=== PATIENT | female | born 1960 | race Caucasian/White ===

== ENCOUNTER → 2017-10-15 17:12 | Outpatient (CLI) | payer OTHER, SELFPAY ==
--- NOTE | 2017-10-15 17:12 | RAD_ITS ---
STUDY: X-RAY CHEST REASON FOR EXAM: Female, 57 years old. Chest pain and cough, fever TECHNIQUE: PA and lateral views of the chest. COMPARISON: 2011 FINDINGS: The lungs are clear and expanded. There is no demonstrated pleural abnormality. Normal size heart. Normal mediastinum and cecily. Normal visualized pulmonary arteries. Normal visualized aortic arch and descending thoracic aorta. Normal visualized thoracic spine. Normal visualized ribs, clavicles, and shoulders. There is no demonstrated abnormality of the visualized soft tissue structures of the upper abdomen. RAD/Chest PA and Lateral IMPRESSION: Normal x-ray examination of the chest. Electronically Signed: Jose Maria MD at 14:14 EDT , Service support ,
--- NOTE | 2017-10-15 17:12 | DT_ITS ---
This patient was seen during an EMR downtime October 14, 2017 - October 21, 2017. This patient may have a combination of paper and electronic documentation or all paper documentation. All documentation is viewable within the e-chart portion of [facility] for each patient visit.
== END ==
PROVIDERS: Family Provider Family Medicine; PCP Family Medicine; Visit Provider Family Medicine
DX: J40 Bronchitis, not specified as acute or chronic (principal)
CPT/HCPCS: 71046

== ENCOUNTER → 2018-04-14 14:42 | Outpatient (CLI) | payer OTHER, SELFPAY ==
[2018-04-14 16:04] LABS: Absolute Lymphocyte Count 1.43 X10^3/ul (0.83-4.51); Absolute Neutrophil Count 3.3 X10^3/uL (2.0-7.7); Basophil# 0.03 X10^3/uL; Basophil% 0.6 % (0-1); Eosinophil# 0.19 X10^3/uL; Eosinophils% 3.5 % (0-5); Hematocrit 38.4 % (37-47); Hemoglobin 12.9 g/dl (12.0-15.0); Lymphocyte # 1.43 X10^3/ul (4.0); Lymphocyte % 26.5 % (19-41); Mean Corp Hgb Conc 33.6 g/gl (32-36); Mean Corpuscular Volume 86.3 fL (81-99); Mean Platelet Vol. 9.9 fl (6.2-12.0); Monocyte# 0.42 X10^3/uL; Monocyte% 7.8 % (0-10); Neutrophil # 3.31 X10^3/uL (2.7-7.7); Neutrophil % 61.2 % (47-70); Platelet Count 274 K/mm3 (150-450); RBC Distribution Width CV 13.9 % (11.6-14.6); RBC Distribution Width SD 42.8 fl (35.1-43.9); Red Blood Count 4.45 M/mm3 (4.2-5.4); White Blood Count 5.4 K/mm3 (4.4-11.0)
[2018-04-14 16:08] LABS: POSITIVE COUNT NO; POSITIVE DIFFERENTIAL NO; POSITIVE MORPHOLOGY NO
[2018-04-14 16:33] LABS: Vitamin D,25 Hydroxy 24.7 ng/mL (29.95-100.01)
[2018-04-14 16:34] LABS: Anion Gap 9 (5-15); BUN 15 mg/dL (7-18); BUN/Creat Ratio 20.4 RATIO (10-20); Calcium,Total 8.8 mg/dL (8.5-10.1); Chloride 105 mmol/L (98-107); Cholesterol 203 mg/dL (200); Creatinine, Serum 0.73 mg/dL (0.55-1.02); EST Glomerular Filtration Rate 86 mL/min (>60); Est Glom Filt Rate - Afr Amer 104 mL/min (>60); Glucose 92 mg/dL (74-106); High Density Lipoprotein 54 mg/dL; Sodium Level 143 mmol/L (136-145); Thyroid Stim Hormone (TSH) 2.62 uIU/mL (0.358-3.74); Triglycerides 92 mg/dL; Very Low Density Lipoprotein 18 mg/dL (5-40)
== END ==
PROVIDERS: Family Provider Family Medicine; PCP Family Medicine; Visit Provider Family Medicine
DX: E55.9 Vitamin D deficiency, unspecified (principal); N64.4 Mastodynia; Z13.29 Encounter for screening for other suspected endocrine disorder; Z13.220 Encounter for screening for lipoid disorders
CPT/HCPCS: 36415; 80048; 80061; 82306; 84443; 85025

== ENCOUNTER → 2018-04-17 13:54 | Outpatient (CLI) | payer OTHER, SELFPAY ==
--- NOTE | 2018-04-17 14:06 | BI_ITS ---
MAMMOGRAPHY - BILATERAL DIAGNOSTIC REASON FOR EXAM: Female, 58 years old. Bilateral breast pain. PERTINENT HISTORY: Grandmother with breast cancer. On with breast cancer. TECHNIQUE: Digital bilateral breast jadyn (3D mammographic acquisition) in the CC and MLO projections. 2-D mediolateral oblique (MLO) and craniocaudad (CC) views of both breasts were obtained. CAD: Full Field Digital Mammography with Computer Added Detection was performed. COMPARISON: Comparison is made with prior examination dated April 12, 2017. FINDINGS: Breast Composition: There are scattered areas of fibroglandular density. There are no dominant masses or suspicious calcifications. No other significant abnormalities are identified. There has been no significant change since the prior study. BI/DIAG MAMM W/CAD, BILAT IMPRESSION: Stable bilateral diagnostic mammogram. One year follow-up recommended. (A) ASSESSMENT CATEGORY: BIRADS Category 1: Negative. A letter regarding these results will be sent to the patient by the facility within 30 days. Approximately 10% of breast cancers are not detected by mammography. A normal mammogram should not delay biopsy of a clinically suspicious abnormality. Electronically Signed: Bello Villegas MD at 15:39 EST Tel [phone], Service support ,
--- NOTE | 2018-04-17 15:01 | US_ITS ---
STUDY: ULTRASOUND BREAST - RIGHT REASON FOR EXAM: Female, 58 years old. Palpable lump in the right breast. TECHNIQUE: Axial and longitudinal images of the RIGHT breast were performed with a high resolution ultrasound transducer. COMPARISON: Comparison is made with prior mammogram dated April 17, 2018. FINDINGS: RIGHT Breast: The inferior half of the right breast was examined by ultrasound. There is a homogeneous fibroglandular tissue. No solid or cystic mass lesion is seen. IMPRESSION: Unremarkable sonographic examination. ASSESSMENT CATEGORY: BIRADS Category 1: Negative. A letter regarding these results will be sent to the patient by the facility within 30 days. Electronically Signed: Bello Villegas MD at 9:10 EST Tel [phone], Service support , STUDY: ULTRASOUND BREAST - LEFT REASON FOR EXAM: Female, 58 years old. Pain in the left breast. TECHNIQUE: Axial and longitudinal images of the LEFT breast were performed with a high resolution ultrasound transducer. COMPARISON: Comparison is made with prior mammogram dated April 17, 2018. FINDINGS: LEFT Breast: The inferior half of the left breast was examined by ultrasound. There is homogeneous fibroglandular tissue. No solid or cystic mass lesion is seen. US/Breast Limited Unilateral IMPRESSION: Unremarkable sonographic examination. ASSESSMENT CATEGORY: BIRADS Category 1: Negative. A letter regarding these results will be sent to the patient by the facility within 30 days. Electronically Signed: Bello Villegas MD at 9:11 EST Tel [phone], Service support ,
== END ==
PROVIDERS: Family Provider Family Medicine; PCP Family Medicine; Referring Provider Family Medicine; Visit Provider Family Medicine
DX: N64.4 Mastodynia (principal)
CPT/HCPCS: 76642; 77062; 77066; G0279

== ENCOUNTER → 2019-01-19 | Outpatient (CLI) | payer OTHER, SELFPAY ==
[2019-01-19 15:30] LABS: ALB/GLOB Ratio 0.9 RATIO (0.9-2.4); AST(SGOT) 22 U/L (15-37); Alanine Aminotransfer ALT/SGPT 24 U/L (13-56); Albumin, Serum 3.5 g/dL (3.2-5.0); Alkaline Phosphatase 87 U/L (45-117); Anion Gap 7 (5-15); BUN 14 mg/dL (7-18); Calcium,Total 9.1 mg/dL (8.5-10.1); Chloride 107 mmol/L (98-107); Cholesterol 191 mg/dL (200); EST Glomerular Filtration Rate 91 mL/min (>60); Est Glom Filt Rate - Afr Amer 110 mL/min (>60); Globulin 3.8 g/dL (2.2-4.2); Glucose 93 mg/dL (74-106); High Density Lipoprotein 53 mg/dL; Potassium 4.1 mmol/L (3.5-5.1); Protein, Total 7.3 g/dL (6.4-8.2); Sodium Level 143 mmol/L (136-145); Triglycerides 97 mg/dL; Very Low Density Lipoprotein 19 mg/dL (5-40)
== END | disposition home or self-care (01) ==
LOC: MFPLAB 12:13
PROVIDERS: Family Provider Family Medicine; PCP Family Medicine; Referring Provider Family Medicine; Visit Provider Family Medicine
DX: K59.00 Constipation, unspecified (principal); E55.9 Vitamin D deficiency, unspecified; Z13.220 Encounter for screening for lipoid disorders
CPT/HCPCS: 36415; 80053; 80061; 82306

== ENCOUNTER → 2019-12-15 | Outpatient (CLI) | payer OTHER, SELFPAY ==
[2019-12-19 17:32] LABS: HPV APTIMA, High Risk Negative (Negative); HPV Reflexed? YES, CHARGE PATIENT
== END | disposition home or self-care (01) ==
LOC: LABSPEC 11:37
PROVIDERS: PCP Family Medicine; Visit Provider Student in an Organized Health Care Education/Training Program
DX: Z12.4 Encounter for screening for malignant neoplasm of cervix (principal)
CPT/HCPCS: 87624; 88175; G0145

== ENCOUNTER → 2019-12-24 | Outpatient (CLI) | payer OTHER, SELFPAY ==
--- NOTE | 2019-12-24 14:22 | BI_ITS ---
MAMMOGRAPHY - BILATERAL SCREENING REASON FOR EXAM: Female, 59 years old. Routine annual screening examination. PERTINENT HISTORY: Grandmother with breast cancer. Aunt with breast cancer. Remote right excisional breast biopsy. TECHNIQUE: Digital bilateral breast balbina (3D mammographic acquisition) in the CC and MLO projections. 2-D mediolateral oblique (MLO) and craniocaudad (CC) views of both breasts were obtained. CAD: Full Field Digital Mammography with Computer Added Detection was performed. COMPARISON: Comparison is made with prior study dated 04/17/2018. FINDINGS: Breast Composition: There are scattered areas of fibroglandular density. There are no dominant masses or suspicious calcifications. Stable benign-appearing bilateral axillary lymph nodes. No other significant abnormalities are identified. There has been no significant change since the prior study. BI/SCREEN MAMM (CAD) W/BALBINA BILAT IMPRESSION: Stable bilateral screening mammogram. Yearly follow-up mammogram recommended. (A) ASSESSMENT CATEGORY: BIRADS Category 2: Benign. A letter regarding these results will be sent to the patient by the facility within 30 days. Approximately 10% of breast cancers are not detected by mammography. A normal mammogram should not delay biopsy of a clinically suspicious abnormality. [id number] Electronically Signed: Bello Villegas, at 15:27 EDT , Service support ,
== END | disposition home or self-care (01) ==
LOC: OPBI 14:20
PROVIDERS: PCP Family Medicine; Referring Provider Student in an Organized Health Care Education/Training Program; Visit Provider Student in an Organized Health Care Education/Training Program
DX: Z12.31 Encounter for screening mammogram for malignant neoplasm of breast (principal)
CPT/HCPCS: 77063; 77067

== ENCOUNTER → 2020-03-22 | Outpatient (CLI) | payer OTHER, SELFPAY | END | disposition home or self-care (01) | LOC: LABSPEC 17:02 | PROVIDERS: PCP Family Medicine; Referring Provider Family Medicine; Visit Provider Family Medicine | DX: R68.89 Other general symptoms and signs (principal) | CPT/HCPCS: 87635; U0003 ==

== ENCOUNTER → 2020-03-28 13:39 | Outpatient (CLI) | payer OTHER, SELFPAY ==
[2020-03-28 16:06] LABS: Vitamin D,25 Hydroxy 45.9 ng/mL
[2020-03-28 16:13] LABS: Anion Gap 6 (5-15); BUN 31 mg/dL (7-18); BUN/Creat Ratio 43.7 RATIO (10-20); Calcium,Total 8.9 mg/dL (8.5-10.1); Chloride 106 mmol/L (98-107); Cholesterol 222 mg/dL (200); Creatinine, Serum 0.71 mg/dL (0.55-1.02); EST Glomerular Filtration Rate 89 mL/min (>60); Est Glom Filt Rate - Afr Amer 107 mL/min (>60); Glucose 90 mg/dL (74-106); High Density Lipoprotein 66 mg/dL; Potassium 4.4 mmol/L (3.5-5.1); Sodium Level 140 mmol/L (136-145); Triglycerides 67 mg/dL; Very Low Density Lipoprotein 13 mg/dL (5-40)
== END ==
PROVIDERS: PCP Family Medicine; Visit Provider Family Medicine
DX: Z00.00 Encounter for general adult medical examination without abnormal findings (principal); E55.9 Vitamin D deficiency, unspecified; Z13.220 Encounter for screening for lipoid disorders
CPT/HCPCS: 36415; 80048; 80061; 82306

== ENCOUNTER → 2021-04-17 15:13 | Outpatient (CLI) | payer OTHER, SELFPAY ==
[2021-04-17 18:22] LABS: Anion Gap 7 (5-15); BUN 16 mg/dL (7-18); BUN/Creat Ratio 23.7 RATIO (10-20); Calcium,Total 9.5 mg/dL (8.5-10.1); Chloride 104 mmol/L (98-107); Cholesterol 233 mg/dL (200); Creatinine, Serum 0.68 mg/dL (0.55-1.02); EST Glomerular Filtration Rate 94 mL/min (>60); Est Glom Filt Rate - Afr Amer 113 mL/min (>60); Glucose 95 mg/dL (74-106); High Density Lipoprotein 62 mg/dL; Potassium 4.3 mmol/L (3.5-5.1); Sodium Level 141 mmol/L (136-145); Triglycerides 131 mg/dL; Very Low Density Lipoprotein 26 mg/dL (5-40)
== END ==
PROVIDERS: PCP Family Medicine; Referring Provider Family Medicine; Visit Provider Family Medicine
DX: E55.9 Vitamin D deficiency, unspecified (principal); Z13.1 Encounter for screening for diabetes mellitus; Z13.220 Encounter for screening for lipoid disorders
CPT/HCPCS: 36415; 80048; 80061; 82306

== ENCOUNTER 2021-06-22 12:10 | Outpatient (CLI) | payer OTHER, SELFPAY ==
--- NOTE | 2021-06-22 12:14 | BI_ITS ---
MAMMOGRAPHY - BILATERAL SCREENING REASON FOR EXAM: Female, 61 years old. Routine annual screening examination. PERTINENT HISTORY: Grandmother with breast cancer. Aunt with breast cancer. Remote right excisional breast biopsy. TECHNIQUE: Digital bilateral breast balbina (3D mammographic acquisition) in the CC and MLO projections. 2-D mediolateral oblique (MLO) and craniocaudad (CC) views of both breasts were obtained. CAD: Full Field Digital Mammography with Computer Added Detection was performed. COMPARISON: Comparison is made with prior study dated 12/24/2019 and 04/17/2018. FINDINGS: Breast Composition: There are scattered areas of fibroglandular density. There are no dominant masses or suspicious calcifications. No other significant abnormalities are identified. There has been no significant change since the prior study. BI/SCRN MAMM (CAD)W/BALBINA BILAT IMPRESSION: Stable bilateral screening mammogram. Yearly follow-up mammogram recommended. (A) ASSESSMENT CATEGORY: BIRADS Category 1: Negative. A letter regarding these results will be sent to the patient by the facility within 30 days. Approximately 10% of breast cancers are not detected by mammography. A normal mammogram should not delay biopsy of a clinically suspicious abnormality. [id number] Electronically Signed: Bello Villegas MD at 8:08 EST ,
== END 2021-06-22 23:59 | disposition home or self-care (01) ==
LOC: OPBI 12:12
PROVIDERS: PCP Family Medicine; Referring Provider Student in an Organized Health Care Education/Training Program; Visit Provider Student in an Organized Health Care Education/Training Program
DX: Z12.31 Encounter for screening mammogram for malignant neoplasm of breast (principal)
CPT/HCPCS: 77063; 77067

== ENCOUNTER → 2022-06-04 | Outpatient (CLI) | payer OTHER, SELFPAY ==
[2022-06-04 18:05] LABS: Anion Gap 10 (5-15); BUN 22 mg/dL (7-18); BUN/Creat Ratio 28.8 RATIO (10-20); Calcium,Total 9.8 mg/dL (8.5-10.1); Chloride 103 mmol/L (98-107); Cholesterol 243 mg/dL (200); Creatinine, Serum 0.76 mg/dL (0.55-1.02); EST Glomerular Filtration Rate 81 mL/min (>60); Est Glom Filt Rate - Afr Amer 98 mL/min (>60); Glucose 95 mg/dL (74-106); High Density Lipoprotein 70 mg/dL; Potassium 4.4 mmol/L (3.5-5.1); Sodium Level 139 mmol/L (136-145); Triglycerides 76 mg/dL; Very Low Density Lipoprotein 15 mg/dL (5-40)
[2022-06-04 18:18] LABS: Vitamin D,25 Hydroxy 67.6 ng/mL
== END | disposition home or self-care (01) ==
LOC: MFPLAB 15:17
PROVIDERS: PCP Family Medicine; Visit Provider Family Medicine
DX: Z13.1 Encounter for screening for diabetes mellitus (principal); Z13.220 Encounter for screening for lipoid disorders; E55.9 Vitamin D deficiency, unspecified
CPT/HCPCS: 36415; 80048; 80061; 82306

== ENCOUNTER → 2022-06-27 | Outpatient (CLI) | payer OTHER, SELFPAY ==
[2022-07-04 20:29] LABS: HPV APTIMA, High Risk Negative (Negative)
== END | disposition home or self-care (01) ==
PROVIDERS: PCP Family Medicine; Visit Provider Student in an Organized Health Care Education/Training Program
DX: Z12.4 Encounter for screening for malignant neoplasm of cervix (principal)
CPT/HCPCS: 87624; 88175; G0145

== ENCOUNTER → 2022-07-02 | Outpatient (CLI) | payer OTHER, SELFPAY ==
--- NOTE | 2022-07-02 15:08 | BI_ITS ---
MAMMOGRAPHY - BILATERAL SCREENING REASON FOR EXAM: Female, 62 years old. Routine annual screening examination. PERTINENT HISTORY: Grandmother with breast cancer. Aunt with breast cancer. Remote right excisional breast biopsy. TECHNIQUE: Digital bilateral breast balbina (3D mammographic acquisition) in the CC and MLO projections. 2-D mediolateral oblique (MLO) and craniocaudad (CC) views of both breasts were obtained. CAD: Full Field Digital Mammography with Computer Added Detection was performed. COMPARISON: Comparison is made with prior study of 06/22/2021 and 12/24/2019. FINDINGS: Breast Composition: There are scattered areas of fibroglandular density. There are no dominant masses or suspicious calcifications. No other significant abnormalities are identified. There has been no significant change since the prior study. BI/SCRN MAMM (CAD)W/BALBINA BILAT IMPRESSION: Stable bilateral screening mammogram. Yearly follow-up mammogram recommended. (A) ASSESSMENT CATEGORY: BIRADS Category 1: Negative. A letter regarding these results will be sent to the patient by the facility within 30 days. Approximately 10% of breast cancers are not detected by mammography. A normal mammogram should not delay biopsy of a clinically suspicious abnormality. [id number] Electronically Signed: Bello Villegas MD at 15:48 EST ,
== END | disposition home or self-care (01) ==
LOC: OPBI 15:07
PROVIDERS: PCP Family Medicine; Visit Provider Student in an Organized Health Care Education/Training Program
DX: Z12.31 Encounter for screening mammogram for malignant neoplasm of breast (principal)
CPT/HCPCS: 77063; 77067

== ENCOUNTER → 2023-05-24 | Outpatient (CLI) | payer MEDICARE, OTHER, SELFPAY ==
--- OUTSIDE RECORDS SUMMARY | 2023-05-24 12:39 | XMS RPT_ITS | CCD ---
Author Name Unknown Address [address] [place] [address] Organization [facility] Care Team Providers Care [employer] Name Role Phone Tahmina Sargent MD Primary Care Provider TAHMINA SARGENT Primary Care Unavailable MURALI MENG Attending Unavailable TAHMINA SARGENT Primary Care Unavailable Medications Current Medications Medication Drug Class(es) Dates Sig (Normalized) Sig (Original) benoxinate hydrochloride 4 mg/ml / fluorescein sodium 2.5 mg/ml ophthalmic solution (1 source) Diagnostic Dye Start: 09-05-2021 End: 09-06-2021 fluorescein-benox inate 0.25-0.4 % 1 Drop (FLURESS) nystatin [id number] unt/ml topical cream (2 sources) Polyene Antifungal Start: 04-17-2023 End: 04-24-2023 nystatin (MYCOSTATIN) cream Apply to affected area two times a day for 7 days. 15 g 0 04/17/2023 04/24/2023 Active Completed/Discontinued Medications Medication Drug Class(es) Dates Sig (Normalized) Sig (Original) amitriptyline hydrochloride 150 mg oral tablet (3 sources) Tricyclic Antidepressant Start: 03-22-2009 AMITRIPTYLINE 150 MG TAB Take two 75mg tablets at bedtime. 0 03/22/2009 Active Problems Active Problems Problem Classification Problem Date Documented Da te Episodic/Chronic Abdominal pain (3 sources) Abdominal pain; Translations: [Unspecified abdominal pain] 03-19-2008 Episodic Bacterial infection; unspecified site (3 sources) Bacteremia; Translations: [Bacteremia] 03-19-2008 Episodic Disorders of lipid metabolism (3 sources) Pure hypercholesterolemia; Translations: [Pure hypercholesterolemia, unspecified] 03-19-2008 Chronic Headache; including migraine (3 sources) Migraine; Translations: [Other migraine, not intractable, without status migrainosus] 03-19-2008 Chronic Miscellaneous mental health disorders (3 sources) Non-organic sleep disorder; Translations: [Sleep disorder not due to a substance or known physiological condition, unspecified] 03-19-2008 Chronic Mood disorders (3 sources) Depressive disorder; Translations: [Other specified depressive episodes] 03-19-2008 Chronic Other circulatory disease (1 source) Elevated blood-pressure reading without diagnosis of hypertension; Translations: [Elevated blood-pressure reading, without diagnosis of hypertension] 04-17-2023 Episodic Other connective tissue disease (3 sources) Muscle pain; Translations: [Myalgia and myositis, unspecified] 03-19-2008 Episodic Other eye disorders (1 source) Vitreomacular adhesion of bilateral eyes; 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, bilateral] Chronic Other female genital disorders (1 source) Pruritus of vagina; Translations: [Other specified noninflammatory disorders of vagina] 04-17-2023 Episodic Other gastrointestinal disorders (3 sources) Irritable bowel syndrome; Translations: [Irritable bowel syndrome without diarrhea] 03-19-2008 Chronic Other inflammatory condition of skin (3 sources) Rosacea; Translations: [Rosacea, unspecified] Onset: 01-23-2005 01-23-2005 Chronic Other inflammatory condition of skin (3 sources) Pruritus of genital organs; Translations: [Anogenital pruritus, unspecified] 03-19-2008 Episodic Systemic lupus erythematosus and connective tissue disorders (3 sources) Disorder of connective tissue; Translations: [Systemic involvement of connective tissue, unspecified] Onset: 01-23-2005 01-23-2005 Chronic Past or Other Problems Problem Classification Problem Date Documented Da te Episodic/Chronic Benign neoplasm of uterus (3 sources) Submucous leiomyoma of uterus; Translations: [Submucous leiomyoma of uterus] Onset: 11-23-2014 11-23-2014 Episodic Nonmalignant breast conditions (3 sources) Breast lump; Translations: [Unspecified lump in unspecified breast] Onset: 04-25-2010 04-25-2010 Episodic Other and unspecified benign neoplasm (3 sources) Benign neoplasm of skin; Translations: [Other benign neoplasm of skin, unspecified] Onset: 01-23-2005 01-23-2005 Episodic Other female genital disorders (1 source) Polyp of corpus uteri; Translations: [Polyp of corpus uteri] Onset: 11-23-2014 11-23-2014 Episodic Other female genital disorders (2 sources) Polyp of corpus uteri; Translations: [Polyp of corpus uteri] Onset: 11-23-2014 11-23-2014 Episodic Other inflammatory condition of skin (3 sources) Seborrheic dermatitis; Translations: [Other seborrheic dermatitis] Onset: 01-23-2005 01-23-2005 Episodic Residual codes; unclassified (3 sources) Family history of cancer; Translations: [Family history of malignant neoplasm of other organs or systems] Onset: 01-23-2005 01-23-2005 Episodic Results Test Name Value Interpretation Reference Range Facil ity Vital Signs Date Time Vital Sign Value Performing Clinician Jeremy lity 04-17-2023 16:35-0500 Body temperature 98.01 [degF] Krislyreggie Aberegg PA Work Phone: [facility] 04-17-2023 16:35-0500 Body weight 83.28 kg Krislyn Aberegg PA Work Phone: [facility] 04-17-2023 16:35-0500 Diastolic blood pressure 104 mm[Hg] Krislyn Aberegg PA Work Phone: [facility] 04-17-2023 16:35-0500 Heart rate 82 /min Krislyn Aberegg PA Work Phone: [facility] 04-17-2023 16:35-0500 Respiratory rate 18 /min Krislyn Aberegg PA Work Phone: [facility] 04-17-2023 16:35-0500 SaO2% (BldA) [Mass fraction] 98 % Krislyn Aberegg PA Work Phone: [facility] 04-17-2023 16:35-0500 Systolic blood pressure 166 mm[Hg] Krislyn Aberegg PA Work Phone: [facility] Encounters Encounter Date Encounter Type Care Provider Facility Start: 04-18-2023 Telephone encounter Bruno Zacarias PA Work Phone: [facility] Procedures Date Procedure Procedure Detail Performing Clinician Start: 09-05-2021 Computerized ophthal tabitha imaging retina Murali Meng MD Work Phone: Start: 04-12-2017 Mammography Murali perkins MD Work Phone: Start: 08-02-2014 Colonoscopy Murali perkins MD Work Phone: Start: 12-31-2012 Lipid 1996 panel - S shiv or Plasma Bruno ROCHE Work Phone: Plan of Treatment Date Care Activity Detail Author Start: 04-17-2031 Urine microalbumin profile DTaP,Tdap,Td Vaccine (2 - Td or Tdap) [facility] Start: 08-02-2024 Colonoscopy COLONOSCOPY [facility] Start: 08-02-2024 COLORECTAL CANCER SCREENING COLORECTAL CANCER SCREENING [facility] Start: 05-22-2023 Shingrix Vaccine (2 of 2) Shingrix Vaccine (2 of 2) [facility] Start: 01-11-2023 Covid-19 Vaccine ( season) Covid-19 Vaccine ( season) [facility] Start: 01-11-2023 Influenza vaccination Influenza Vaccine (#1) [facility] Start: 2023 Advance Directive Discussion Advance Directive Discussion [facility] Start: 2023 Bone Density Screening Bone Density Screening [facility] Start: 2023 Pneumococcal Vaccine: 65+ (2 - PCV) Pneumococcal Vaccine: 65+ (2 - PCV) [facility] Start: 04-12-2022 HPV TESTING HPV TESTING [facility] Start: 04-12-2022 PAP TESTING PAP TESTING [facility] Start: 04-12-2018 Mammography [facility] Start: 2018 RSV Vaccine (1 - 1-dose 60+ series) RSV Vaccine (1 - 1-dose 60+ series) [facility] Start: 12-31-2017 Lipid 1996 panel - Serum or Plasma Lipid Screening [facility] Start: 12-31-2017 LIPID SCREEN LIPID SCREEN [facility] Start: 01-01-2016 DIABETES SCREEN DIABETES SCREEN [facility] Start: 01-01-2016 Diabetes Screening Diabetes Screening [facility] Start: 07-21-2015 FECAL OCCULT BLOOD FECAL OCCULT BLOOD [facility] Start: 01-04-2008 SHINGRIX VACCINE (1 of 2) SHINGRIX VACCINE (1 of 2) [facility] Start: 2003 COLOGUARD (FIT-DNA) COLOGUARD (FIT-DNA) [facility] Start: [address] COLONOGRAPHY [facility] Start: 2003 SIGMOIDOSCOPY SIGMOIDOSCOPY [facility] Start: 1977 Urine microalbumin profile DTAP,TDAP,TD (1 - Tdap) [facility] Start: 01-04-1976 HEPATITIS C SCREENING HEPATITIS C SCREENING [facility] Start: 01-04-1976 HIV SCREENING HIV SCREENING [facility] BACTERIAL VAGINOSIS NAAT BACTERI AL VAGINOSIS NAAT Lab Routine Vaginal itching 04/17/2023 7:24 PM EST [facility] Work Phone: WICHO/TRICHOMONAS NAAT WICHO /TRICHOMONAS NAAT Lab Routine Vaginal itching 04/17/2023 7:24 PM EST [facility] Work Phone: [facility] Immunizations Immunization Date Immunization Notes Care Provider Fa cili 01-28-2022 influenza virus vacc ine, unspecified formulation Bruno ROCHE Work Phone: [facility] Payers Date Payer Category Payer Medicare MEDICARE MEDICAR E A AND B [id number] 2022-Present [phone] [address] [address] [place] [address] Medicare [id number] 2022 Medicare [id number] 2018 Unknown MMO MMO [employer] [id number] 2018-Present [phone] [address] [place] [address] PPO [id number] 2018 Unknown [id number] Social History Date Type Detail Facility Start: 04-17-2023 Tobacco smoking stat us NHIS Never smoked tobacco [facility] Start: 09-05-2021 End: 04-17-2023 Alcohol intake Current non-drinker of alcohol (finding) [facility] Start: 1960 Sex Assigned At Female C [facility] Start: 04-17-2023 Tobacco use and exposure Smokeless t obacco non-user [facility] Start: 04-16-2020 End: 04-17-2023 History of Social function [facility] Start: 04-16-2020 End: 04-17-2023 Tobacco use panel [facility] National Score (1-10 0), lower number is lower risk Not on file [facility] Start: 11-15-2020 Gender identity Identifies as female gender (finding) [facility] Medical Equipment Procedure Code Equipment Code Equipment Origin al Text Equipment Identifier Dates Gas [employer] [id number] - [id number] Start: 04-13-2020 Note 04-18-2023 Telephone Encounter - Iris Roland MA - 04/18/2023 1:15 PM ESTTelephone Encounter - Bruno Zacarias PA - 04/18/2023 11:35 AM EST Note Date & Type Note Facility 04-18-2023 Miscellaneous Notes Formattin g of this note might be different from the original. Patient notified of results, verbalized understanding of instructions given. Iris Roland MA Please call patient let her know she was negative for yeast and bacterial vaginosis. Follow-up with women's health as discussed at visit. documented in this encounter [facility] Progress note 04-17-2023 Note Date & Type Note Facility 04-17-2023 Note HNO ID: [id number] Author: Bruno Zacarias PA Service: ? Author Type: Physician Welder Setter Resistance Machine Type: Progress Notes Filed: 04/17/2023 5:00 PM Note Text: This note was created using NoteWriter. Subjective Shena Quiñones is a 63 year old female. HPI 83-year-old female presents for vaginal itching. Patient states she has had vaginal itching for the past few months. She states she thinks she scratched her today and she had some bleeding. She has not had vaginal bleeding before. She states that she thinks the bleeding was from the external vulva. She states that she has not had any abnormal discharge. No rash. States she was seen by dermatology a few months ago and given miconazole cream. She states she thought it got a little bit better, but then the itching returned. She has tried fnzy-zgf-upgyvct medications. She has changed soaps and nothing seems to be helping. No concern for STD. No abdominal pain, pelvic pain. No abnormal vaginal bleeding. No urinary symptoms. History of hysterectomy. PAST MEDICAL HISTORY Diagnosis Date Abdominal pain, other specified site Bacteremia Depressive disorder, not elsewhere classified Irritable bowel syndrome Myalgia and myositis, unspecified Nonorganic sleep disorder, unspecified Other forms of migraine, without mention of intractable migraine without mention of status migrainosus Pruritus of genital organs Pure hypercholesterolemia Snoring Unspecified constipation Vitreomacular adhesion of both eyes PAST SURGICAL HISTORY Procedure Laterality Date BREAST BIOPSY 1983 right breast- benign COLONOSCOPY FLX DX W/COLLJ SPEC WHEN PFRMD 06/15/2008 Colonoscopy COLONOSCOPY FLX DX W/COLLJ SPEC WHEN PFRMD 08/02/14 Colonoscopy HYSTEROSCOPY DX 10/28/2014 with removal of leiomyomata PAST SURGICAL HISTORY OF Left 04/13/2020 PPV TONSILLECTOMY PRIMARY/SECONDARY Tonsillectomy and adnoids VITRECTOMY FOR MACULAR HOLE Right 05/2018 VITRECTOMY FOR MACULAR HOLE Left 04/13/2020 s/p PPV/MS/22% SF6 gas OS 04/13/20 XCAPSL CTRC RMVL INSJ IO LENS PROSTH W/O ECP Right 11/05/2019 Cataract Extraction with PC IOL XCAPSL CTRC RMVL INSJ IO LENS PROSTH W/O ECP Left 11/17/2019 Cataract Extraction with PC IOL YAG CAPSULOTOMY OD (RIGHT EYE) Right 07/2020 YAG CAPSULOTOMY OS (LEFT EYE) Left 07/2020 ALLERGIES Patient has no known allergies. MEDICATIONS diclofenac sodium (VOLTAREN) 1 % topical gel glucosam/linda-msm1/C/shorty/bosw (OSTEO BI-FLEX TRIPLE STRENGTH ORAL) AMITRIPTYLINE 150 MG TAB Take two 75mg tablets at bedtime. MULTIVITAMIN TAB Take one(1) tablet daily. MIRALAX 17 G (100 %) ORAL PACK prn nystatin (MYCOSTATIN) cream Apply to affected area two times a day for 7 days. metroNIDAZOLE (METROGEL) 0.75 % Topical Gel (Patient not taking: Reported on 10/02/2022) FAMILY HISTORY Problem Relation Age of Onset None Mother None Father None Maternal Grandmother None Maternal Grandfather Breast Cancer Paternal Grandmother None Paternal Grandfather None Brother None Brother None Brother None Sister Breast Cancer Paternal Aunt Social History Tobacco Use Smoking status: Never Smokeless tobacco: Never Vaping Use Vaping Use: Never used Substance Use Topics Alcohol use: No Drug use: No Review of Systems Constitutional: Negative for chills and fever. HENT: Negative for congestion, ear pain and sore throat. Respiratory: Negative for cough and shortness of breath. Cardiovascular: Negative for chest pain. Gastrointestinal: Negative for diarrhea and vomiting. Genitourinary: Negative for pelvic pain, vaginal bleeding, vaginal discharge and vaginal pain. + Vaginal itching/irritation Objective BP 166/104 Pulse 82 Temp 36.7 ?C (98 ?F) Resp 18 Wt 83.3 kg (183 lb 9.6 oz) LMP 12/25/2008 SpO2 98% BMI 29.63 kg/m? Physical Exam Vitals and nursing note reviewed. Exam conducted with a food counselor present. Constitutional: General: She is not in acute distress. Appearance: Normal appearance. She is not toxic-appearing. Cardiovascular: Rate and Rhythm: Normal rate and regular rhythm. Pulmonary: Effort: Pulmonary effort is normal. Breath sounds: Normal breath sounds. Abdominal: General: Abdomen is flat. Palpations: Abdomen is soft. Tenderness: There is no abdominal tenderness. Genitourinary: Vagina: Erythema present. No vaginal discharge, bleeding or lesions. Uterus: Absent. Adnexa: Right adnexa normal and left adnexa normal. Comments: External vulva appears reddened, irritated. No rash. No lesions present. No vaginal bleeding. No abnormal discharge. Skin: General: Skin is warm and dry. Neurological: Mental Status: She is alert. Assessment and Plan ASSESSMENT/PLAN: 1. Vaginal itching - ICD9: 698.1, ICD10: N89.8 (primary diagnosis) -Discussed with patient that the itching could be from possible atrophic vaginitis? She does have redness, irritation and is postmenopausal. Discussed she ne (more content not included)... [facility] History of Present illness Narrative 04-17-2023 Bruno Zacarias PA - 04/17/2023 4:54 PM EST Note Date & Type Note Facility 04-17-2023 History of Presen t illness Narrative This note was created using [employer]. Subjective Shnea Quiñones is a 63 year old female. HPI 83-year-old female presents for vaginal itching. Patient states she has had vaginal itching for the past few months. She states she thinks she scratched her today and she had some bleeding. She has not had vaginal bleeding before. She states that she thinks the bleeding was from the external vulva. She states that she has not had any abnormal discharge. No rash. States she was seen by dermatology a few months ago and given miconazole cream. She states she thought it got a little bit better, but then the itching returned. She has tried bscc-opo-jhmclzk medications. She has changed soaps and nothing seems to be helping. No concern for STD. No abdominal pain, pelvic pain. No abnormal vaginal bleeding. No urinary symptoms. History of hysterectomy. PAST MEDICAL HISTORY Diagnosis Date Abdominal pain, other specified site Bacteremia Depressive disorder, not elsewhere classified Irritable bowel syndrome Myalgia and myositis, unspecified Nonorganic sleep disorder, unspecified Other forms of migraine, without mention of intractable migraine without mention of status migrainosus Pruritus of genital organs Pure hypercholesterolemia Snoring Unspecified constipation Vitreomacular adhesion of both eyes PAST SURGICAL HISTORY Procedure Laterality Date BREAST BIOPSY 1983 right breast- benign COLONOSCOPY FLX DX W/COLLJ SPEC WHEN PFRMD 06/15/2008 Colonoscopy COLONOSCOPY FLX DX W/COLLJ SPEC WHEN PFRMD 08/02/14 Colonoscopy HYSTEROSCOPY DX 10/28/2014 with removal of leiomyomata PAST SURGICAL HISTORY OF Left 04/13/2020 PPV TONSILLECTOMY PRIMARY/SECONDARY <AGE 10 Tonsillectomy and adnoids VITRECTOMY FOR MACULAR HOLE Right 05/2018 VITRECTOMY FOR MACULAR HOLE Left 04/13/2020 s/p PPV/MS/22% SF6 gas OS 04/13/20 XCAPSL CTRC RMVL INSJ IO LENS PROSTH W/O ECP Right 11/05/2019 Cataract Extraction with PC IOL XCAPSL CTRC RMVL INSJ IO LENS PROSTH W/O ECP Left 11/17/2019 Cataract Extraction with PC IOL YAG CAPSULOTOMY OD (RIGHT EYE) Right 07/2020 YAG CAPSULOTOMY OS (LEFT EYE) Left 07/2020 ALLERGIES Patient has no known allergies. MEDICATIONS diclofenac sodium (VOLTAREN) 1 % topical gel glucosam/linda-msm1/C/shorty/bosw (OSTEO BI-FLEX TRIPLE STRENGTH ORAL) AMITRIPTYLINE 150 MG TAB Take two 75mg tablets at bedtime. MULTIVITAMIN TAB Take one(1) tablet daily. MIRALAX 17 G (100 %) ORAL PACK prn nystatin (MYCOSTATIN) cream Apply to affected area two times a day for 7 days. metroNIDAZOLE (METROGEL) 0.75 % Topical Gel (Patient not taking: Reported on 10/02/2022) FAMILY HISTORY Problem Relation Age of Onset None Mother None Father None Maternal Grandmother None Maternal Grandfather Breast Cancer Paternal Grandmother None Paternal Grandfather None Brother None Brother None Brother None Sister Breast Cancer Paternal Aunt Social History Tobacco Use Smoking status: Never Smokeless tobacco: Never Vaping Use Vaping Use: Never used Substance Use Topics Alcohol use: No Drug use: No Review of Systems Constitutional: Negative for chills and fever. HENT: Negative for congestion, ear pain and sore throat. Respiratory: Negative for cough and shortness of breath. Cardiovascular: Negative for chest pain. Gastrointestinal: Negative for diarrhea and vomiting. Genitourinary: Negative for pelvic pain, vaginal bleeding, vaginal discharge and vaginal pain. + Vaginal itching/irritation Objective BP 166/104 Pulse 82 Temp 36.7 C (98 F) Resp 18 Wt 83.3 kg (183 lb 9.6 oz) LMP 12/25/2008 SpO2 98% BMI 29.63 kg/m Physical Exam Vitals and nursing note reviewed. Exam conducted with a food counselor present. Constitutional: General: She is not in acute distress. Appearance: Normal appearance. She is not toxic-appearing. Cardiovascular: Rate and Rhythm: Normal rate and regular rhythm. Pulmonary: Effort: Pulmonary effort is normal. Breath sounds: Normal breath sounds. Abdominal: General: Abdomen is flat. Palpations: Abdomen is soft. Tenderness: There is no abdominal tenderness. Genitourinary: Vagina: Erythema present. No vaginal discharge, bleeding or lesions. Uterus: Absent. Adnexa: Right adnexa normal and left adnexa normal. Comments: External vulva appears reddened, irritated. No rash. No lesions present. No vaginal bleeding. No abnormal discharge. Skin: General: Skin is warm and dry. Neurological: Mental Status: She is alert. Assessment and Plan ASSESSMENT/PLAN: 1. Vaginal itching - ICD9: 698.1, ICD10: N89.8 (primary diagnosis) -Discussed with patient that the itching could be from possible atrophic vaginitis? She does have redness, irritation and is postmenopausal. Discussed she needs to follow-up with gynecology for treatment for this. -IAlso could possibly be yeast? Will treat with nystatin cream externally since this is where her irritation and itching is present. Will await swab results. If yeast +, will treat with diflucan. - WICHO/TRICHOMONAS NAAT - BACTERIAL VAGINOSIS NAAT - CONSULT TO GYNECOLOGY 2. Elevated blood pressure reading without diagnosis of hypertension - ICD9: 796.2, ICD10: R03.0 -Advised patient to continue monitoring at home. States she is nervous today. Usually does not have high blood pressure. No symptoms at this time. - Encouraged dietary sodium restriction/DASH diet - Recommended regular aerobic exercise. - Recommend home blood pressure monitoring, to bring results in on next visit - Goal of BP <130/80 Diagnosis and treatment plan were discussed and questions were answered to the patient's satisfaction. Pt acknowledged understanding of concepts and follow up plan. Specific signs and symptoms that would indicate the need for higher level of care were discussed in detail warranting prompt ER evaluation. KALEY Chambers documented in this encounter [facility] Instructions 04-17-2023 Patient Instructions Note Date & Type Note Facility 04-17-2023 Instructions Bruno Zacarias PA - 04/17/2023 4:52 PM EST Follow up with Gynecology/womens health for nexta vailable appointment. documented in this encounter [facility] Progress note 10-02-2022 Note Date & Type Note Facility 10-02-2022 Note HNO ID: [id number] Author: Murali Meng MD Service: ? Author Type: Physician Type: Progress Notes Filed: 10/02/2022 11:53 AM Note Text: This is a 60 year old woman with history of macular hole right eye s/p Pars plana vitrectomy/gas 05/[address] Samuels at [facility] ([place], [place]) s/p Pars plana vitrectomy/MS/22% SF6 gas left eye (04/13/2020) for Stage 2 macular hole. Visual acuity is 20/30 RE 20/25 LE and IOP is 18/18. Anterior chamber demonstrates Posterior chamber intraocular lens, DFE shows flat retina with closed hole. OCT shows closed hole with resolution of Subretinal fluid and central EZ/IZ subfoveolar disruption. Would recommend observation at this point. I have confirmed and edited as necessary the relevant ophthalmic history, ROS, and the neuro exam findings as obtained by others. I have seen and examined this patient. I have discussed the case and the management of this patient's care with the Resident/Fellow, if applicable. I also have reviewed and agree with the assessment and plan as stated above and agree with all of its relevant components. [facility] History of Present illness Narrative 09-05-2021 Murali Meng MD - 09/05/2021 3:53 PM EDT Note Date & Type Note Facility 09-05-2021 History of Presen t illness Narrative This is a 60 year old woman with history of macular hole right eye s/p Pars plana vitrectomy/gas 05/[address] Samuels at [facility] ([place], [place]) s/p Pars plana vitrectomy/MS/22% SF6 gas left eye (04/13/2020) for Stage 2 macular hole. Visual acuity is 20/40+2 RE 20/30 LE and IOP is 14 / 123 Anterior chamber demonstrates Posterior chamber intraocular lens, DFE shows flat retina with closed hole. OCT shows closed hole with resolution of Subretinal fluid and central EZ/IZ subfoveolar disruption. Would recommend observation at this point. I have confirmed and edited as necessary the relevant ophthalmic history, ROS, and the neuro exam findings as obtained by others. I have seen and examined this patient. I have discussed the case and the management of this patient's care with the Resident/Fellow, if applicable. I also have reviewed and agree with the assessment and plan as stated above and agree with all of its relevant components. documented in this encounter [facility] Evaluation note Note Date & Type Note Facility documented in this encounter [facility] Evaluation note Note Date & Type Note Facility documented in this encounter [facility] Medications Administered Section Active Administered Medications - up to 3 most recent administrations Medication Order MAR Action Action Date Dose Rate Site fluorescein-benoxinate 0.25-0.4 % 1 Drop (FLURESS) 1 Drop, BOTH EYES, DIRECTED, Starting on Sat09/05/21 at 1400, Until Sat09/06/21 at 0159, Administer for applanation tonometry. In the event of a Fluress shortage, administer 1 drop of Payton-Fluor into both eyes as directed for applanation tonometry., [facility] MED ORD[facility] Given 09/05/2021 2:00 PM EDT 1 Drop PHENYLephrine 2.5 % 1 Drop (AK-DILATE, ELAIS-SYNEPHRINE) 1 Drop, BOTH EYES, DIRECTED, Starting on Sat09/05/21 at 1400, Until Sat09/06/21 at 0159, Administer for dilation PROTECT FROM LIGHT, [facility] MED ORDERS Given 09/05/2021 2:00 PM EDT 1 Drop tropicamide 1 % 1 Drop (MYDRIACYL) 1 Drop, BOTH EYES, DIRECTED, Starting on Sat09/05/21 at 1400, Until Sat09/06/21 at 0159, Administer for dilation, [facility] MED ORDERS Given 09/05/2021 2:00 PM EDT 1 Drop Advance Directives No Advanced Directives Records FoundDocuments on File Type Date Recorded Patient Post Splitter Expl anation Advance Directive(s) 04/11/2020 2:35 PM Reason for Referral Specialty Diagnoses / Procedures Referred By Contac t Referred To Contact Gynecology Diagnoses Vaginal itching Procedures CONSULT TO GYNECOLOGY OFFICE/OUTPATIENT NEW HIGH MDM 60-74 MINUTES [facility] [address] [place] [address] Referral ID Status Reason Start Date Expiration Date Visits Requested Visits Authorized [id number] Authorized PCP Requested Referral Auto-Generate d Referral 04/17/2023 04/16/2024 1 1 Summary Purpose Family History No Family History Records Found Additional Source Comments Source Comments (unrecognize d section and content) In the event this informatio n is protected by the Federal Confidentiality of Alcohol and Drug Abuse Patient Records regulations: The Federal rules restrict any use of the information to criminally investigate or prosecute any alcohol or drug abuse patient.[facility] the event this information is protected by the Federal Confidentiality of Alcohol and Drug Abuse Patient Records regulations: The Federal rules restrict any use of the information to criminally investigate or prosecute any alcohol or drug abuse patient.[facility] the event this information is protected by the Federal Confidentiality of Alcohol and Drug Abuse Patient Records regulations: The Federal rules restrict any use of the information to criminally investigate or prosecute any alcohol or drug abuse patient.[facility] Reason for Visit (unrecogniz ed section and content) Reason Comments Vaginal Problem Itching and bloody x 3 months intermittent Reason Comments Results Care Teams (unrecognized sec tion and content) [employer] Relationship Specialty Start Date End Date Tahmina Sargent MD [id number] [id number] PCP - General 07/01/03 [employer] Relationship Specialty Start Date End Date Tahmina Sargent MD [address] [phone] PCP - General 07/01/03 INFORMATION SOURCE (unrecogn ized section and content) FOR RECORDS PERTAINING TO PATIENTS WHO ARE OR HAVE BEEN ENROLLED IN A CHEMICAL DEPENDENCY/SUBSTANCEABUSE PROGRAM, SOME INFORMATION MAY BE OMITTED. This clinical summary was aggregated from multiple sources. Caution should be exercised in using it in the provision of clinical care. This summary normalizes information from multiple sources, and as a consequence, information in this document may materially change the coding, format and clinical context of patient data. In addition, data may be omitted in some cases. CLINICAL DECISIONS SHOULD BE BASED ON THE PRIMARY CLINICAL RECORDS. [facility] [employer], [facility]. provides no warranty or guarantee of the accuracy or completeness of information in this document.
[2023-05-24 15:35] LABS: Absolute Lymphocyte Count 1.13 X10^3/uL (0.83-4.51); Absolute Neutrophil Count 2.7 X10^3/uL (2.0-7.7); Basophil# 0.03 X10^3/uL; Basophil% 0.7 % (0-1); Eosinophil# 0.26 X10^3/uL; Eosinophils% 5.8 % (0-5); Hemoglobin 13.1 g/dL (12.0-15.0); Lymphocyte # 1.13 X10^3/ul (0.83-4.51); Lymphocyte % 25.1 % (19-41); Mean Corp Hgb Conc 32.8 g/dL (32-36); Mean Corpuscular Hgb 29.6 pg (27.0-32.0); Mean Corpuscular Volume 90.3 fL (81-99); Mean Platelet Vol. 9.7 fl (6.2-12.0); Monocyte# 0.41 X10^3/uL; Monocyte% 9.1 % (0-10); NRBC Flagged by Analyzer 0 % (0-5); Neutrophil # 2.67 X10^3/uL (2.7-7.7); Neutrophil % 59.1 % (47-70); Platelet Count 264 K/mm3 (150-450); RBC Distribution Width CV 13.7 % (11.6-14.6); RBC Distribution Width SD 45.3 fl (35.1-43.9); Red Blood Count 4.43 M/mm3 (4.2-5.4); White Blood Count 4.5 K/mm3 (4.4-11.0)
[2023-05-24 16:18] LABS: ALB/GLOB Ratio 0.9 RATIO (0.9-2.4); AST(SGOT) 28 U/L (15-37); Alanine Aminotransfer ALT/SGPT 31 U/L (13-56); Albumin, Serum 3.7 g/dL (3.2-5.0); Alkaline Phosphatase 78 U/L (45-117); Anion Gap 6 (5-15); BUN 16 mg/dL (7-18); BUN/Creat Ratio 22.3 RATIO (10-20); Calcium,Total 9.1 mg/dL (8.5-10.1); Chloride 105 mmol/L (98-107); Cholesterol 227 mg/dL (200); Creatinine, Serum 0.72 mg/dL (0.55-1.02); EST Glomerular Filtration Rate 87 mL/min (>60); Est Glom Filt Rate - Afr Amer 105 mL/min (>60); Globulin 3.9 g/dL (2.2-4.2); Glucose 91 mg/dL (74-106); High Density Lipoprotein 69 mg/dL; Protein, Total 7.6 g/dL (6.4-8.2); Sodium Level 139 mmol/L (136-145); Triglycerides 74 mg/dL; Very Low Density Lipoprotein 15 mg/dL (5-40)
== END | disposition home or self-care (01) ==
LOC: BIMLAB 12:10
PROVIDERS: PCP Internal Medicine; Referring Provider Internal Medicine; Visit Provider Internal Medicine
DX: F51.04 Psychophysiologic insomnia (principal); Z13.6 Encounter for screening for cardiovascular disorders
CPT/HCPCS: 36415; 80053; 80061; 85025

== ENCOUNTER → 2023-06-19 | Outpatient (CLI) | payer MEDICARE, OTHER, SELFPAY ==
--- NOTE | 2023-06-19 13:30 | BD_ITS ---
STUDY: DUAL ENERGY X-RAY ABSORPTIOMETRY / DXA REASON FOR EXAM: Female, 63 years old. Screening TECHNIQUE: Bone Mineral Density (BMD) measurements of lumbar spine and bilateral hips were obtained. COMPARISON: None. FINDINGS: Lumbar Spine (L1-L4): g/cm2 (0.872) / T-score (-1.0) / Z-score (0.7) Findings are suggestive of osteopenia with a low fracture risk. Left Femur Total: g/cm2 (0.881) / T-score (-0.5) / Z-score (0.8) Left Femoral Neck: g/cm2 (0.696) / T-score (-1.4) / Z-score (0.2) Right Femur Total: g/cm2 (0.861) / T-score (-0.7) / Z-score (0.6) Right Femoral Neck: g/cm2 (0.684) / T-score (-1.5) / Z-score (0.0) BD/Dexa Bone Density Study IMPRESSION: The patient is considered osteopenic as outlined below according to World [employer] Organization (WHO) criteria with a low fracture risk. Reference Information: The T-score is the number of standard deviations above or below the standard which is normal for young adults at their peak bone mineral density. The World Health Organization (WHO) interprets the T-scores as follows: Above -1 Normal bone density Between -1 and -2.5 Osteopenia Equal to / or below -2.5 Osteoporosis As a practical clinical guideline, osteopenia may be graded as follows: Mild -1 through -1.5 Moderate -1.6 through -2.0 Severe -2.1 through -2.4 The Z-score is the number of standard deviations above or below age-matched controls. A Z-score of less than -1.5 would be considered abnormal. References: 1. NIH Osteoporosis and Related Bone Diseases www osteo.org 2. International Society for Clinical Densitometry www iscd.org 3. National Osteoporosis Foundation www nof.org Electronically Signed: Bello Villegas MD at 15:34 EST ,
== END | disposition home or self-care (01) ==
LOC: OPBD 13:27
PROVIDERS: PCP Internal Medicine; Referring Provider Internal Medicine; Visit Provider Internal Medicine
DX: Z78.0 Asymptomatic menopausal state (principal)
CPT/HCPCS: 77080

== ENCOUNTER 2023-07-02 08:26 | Day surgery (SDC) | payer MEDICARE, OTHER, SELFPAY ==
--- OUTSIDE RECORDS SUMMARY | 2023-07-02 08:49 | XMS RPT_ITS | CCD ---
Author Name Unknown Address [address] [facility] [place] [address] [place] [address] Organization [facility] Care Team Providers Care Kitchen Lead Name Role Phone Marin MCKENNA, Tahmina Rice Primary Care Provider TAHMINA SARGENT Primary Care Unavailable FRANCES HERNANDEZ Attending Unavailable FRANCISCO HEREDIA Attending Unavailable TAHMINA SARGENT Primary Care Unavailable TAHMINA SARGENT Primary Care Unavailable MURALI MENG Attending Unavailable TAHMINA SARGENT Primary Care Unavailable Medications Current Medications Medication Drug Class(es) Dates Sig (Normalized) Sig (Original) benoxinate hydrochloride 4 mg/ml / fluorescein sodium 2.5 mg/ml ophthalmic solution (1 source) Diagnostic Dye Start: 09-05-2021 End: 09-06-2021 fluorescein-benoxin ate 0.25-0.4 % 1 Drop (FLURESS) clobetasol propionate 0.0005 mg/mg topical ointment (1 source) Corticosteroid Start: 05-27-2023 End: 05-26-2024 clobetasol (TEMOVATE) 0.05 % ointment Apply 1 application to affected area once daily. 45 g 3 05/27/2023 05/26/2024 Active Completed/Discontinued Medications Medication Drug Class(es) Dates Sig (Normalized) Sig (Original) amitriptyline hydrochloride 150 mg oral tablet (4 sources) Tricyclic Antidepressant Start: 03-22-2009 AMITRIPTYLINE 150 MG TAB Take two 75mg tablets at bedtime. 0 03/22/2009 Active Problems Active Problems Problem Classification Problem Date Documented Da te Episodic/Chronic Abdominal pain (4 sources) Abdominal pain; Translations: [Unspecified abdominal pain] 03-19-2008 Episodic Bacterial infection; unspecified site (4 sources) Bacteremia; Translations: [Bacteremia] 03-19-2008 Episodic Disorders of lipid metabolism (4 sources) Pure hypercholesterolemia; Translations: [Pure hypercholesterolemia, unspecified] 03-19-2008 Chronic Headache; including migraine (4 sources) Migraine; Translations: [Other migraine, not intractable, without status migrainosus] 03-19-2008 Chronic Menopausal disorders (2 sources) Genitourinary syndrome of menopause; Translations: [Other specified menopausal and perimenopausal disorders] Onset: 06-26-2023 06-26-2023 Chronic Miscellaneous mental health disorders (4 sources) Non-organic sleep disorder; Translations: [Sleep disorder not due to a substance or known physiological condition, unspecified] 03-19-2008 Chronic Mood disorders (4 sources) Depressive disorder; Translations: [Other specified depressive episodes] 03-19-2008 Chronic Other circulatory disease (1 source) Elevated blood-pressure reading without diagnosis of hypertension; Translations: [Elevated blood-pressure reading, without diagnosis of hypertension] 04-17-2023 Episodic Other connective tissue disease (4 sources) Muscle pain; Translations: [Myalgia and myositis, unspecified] 03-19-2008 Episodic Other eye disorders (1 source) Vitreomacular adhesion of bilateral eyes; 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, bilateral] Chronic Other female genital disorders (1 source) Pruritus of vagina; Translations: [Other specified noninflammatory disorders of vagina] 04-17-2023 Episodic Other female genital disorders (1 source) Other specified noninflammatory disorders of vagina; Translations: [Vaginal itching] Onset: 05-27-2023 Episodic Other gastrointestinal disorders (4 sources) Irritable bowel syndrome; Translations: [Irritable bowel syndrome without diarrhea] 03-19-2008 Chronic Other inflammatory condition of skin (4 sources) Rosacea; Translations: [Rosacea, unspecified] Onset: 01-23-2005 01-23-2005 Chronic Other inflammatory condition of skin (4 sources) Pruritus of genital organs; Translations: [Anogenital pruritus, unspecified] 03-19-2008 Episodic Other skin disorders (2 sources) Lichen sclerosus et atrophicus; Translations: [Circumscribed scleroderma] Onset: 06-26-2023 06-26-2023 Chronic Systemic lupus erythematosus and connective tissue disorders (4 sources) Disorder of connective tissue; Translations: [Systemic involvement of connective tissue, unspecified] Onset: 01-23-2005 01-23-2005 Chronic Past or Other Problems Problem Classification Problem Date Documented Da te Episodic/Chronic Benign neoplasm of uterus (4 sources) Submucous leiomyoma of uterus; Translations: [Submucous leiomyoma of uterus] Onset: 11-23-2014 11-23-2014 Episodic Nonmalignant breast conditions (4 sources) Breast lump; Translations: [Unspecified lump in unspecified breast] Onset: 04-25-2010 04-25-2010 Episodic Other and unspecified benign neoplasm (4 sources) Benign neoplasm of skin; Translations: [Other benign neoplasm of skin, unspecified] Onset: 01-23-2005 01-23-2005 Episodic Other female genital disorders (1 source) Polyp of corpus uteri; Translations: [Polyp of corpus uteri] Onset: 11-23-2014 11-23-2014 Episodic Other female genital disorders (3 sources) Polyp of corpus uteri; Translations: [Polyp of corpus uteri] Onset: 11-23-2014 11-23-2014 Episodic Other inflammatory condition of skin (4 sources) Seborrheic dermatitis; Translations: [Other seborrheic dermatitis] Onset: 01-23-2005 01-23-2005 Episodic Residual codes; unclassified (4 sources) Family history of cancer; Translations: [Family history of malignant neoplasm of other organs or systems] Onset: 01-23-2005 01-23-2005 Episodic Results Test Name Value Interpretation Reference Range Facil ity Vital Signs Date Time Vital Sign Value Performing Clinician Jeremy lux 06-26-2023 12:41-0500 Body height 163.8 cm Frances Hernandez APRN.CNP Work Phone: [facility] 06-26-2023 12:41-0500 Body weight 83.92 kg Frances Hernandez APRN.CNP Work Phone: [facility] 06-26-2023 12:41-0500 Diastolic blood pressure 82 mm[Hg] Frances Hernandez APRN.DUMPCART DRIVER Work Phone: [facility] 06-26-2023 12:41-0500 Systolic blood pressure 134 mm[Hg] Frances Hernandez APRN.DUMPCART DRIVER Work Phone: [facility] 04-17-2023 16:35-0500 Body temperature 98.01 [degF] Krislyn Aberegg PA Work Phone: [facility] 04-17-2023 16:35-0500 Body weight 83.28 kg Krislyn Aberegg PA Work Phone: [facility] 04-17-2023 16:35-0500 Diastolic blood pressure 104 mm[Hg] Krislyn Aberegg PA Work Phone: [facility] 04-17-2023 16:35-0500 Heart rate 82 /min Krislyn Aberegg PA Work Phone: [facility] 04-17-2023 16:35-0500 Respiratory rate 18 /min Krislyn Aberegg PA Work Phone: [facility] 04-17-2023 16:35-0500 SaO2% (BldA) [Mass fraction] 98 % Krislyn Aberegg PA Work Phone: [facility] 04-17-2023 16:35-0500 Systolic blood pressure 166 mm[Hg] Krislyn Aberegg PA Work Phone: [facility] Encounters Encounter Date Encounter Type Care Provider Facility Start: 06-26-2023 End: 06-27-2023 ambulatory TAHMINA SARGENT Facility:[facility] Start: 06-26-2023 End: 06-26-2023 Patient encounter procedure Frances Hernandez APRN.CNP Work Phone: OB/Gynecology Procedures Date Procedure Procedure Detail Performing Clinician Start: 09-05-2021 Computerized ophthal tabitha imaging retina Murali Meng MD Work Phone: Start: 04-12-2017 Mammography Murali perkins MD Work Phone: Start: 08-02-2014 Colonoscopy Murali perkins MD Work Phone: Start: 12-31-2012 Lipid 1996 panel - S shiv or Plasma Krislyn Aberegg PA Work Phone: Plan of Treatment Date Care Activity Detail Author Start: 04-17-2031 Urine microalbumin profile DTaP,Tdap,Td Vaccine (2 - Td or Tdap) [facility] Start: 05-20-2028 Pneumococcal Vaccine: 65+ (3 of 3 - PPSV23 or PCV20) Pneumococcal Vaccine: 65+ (3 of 3 - PPSV23 or PCV20) [facility] Start: 08-02-2024 Colonoscopy COLONOSCOPY [facility] Start: 08-02-2024 COLORECTAL CANCER SCREENING COLORECTAL CANCER SCREENING [facility] Start: 08-02-2024 Screening for malignant neoplasm of colon [facility] Start: 07-02-2023 Screening for malignant neoplasm of breast Mammogram Screening [facility] Start: 05-22-2023 Shingrix Vaccine (2 of 2) Shingrix Vaccine (2 of 2) [facility] Start: 05-13-2023 Advance Directive Discussion Advance Directive Discussion [facility] Start: 01-11-2023 Covid-19 Vaccine () Covid-19 Vaccine () [facility] Start: 01-11-2023 Influenza vaccination Influenza Vaccine (#1) [facility] Start: 2023 Advance Directive Discussion Advance Directive Discussion [facility] Start: 2023 Bone Density Screening Bone Density Screening [facility] Start: 2023 Pneumococcal Vaccine: 65+ (2 - PCV) Pneumococcal Vaccine: 65+ (2 - PCV) [facility] Start: 2023 Screening for osteoporosis Bone Density Screening [facility] Start: 04-12-2022 HPV TESTING HPV TESTING [facility] Start: 04-12-2022 PAP TESTING PAP TESTING [facility] Start: 04-12-2018 Mammography [facility] Start: 2018 RSV Vaccine (1 - 1-dose 60+ series) RSV Vaccine (1 - 1-dose 60+ series) [facility] Start: 12-31-2017 Lipid 1996 panel - Serum or Plasma Lipid Screening [facility] Start: 12-31-2017 Lipid panel Lipid Screening [facility] Start: 12-31-2017 LIPID SCREEN LIPID SCREEN [facility] Start: 01-01-2016 DIABETES SCREEN DIABETES SCREEN [facility] Start: 01-01-2016 Diabetes Screening Diabetes Screening [facility] Start: 07-21-2015 FECAL OCCULT BLOOD FECAL OCCULT BLOOD [facility] Start: 07-21-2015 Screening for malignant neoplasm of colon Fecal Occult Blood [facility] Start: 01-04-2008 SHINGRIX VACCINE (1 of 2) SHINGRIX VACCINE (1 of 2) [facility] Start: 2003 COLOGUARD (FIT-DNA) COLOGUARD (FIT-DNA) [facility] Start: [address] COLONOGRAPHY [facility] Start: 2003 Screening for malignant neoplasm of colon [facility] Start: 2003 SIGMOIDOSCOPY SIGMOIDOSCOPY [facility] Start: 1977 Urine microalbumin profile DTAP,TDAP,TD (1 - Tdap) [facility] Start: 01-04-1976 HEPATITIS C SCREENING HEPATITIS C SCREENING [facility] Start: 01-04-1976 Hepatitis C screening Hepatitis C Screening [facility] Start: 01-04-1976 HIV SCREENING HIV SCREENING [facility] Start: 01-04-1976 HIV screening HIV Screening [facility] BACTERIAL VAGINOSIS NAAT BACTERI AL VAGINOSIS NAAT Lab Routine Vaginal itching 04/17/2023 7:24 PM EST [facility] Work Phone: WICHO/TRICHOMONAS NAAT WICHO /TRICHOMONAS NAAT Lab Routine Vaginal itching 04/17/2023 7:24 PM EST [facility] Work Phone: [facility] c Immunizations Immunization Date Immunization Notes Care Provider Elena gant 01-28-2022 influenza virus vacc ine, unspecified formulation Bruno ROCHE Work Phone: [facility] Payers Date Payer Category Payer Medicare MEDICARE MEDICAR E A AND B [id number] 2022-Present [phone] [address] [address] [place] [address] Medicare [id number] 2022 Medicare [id number] 2018 Unknown MMO MMO [employer] [id number] 2018-Present [phone] [address] [place] [address] PPO [id number] 2018 Unknown [id number] Social History Date Type Detail Facility Start: 04-17-2023 Tobacco smoking stat us [facility]VIS Never smoked tobacco [facility] Start: 09-05-2021 End: 04-17-2023 Alcohol intake Current non-drinker of alcohol (finding) [facility] Start: 1960 Sex Assigned At Female [facility] Start: 04-17-2023 Tobacco use and exposure Smokeless t obacco non-user [facility] Start: 04-16-2020 End: 04-17-2023 History of Social function [facility] Start: 04-16-2020 End: 04-17-2023 Tobacco use panel [facility] National Score (1-10 0), lower number is lower risk Not on file [facility] Start: 11-15-2020 Gender identity Identifies as female gender (finding) [facility] Start: 06-26-2023 Alcohol intake Ex-drinker (finding) [facility] Medical Equipment Procedure Code Equipment Code Equipment Origin al Text Equipment Identifier Dates Gas [employer] Intraocular Vision System [id number] - [id number] Start: 04-13-2020 Clinical Notes 09-05-2021 to 06-26-2023 Patient InstructionsFrances Hernandez APRN.SKYLAR - 06/26/2023 12:38 PM ESTTelephone Encounter - Iris Roland MA - 04/18/2023 1:15 PM Bruno Angel PA - 04/17/2023 4:54 PM EST Note Date & Type Note Facility 06-26-2023 Note HNO ID: [id number] Author: FRANCES HERNANDEZ APRN.SKYLAR Service: ? Author Type: Nurse Practitioner Type: Progress Notes Filed: 06/26/2023 13:44 Note Text: Core Stacker offered: Patient declines. Chapo is a 63 year old who presents for a follow up of vaginal itching, likely caused by lichen and atrophy. She has been using clobetasol cream nightly and reports that symptoms have significantly improved. She is postmenopausal. Has not used HRT in the past. Her last ap smear was NILM and HPV negative in 2022. She is sexually active, but does report dryness and irritation, resulting in painful intercourse. She also has occasional post coital bleeding. She is experiencing a major hot flash every night before bed. She walks 3 times per week. 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 History Comments: Sexual Activity: Yes; Male Contraception: Vasectomy PAST MEDICAL HISTORY Diagnosis Date Abdominal pain, other specified site Bacteremia Depressive disorder, not elsewhere classified Irritable bowel syndrome Myalgia and myositis, unspecified Nonorganic sleep disorder, unspecified Other forms of migraine, without mention of intractable migraine without mention of status migrainosus Pruritus of genital organs Pure hypercholesterolemia Snoring Unspecified constipation Vitreomacular adhesion of both eyes PAST SURGICAL HISTORY Procedure Laterality Date BREAST BIOPSY 1984 right breast- benign COLONOSCOPY FLX DX W/COLLJ [...] YAG CAPSULOTOMY OS (LEFT EYE) Left 07/2020 FAMILY HISTORY Problem Relation Age of Onset None Mother None Father None Maternal Grandmother None Maternal Grandfather Breast Cancer Paternal Grandmother None Paternal Grandfather None Brother None Brother None Brother None Sister Breast Cancer Paternal Aunt SOCIAL HISTORY Social History Tobacco Use Smoking status: Never Smokeless tobacco: Never Vaping Use Vaping Use: Never used Substance Use Topics Alcohol use: Not Currently Drug use: Never REVIEW OF SYSTEMS Abdomen: No abdominal pain, nausea, vomiting, diarrhea, or constipation. No bloating, early satiety, indigestion, or increased flatulence. + hemorrhoid/fissure - followed by GI Bladder: No dysuria, gross hematuria, urinary frequency, urinary urgency, or incontinence Breast: No breast lumps, nipple d/c, overlying skin changes, redness or skin retraction Allergies and current medication updated:Yes EXAM: BP 134/82 Ht 5' 4.5 (1.64m) Wt 185 lb (83.9kg) LMP 12/25/2008 BMI 31.28 kg/(m2). GENERAL: pleasant, female in no apparent distress HEENT: Normocephalic, atraumatic, mucus membranes moist, and no lesions NECK: Supple, full range of motion, no adenopathy, and thyroid normal DERMATOLOGY: Normal, without lesions, non-icteric, and non-hirsute BREAST: soft, non-tender, symmetric, no dominant mass, normal nipple-areolar complex, no lymphadenopathy, and no nipple discharge CHEST: Normal inspiratory effort ABDOMEN: soft, non-tender, and no masses PELVIC: external genitalia normal, normal Bartholin's glands, urethra, [place]'s glands, no vulvar lesions, no cervical lesions, good vaginal support, physiologic discharge present, normal appearing perineal body and perianal region + mild erythema to bilateral labia majora (improvement since last visit), atrophic changes to labia majora/minora bilaterally, vaginal dunaway, and cervix BIMANUAL: uterus normal size, shape and consistency, no adnexal masses, and non-tender RECTOVAGINAL: deferred. NEURO: alert and oriented x3,exam grossly non-focal EXTREMITIES: normal ASSESSMENT/PLAN: 1. 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 Genitourinary syndrome of menopause - ICD9: 627.8, ICD10: N95.8 - To trial estrogen cream - Reviewed r/b/a, reviewed minimal systemic absorption, and directions - To follow up if symptoms ar (more content not included)... [facility] 06-26-2023 Instructions Frances Hernandez, SENIOR LOAN OFFICER.DUMPCART DRIVER - 06/26/2023 1:00 PM EST Vaginal atrophy is caused by a decreased amount of estrogen, which can occur after menopause. Decreased estrogen results in the following: reduced blood flow to the vaginal tissues, thin/dry vaginal lining, decreased vaginal wall elasticity, and vaginal narrowing. Vaginal dunaway are flexible with a thick lining and have a healthy blood flow to the vaginal tissue in premenopausal patients. This can cause pain with intercourse, dryness, irritation, itching, and even recurrent UTIs in some patients. Not all WOMEN experience menopause in the same way. For some, menopause can bring on an array of uncomfortable symptoms. Others may experience few if any discomforts. This information has been prepared to help you manage the most common changes associated with the midlife transition. RELIEVING HOT FLASHES * Identify and avoid your hot flash triggers. Common triggers may include stress, caffeine, alcohol, spicy foods, tight clothing, heat and cigarette smoke. * Keep the bedroom cool. Use fans during the day. Wear light layers of clothes with natural fibers. * Try deep, slow abdominal paced breathing (6 to 8 breaths per minute). Practice deep breathing for 15 minutes in the morning, 15 minutes in the evening and at the onset of hot flashes. * Exercise daily. Walking, swimming, dancing and bicycling with helmet are good choices along with yoga. * Add soy protein in the form of foodstuffs NOT supplements(40-60 mg) to your diet daily in place of animal protein. Promensil and isoflavone tablets have NOT been shown to significantly help menopausal symptoms * Black cohosh (in the form of Remifemin) can be used for hot flashes and has been approved by [place] [employer] [place] for only 6 months of use, however has NOT been well studied in the [place] for intermediate manager effects AND THERE HAVE BEEN REPORTS OF LIVER TOXICITY WITH BLACK COHOSH USE. (Avoid kava kava, valerian root and beware that most herbal products are NOT regulated in the [place] and some have been associated with liver toxicity) NOTE: HORMONE THERAPY (HT) is the MOST EFFECTIVE treatment and the only FDA approved treatment for menopausal symptoms. Any form of hormones, including 'bioidentical' hormones have risks as well as benefits. * Antidepressants like effexor (venlaflaxine) a NSRI or Pristiq (desvenlafaxine) another agent, neurontin (gabapentin) may help block hot flashes and all have risks and benefits like any prescription or off the shelf medicine. * Use of bellergal is discouraged as it contains an addictive barbiturate. RELIEVING INSOMNIA * Keep the bedroom cool to prevent night sweats. Special chill pillows that are cool are available. * Avoid using sleeping pills. * Exercise daily but not right before bedtime. * Avoid caffeine and alcohol at night. * Take a warm shower at bedtime. * Wear socks to bed (lowers central body temperature) COPING :WITH MOOD SWINGS, FEARS AND DEPRESSION * Find a self-calming skill to practice, such as yoga, meditation or slow deep breathing. * Avoid tranquilizers, if possible, however prescription anti-depressants can be very effective. * Engage in a creative outlet that fosters a sense of achievement. * Stay connected with your family and community; nurture your friendships. RELIEVING PAINFUL INTERCOURSE * Try using a vaginal water-based moisturizing lotion 3 times a week (like replens or SILK-E) or lubricant during intercourse like KY jelly or lubrin or astroglide. *Local estrogen treatments for the vagina/bladder like estring vaginal ring can be used and estring can be used in breast cancer survivors as only a local therapy PREVENTING OSTEOPOROSIS * Calcium and vitamin D can slow bone loss and may decrease fractures. Consume1,500 milligrams of calcium a day in divided doses. Calcium is necessary but not always sufficient. Good sources of calcium are calcium supplements, like Tums, fruit juices and breads; lowfat dairy products; green leafy vegetables such as broccoli, kale and spinach greens, almonds; and soy milk. Calcium CITRATE like Citracal D is well absorbed with or without food/stomach acid and is the preferred calcium supplement in women on stomach acid blockers and women with a history of kidney stones. * Vitamin D aids in the absorption of calcium and stimulates bone formation. Consume at least OF SEPARATE 1,000 iu international units of vitamin D a day and 2,000 iu daily if you have been found to be low * Eat foods low in sodium, low in animal protein and low in caffeine. * Bone mass is built before menopause as a result of exercising, diet, and genetics. Exercises that increase bone mass are the ones that make the muscles work against gravity. Walking and muscle-building exercise may reduce bone loss and fractures and improve balance. Visit www.nof.org, the National Osteoporosis Foundation web site for more bone tips. PREVENTING HEART DISEASE * Eat a variety of vegetables, fruits and whole grains, including soy foods (NOT supplements). Limit salt, cholesterol and fat, especially animal fat. Consider ingesting 25 grams of soy a day. Avoid Transfats the 'partially hydrogenated oils.' Consume the omega 3 fats in flaxseed, fish, tuna, salmon, and walnuts and almonds at least twice a week. * Get a least 30-60 minutes of moderate exercise over the course of each day. Many activities increase the heart rate, including gardening, walking, dancing and aerobic exercises. The activity period does not need to be continuous. Consider getting a pedometer to monitor your activity and strive to walk at least 10,000 steps a day. * Do NOT smoke.Even 1-2 cigarrettes a day increases risk. * Maintain a healthy weight. Know your BMI (body mass index) * Follow your physician's instructions for controlling high blood pressure-note new guidelines indicate that BP of over 115/75 are associated with potential organ damage. Diabetes prevention and control is very important as diabetes is a 'heart diease equivalent'. Cholesterol lowering with diet and statin agents have been shown to reduce the risk of heart disease. Consider having an [facility] blood test for further cardiac risk assessment if you have borderline elevations in the blood lipids/fats. * Take a vitamin supplement under physician guidance. Choose one that contains the antioxidants including vitamins E and C and B complex like centrum silver. Avoid taking B-carotene supplements. * Take one aspirin daily, ONLY if approved by your physician based on your risk for heart disease. (Women at LOW risk for heart disease should NOT take daily aspirin-however women by age 65 should consider a baby aspirin daily as it has been associated with a 30% stroke risk reduction). web info: www.menopause.org www.[facility].org/womensheal th Calcium and Vitamin D Supplementation (from the National Institutes of Health Office of Dietary Supplements 2011) Calcium is required by the body for blood vessel, muscle, hormone and nerve functioning. Most of the body's calcium is stored in the bones and teeth where it supports structure and function. Bone is continuously broken down and reformed. When bone breakdown exceeds formation, especially in postmenopausal women, bone loss can increase the risk of osteoporosis and fractures. In addition to low calcium intake, women who smoke, have a family history of osteoporosis, are thin, or , or who take certain medications such as cancer chemotherapy, seizure mediations and steroids are at increased risk of osteoporosis. The calcium requirements in women change with age. The National Institutes of Health (NIH) recommends: 1000mg elemental calcium for premenopausal women age 19-50 1200mg elemental calcium for postmenopausal women and all women over 50 Milk, yogurt, and cheese are rich natural sources of calcium and are the major food contributors in the [place]. For example, 8oz of milk (whole, lowfat or skim) contains about 300mg calcium, 8oz of yogurt contains 415mg. Nondairy sources include salmon and sardines and vegetables, such as Frisian cabbage, kale, and broccoli. Foods fortified with calcium include many fruit juices, tofu and cereals. For more food calcium content information, visit http://ods.od.nih.gov/factsheets/c alcium. Calcium supplements come in several different forms. Remember that the recommendations are for millgrams (mg) of elemental calcium which may be less than the total weight of the supplement. The amount of elemental calcium is required to be printed on the label. Calcium carbonate is the least expensive form. It must be taken on a full stomach to be properly absorbed. Some patients may experience gas or constipation. Calcium phosphate and calcium citrate may be taken either with or without food and tend to have less side effects but are generally more expensive. Because of its ability to neutralize stomach acid, calcium carbonate is found in some zuzh-bju-skxliiu antacid products, such as Tums and Rolaids . Depending on its strength, each chewable pill or softchew provides 200 to 400 mg of elemental calcium. The percentage of calcium absorbed depends on the total amount of elemental calcium consumed at one time. Absorption is highest in doses <500mg. So a woman who takes 1,000mg/day of calcium from supplements should split the dose and take 500mg at two separate times during the day. Too much calcium can cause kidney stones, constipation, difficulty absorbing other nutrients and calcium buildup in blood vessels. Women under 50 should not exceed 2500mg/day (2000mg/day for women over 50) of calcium from food and supplements. Excessive alcohol and caffeine intake can inhibit absorption of calcium. Calcium can reduce the absorption of some medications if taken at the same time of day (bisphosphonates, thyroid medication, Phenytoin and other seizure medications, some antibiotics and iron supplements). Vitamin D promotes calcium absorption in the gut and maintains adequate blood levels of calcium and phosphate for normal bone growth and bone remodeling. Vitamin D also helps regulate cell growth as well as nerve, muscle and immune system function. Vitamin D is produced in the skin as a result of ultraviolet sunlight rays and must be altered in the liver and kidney to become its active form. Recommended intake according to the National Institutes of Health is 600 International Units (IU) for girls and women ages 1-70 and 800 IU for women over 70. Very few foods in nature contain vitamin D. The flesh of fatty fish (such as salmon, tuna, and mackerel) and fish liver oils are among the best sources. Small amounts of vitamin D are found in beef liver, cheese, mushrooms and egg yolks. Most people meet at least some of their vitamin D needs through exposure to sunlight. Season, time of day, length of day, cloud cover, smog, skin melanin content, and sunscreen are among the factors that affect UV radiation exposure and vitamin D synthesis. Despite the importance of the sun for vitamin D synthesis, it is prudent to limit exposure of skin to sunlight and avoid tanning beds. UV radiation is a carcinogen responsible for most of the estimated 1.5 million skin cancers that occur annually in the [place]. Lifetime cumulative UV damage to skin is also responsible for some age-associated dryness and other cosmetic changes. In supplements and fortified foods, vitamin D is available in two forms, D2 (ergocalciferol) and D3 (cholecalciferol). The two are equivalent at normal supplement doses. For women who require high supplement doses because of vitamin D deficiency, D3 may work better to raise blood levels. Some medications can prevent proper absorption of Vitamin D. These include laxatives, corticosteroids like prednisone, the seizure drugs phenobarbital and phenytoin, the weight-loss drug orlistat ( Xenical and AlliTM) and the cholesterol-lowering drug cholestyramine (Questran , LoCholest , and Prevalite ). Talk to your doctor about adjusting your recommended daily vitamin D dosage if you take these medications. You should not exceed 4000 mg of vitamin D supplementation daily unless specifically prescribed by your doctor. documented in this encounter [facility] 06-26-2023 History of Present illness Narrative Core Stacker offered: Patient declines. Chapo is a 63 year old who presents for a follow up of vaginal itching, likely caused by lichen and atrophy. She has been using clobetasol cream nightly and reports that symptoms have significantly improved. She is postmenopausal. Has not used HRT in the past. Her last ap smear was NILM and HPV negative in 2022. She is sexually active, but does report dryness and irritation, resulting in painful intercourse. She also has occasional post coital bleeding. She is experiencing a major hot flash every night before bed. She walks 3 times per week. 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 History Comments: Sexual Activity: Yes; Male Contraception: Vasectomy PAST MEDICAL HISTORY Diagnosis Date Abdominal pain, [...] YAG CAPSULOTOMY OS (LEFT EYE) Left 07/2020 FAMILY HISTORY Problem Relation Age of Onset None Mother None Father None Maternal Grandmother None Maternal Grandfather Breast Cancer Paternal Grandmother None Paternal Grandfather None Brother None Brother None Brother None Sister Breast Cancer Paternal Aunt SOCIAL HISTORY Social History Tobacco Use Smoking status: Never Smokeless tobacco: Never Vaping Use Vaping Use: Never used Substance Use Topics Alcohol use: Not Currently Drug use: Never REVIEW OF SYSTEMS Abdomen: No abdominal pain, nausea, vomiting, diarrhea, or constipation. No bloating, early satiety, indigestion, or increased flatulence. + hemorrhoid/fissure - followed by GI Bladder: No dysuria, gross hematuria, urinary frequency, urinary urgency, or incontinence Breast: No breast lumps, nipple d/c, overlying skin changes, redness or skin retraction Allergies and current medication updated:Yes EXAM: BP 134/82 Ht 5' 4.5 (1.64m) Wt 185 lb (83.9kg) LMP 12/25/2008 BMI 31.28 kg/(m^2). GENERAL: pleasant, female in no apparent distress HEENT: Normocephalic, atraumatic, mucus membranes moist, and no lesions NECK: Supple, full range of motion, no adenopathy, and thyroid normal DERMATOLOGY: Normal, without lesions, non-icteric, and non-hirsute BREAST: soft, non-tender, symmetric, no dominant mass, normal nipple-areolar complex, no lymphadenopathy, and no nipple discharge CHEST: Normal inspiratory effort ABDOMEN: soft, non-tender, and no masses PELVIC: external genitalia normal, normal Bartholin's glands, urethra, [place]'s glands, no vulvar lesions, no cervical lesions, good vaginal support, physiologic discharge present, normal appearing perineal body and perianal region + mild erythema to bilateral labia majora (improvement since last visit), atrophic changes to labia majora/minora bilaterally, vaginal dunaway, and cervix BIMANUAL: uterus normal size, shape and consistency, no adnexal masses, and non-tender RECTOVAGINAL: deferred. NEURO: alert and oriented x3,exam grossly non-focal EXTREMITIES: normal ASSESSMENT/PLAN: 1. Lichen sclerosus et atrophicus - ICD9: 701.0, ICD10: L90.0 (primary diagnosis) - Symptoms have significantly improved - Recommend weaning clobetasol, reviewed weaning regimen, not intended for fdc use - Discussed autoimmune in nature, may have flares - Increased risk of SCC by about 5%, recommend yearly visits 2. Genitourinary syndrome of menopause - ICD9: 627.8, ICD10: N95.8 - To trial estrogen cream - Reviewed r/b/a, reviewed minimal systemic absorption, and directions - To follow up if symptoms are unresolved Has upcoming colonoscopy and mammogram. Frances Hernandez APRN.CNP Medical Decision Making: Problems: Moderate: 2+ stable chronic illnesses Risk: Low: Low risk from testing/treatment Moderate: Drug management Medical Decision Making Level: 4 - Moderate documented in this encounter [facility] 05-27-2023 Note HNO ID: [id number] Author: FRANCES HERNANDEZ APRN.DUMPCART DRIVER Service: ? Author Type: Nurse Practitioner Type: Progress Notes Filed: 05/27/2023 12:05 Note Text: Core Stacker offered: Patient declines. Chapo Quiñones is a 63 year old female who presents for problem visit of vaginal itching. HPI: Reports that she has had vaginal itching for about 5 months. Saw urgent care on 04/18/2023. They prescribed Nystatin. Experienced some relief, but still doesn't feel completely normal. No discharge. Also experiences some itching down to anus. Experiences dryness with intercourse and day to day. 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 History Comments: Sexual Activity: Not Asked; Male; Not asked Contraception: Vasectomy PAST MEDICAL HISTORY Diagnosis Date Abdominal pain, [...] YAG CAPSULOTOMY OS (LEFT EYE) Left 07/2020 FAMILY HISTORY Problem Relation Age of Onset None Mother None Father None Maternal Grandmother None Maternal Grandfather Breast Cancer Paternal Grandmother None Paternal Grandfather None Brother None Brother None Brother None Sister Breast Cancer Paternal Aunt Social History Tobacco Use Smoking status: Never Smokeless tobacco: Never Vaping Use Vaping Use: Never used Substance Use Topics Alcohol use: No Drug use: No Current Outpatient Medications Medication Sig metroNIDAZOLE (METROGEL) 0.75 % Topical Gel (Patient not taking: Reported on 10/02/2022) diclofenac sodium (VOLTAREN) 1 % topical gel glucosam/linda-msm1/C/shorty/bosw (OSTEO BI-FLEX TRIPLE STRENGTH ORAL) AMITRIPTYLINE 150 MG TAB Take two 75mg tablets at bedtime. MULTIVITAMIN TAB Take one(1) tablet daily. MIRALAX 17 G (100 %) ORAL PACK prn No current facility-administered medications for this visit. Allergies As of Date: 05/27/2023 (No Known Allergies) Fully Assessed 04/17/2023 REVIEW OF SYSTEMS Abdomen: No bloating, early satiety, indigestion, or increased flatulence. No abdominal pain, nausea, vomiting, diarrhea, or constipation. Bladder: No dysuria, gross hematuria, urinary frequency, urinary urgency, or incontinence. Breast: No breast lumps, nipple d/c, overlying skin changes, redness or skin retraction. Expanded ROS: N/A Allergies and current medication updated:Yes EXAM: BP 122/88 Pulse 82 Resp 12 Ht 5' 6 (1.68m) Wt 187 lb 12.8 oz (85.2kg) SpO2 95% LMP 12/25/2008 BMI 30.33 kg/(m2). GENERAL: pleasant, female in no apparent distress HEENT: Normocephalic, atraumatic, mucus membranes moist, and no lesions NECK: Supple, full range of motion, no adenopathy, and thyroid normal DERMATOLOGY: Normal, without lesions, non-icteric, and non-hirsute BREAST: deferred CHEST: Normal inspiratory effort ABDOMEN: Deferred PELVIC: normal Bartholin's glands, urethra, [place]'s glands, no vulvar lesions, no cervical lesions, good vaginal support, physiologic discharge present, normal appearing perineal body and perianal region + erythema noted to bilateral labia majora. Pale skin noted to perineum and anal region BIMANUAL: uterus normal size, shape and consistency, no adnexal masses, and non-tender NEURO: alert and oriented x3,exam grossly non-focal EXTREMITIES: normal ASSESSMENT AND PLAN: Lichen sclerosus et atrophicus - ICD9: 701.0, ICD10: L90.0 (primary diagnosis) - Based on clinical presentation and patient symptoms, likely a lichen diagnosis - Reviewed lichen as an autoimmune condition - Slight increased risk for SCC reviewed - Biopsy would provide definitive diagnosis - To trial clobetasol cream - To notify with worsening symptoms or lack of improvement after 2 wee (more content not included)... [facility] 04-18-2023 Miscellaneous Notes Patient notified of results, verbalized understanding of instructions given. Iris Roland MA Please call patient let her know she was negative for yeast and bacterial vaginosis. Follow-up with women's health as discussed at visit. documented in this encounter [facility] 04-17-2023 Note HNO ID: [id number] Author: Bruno Zacarias PA Service: ? Author Type: Physician Edger Liner Type: Progress Notes Filed: 04/17/2023 5:00 PM Note Text: This note was created using Evinceriter. Subjective Chapo Quiñones is a 63 year old female. [...] then the itching returned. She has tried uqms-ktb-fctlgyc medications. She has changed soaps and nothing [...] nursing note reviewed. Exam conducted with a production boring machine operator present. Constitutional: General: She is not in [...] Discussed she ne (more content not included)... [facility] 04-17-2023 History of Present illness Narrative This note was created using TagMii. Subjective Chapo Quiñones is a 63 year old female. [...] then the itching returned. She has tried oprn-tqr-sgaeath medications. She has changed soaps and nothing [...] nursing note reviewed. Exam conducted with a production boring machine operator present. Constitutional: General: She is not in [...] evaluation. KALEY Chambers documented in this encounter [facility] 04-17-2023 Instructions Bruno Zacarias PA - 04/17/2023 4:52 PM EST Follow up with Gynecology/womens health for nexta vailable appointment. documented in this encounter [facility] 10-02-2022 Note HNO ID: [id number] Author: Murali Meng MD Service: ? Author Type: Physician Type: Progress Notes Filed: 10/02/2022 11:53 AM Note Text: This is a 60 year old woman with history of macular hole right eye s/p Pars plana vitrectomy/gas 05/[address] Samuels at [facility] ([place], [place]) s/p Pars plana vitrectomy/MS/22% SF6 gas [...] agree with all of its relevant components. [facility] 09-05-2021 History of Present illness Narrative This is a 60 year old woman with history of macular hole right eye s/p Pars plana vitrectomy/gas 05/[address] Samuels at [facility] ([place], [place]) s/p Pars plana vitrectomy/MS/22% SF6 gas [...] its relevant components. documented in this encounter [facility] Diagnosis Vaginal itching- Primary Pruritus of genital organs Elevated blood pressure reading without diagnosis of hypertension [facility] Diagnosis 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 documented in this encounter [facility] Medications Administered Section Active Administered Medications - up to 3 most recent administrations Medication Order MAR Action Action Date Dose Rate Site fluorescein-benoxinate 0.25-0.4 % 1 Drop (FLURESS) 1 Drop, BOTH EYES, DIRECTED, Starting on Sat09/05/21 at 1400, Until Sat09/06/21 at 015, Administer for applanation tonometry. In the event of a Fluress shortage, administer 1 drop of Payton-Fluor into both eyes as directed for applanation tonometry., [facility] MED ORDERS Given 09/05/2021 2:00 PM EDT 1 Drop PHENYLephrine 2.5 % 1 Drop (AK-DILATE, ELIAS-SYNEPHRINE) 1 Drop, BOTH EYES, DIRECTED, Starting on [...] FoundDocuments on File Type Date Recorded Patient Emergency Man Expl anation Advance Directive(s) 04/11/2020 2:35 PM Reason for Referral Specialty Diagnoses / Procedures Referred By Contac t Referred To Contact Gynecology Diagnoses Vaginal itching Procedures CONSULT TO GYNECOLOGY OFFICE/OUTPATIENT [facility] MDM 60-74 MINUTES Express [facility] [address] [place] [address] Referral ID Status Reason Start Date Expiration Date Visits Requested Visits Authorized [id number] Authorized PCP Requested Referral Auto-Generate d Referral [...] or prosecute any alcohol or drug abuse patient.[facility] the event this information is protected by the Federal Confidentiality of Alcohol and Drug Abuse Patient Records regulations: The Federal rules restrict any use of the information to criminally investigate or prosecute any alcohol or drug abuse patient.[facility] the event this information is protected by the Federal Confidentiality of Alcohol and Drug Abuse Patient Records regulations: The Federal rules restrict any use of the information to criminally investigate or prosecute any alcohol or drug abuse patient.[facility] Center[facility] the event this information is protected by the Federal Confidentiality of Alcohol and Drug Abuse Patient Records regulations: The Federal rules restrict any use of the information to criminally investigate or prosecute any alcohol or drug abuse patient.[facility] Reason for Visit (unrecogniz ed section and content) Reason Comments Vaginal Problem Itching and bloody x 3 months intermittent Reason Comments Results Reason Comments Yearly Exam Care Teams (unrecognized sec tion and content) Kitchen Lead Relationship Specialty Start Date End Date Tahmina Sargent MD [address] [id number] PCP [facility] 07/01/03 Kitchen Lead Relationship Specialty Start [place] [address] [place] [address] [id number] PCP [facility] 07/01/03 Kitchen Lead Relationship Specialty Start Date End Date Tahmina Sargetn MD [address] [phone] PCP [facility] 07/01/03 INFORMATION SOURCE (unrecogn ized section and [...] BE BASED ON THE PRIMARY CLINICAL RECORDS. [facility] [employer] [facility]. provides no warranty or guarantee of the accuracy or completeness of information in this document.
[2023-07-02] MEDS: Lactated Ringers 1,000 ML 15 ML IV (08:53)
[2023-07-02 08:55] VITALS: BP 130/85; PULSE 86; RESP 18; TEMP 36.7; O2SAT 98; BMI 28.8
--- NOTE | 2023-07-02 10:03 | PCM.HP.BLA ---
History and Physical Date of Admission: 07/02/23 Intake Vital Signs 05/20/2410:10 05/31/2413:18 Height 5 ft 6 in 5 ft 6 in Weight: 190 lb 188 lb 8 oz BMI 30.7 30.4 BP 126/74 H 136/79 H Blood Pressure Location Lt brachial Rt brachial Position Sitting Sitting Respiration 16 18 Pulse 92 89 Pulse Source Monitor Monitor Temp 97 F L 97.2 F L Temp Source Temporal Temporal Pulse Oximetry (%) 96 93 Oxygen Delivery Method room air room air Intake Visit Reasons: HEMORRHOID AND COLONOSCOPY SCREENING Chief Complaint: Hemorrhoidconsult and c-scope consult Coin Purse Assembler Required: No Is patient in pain?: No Allergies No Known Allergies Allergy (Unverified 05/31/23 14:19) Medications amitriptyline 75 mg tablet mg PO 04/18/23 [History Confirmed 05/31/23] antiarthritic combination no.2 900 mg tablet (glucosamine-chondroitin) mg PO 04/18/23 [History Confirmed 05/31/23] ergocalciferol (vitamin D2) 1,250 mcg (50,000 unit) capsule PO 04/18/23 [History Confirmed 05/31/23] multivitamin 1 tab PO DAILY 04/18/23 [History Confirmed 05/31/23] polyethylene glycol 3350 17 gram/dose oral powder (Miralax) 4 g PO DAILY 04/18/23 [History Confirmed 05/31/23] turmeric 100 mg-debbie 150 mg-olive 50 mg-oreg 150 mg-capryl capsule cap PO 04/18/23 [History Confirmed 05/31/23] Diltiazem 2% / Lidocaine 5% ointment (compound) #1 ea 05/31/23 [Rx Confirmed 05/31/23] COUNT INCLUDES THE [facility] Medical History (Updated 05/31/23 @ 15:[address] 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 She says that it is uncomfortable she has to clean around them. She also says she is occasionally seeing blood and having pain with bowel movements but she has very hard bowel movements and has chronic constipation. Her last screening colonoscopy was over 10 years ago. ROS General General: No weight change, appetite, fatigue, colon cancer, breast cancer or weakness HEENT HEENT: Yes eye surgery; No difficulty swallowing, eye injury, swollen glands or hoarseness Endo Endocrine: No thyroid disease, diabetes mellitus, thyroid cancer, Hair loss, heat intolerance or cold intolerance Skin Skin: No rash or changing moles Breast Breast: No left breast lump, right breast lump, nipple discharge, breast pain, abnormal mammogram, abnormal US or breast enlargement Musc Musculoskeletal: Yes back problems and arthritis; No rheumatoid arthritis, gout or joint pain Cardio Cardiovascular: No murmur, pacemaker, heart disease, atrial fibrillation, high blood pressure, heart attack, heart stent, palpitations, shortness of breat with exertion or chest pain Psych Psychiatric: No depression, anxiety or hearing voices Resp Respiratory: No shortness of breath, No sleep apnea, No cough, No COPD, No asthma, No emphysema and No wheezing Gastro Gastrointestinal: No abdominal pain, No nausea or vomiting, No diarrhea, Yes constipation, Yes blood in stool, No acid reflux, Yes hemorrhoids, No ulcers, No gallbladder problem and No black,tarry stools Pete Hematologic: No blood thinners, No blood disorders, No bleeding, No anemia and No blood clots Neuro Neurologic: No system reviewed and no additional complaints, except as documented, No as per HPI, No abnormal gait, No abnormal hearing, No abnormal movements, No abnormal speech, No behavioral changes, No burning sensations, No confusion, No convulsions, No disequilibrium, No dizziness, No localized weakness, No frequent falls, No headache(s), No lack of coordination, No loss of vision, No memory loss, No numbness, No other visual disturbances, No radicular pain, No restless legs, No sensory deficit, No syncope, No tingling, No tremor(s), No weakness and No other Exam Const General: cooperative Orientation: alert and oriented x3 HENMT Head: normal to inspection Neck Neck: normal visual inspection and full ROM Chest Chest palpation & inspection: normal inspection of the chest Resp Effort & Inspection: normal respiratory effort Auscultation: clear to auscultation bilaterally Cardio Rate: regular rate Rhythm: regular rhythm GI Inspection: non-distended Palpation: soft and nontender Skin General: no rashes or lesions noted Neuro General: patient alert and patient oriented x3 Extrem General: full ROM Psych Appearance: grossly normal Mental Status: mental status grossly normal Assessment and Plan Assessment and Plan (1) Anal fissure: Status: Acute Plan: On rectal exam the patient had a small skin tag on the outside but she had a prominent fissure posteriorly. She may also have internal hemorrhoids but the fissure is likely what is causing the pain. I will order her some diltiazem cream. I also encouraged Colace and more regular MiraLAX. (2) Encounter for screening for malignant neoplasm of colon: Status: Acute Plan: Patient is due for screening colonoscopy. While performing screening I will perform retroflexion to check for more hemorrhoids and evaluate the extent of the fissure. I explained endoscopy in detail to the patient. I explained the risks including but not limited to stroke or heart attack with anesthesia, perforation of the GI tract, bleeding, infection. I explained that any of these could necessitate further emergency surgery. The patient understands and all questions were answered sufficiently. The patient wishes to proceed with procedure. Patient will hold her turmeric for a week. Dale Edwards MD Pager: [facility] [address] [place] [address], [address] [place] [address] Office: I have examined the patient and the H&P has been reviewed. There are no clinical changes since date of exam.
[2023-07-02 10:44] VITALS: BP 114/73; BP 130/85; PULSE 79; RESP 12; TEMP 36.2; O2SAT 95
--- NOTE | 2023-07-02 10:44 | OP.COLON_ITS ---
Patient Name: Shena Quiñones Procedure Date: 07/02/2023 10:07 AM Date of : 1960 Age: 63 Procedure: Colonoscopy Indications: Screening for colorectal malignant neoplasm Providers: Dale Edwards MD Medicines: Monitored Anesthesia Care Patient Profile: This is a 63 year old female. Refer to note in patient chart for documentation of history and physical. Last Colonoscopy: 10 years ago. Complications: No immediate complications. Estimated blood loss: Minimal. Procedure: Pre-Anesthesia Assessment: - Prior to the procedure, a History and Physical was performed, and patient medications and allergies were reviewed. The patient's tolerance of previous anesthesia was also reviewed. The risks and benefits of the procedure and the sedation options and risks were discussed with the patient. All questions were answered, and informed consent was obtained. Prior Anticoagulants: The patient has taken no anticoagulant or antiplatelet agents. After reviewing the risks and benefits, the patient was deemed in satisfactory condition to undergo the procedure. After I obtained informed consent, the scope was passed under direct vision. Throughout the procedure, the patient's blood pressure, pulse, and oxygen saturations were monitored continuously. The pediatric colonoscope was introduced through the anus and advanced to the cecum, identified by appendiceal orifice and ileocecal valve. The colonoscopy was performed without difficulty. The patient tolerated the procedure well. The quality of the bowel preparation was good. The ileocecal valve, appendiceal orifice, and rectum were photographed. Scope In: 10:18:04 AM Scope Withdrawal Time 0 hours 4 minutes 12 seconds Scope Out: 10:40:35 AM Total Procedure Duration Time 0 hours 22 minutes 31 seconds Findings: An anal fissure was found on perianal exam. The entire examined colon appeared normal on direct and retroflexion views. Bleeding hemorrhoids were found during retroflexion. Impression: - Anal fissure found on perianal exam. - The entire examined colon is normal on direct and retroflexion views. - No specimens collected. Recommendation: - Discharge patient to home. - Resume previous diet. - Continue present medications. - Repeat colonoscopy in 10 years for screening purposes. - Return to my office at the next available appointment. Procedure Code(s): --- Professional --- 23213, Colonoscopy, flexible; diagnostic, including collection of specimen(s) by brushing or washing, when performed (separate procedure) Diagnosis Code(s): --- Professional --- Z12.11, Encounter for screening for malignant neoplasm of colon K60.2, Anal fissure, unspecified CPT copyright 2021 [employer]. All rights reserved. The codes documented in this report are preliminary and upon ammunition storage superintendent review may be revised to meet current compliance requirements. Dale Edwards MD 07/02/2023 10:43:46 AM This report has been signed electronically. Number of Addenda: 0 Note Initiated On: 07/02/2023 10:07 AM
--- NOTE | 2023-07-02 10:44 | OP.CCLET_ITS ---
07/02/2023 Sulma Teague Md Re : Colonoscopy procedure for Shena Quiñones Dear Ho This procedure was performed on Sunday, July 02, 2023. My impressions and recommendations are as follows: Impressions : - Anal fissure found on perianal exam. - The entire examined colon is normal on direct and retroflexion views. - No specimens collected. Recommendations : - Discharge patient to home. - Resume previous diet. - Continue present medications. - Repeat colonoscopy in 10 years for screening purposes. - Return to my office at the next available appointment. My findings are described in the full procedure note, which is enclosed. If I can be of further assistance, please feel free to contact me at Doctor phone number(s): , Work: . Sincerely, Dale Edwards MD 07/02/2023 10:43:46 AM This report has been signed electronically.
[2023-07-02 10:50] VITALS: BP 124/74; BP 130/85; PULSE 70; RESP 18; O2SAT 98
[2023-07-02 10:55] VITALS: BP 121/77; BP 130/85; PULSE 72; RESP 14; O2SAT 99
[2023-07-02 11:00] VITALS: BP 126/85; BP 130/85; PULSE 65; RESP 18; TEMP 36.2; O2SAT 100
[2023-07-02 11:25] VITALS: BP 130/85
== END 2023-07-02 11:33 | disposition home or self-care (01) ==
LOC: EN 08:27 → AC 08:29
PROVIDERS: PCP Internal Medicine; Referring Provider Internal Medicine; Visit Provider Surgery
PROC: 0DJD8ZZ Inspection of Lower Intestinal Tract, Via Natural or Artificial Opening Endoscopic (ICD-10-PCS; CPT 45378; principal; 2023-07-02 09:25)
DX: Z12.11 Encounter for screening for malignant neoplasm of colon (principal); K60.2 Anal fissure, unspecified; K64.9 Unspecified hemorrhoids; K21.9 Gastro-esophageal reflux disease without esophagitis
CPT/HCPCS: G0121; J2405

== ENCOUNTER → 2023-07-04 | Outpatient (CLI) | payer MEDICARE, OTHER, SELFPAY ==
--- NOTE | 2023-07-04 10:45 | BI_ITS ---
MAMMOGRAPHY - BILATERAL SCREENING REASON FOR EXAM: Female, 63 years old. Routine annual screening examination. PERTINENT HISTORY: Grandmother with breast cancer. Aunt with breast cancer. Remote right excisional breast biopsy. TECHNIQUE: Digital bilateral breast balbina (3D mammographic acquisition) in the CC and MLO projections. 2-D mediolateral oblique (MLO) and craniocaudad (CC) views of both breasts were obtained. CAD: Full Field Digital Mammography with Computer Added Detection was performed. COMPARISON: Comparison is made with prior study of July 02, 2022 and June 22, 2021. FINDINGS: Breast Composition: There are scattered areas of fibroglandular density. There are no dominant masses or suspicious calcifications. No other significant abnormalities are identified. There has been no significant change since the prior study. BI/SCRN MAMM (CAD)W/BALBINA BILAT IMPRESSION: Stable bilateral screening mammogram. Yearly follow-up mammogram recommended. (A) ASSESSMENT CATEGORY: BIRADS Category 1: Negative. A letter regarding these results will be sent to the patient by the facility within 30 days. Approximately 10% of breast cancers are not detected by mammography. A normal mammogram should not delay biopsy of a clinically suspicious abnormality. [id number] Electronically Signed: Bello Villegas MD at 13:20 EST ,
== END | disposition home or self-care (01) ==
LOC: OPBI 10:45
PROVIDERS: PCP Internal Medicine; Referring Provider Internal Medicine; Visit Provider Internal Medicine
DX: Z12.31 Encounter for screening mammogram for malignant neoplasm of breast (principal)
CPT/HCPCS: 77063; 77067

== ENCOUNTER 2023-09-11 10:30 | Outpatient (RCR) | payer MEDICARE, OTHER, SELFPAY ==
--- NOTE | 2023-07-17 11:55 | HP.PTREVAL ---
Re-Evaluation Intro: Dr. Sulma Teague MD, It has been my pleasure to treat CHAPO Boo GEMARIYA over the last visits for . Please see the progress note below for an update on the physical therapy plan of care! Anticipated Interventions Re-Evaluation Ending Re-evaluation ending: Please do not hesitate to contact me at [phone] by phone or if you have questions or concerns regarding this new plan of care! Sincerely, Torres Bonilla PT, Cert MDT, OCS
--- NOTE | 2023-07-17 12:45 | HP.PTEVAL ---
Patient's Visit Information Visit Information Visit Information: CHAPO MARQUEZ is a 63 year old F referred to Physical Therapy by Dr. Sulma Teague MD with a diagnosis of PAIN IN RIGHT KNEE ,PAIN IN LEFT KNEE. Date of Evaluation: 07/17/23 Physical Therapist: Torres Bonilla, PT, Cert MDT, OCS Visit Plan Frequency: 2x /Week Duration: 4 Weeks Plan: PT INTERVENTIONS ROM,FLEXIBILITY ,STICK ROLL QUADS/I T BAND ,GRADED STRENGTHENING EX'S QUADS/HAMS/HIP AND ENDURANCE PROGRAM Subjective Subjective: This 63 y/o female presents to physical therapy bilateral knee pain . Patient has had [address] Conner ~ 5 years ago could be candidate TKA . Seen family recommended PT no recent x-rays. Patient located anterior knee global region. Described as sharp stabbing pain. Aggravating factors walking/extended ,stairs very painful and unable to squat or kneel. Alleviating home remedies. Denies paresthesia/tingling.Patient pain causes deficits with ADL and housework tasks. Patient has had PT in past. Patient try to avoid TKA as long as possible and decrease pain. SOCAIL: VOCATION: RETIRED Pain Left Knee: Pain Intensity (Out of 10): 5 Pain Intensity Range: 10 Right Knee: Pain Intensity (Out of 10): 8 Pain Intensity Range: 10 Objective Objective: POSTURE: mild forward posture knee right slightly flexed PALAPTION: tender right I T band ,medial and lateral joint line EDEMA: absent GAIT: reciprocal pattern slight decrease stance time RLE knee flexed on right AROM: 5-128 degrees right supine flexion and left 0-130 degrees MMT:( peak force) right quads 22.1, left 19.3 ,hamstrings right 13.8 ,21.8 ,,hip flexion 26.1 right ,27.5 ,hip abduction 13.8 right ,left 19.8 FLEXABILITY: hamstrings min tight Balance/Special Test Scores Lower Extremity Functional Score: 30 Goals Goal 1:: Patient to be I with HEP for knee Goal Time Frame: 4-6 Weeks Goal 2:: Patient to improve strength peak force of quads/hams hip by 5-10# to improve gait and function Goal Time Frame: 4-6 Weeks Goal 3:: Patient to demonstrate 50% improvement with increase function with housework with less pain Goal Time Frame: 4-6 Weeks Goal 4:: Patient improve LFES score by 5 points to improve function and QOL Goal Time Frame: 4-6 Weeks Goal 5:: Patient to improve ROM to ascend/descend steps one steps with less pain Goal Time Frame: 4-6 Weeks Rehabilitation Potential Physical Therapy Diagnosis: This patient has bilateral knee pain due to DJD with decrease pain ,weakness impairs walking , stairs and unable to squat and kneel thus benefit from skilled PT Rehabilitation Potential: Good Anticipated Interventions Patient/Client Instruction: Educate patient on: Condition and Plan of Care For the Purpose of:: To decrease pain, To increase ROM, To improve muscle performance and motor function, To increase tolerance to activity/condition/position, To improve ability of physical actions for home/community/work/leisure, To improve health of tissue, To decrease soft tissue restriction, To increase flexibility/ROM, To improve balance, To prevent re-injury and To improve tolerance to ADL's Therapeutic Exercise to Include: Strength training, Endurance training, Balance training, Flexibilty training and Active ROM Comment: QUADS/HAMS/HIP For the Purpose of:: To decrease pain, To increase ROM, To improve muscle performance and motor function, To improve ability to perform ADL's, To increase tolerance to activity/condition/position, To improve ability of physical actions for home/community/work/leisure, To improve health of tissue, To decrease soft tissue restriction, To increase flexibility/ROM, To improve endurance, To reduce risk of recurrence and To improve tolerance to ADL's Manual Therapy Techniques to Include: Soft tissue mobilization Comment: STICK I TBAND For the Purpose of:: To decrease pain, To improve nutrient delivery to tissue, To increase oxygenation perfusion, To improve health of tissue and To decrease soft tissue restriction TENS: Yes IF ES: Yes Cryotherapy (ice pack, ice massage): Yes Thermo therapy (hot pack): Yes Ultrasound (thermal/non thermal): Yes For the Purpose of:: To decrease pain, To increase ROM, To improve health of tissue and To decrease soft tissue restriction Text: Thank you for the opportunity to evaluate your patient. For Medicare and Medicare HMO plans, please review the plan of care and approve it. It will need to be FAXED BACK to us at [phone] for Medicare purposes. For Medicare only, by signing this I certify the plan of care. Please let me know if there are questions or concerns regarding this plan of care. Physician Signature: Date:
--- NOTE | 2023-08-16 09:29 | HP.PTREVAL ---
Re-Evaluation Intro: Dr. Sulma Teague MD, It has been my pleasure to treat CHAPO MARQUEZ over the last 8 visits for PAIN IN RIGHT KNEE ,PAIN IN LEFT KNEE. Please see the progress note below for an update on the physical therapy plan of care! Subjective Subjective: Doing well overall stronger pain is not much better with activity Objective Objective/Function: *PATIENT PROGRESSING TOWARDS GOAL NEW GOALS ARE ESTABLISHED AND ARE APPROPRIATE WITH CURRENTB INTERVENTIONS* POSTURE: mild forward posture knee right slightly flexed PALAPTION: tender right I T band ,medial and lateral joint line EDEMA: absent GAIT: reciprocal pattern AROM: 5-135 degrees right supine flexion and left 0-135 degrees MMT:( peak force) right quads 37.2, left 32.7 ,hamstrings right 32.9,39.8 ,,hip flexion 39.1 right ,36. ,hip abduction 23.8 right ,left 29.8 FLEXABILITY: hamstrings min tight Plan Plan Plan: PROGRESS TO GYM PROGRAM TO BE I PT INTERVENTIONS ROM,FLEXIBILITY, STICK ROLL QUADS/ITB, GRADED STRENGTHENING EX'S QUADS/HAMS/HIP AND ENDURANCE PROGRAM Balance/Gait/Functional tests Balance/Special Test Scores Lower Extremity Functional Score: 32 Goals Goals Goal 1:: Patient to be I with HEP for knee Goal Time Frame: 4-6 Weeks Goal Progress: Progressing Goal 2:: Patient to improve strength peak force of quads/hams hip by 5-10# to improve gait and function( new goal) Goal Time Frame: 4-6 Weeks Goal 3:: Patient to demonstrate 50% improvement with increase function with housework with less pain( new goal) Goal Time Frame: 4-6 Weeks Goal 4:: Patient improve LFES score by 5 points to improve function and QOL Goal Time Frame: 4-6 Weeks Goal 5:: Patient to improve ROM to ascend/descend steps one steps with less pain Goal Time Frame: 4-6 Weeks Goal Progress: Progressing Anticipated Interventions Anticipated Interventions Patient/Client Instruction: Educate patient on: Condition and Plan of Care For the Purpose of:: To decrease pain, To increase ROM, To improve muscle performance and motor function, To increase tolerance to activity/condition/position, To improve ability of physical actions for home/community/work/leisure, To improve health of tissue, To decrease soft tissue restriction, To increase flexibility/ROM, To improve balance, To prevent re-injury and To improve tolerance to ADL's Therapeutic Exercise to Include: Strength training, Endurance training, Balance training, Flexibilty training and Active ROM Comment: QUADS/HAMS/HIP For the Purpose of:: To decrease pain, To increase ROM, To improve muscle performance and motor function, To improve ability to perform ADL's, To increase tolerance to activity/condition/position, To improve ability of physical actions for home/community/work/leisure, To improve health of tissue, To decrease soft tissue restriction, To increase flexibility/ROM, To improve endurance, To reduce risk of recurrence and To improve tolerance to ADL's Manual Therapy Techniques to Include: Soft tissue mobilization Comment: STICK I TBAND For the Purpose of:: To decrease pain, To improve nutrient delivery to tissue, To increase oxygenation perfusion, To improve health of tissue and To decrease soft tissue restriction TENS: Yes IF ES: Yes Cryotherapy (ice pack, ice massage): Yes Thermo therapy (hot pack): Yes Ultrasound (thermal/non thermal): Yes For the Purpose of:: To decrease pain, To increase ROM, To improve health of tissue and To decrease soft tissue restriction Re-Evaluation Ending Re-evaluation ending: Please do not hesitate to contact me at [phone] by phone or if you have questions or concerns regarding this new plan of care! Sincerely, Torres Bonilla PT, Cert MDT, OCS
--- NOTE | 2023-09-11 11:07 | HP.PTDCSUM ---
Discharge Summary D/C summary: It has been my pleasure to treat CHAPO MARQUEZ referred by Dr. Sulma Teague MD, with the diagnosis of PAIN IN RIGHT KNEE ,PAIN IN LEFT KNEE for a total of 16 visit(s). Discharge Date: 09/11/23 Please see the following information for a summary of their discharge status. Subjective Subjective: Doing better overall .. Difficulty with steps Pain Left Knee: Pain Intensity (Out of 10): 0 Right Knee: Pain Intensity (Out of 10): 2 Low back: Pain Intensity (Out of 10): 0 Overall Improvement % Improvement: 70 Objective Objective/Function: PROGRESSED WELL TOWARDS GOALS TO MANAGE KNEE PAIN POSTURE: mild forward posture knee right slightly flexed PALAPTION: tender right I T band ,medial and lateral joint line EDEMA: absent GAIT: reciprocal pattern AROM: 5-135 degrees right supine flexion and left 0-135 degrees MMT:( peak force) right quads 51.5, left 44.7 ,hamstrings right 42.9,42.8 ,,hip flexion 39.1 right ,36. ,hip abduction 23.8 right ,left 29.8 FLEXABILITY: hamstrings min tight Goals Goal 1:: Patient to be I with HEP for knee Goal Progress: Goal Met Goal 2:: Patient to improve strength peak force of quads/hams hip by 5-10# to improve gait and function( new goal) Goal Progress: Goal Met Goal 3:: Patient to demonstrate 50% improvement with increase function with housework with less pain( new goal) Goal Progress: Goal Met Goal 4:: Patient improve LFES score by 5 points to improve function and QOL Goal Progress: Goal Met Goal 5:: Patient to improve ROM to ascend/descend steps one steps with less pain Goal Progress: Goal Met Plan Plan: D.C D/C Information Discharge Comments: HEP AND GYM PROGRAM d/c sentence: If there are questions or concerns regarding this patient's physical therapy, please feel free to call me at [phone]. Thank you for the referral of this patient. Sincerely, Torres Bonilla, PT, Cert MDT, OCS Balance/Gait/Functional tests Balance/Special Test Scores Lower Extremity Functional Score: 54 Improvement % Improvement: 70
== END 2023-09-11 12:31 | disposition home or self-care (01) ==
LOC: PT 10:30
PROVIDERS: PCP Internal Medicine; Referring Provider Internal Medicine; Visit Provider Internal Medicine
DX: M25.561 Pain in right knee (principal); M25.562 Pain in left knee; G89.29 Other chronic pain
CPT/HCPCS: 97110; 97140; 97162; 97530

== ENCOUNTER → 2024-01-06 | Outpatient (CLI) | payer MEDICARE, OTHER, SELFPAY ==
--- NOTE | 2024-01-06 12:58 | MRI_ITS ---
EXAMINATION: MRI NECK WITH CONTRAST- MR Face Neck Orbit WO/W Contrast TECHNIQUE: Multiplanar multisequence magnetic resonance imaging of the neck was performed before and after the administration of IV gadolinium-based contrast material. INDICATION: 64 years old Female SOFT TISSUE MASS BACK OF NECK-4 1/2 -- 4 1/2 GERARD SOFT TISSUE MASS BACK OF NECK. COMPARISON: None. FINDINGS: NASOPHARYNX: The posterior nasal fossa and nasopharynx are within normal limits. SUPRAHYOID NECK: The oropharynx, oral cavity, base of the tongue, and the structures of the central floor of the mouth are without focal abnormality. INFRAHYOID NECK: No intrinsic abnormality is seen within the larynx, hypopharynx, supraglottis, or trachea. THYROID: The thyroid gland is unremarkable. SALIVARY GLANDS: The parotid glands and submandibular glands show no focal abnormalities. LYMPH NODES: No pathologically enlarged lymph nodes are seen in the neck. VASCULAR STRUCTURES: The flow voids for the carotid and vertebral arteries are present. There is normal enhancement of the internal jugular veins without intraluminal filling defects. VISUALIZED PORTIONS OF THE ORBITS, PARANASAL SINUSES, MASTOID AIR CELLS AND SKULL BASE: The paranasal sinuses and mastoids are well aerated bilaterally. The globes and retrobulbar soft tissues are unremarkable. BONES: The cervical alignment is anatomic. No evidence for acute fracture or subluxation. There are no suspicious osseous lesions within the cervical spine or at the skull base. There is multilevel spondylosis and spinal stenosis secondary to disc disease and bony hypertrophy THORACIC INLET: The lung apices are unremarkable. The palpable density demarcated by vitamin E capsules demonstrates signal characteristics of fat on all pulse weighted imaging sequences and does not enhance consistent with benign lipoma measuring approximately 2.48 x 3.84 x 2.01 cm MRI/Orbit Face Neck W/WO Contrast IMPRESSION: Findings consistent with benign lipoma in the subcutaneous fat of the posterior neck. Incidental finding of spondylosis and mild multilevel spinal stenosis secondary to disc disease and bony hypertrophy . Electronically Signed: Edil Hoover MD at 17:01 EDT ,
[2024-01-06 13:29] LABS: CREATININE FINGERSTICK < 1.0 mg/dL (0.55-1.02); EGFR FINGERSTICK > 60.0000 mL/min (>60)
== END | disposition home or self-care (01) ==
PROVIDERS: PCP Internal Medicine; Referring Provider Plastic Surgery; Visit Provider Plastic Surgery
DX: Z01.812 Encounter for preprocedural laboratory examination (principal); D48.19 Other specified neoplasm of uncertain behavior of connective and other soft tissue
CPT/HCPCS: 70543; A9575

== ENCOUNTER → 2024-01-17 | Outpatient (CLI) | payer MEDICARE, OTHER, SELFPAY ==
[2024-01-17 10:25] LABS: Bacteria 0 SEEN /hpf (None Seen); Mucous, Urine 0 SEEN /hpf (<or=2+); Red Blood Cells-Urine 0 SEEN /hpf (0-5); Squamous Epithelial Cells - UA 0 SEEN /hpf (5-10); White Blood Cells 0 SEEN /hpf (0-5)
[2024-01-17 11:52] LABS: Absolute Lymphocyte Count 1.58 X10^3/uL (0.83-4.51); Absolute Neutrophil Count 3.8 X10^3/uL (2.0-7.7); Basophil# 0.03 X10^3/uL; Basophil% 0.5 % (0-1); Eosinophil# 0.25 X10^3/uL; Eosinophils% 3.9 % (0-5); Hemoglobin 12.6 g/dL (12.0-15.0); Lymphocyte # 1.58 X10^3/ul (0.83-4.51); Lymphocyte % 24.9 % (19-41); Mean Corp Hgb Conc 33.2 g/dL (32-36); Mean Corpuscular Hgb 29.3 pg (27.0-32.0); Mean Corpuscular Volume 88.4 fL (81-99); Mean Platelet Vol. 9.8 fl (6.2-12.0); Monocyte# 0.63 X10^3/uL; Monocyte% 9.9 % (0-10); NRBC Flagged by Analyzer 0 % (0-5); Neutrophil # 3.84 X10^3/uL (2.7-7.7); Neutrophil % 60.6 % (47-70); Platelet Count 258 K/mm3 (150-450); RBC Distribution Width CV 14.1 % (11.6-14.6); RBC Distribution Width SD 45.7 fl (35.1-43.9); White Blood Count 6.3 K/mm3 (4.4-11.0)
[2024-01-17 11:56] LABS: Color, Urine Yellow (Yellow); Glucose, Dipstick Normal (Normal); Ketone-Dipstick Negative (Negative); Leukocyte Esterase-Dipstick Negative /ul (Negative); Nitrite-Dipstick Negative (Negative); Occult Blood-Urine Negative /ul (Negative); Protein-Dipstick Negative (Negative); Urine Bilirubin Dipstick Negative (Negative); Urine Clarity Clear (Clear); Urine Urobilinogen Normal (Normal)
[2024-01-17 12:36] LABS: ALB/GLOB Ratio 0.9 RATIO (0.9-2.4); AST(SGOT) 31 U/L (15-37); Alanine Aminotransfer ALT/SGPT 29 U/L (13-56); Albumin, Serum 3.7 g/dL (3.2-5.0); Alkaline Phosphatase 79 U/L (45-117); Anion Gap 4 (5-15); BUN 20 mg/dL (7-18); BUN/Creat Ratio 23.5 RATIO (10-20); Calcium,Total 9.7 mg/dL (8.5-10.1); Chloride 104 mmol/L (98-107); Cholesterol 222 mg/dL (200); Creatinine, Serum 0.85 mg/dL (0.55-1.02); EST Glomerular Filtration Rate 71 mL/min (>60); Est Glom Filt Rate - Afr Amer 86 mL/min (>60); Globulin 3.9 g/dL (2.2-4.2); Glucose 103 mg/dL (74-106); High Density Lipoprotein 69 mg/dL; Potassium 4.4 mmol/L (3.5-5.1); Protein, Total 7.6 g/dL (6.4-8.2); Sodium Level 137 mmol/L (136-145); Triglycerides 67 mg/dL; Very Low Density Lipoprotein 13 mg/dL (5-40)
== END | disposition home or self-care (01) ==
LOC: BIMLAB 09:39
PROVIDERS: PCP Internal Medicine; Referring Provider Physician Assistant; Visit Provider Physician Assistant
DX: Z01.818 Encounter for other preprocedural examination (principal); E78.5 Hyperlipidemia, unspecified
CPT/HCPCS: 36415; 80053; 80061; 81001; 85025

== ENCOUNTER 2024-01-24 08:02 | Day surgery (SDC) | payer MEDICARE, OTHER, SELFPAY ==
[2024-01-24] VITALS (11 sets, daily range): BP systolic 107–142; BP diastolic 68–89; PULSE 70–93; RESP 16–20; TEMP 36.1–37; O2SAT 92–100; BMI 29.9
[2024-01-24] MEDS: Lactated Ringers 1,000 ML 15 ML IV (08:48)
--- NOTE | 2024-01-24 09:17 | PCM.PRE.AN2 ---
ASA Classification* ASA Classification ASA Classification: 2 Assessment & Plan Anesthesia* Anesthesia Assessment Anesthesia Assessment: Discussed sedation and/or anesthesia options, risks, benefits, and alternatives with patient/parents/legal guardian/POA. Questions invited. The patient/parents/legal guardian/POA seems to understand and agrees to proceed with anesthesia plan. Reviewed the physical assessment, medical history, allergy history and patient home medications list prior to surgery/procedure/anesthetic and documented any changes. Performed airway and anesthesia risk assessments. Anesthesia Type Anesthesia Type: General Anesthesia Focused Assessment* Temperature: 98.6 F Pulse Rate: 78 Blood Pressure: 142/83 Respiratory Rate: 16 Pulse Ox: 99 Airway Assessment Mouth opens: >3 cm Mallampati Score: II Focused Labs Anesthesia Preop lab: CBC WBC 6.3 K/mm3 (4.4-11.0) 01/17/24 09:39 RBC 4.30 M/mm3 (4.2-5.4) 01/17/24 09:39 Hgb 12.6 g/dL (12.0-15.0) 01/17/24 09:39 Hct 38.0 % (37-47) 01/17/24 09:39 Plt Count 258 K/mm3 (150-450) 01/17/24 09:39 CHEMISTRY Potassium 4.4 mmol/L (3.5-5.1) 01/17/24 09:39 Sodium 137 mmol/L (136-145) 01/17/24 09:39 BUN 20 mg/dL (7-18) H 01/17/24 09:39 Creatinine 0.85 mg/dL (0.55-1.02) 01/17/24 09:39 Glucose 103 mg/dL (74-106) 01/17/24 09:39 TSH 2.62 uIU/mL (0.358-3.74) 04/14/18 14:43 COAG Pre-Assessment Diagnosis/Proposed Procedure Planned Operative Procedure(s): (N/A) Excision subcutaneous mass posterior neck (6cm) Anesthesia History 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 When Was Last Pacemaker Check QUESTION #4 FULL TEXT: You/Your Family Experience fever (hyperthermia) with Anesthesia Last Oral Intake Last Oral intake: Last Oral Intake NPO since 20:30 01/24/24 08:43 Meds taken in AM with sips of No 01/24/24 08:43 water? Meds patient instructed to take am of surgery PONV PONV - electron microprobe operator: PONV - electron microprobe operator Female Yes 01/16/24 13:21 HX of Motion Sickness No 01/16/24 13:21 HX of N/V After Surgery No 01/16/24 13:21 Non-Smoker Yes 01/16/24 13:21 Duration of Surgery greater No 01/16/24 13:21 than 60 minutes Number of Risk Factors 2 01/16/24 13:21 PONV Score Moderate Risk 01/16/24 13:21 Height & Weight Height & Weight: Anesthesia: Height & Weight Height 5 ft 6 in 01/24/24 08:43 Weight: 84.1 kg 01/24/24 08:43 Body Mass Index (BMI) 29.9 01/24/24 08:43 Respiratory Assessment Respiratory Assessment - electron microprobe operator: Respiratory Tract Infection Hx - electron microprobe operator Hx Respiratory Tract Infection No 01/16/24 13:21 STOP Sleep Apnea STOP Sleep Apnea - electron microprobe operator: STOP Sleep Apnea - electron microprobe operator Hx Hypertension No 01/16/24 13:21 Hx Sleep Apnea No 01/16/24 13:21 CPAP BIPAP Do you snore loudly (louder No 01/16/24 13:21 than talking or can be heard Do you often feel tired/ No 01/16/24 13:21 fatigued/ sleepy during daytime? Has anyone observed you stop No 01/16/24 13:21 breathing during sleep? STOP Results Negative 01/16/24 13:21 QUESTION #5 FULL TEXT : Do you snore loudly (louder than talking or can be heard through closed doors)? 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 Specify any problems Hx of Preganancy in last 3 N/A 01/16/24 13:21 Months Nurse Filling Out Transfusion NBUCHER 01/16/24 13:21 & Questions: Date: 01/16/24 01/16/24 13:21 Time: 13:22 01/16/24 13:21 Patient unable to answer at this time (ie. confused, unrespo /Reproduction History /Reproductive History - electron microprobe operator: /Reproductive Hx- electron microprobe operator Hx Now No 01/16/24 13:21 Gestational Age (in weeks): EDC: Hx Hx Para Hx Section SAB No 01/16/24 13:21 Active Medications Active Medications: Current Medications Generic Name Dose Route Start Last Admin Trade Name Freq PRN Reason Stop Dose Admin Cefazolin Sodium 2 gm/ Sodium 110 mls @ 150 mls/hr 01/24/24 09:25 Chloride IV 01/24/24 10:08 PREOP ONE Lactated Ringer's 1,000 mls @ 15 mls/hr 01/24/24 08:45 01/24/24 08:48 IV 15 mls/hr .Q48H CONNIE Administration PFSH Medical History Back pain History of eye problem History of osteoarthritis History of cardiac murmur History of cataract History of back problems History of arthritis Chronic constipation Wears glasses Arthritis Non-smoker History of stress test Hemorrhoids Vision problem Osteoarthritis Home Medications ?Medication ?Instructions ?Recorded ?Last Taken ?Type antiarthritic combination no.2 900 900 mg PO DAILY 04/18/23 06/12/23 History mg tablet (glucosamine-chondroitin) multivitamin 1 tab PO DAILY 04/18/23 06/12/23 History polyethylene glycol 3350 17 4 g PO DAILY 04/18/23 Unknown History gram/dose oral powder (Miralax) cholecalciferol (vitamin D3) 125 125 mcg PO QDAY #90 caps 01/17/24 Unknown Rx mcg (5,000 unit) capsule amitriptyline 75 mg tablet 150 mg (2 x 75 mg) PO QHS 90 days 01/21/24 01/23/24 Rx #180 tabs Allergy/AdvReac Type Severity Reaction Status Date / Time No Known Allergies Allergy Verified 01/24/24 08:37 Family History Mother Diabetes Arthritis Hyperlipidemia CVA (cerebral vascular accident) Father Arthritis Heart disease Hypertension Hyperlipidemia Cancer skin Grandmother Cancer breast Aunt Cancer breast Surgical History H/O eye surgery Social History adopted: No household members: spouse current occupational status: retired 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 uses ibuprofen as needed Review of Systems (Anesthesia) ROS Narrative System reviewed and no additional complaints, except as documented.
--- NOTE | 2024-01-24 09:21 | PCM.HP.BLA ---
History and Physical Date of Admission: 01/24/24 The patient is examined and there are no changes to the H&P dated 01/17/2024. The patient presents for excision of a posterior neck mass. Informed consent is obtained. 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
--- NOTE | 2024-01-24 09:25 | TISS_PTH ---
PATIENT: CHAPO MARQUEZ LOC: [facility] [place] U#:[id number] AGE/SX: 64/F ROOM: RE01/24/[address]: Dr. Michelle Mcarthur MD : 1960 BED: DIS: 01/24/2024 SPEC #: [id number] RECD: 01/24/24 11:52 STATUS: KELL DAHL #: [id number] NINA: 01/24/24 09:[address]: Michelle Mcarthur DEPT: SURGICAL PATHOLOGY RECD BY: Seema Leija ENTERED: 01/24/24 13:08 SP TYPE: Tissue Bx GUILLERMO DR: Dr. Sulma Teague MD Tissues: TISSUE SURGICALLY REMOVED Procedures: Surgery Specimen Level IV HEADER OPERATION: Excision subcutaneous mass posterior neck (6cm) PRE-OP DIAGNOSIS: Neoplasm of uncertain behavior of connective tissue and soft tissue of neck TISSUE SUBMITTED: Mass posterior neck and tissue MICROSCOPIC DIAGNOSIS Mass of posterior neck, excision: Mature adipose tissue consistent with lipoma. AM/mr 01/27/2024 MICROSCOPIC DESCRIPTION Slides are reviewed. GROSS DESCRIPTION Received in fixative is one container labeled with the patient's name and designated Mass posterior side neck and tissue. The specimen consists of a piece of parra-yellow adipose tissue measuring 4.5 x 3.5 x 2.0cm. The specimen is partly disrupted. Also present in the container are multiple pieces of parra-yellow fibroadipose tissue measuring in aggregate 2.5 x 1.0 x 1.0cm. Sections reveal yellow adipose cut surfaces without area of hemorrhage, necrosis or cystic degeneration. Gaming Pit Boss sections are submitted in three cassettes. DORA/ 01/24/2024 TC:1 CPT:33702
[2024-01-24] MEDS: Cefazolin 2 GM in 0.9% Normal Saline (100mL Bag) 100 ML IV (10:05)
[2024-01-24] MEDS: Lidocaine 1% /Epi 1:100 (20ml) 20 ML Vial (10:37)
--- NOTE | 2024-01-24 11:04 | DCINST_ITS ---
Discharge Instructions Dressing / Incision Additional Dressing/Incision Instructions:: May shower over the area but do not scrub. Keep your back elevated at night (recliner position) for the next 7 to 10 days. Take the oral antibiotic (Keflex) 2 times a day until finished. May take Tylenol or ibuprofen as needed for pain. Follow Up Care Please Follow Up With: Michelle Mcarthur MD When: 1 to 2 weeks Test Results: Test results from this visit will be discussed in further detail at your follow- up appointment, if applicable. Discharge Plan Admission Attending Provider: Michelle Mcarthur Primary Care Provider: Sulma Teague Instructions Print Language: Latvian Discharge Orders/Prescriptions Prescriptions: New cephalexin 500 mg capsule 500 mg PO BID 7 Days Qty: 14 0RF No Action multivitamin Tablet 1 tab PO DAILY glucosamine-chondroitin 900 mg tablet 900 mg PO DAILY polyethylene glycol 3350 [Miralax] 17 gram/dose powder 4 g PO DAILY cholecalciferol (vitamin D3) 125 mcg (5,000 unit) capsule 125 mcg PO QDAY Qty: 90 0RF amitriptyline 75 mg tablet 150 mg PO QHS 90 Days Qty: 180 1RF Referrals / Follow Up: Sulma Teague MD [Primary Care Provider] - Disposition Disposition (needs filled in before D/C Order can be placed): Home, Self Care
--- NOTE | 2024-01-24 11:08 | PCM.OPRPT ---
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 She presents for excision of the mass with submission for pathologic evaluation. Informed consent had been obtained prior to the surgery. She is marked in the preop holding area prior to surgery. The patient is brought to the operating room and placed under general anesthesia in the supine position. Care is then taken to position the patient in a prone position with care to support her shoulders and chest with rolls as well as her hip. Adequate padding of pressure points is also performed. Posterior neck is prepped and draped in usual sterile fashion. We initially began with making an incision over top of the mass. This is carried down through the dermis and subcutaneous tissue until the mass is encountered. The mass is then enucleated from its bed. Hemostasis is controlled with cautery. The wound is then closed in layers using a strata fix suture to approximate deep subcutaneous tissue and dermis. Skin edges are approximated with a running subcuticular strata fix suture. Dermabond Steri-Strips and a Tegaderm are placed on the site. She tolerated the procedure well was taken to the recovery area in an awake and stable condition. Needle and sponge counts are correct. Complications None Admit VTE Documentation VTE Mechan Device Prophylaxis: SCD's
--- NOTE | 2024-01-24 11:27 | PCM.POST.ANE ---
Anesthesia: Postop Eval I Current Vital Signs Temperature: 96.9 F Pulse Rate: 93 Blood Pressure: 116/68 Respiratory Rate: 20 Pulse Ox: 100 Oxygen Delivery Method: Nasal Cannula Oxygen Flow Rate (L/min): 4 Assessment Airway patent: Yes Spontaneous unlabored respirations: Yes Mental status: Asleep nausea: No Vomiting: No Anesthesia Complication: No Fluid Hydration Crystalloid volume administer (ml): 800 Total IV fluid infused: 800 Progress Note Anesthesia document: Postop Eval 1 completed: Yes
--- NOTE | 2024-01-24 15:40 | POSTOPAN2_ITS ---
Anesthesia Postop Eval I Sum Postop Eval Completion status Anesthesia document: Postop Eval 1 completed: Yes Anesthesia Postop Eval I Summary Anesthesia Postop Eval I Summary: Anesthesia Postop Eval I: Assessment Summary Airway patent Yes 01/24/24 11:29 FENCE [email or web address] Spontaneous unlabored Yes 01/24/24 11:29 FENCE [email or web address] respirations Mental status Asleep 01/24/24 11:29 FENCE [email or web address] nausea No 01/24/24 11:29 FENCE [email or web address] Vomiting No 01/24/24 11:29 FENCE [email or web address] Anesthesia Postop Eval I: Fluid Summary Crystalloid volume administer 800 01/24/24 11:29 FENCE [email or web address] (ml) Colloids volume administered ( ml) Blood Product volume administered (ml) Total IV fluid infused 800 01/24/24 11:29 FENCE [email or web address] Anesthesia Postop Eval I: Summary Notes Anesthesia Complication No 01/24/24 11:29 FENCE [email or web address] Anesthesia Complication Comment: Post-operative progress note Anesthesia: Postop Eval II Evaluation Mental status: Awake Pain Level: 0 nausea: No Vomiting: No
--- NOTE | 2024-01-24 15:40 | PCM.POSTANE2 ---
Anesthesia Postop Eval I Sum Postop Eval Completion status Anesthesia document: Postop Eval 1 completed: Yes Anesthesia Postop Eval I Summary Anesthesia Postop Eval I Summary: Anesthesia Postop Eval I: Assessment Summary Airway patent Yes 01/24/24 11:29 [email or web address] [email or web address] Spontaneous unlabored Yes 01/24/24 11:29 KILN [email or web address] respirations Mental status Asleep 01/24/24 11:29 KILN [email or web address] nausea No 01/24/24 11:29 KILN [email or web address] Vomiting No 01/24/24 11:29 KILN [email or web address] Anesthesia Postop Eval I: Fluid Summary Crystalloid volume administer 800 01/24/24 11:29 KILN [email or web address] (ml) Colloids volume administered ( ml) Blood Product volume administered (ml) Total IV fluid infused 800 01/24/24 11:29 KILN [email or web address] Anesthesia Postop Eval I: Summary Notes Anesthesia Complication No 01/24/24 11:29 KILN [email or web address] Anesthesia Complication Comment: Post-operative progress note Anesthesia: Postop Eval II Evaluation Mental status: Awake Pain Level: 0 nausea: No Vomiting: No
== END 2024-01-24 14:22 | disposition home or self-care (01) ==
LOC: SDC 08:03 → AC 08:04
PROVIDERS: PCP Internal Medicine; Referring Provider Plastic Surgery; Visit Provider Plastic Surgery
PROC: (CPT 21552; principal; 2024-01-24 09:10)
DX: D21.0 Benign neoplasm of connective and other soft tissue of head, face and neck (principal); K59.09 Other constipation; M19.90 Unspecified osteoarthritis, unspecified site; Z84.0 Family history of diseases of the skin and subcutaneous tissue
CPT/HCPCS: 21552; 00300; 88305; J7120; J2405

== ENCOUNTER → 2024-06-17 | Outpatient (CLI) | payer MEDICARE, OTHER, SELFPAY | END | disposition home or self-care (01) | LOC: LABSPEC 10:04 → LAB 10:05 | PROVIDERS: PCP Internal Medicine; Referring Provider Nurse Practitioner Women's Health; Visit Provider Nurse Practitioner Women's Health | DX: Z15.01 Genetic susceptibility to malignant neoplasm of breast (principal); Z80.3 Family history of malignant neoplasm of breast | CPT/HCPCS: 36415 ==

== ENCOUNTER → 2024-07-08 | Outpatient (CLI) | payer MEDICARE, OTHER, SELFPAY ==
--- NOTE | 2024-07-08 10:37 | BI_ITS ---
PROCEDURE: SCRN MAMM (CAD)W/BALBINA BILAT REASON FOR EXAM: F, Age 64 y/o, grandmother with breast cancer. Aunt with breast cancer. Annual follow-up. TECHNIQUE: Bilateral screening digital breast tomosynthesis with 2D and 3D images. Computer aided detection. COMPARISON: Prior exam(s) dating back to July 04, 2023.. FINDINGS: There are scattered areas of fibroglandular density. Stable examination. No suspicious masses, areas of developing architectural distortion, or suspicious calcifications. BI/SCRN MAMM (CAD)W/BALBINA BILAT IMPRESSION: BI-RADS 1: NEGATIVE. RECOMMEND ANNUAL MAMMOGRAPHIC SCREENING. Follow-up code: Routine Follow-up The patient will be notified of the results by letter. Reading Location: [id number]
== END | disposition home or self-care (01) ==
LOC: OPBI 10:37
PROVIDERS: PCP Internal Medicine; Referring Provider Nurse Practitioner Women's Health; Visit Provider Nurse Practitioner Women's Health
DX: Z12.31 Encounter for screening mammogram for malignant neoplasm of breast (principal)
CPT/HCPCS: 77063; 77067

== ENCOUNTER → 2024-08-07 | Outpatient (CLI) | payer MEDICARE, OTHER, SELFPAY ==
[2024-08-07 15:26] LABS: Absolute Neutrophil Count 2.6 X10^3/uL (2.0-7.7); Basophil# 0.03 X10^3/uL; Basophil% 0.7 % (0-1); Eosinophil# 0.13 X10^3/uL; Hematocrit 37.1 % (37-47); Hemoglobin 12.8 g/dL (12.0-15.0); Lymphocyte % 29.7 % (19-41); Mean Corp Hgb Conc 34.5 g/dL (32-36); Mean Corpuscular Hgb 29.4 pg (27.0-32.0); Mean Corpuscular Volume 85.1 fL (81-99); Mean Platelet Vol. 9.8 fl (6.2-12.0); Monocyte# 0.35 X10^3/uL; NRBC Flagged by Analyzer 0 % (0-5); Neutrophil # 2.55 X10^3/uL (2.7-7.7); Neutrophil % 58.4 % (47-70); Platelet Count 269 K/mm3 (150-450); RBC Distribution Width SD 43.4 fl (35.1-43.9); Red Blood Count 4.36 M/mm3 (4.2-5.4); White Blood Count 4.4 K/mm3 (4.4-11.0)
[2024-08-07 19:36] LABS: ALB/GLOB Ratio 1.5 RATIO (0.9-2.4); AST(SGOT) 23 U/L (<=31); Alanine Aminotransfer ALT/SGPT 16 U/L (<=34); Albumin, Serum 4.3 g/dL (3.4-4.8); Alkaline Phosphatase 80 U/L (35-104); Anion Gap 12 (5-15); BUN 17 mg/dL (4-19); BUN/Creat Ratio 21.5 RATIO (10-20); Calcium,Total 9.6 mg/dL (7.6-11.0); Carbon Dioxide 24.8 mmol/L (21.0-32.0); Chloride 104 mmol/L (98-108); Cholesterol 246 mg/dL (<=200); Creatinine, Serum 0.79 mg/dL (0.70-1.20); EST Glomerular Filtration Rate 83 (>60); Globulin 2.9 g/dL (2.2-4.2); Glucose 90 mg/dL (70-99); High Density Lipoprotein 69 mg/dL; Low Density Lipoprotein Calc. 164 mg/dL; Potassium 4.3 mmol/L (3.3-5.1); Protein, Total 7.2 g/dL (5.9-8.4); Sodium Level 140 mmol/L (133-145); Total Bilirubin 0.34 mg/dL (0.00-1.30); Triglycerides 67 mg/dL; Very Low Density Lipoprotein 13 mg/dL (5-40); cholesterol:hdl ratio screen 3.57
[2024-08-07 20:19] LABS: Vitamin D,25 Hydroxy 51.7 ng/mL (30-100)
== END | disposition home or self-care (01) ==
LOC: BIMLAB 13:25
PROVIDERS: PCP Internal Medicine; Referring Provider Internal Medicine; Visit Provider Internal Medicine
DX: E78.5 Hyperlipidemia, unspecified (principal); M85.80 Other specified disorders of bone density and structure, unspecified site
CPT/HCPCS: 36415; 80053; 80061; 82306; 85025

== ENCOUNTER → 2024-08-17 | Outpatient (CLI) | payer MEDICARE, OTHER, SELFPAY ==
--- NOTE | 2024-08-17 13:35 | RAD_ITS ---
EXAM: XR Bone Length CLINICAL INDICATION: UNEQUAL LIMB LENGTH TECHNIQUE: X-ray bone length. COMPARISON: No relevant prior studies available. FINDINGS: Right femur measures 45.5 cm in length. Right tibia measures 33.5 cm in length. Left femur measures 44.0 cm in length. Left tibia measures 34.0 cm in length. RAD/Bone Length IMPRESSION: Right femur and tibia length is 79 cm. Left femur and tibia atelectasis 78 cm. Reading Location: [id number]
== END | disposition home or self-care (01) ==
LOC: RAD 12:56
PROVIDERS: PCP Internal Medicine; Referring Provider Specialist; Visit Provider Specialist
DX: M21.752 Unequal limb length (acquired), left femur (principal); M21.751 Unequal limb length (acquired), right femur
CPT/HCPCS: 77073

== ENCOUNTER → 2024-10-21 | Outpatient (CLI) | payer MEDICARE, OTHER, SELFPAY ==
--- NOTE | 2024-10-21 08:17 | CT_ITS ---
PROCEDURE: EXTREMITY LOWER WITHOUT CONTRA 10/21/2024 REASON FOR EXAM: PRE OP WASC TECHNIQUE: Axial CT images of the right knee obtained without intravenous contrast. Coronal and Sagittal reconstruction series were provided. CONTRAST: None One or more dose reduction techniques were used (e.g., Automated exposure control, adjustment of the mA and/or kV according to patient size, use of iterative reconstruction technique). RADIATION DOSE SUMMARY: DLP: 1191.61 mGycm COMPARISON: None FINDINGS: There is a moderate tricompartment osteoarthritis, most severe at the patellofemoral articulation, with joint space narrowing, subcortical cyst formation, and marginal osteophytes. There is no acute fracture or dislocation. There is no significant joint effusion. There is no soft tissue mass or cyst. There is no visible adenopathy. There is a 2.0 x 2.6 cm uncomplicated fat containing right inguinal hernia. Mineralization is normal. There is no visible atherosclerosis. CT/Extremity Lower without Contra IMPRESSION: There is a moderate tricompartment osteoarthritis, most severe at the patellofe moral articulation, with joint space narrowing, subcortical cyst formation, and marginal osteophytes. Reading Location: [facility]
--- NOTE | 2024-10-21 08:19 | EKG12_ITS ---
Test Reason : PREOP Blood Pressure : */* mmHG Vent. Rate : 74 BPM Atrial Rate : 74 BPM P-R Int : 168 ms QRS Dur : 82 ms QT Int : 378 ms P-R-T Axes : 53 50 61 degrees QTcB Int : 419 ms Normal sinus rhythm Normal ECG Confirmed by Rigo Arriola ([id number]), editor house organ XIOMARA ALCANTARA ([id number]) on 10/22/2024 6:14:21 AM Referred By: Anirudh Conner Confirmed By: Rigo Arriola
--- OUTSIDE RECORDS SUMMARY | 2024-10-21 08:55 | XMS RPT_ITS | CCD ---
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 Surinder Yeung Primary Care Provider [phone] RIOS Quintana Attending Provider Unavailable Dr. Surinder Yeung Referring Provider Dr. Sulma Teague Attending Provider [phone] Dr. Dale Edwards Attending Provider [phone] Dr. Sulma Teague Primary Care Provider Salud Sargent MD Primary Care Provider [phone] Dr. Sulma Teague Referring Provider [phone] Dr. Dale Edwards Other Provider [phone] Dr. Satnam Yeung Primary Care Provider [phone] Dr. Satnam Yueng Referring Provider Dr. Sulma Teague Attending Provider [phone]) Dr. Dale Edwards Attending Provider [phone] Dr. Sulma Teague Primary Care Provider Dr. Sulma Teague Referring Provider [phone] Dr. Dale Edwards Other Provider [phone]) KALEY Rea Attending Provider [phone]) Salud Sargent MD Primary Care Provider [phone] SALUD SARGENT Primary Care Unavailable MURALI MENG Attending Unavailable SALUD SARGENT Primary Care Unavailable FRANCISCO HEREDIA Attending Unavailable SALUD SARGENT Primary Care Unavailable JARED HERNANDEZ Attending Unavailable SALUD SARGENT Primary Care Unavailable Ho MCKENNA, Dr. Ozuna Primary Care Provider [phone] Ho MCKENNA, Dr. Ozuna Referring Provider Francine CLINICAL REHAB LIAISON-C, Milena Attending Provider [phone] [place] [facility] REH[facility] LIAISON-C, Milena Referring Provider [phone] Ho MCKENNA, Dr. Ozuna Attending Provider Dalila MCKENNA, Dr. Oleary Attending Provider [phone] Dalila MCKENNA, Dr. Oleary Referring Provider [phone] Ho, Sulma Primary Care Unavailable Jorge Rea Referring Unavailable Jorge Rea Attending Unavailable Francine CLINICAL REHAB LIAISON, Milena Attending Unavailable [place], Sulma Primary Care Unavailable Ho, Sulma Referring Unavailable Ho, Sulma Primary Care Unavailable Ghaz[place], Michelle Attending Unavailable [place], Michelle Consulting Unavailable [place]az[place], Michelle Referring Unavailable Ho, Sulma Primary Care Unavailable [place], Sulma Referring Unavailable [place], Sulma Attending Unavailable Tommy Pepper Attending Unavailable Ho, Sulma Primary Care Unavailable Ho, Sulma Referring Unavailable Ho, Sulma Primary Care Unavailable [place], Sulma Referring Unavailable [place], Michelle Attending Unavailable [place], Sulma Primary Care Unavailable [place], Michelle Attending Unavailable [place], Sulma Referring Unavailable [place], Sulma Primary Care Unavailable Jorge Rea Attending Unavailable [place], Sulma Referring Unavailable [place], Sulma Primary Care Unavailable Ho, Sulma Referring Unavailable [place], Michelle Attending Unavailable [place], Sulma Primary Care Unavailable [place], Michelle Attending Unavailable Ho, Sulma Referring Unavailable Francine CLINICAL REHAB LIAISON, Milena Attending Unavailable [place], Sulma Primary Care Unavailable [place] CLINICAL REHAB LIAISON, Milena Referring Unavailable Francine CLINICAL REHAB LIAISON, Milena Attending Unavailable Ho, Sulma Primary Care Unavailable [place] CLINICAL REHAB LIAISON, Milena Referring Unavailable [place], Sulma Primary Care Unavailable [place], Sulma Referring Unavailable Ho, Sulma Attending Unavailable Ho, Sulma Attending Unavailable [place], Sulma Primary Care Unavailable Ho, Sulma Referring Unavailable Ho, Sulma Primary Care Unavailable Anirudh Conner Referring Unavailable DalilaAnirudh flores Attending Unavailable Ho, Sulma Primary Care Unavailable [place]az[place], Michelle Referring Unavailable [place], Michelle Attending Unavailable [place], Sulma Primary Care Unavailable [place]az[place], Michelle Referring Unavailable [place]az[place], Michelle Attending Unavailable Allergies Allergy Classification Reported Allergen(s) Allergy Type Date of Onset Reaction(s) Facility (3 sources) Chlorhexidine Drug Allergy 06-17-2024 Itching [facility] Comment on above: Itching and redness (3 sources) Isopropyl Alcohol Drug Allergy 06-17-2024 Itching [facility] Comment on above: Itching and redness (1 source) Chlorhexidine Drug Allergy 08-05-2024 [facility] Repository (1 source) Isopropyl Alcohol Drug Allergy 08-05-2024 [facility] Repository Medications Current Medications Medication Drug Class(es) Dates Sig (Normalized) Sig (Original) Antiarthritic Combination No.2 (Glucosamine-Chondro itin) 900 mg tablet (7 sources) Start: 04-18-2023 take 1 tablet by mouth once daily Antiarthritic Combination No.2 (Glucosamine-Chondr oitin) 900 mg tablet Active 900 mg PO DAILY April 18, 2023 1:00am Start: 04-18-2023 take 1 tablet by oliver th once daily Antiarthritic Combination No.2 (Glucosamine-Chondroitin) 900 mg tablet Active 900 MG PO DAILY April 18, 2023 1:00am Start: 04-18-2023 take 1 tablet by oliver th once daily Antiarthritic Combination No.2 (Glucosamine-Chondroitin) 900 mg tablet Active 900 MG PO DAILY April 18, 2023 12:00am Start: 04-18-2023 Antiarthritic Combination No.2 (Glucosamine-Chondroitin) 900 mg tablet Active MG PO April 18, 2023 12:00am atorvastatin 10 mg oral tablet (2 sources) HMG-CoA Reductase Inhibitor Start: 08-10-2024 take 1 tablet by mouth at bedtime Atorvastatin (Lipitor) 10 mg tablet Active 10 mg PO AT BEDTIME August 10, 2024 12:00am benoxinate hydrochloride 4 mg/ml / fluorescein sodium 2.5 mg/ml ophthalmic solution (1 source) Diagnostic Dye Start: 09-05-2021 End: 09-06-2021 fluorescein-benoxin ate 0.25-0.4 % 1 Drop (FLURESS) cholecalciferol 0.125 mg oral capsule (3 sources) Vitamin D Start: 01-17-2024 take 1 capsule by mouth once daily Cholecalciferol (Vitamin D3) 125 mcg (5,000 unit) capsule Active 125 ug PO daily January 17, 2024 12:00am clobetasol propionate 0.0005 mg/mg topical ointment (2 sources) Corticosteroid Start: 05-27-2023 End: 05-26-2024 clobetasol (TEMOVATE) 0.05 % ointment Apply 1 application to affected area once daily. 45 g 3 05/27/2023 05/26/2024 Active Comment on above: Apply 1 application to affected area once daily. diclofenac sodium 0.01 mg/mg topical gel (5 sources) Nonsteroidal Anti-inflammatory Drug diclofenac sodium (VOLTAREN) 1 % topical gel Apply to affected area once daily. Bilateral knees 0 Active Comment on above: Apply to affected ar ea once daily. Bilateral knees Diltiazem 2% / Lidocaine 5% Ointment (Compound) (3 sources) Start: 05-31-2023 Diltiazem 2% / Lidocaine 5% Ointment (Compound) Active 0 .Route May 31, 2023 1:00am TID rectally Start: 05-31-2023 Diltiazem 2% / Lidocaine 5% Ointment (Compound) Active 0 .Route May 31, 2023 12:00am TID rectally estradiol 0.1 mg/ml vaginal cream (5 sources) Estrogen Start: 06-17-2024 Estradiol 0.01 % (0.1 mg/gram) cream Active 0 VAGINAL .COMPLEX 42.5 June 17, 2024 1:00am small amount as directed vaginal every other day X 4 weeks then twice a week; Start: 06-26-2023 estradiol (EST RACE) 0.01 % (0.1 mg/gram) vaginal cream Use 1 g vaginally daily for 2 weeks. Then use 1 g vaginally twice per week. 42.5 g 3 06/26/2023 Active Comment on above: Use 1 g vaginally da lucina for 2 weeks. Then use 1 g vaginally twice per week. glucosam/linda-msm1/C/shorty/b osw (OSTEO BI-FLEX TRIPLE STRENGTH ORAL) (5 sources) glucosam/linda-ms m1/C/shorty/ bosw (OSTEO BI-FLEX TRIPLE STRENGTH ORAL) Take by mouth once daily. 0 Active glucosam/linda-ms m1/C/shorty/bosw (OSTEO BI-FLEX TRIPLE STRENGTH ORAL) Comment on above: Take by mouth once d aily. Multivitamin preparation (4 sources) Start: 04-18-2023 take 1 tablet by mouth once daily Multivitamin Active 1 TABLET PO DAILY April 18, 2023 1:00am Start: 04-18-2023 take 1 tablet by oliver th once daily Multivitamin Active 1 TABLET PO DAILY April 18, 2023 12:00am MULTIVITAMIN TAB (5 sources) Start: 03-23-2008 take 1 tablet by mouth once daily MULTIVITAMIN TAB Take 1 tablet by mouth once daily. 0 03/23/2008 Active Start: 03-23-2008 MULTIVITAMIN T AB Take one(1) tablet daily. 0 03/23/2008 Active Comment on above: Take one(1) tablet d aily. Take 1 tablet by oliver th once daily. Multivitamin tablet (3 sources) Start: 04-18-2023 Multivitamin tablet Active 1 {tbl} PO DAILY April 18, 2023 1:00am nystatin [id number] unt/ml topical cream (2 sources) Polyene Antifungal Start: 04-17-2023 End: 04-24-2023 nystatin (MYCOSTATIN) cream Apply to affected area two times a day for 7 days. 15 g 0 04/17/2023 04/24/2023 Active Comment on above: Apply to affected ar ea two times a day for 7 days. phenylephrine hydrochloride 25 mg/ml ophthalmic solution (1 source) alpha-1 Adrenergic Agonist Start: 09-05-2021 End: 09-06-2021 PHENYLephrine 2.5 % 1 Drop (AK-DILATE, ELIAS-SYNEPHRINE) polyethylene glycol 3350 09586 mg powder for oral solution (12 sources) Osmotic Laxative Start: 01-23-2005 Polyethylene Glycol 3350 (Miralax) 17 gram/dose powder Active 4 g PO DAILY April 18, 2023 1:00am Start: 01-23-2005 take 17 g by mouth o nce daily as needed MIRALAX 17 G (100 %) ORAL PACK Take 17 g by mouth once daily as needed. 0 01/23/2005 Active Comment on above: prn Take 17 g by mouth o nce daily as needed. proparacaine hydrochloride 5 mg/ml ophthalmic solution (1 source) Local Anesthetic Start: 09-06-19 End: 09-07-19 proparacaine 0.5 % 1 Drop (ALCAINE) tropicamide 10 mg/ml ophthalmic solution (1 source) Anticholinergic Start: 09-06-19 End: 09-07-19 tropicamide 1 % 1 Drop (MYDRIACYL) Ifzoxieg-Rrrg-Hqzgj-O reg-Capry (4 sources) Start: 04-18-20 take 1 capsule by mouth once daily Juhiqnae-Mxvr-Pkide -Oreg-Capry Active 1 CAP PO DAILY April 18, 2023 1:00am Start: 04-18-2023 take 1 capsule by mouth once daily Fzxqpljg-Cuoh-Izdid-Oreg-Capry Active 1 CAP PO DAILY April 18, 2023 12:00am Start: 04-18-2023 Turmeric-Ging- Xbihh-Sznd-Adcmf Active CAP PO April 18, 2023 12:00am Completed/Discontinued Medications Medication Drug Class(es) Dates Sig (Normalized) Sig (Original) amitriptyline hydrochloride 75 mg oral tablet (20 sources) Tricyclic Antidepressant Start: 04-18-2023 End: 07-23-2024 take 2 tablets by mouth at bedtime Amitriptyline 75 mg tablet Discontinued 150 mg PO AT BEDTIME 180 90 January 21, 2024 6:58pm July 23, 2024 4:14pm Start: 04-18-2023 End: 07-19-2023 take 150 mg by mouth at bedtime Amitriptyline Disconti nued 150 MG PO AT BEDTIME 90 July 19, 2023 1:36pm July 19, 2023 3:17pm Start: 04-18-2023 Amitriptyline Active MG PO April 18, 2023 12:00am Start: 03-22-2009 AMITRIPTYLINE 150 MG TAB Take two 75mg tablets at bedtime. 0 03/22/2009 Active Comment on above: Take two 75mg tablet s at bedtime. amoxicillin 875 mg / clavulanate 125 mg oral tablet (3 sources) Penicillin-class Antibacterial Start: End: Amoxicillin-Pot Clavulanate 875-125 mg tablet Discontinued 1 {tbl} PO Q12H November 01, 2023 12:00am January 16, 2024 1:19pm cephalexin 500 mg oral capsule (3 sources) Cephalosporin Antibacterial Start: End: take 1 capsule by mouth twice daily Cephalexin 500 mg capsule Discontinued 500 mg PO TWICE A DAY 23 11January 24, 2024 12:00am June 17, 2024 10:14am Diltiazem 2% / Lidocaine 5% Ointment (Compound) ointment (3 sources) Start: End: Diltiazem 2% / Lidocaine 5% Ointment (Compound) ointment Discontinued 0 .Route May 31, 2023 1:00am January 16, 2024 1:20pm TID rectally ergocalciferol 1.25 mg oral capsule (7 sources) Provitamin D2 Compound Start: End: Ergocalciferol (Vitamin D2) 1,250 mcg (50,000 unit) capsule Discontinued 1250 ug PO DAILY April 18, 2023 1:00am January 17, 2024 8:55am metroNIDAZOLE 0.0075 mg/mg topical gel (3 sources) Nitroimidazole Antimicrobial Start: metroNIDAZOLE (METROGEL) 0.75 % Topical Gel polyethylene glycol 3350 593135 mg / potassium chloride 2970 mg / sodium bicarbonate 6740 mg / sodium chloride 5860 mg / sodium sulfate 04431 mg powder for oral solution (6 sources) Osmotic Laxative Start: End: take 4000 mL by mouth once Peg 3350-Electrolytes 236-22.74-6.74 -5.86 gram recon soln Discontinued 4000 mL PO ONCE 4000 June 19, 2023 1:00am July 10, 2023 10:20am until fecal effluent is clear; do not exceed a total volume of 4000 mL Start: 06-19-2023 End: 07-10-2023 take 4000 mL by mouth once Peg 3350-Electrolytes Disco ntinued 4000 ML PO ONCE 4000 June 19, 2023 1:00am July 10, 2023 10:20am until fecal effluent is clear; do not exceed a total volume of 4000 mL predniSONE 20 mg oral tablet (4 sources) Start: 07-17-2023 End: 01-16-2024 take 1 tablet by mouth twice daily Prednisone 20 mg tablet Discontinued 20 mg PO TWICE A DAY July 17, 2023 1:00am January 16, 2024 1:20pm Iohvqyrg-Elot-Epbwn-Or eg-Capry 100 mg-150 mg- 50 mg-150 mg capsule (3 sources) Start: 04-18-2023 End: 01-16-2024 take 1 capsule by mouth once daily Dluajbwk-Nonb-Hwxgu-Oreg -Capry 100 mg-150 mg- 50 mg-150 mg capsule Discontinued 1 NMA PO DAILY April 18, 2023 1:00am January 16, 2024 1:20pm Problems Active Problems Problem Classification Problem Date Documented Da te Episodic/Chronic Abdominal pain (5 sources) Abdominal pain; Translations: [Unspecified abdominal pain] 03-19-2008 Episodic Administrative/social admission (3 sources) Persons encountering health services in other specified circumstances; Translations: [Other reasons for seeking consultation] 05-20-2023 Episodic Allergic reactions (5 sources) Allergic disorder of skin; Translations: [Allergic contact dermatitis, unspecified cause] 07-17-2023 Episodic Anal and rectal conditions (10 sources) Anal fissure; Translations: [Anal fissure, unspecified] 05-31-2023 Episodic Bacterial infection; unspecified site (5 sources) Bacteremia; Translations: [Bacteremia] 03-19-2008 Episodic Disorders of lipid metabolism (11 sources) Pure hypercholesterolemia; Translations: [Pure hypercholesterolemia, unspecified] Onset: 08-11-2024 03-19-2008 Chronic Headache; including migraine (5 sources) Migraine; Translations: [Other migraine, not intractable, without status migrainosus] 03-19-2008 Chronic Hemorrhoids (3 sources) Unspecified hemorrhoids; Translations: [Unspecified hemorrhoids without mention of complication] 05-20-2023 Episodic Immunizations and screening for infectious disease (3 sources) Encounter for immunization; Translations: [Need for prophylactic vaccination and inoculation against unspecified single disease] 05-20-2023 Episodic Menopausal disorders (2 sources) Genitourinary syndrome of menopause; Translations: [Other specified menopausal and perimenopausal disorders] Onset: 06-26-2023 06-26-2023 Chronic Miscellaneous mental health disorders (10 sources) Non-organic sleep disorder; Translations: [Sleep disorder not due to a substance or known physiological condition, unspecified] 03-19-2008 Chronic Mood disorders (5 sources) Depressive disorder; Translations: [Other specified depressive episodes] 03-19-2008 Chronic Neoplasms of unspecified nature or uncertain behavior (3 sources) Neoplasm of uncertain behavior of soft tissues of neck; Translations: [Neoplasm of uncertain behavior of connective and soft tissue of neck] 06-17-2024 Episodic Nonmalignant breast conditions (8 sources) Breast lump; Translations: [Unspecified lump in unspecified breast] Onset: 04-25-2010 04-25-2010 Episodic Other acquired deformities (1 source) Unequal limb length (acquired), left femur; Translations: [Unequal limb length (acquired), left femur] Onset: 08-20-2024 Episodic Other and unspecified benign neoplasm (3 sources) Benign lipomatous neoplasm, unspecified; Translations: [Lipoma, unspecified site] 05-20-2023 Episodic Other circulatory disease (1 source) Elevated blood-pressure reading without diagnosis of hypertension; Translations: [Elevated blood-pressure reading, without diagnosis of hypertension] 04-17-2023 Episodic Other connective tissue disease (5 sources) Muscle pain; Translations: [Myalgia and myositis, unspecified] 03-19-2008 Episodic Other connective tissue disease (3 sources) Fibromyalgia; Translations: [Myalgia and myositis, unspecified] 05-20-2023 Episodic Other connective tissue disease (2 sources) Fibromyalgia; Translations: [Fibromyalgia] 08-05-2024 Episodic Other eye disorders (1 source) Vitreomacular adhesion of bilateral eyes; 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, bilateral] Chronic Other female genital disorders (1 source) Pruritus of vagina; Translations: [Other specified noninflammatory disorders of vagina] 04-17-2023 Episodic Other gastrointestinal disorders (5 sources) Irritable bowel syndrome; Translations: [Irritable bowel syndrome without diarrhea] 03-19-2008 Chronic Other gastrointestinal disorders (4 sources) Chronic constipation; Translations: [Other constipation] 07-10-2023 Episodic Other gastrointestinal disorders (1 source) Other constipation; Translations: [Constipation, unspecified] 07-10-2023 Episodic Other inflammatory condition of skin (5 sources) Rosacea; Translations: [Rosacea, unspecified] Onset: 01-23-2005 01-23-2005 Chronic Other inflammatory condition of skin (5 sources) Pruritus of genital organs; Translations: [Anogenital pruritus, unspecified] 03-19-2008 Episodic Other non-traumatic joint disorders (5 sources) Pain in right knee; Translations: [Pain in joint, lower leg] 05-20-2023 Episodic Other screening for suspected conditions (not mental disorders or infectious disease) (11 sources) Patient encounter status; Translations: [Encounter for screening for malignant neoplasm of colon] Onset: 06-17-2024 05-31-2023 Episodic Other skin disorders (2 sources) Lichen sclerosus et atrophicus; Translations: [Circumscribed scleroderma] Onset: 06-26-2023 06-26-2023 Chronic Residual codes; unclassified (11 sources) Family history of cancer; Translations: [Family history of malignant neoplasm of other organs or systems] Onset: 01-23-2005 01-23-2005 Episodic Comment on above: father prostate canc erMat and Pat aunts colon cancer Residual codes; unclassified (3 sources) Asymptomatic menopausal state; Translations: [Asymptomatic postmenopausal status (age-related) (natural)] 05-20-2023 Episodic Residual codes; unclassified (6 sources) Family history of breast cancer; Translations: [Family history of malignant neoplasm of breast] 07-01-2024 Episodic Comment on above: paternal grandmother , aunt, cousin; [employer] genetic test:negative. Lifetime risk 21.5%: yrly mammogram and MRI alternating. Residual codes; unclassified (3 sources) H/O: neoplasm; Translations: [Other specified postprocedural states] 06-17-2024 Episodic Residual codes; unclassified (1 source) Genetic susceptibility to malignant neoplasm of breast; Translations: [Genetic susceptibility to malignant neoplasm of breast] Onset: 07-03-2024 Episodic Residual codes; unclassified (1 source) Family history of malignant neoplasm of breast; Translations: [Family history of malignant neoplasm of breast] Onset: 06-17-2024 Episodic Systemic lupus erythematosus and connective tissue disorders (5 sources) Disorder of connective tissue; Translations: [Systemic involvement of connective tissue, unspecified] Onset: 01-23-2005 01-23-2005 Chronic Unclassified (1 source) Other specified neoplasm of uncertain behavior of connective and other soft tissue; Translations: [Other specified neoplasm of uncertain behavior of connective and other soft tissue] Onset: 02-19-2024 Past or Other Problems Problem Classification Problem Date Documented Date Episodic/Chronic Benign neoplasm of uterus (5 sources) Submucous leiomyoma of uterus; Translations: [Submucous leiomyoma of uterus] Onset: 11-23-2014 11-23-2014 Episodic Other and unspecified benign neoplasm (5 sources) Benign neoplasm of skin; Translations: [Other benign neoplasm of skin, unspecified] Onset: 01-23-2005 01-23-2005 Episodic Other female genital disorders (1 source) Polyp of corpus uteri; Translations: [Polyp of corpus uteri] Onset: 11-23-2014 11-23-2014 Episodic Other female genital disorders (4 sources) Polyp of corpus uteri; Translations: [Polyp of corpus uteri] Onset: 11-23-2014 11-23-2014 Episodic Other female genital disorders (1 source) Other specified noninflammatory disorders of vagina; Translations: [Vaginal itching] Onset: 05-27-2023 Episodic Other inflammatory condition of skin (5 sources) Seborrheic dermatitis; Translations: [Other seborrheic dermatitis] Onset: 01-23-2005 01-23-2005 Episodic Other skin disorders (1 source) Localized swelling, mass and lump, neck; Translations: [Localized swelling, mass and lump, neck] Onset: 02-19-2024 Episodic Residual codes; unclassified (3 sources) History of colonoscopy; Translations: [Other specified postprocedural states] Onset: 08-11-2013 06-17-2024 Episodic Comment on above: 2023 Results Test Name Value Interpretation Reference Range Facil ity Bone Lengthon 08-17-2024 Bone Length [facility] Imaging Services [address] [place] [address] [id number] Bone Length MR#: [id number] Acct: [id number] Name: SHENA MARQUEZ Rep #: [id number] : 1960 F 64 From: Natalio Adams MD PCP: Dr. Sulma Teague MD Status: REG CLI Study: Bone Length Date of Exam: 08/17/24 Exam# [id number] Ordering Dr: Anirudh Conner MD EXAM: XR Bone Length CLINICAL INDICATION: UNEQUAL LIMB LENGTH TECHNIQUE: X-ray bone length. COMPARISON: No relevant prior studies available. FINDINGS: Right femur measures 45.5 cm in length. Right tibia measures 33.5 cm in length. Left femur measures 44.0 cm in length. Left tibia measures 34.0 cm in length. RAD/Bone Length IMPRESSION: Right femur and tibia length is 79 cm. Left femur and tibia atelectasis 78 cm. Reading Location: [facility] CC: Dr. Sulma Teague MD; Dr. Anirudh Conner MD Before School: Signed Normal [facility] Absolute neutrophil countOrd ered By: Sulma Teague on 08-07-2024 Neutrophils (Bld) [#/Vol] 2.6 10*3/uL 2.0-7.7 [facility] Anion gap in Serum or Plasma Ordered By: Sulma Teague on 08-07-2024 Anion gap [Moles/Vol] 12 mmol/L 5-15 [facility] BUN/creatinine ratioOrdered By: Sulma Teague on 08-07-2024 Urea nitrogen/Creatinine [Mass ratio] 21.5 mg/mg High 10-20 [facility] Basophil percentageOrdered B y: Sulma Teague on 08-07-2024 Basophils/100 WBC (Bld) 0.7 % 0-1 [facility] Bilirubin, totalOrdered By: Sulma Teague on 08-07-2024 Bilirubin [Mass/Vol] 0.34 mg/dL 0.00-1.30 [facility] CBC W/Diff, Automatedon 07-12 Absolute Lymph 1.30 X10 3/uL Normal 0.83-4.51 [facility] Comment on above: Performed By: #### L 100.0100, L500.4050, L506.1001, L500.4100 ####[facility] [address] [place], [address] Absolute Neut 2.6 X10 3/uL Normal 2.0-7.7 [facility] Comment on above: Performed By: #### L 100.0100, L500.4050, L506.1001, L500.4100 ####[facility] [address] [place], [address] Basophils/100 WBC (Bld) 0.7 % Normal 0-1 [facility] Comment on above: Performed By: #### L 100.0100, L500.4050, L506.1001, L500.4100 ####[facility] [address] [place], [address] Eosinophils/100 WBC (Bld) 3.0 % Normal 0-5 [facility] Comment on above: Performed By: #### L 100.0100, L500.4050, L506.1001, L500.4100 ####[facility] [address] [place], [address] Erythrocyte distribution width (RBC) [Ratio] 14.0 % Normal 11.6-14.6 [facility] Comment on above: Performed By: #### L 100.0100, L500.4050, L506.1001, L500.4100 ####[facility] [address] [place], [address] Hematocrit (Bld) [Volume fraction] 37.1 % Normal 37-47 [facility] Comment on above: Performed By: #### L 100.0100, L500.4050, L506.1001, L500.4100 ####[facility] [address] [place], [address] Hemoglobin (Bld) [Mass/Vol] 12.8 g/dL Normal 12.0-15.0 [facility] Comment on above: Performed By: #### L 100.0100, L500.4050, L506.1001, L500.4100 ####[facility] [address] [place], [address] IG% 0.200 Normal 0.0-0.9 [facility] Comment on above: Result Comment: IG% - Immature Granulocytes (promyelocytes, myelocytes and metamyelocytes) > 1% indicates that a LEFT SHIFT is Present. Performed By: #### L 100.0100, L500.4050, L506.1001, L500.4100 ####[facility] [address] [place], [address] Lymphocytes/100 WBC (Bld) 29.7 % Normal 19-41 [facility] Comment on above: Performed By: #### L 100.0100, L500.4050, L506.1001, L500.4100 ####[facility] [address] [place], [address] MCH (RBC) [Entitic mass] 29.4 pg Normal 27.0-32.0 [facility] Comment on above: Performed By: #### L 100.0100, L500.4050, L506.1001, L500.4100 ####[facility] [address] [place], [address] MCHC (RBC) [Mass/Vol] 34.5 g/dL Normal 32-36 [facility] Comment on above: Performed By: #### L 100.0100, L500.4050, L506.1001, L500.4100 ####[facility] [address] [place], [address] MCV (RBC) [Entitic vol] 85.1 fL Normal 81-99 [facility] Comment on above: Performed By: #### L 100.0100, L500.4050, L506.1001, L500.4100 ####[facility] [address] [place], [address] Monocytes/100 WBC (Bld) 8.0 % Normal 0-10 [facility] Comment on above: Performed By: #### L 100.0100, L500.4050, L506.1001, L500.4100 ####[facility] [address] [place], [address] Neutrophils/100 WBC (Bld) 58.4 % Normal 47-70 [facility] Comment on above: Performed By: #### L 100.0100, L500.4050, L506.1001, L500.4100 ####[facility] [address] [place], [address] Nucleated RBC (Bld) [#/Vol] 0 10*3/uL Normal 0-5 [facility] Comment on above: Performed By: #### L 100.0100, L500.4050, L506.1001, L500.4100 ####[facility] [address] [place], [address] Platelet mean volume (Bld) [Entitic vol] 9.8 fL Normal 6.2-12.0 [facility] Comment on above: Performed By: #### L 100.0100, L500.4050, L506.1001, L500.4100 ####[facility] [address] [place], [address] Platelets (Bld) [#/Vol] 269 10*3/uL Normal 150-450 [facility] Comment on above: Performed By: #### L 100.0100, L500.4050, L506.1001, L500.4100 ####[facility] [address] [place], [address] RBC (Bld) [#/Vol] 4.36 10*6/uL Normal 4.2-5.[address] [facility] Comment on above: Performed By: #### L 100.0100, L500.4050, L506.1001, L500.4100 ####[facility] [address] [place], [address] RDW SD 43.4 fl Normal 35.1-43.9 [facility] Comment on above: Performed By: #### L 100.0100, L500.4050, L506.1001, L500.4100 ####[facility] [address] [place], [address] WBC (Bld) [#/Vol] 4.4 10*3/uL Normal 4.4-11.0 [facility] Comment on above: Performed By: #### L 100.0100, L500.4050, L506.1001, L500.4100 ####[facility] [address] [place], [address] Calculated very low density lipoprotein (VLDL) cholesterol measurementOrdered By: Sulma Teague on 08-07-2024 VLDL Cholesterol 13 mg/dL 5-40 [facility] Carbon dioxide, total [Moles /volume] in Central venous bloodOrdered By: Sulma Teague on 08-07-2024 CO2 [Moles/Vol] 24.8 mmol/L 21.0-32.0 [facility] Chloride assayOrdered By: Valentin Teague on 08-07-2024 Chloride [Moles/Vol] 104 mmol/L 98-108 [facility] Comprehensive Metabolic Prof ilon 08-07-2024 Albumin [Mass/Vol] 4.3 g/dL Normal 3.4-4.8 [facility] Comment on above: Performed By: #### L 100.0100, L500.4050, L506.1001, L500.4100 ####[facility] [address] [place], [address] Albumin/Globulin [Mass ratio] 1.5 {ratio} Normal 0.9-2.4 [facility] Comment on above: Performed By: #### L 100.0100, L500.4050, L506.1001, L500.4100 ####[facility] [address] [place], [address] ALK PHOS 80 U/L Normal 35-104 [facility] Comment on above: Performed By: #### L 100.0100, L500.4050, L506.1001, L500.4100 ####[facility] [address] [place], [address] ALT [Catalytic activity/Vol] 16 U/L Normal <=34 [facility] Comment on above: Performed By: #### L 100.0100, L500.4050, L506.1001, L500.4100 ####[facility] [address] [place], [address] AST [Catalytic activity/Vol] 23 U/L Normal <=31 [facility] Comment on above: Performed By: #### L 100.0100, L500.4050, L506.1001, L500.4100 ####[facility] [address] [place], [address] Bilirubin [Mass/Vol] 0.34 mg/dL Normal 0.00-1.30 [facility] Comment on above: Performed By: #### L 100.0100, L500.4050, L506.1001, L500.4100 ####[facility] [address] [place], [address] BUN/CRE 21.5 RATIO High 10-20 [facility] Comment on above: Performed By: #### L 100.0100, L500.4050, L506.1001, L500.4100 ####[facility] [address] [place], [address] Calcium [Mass/Vol] 9.6 mg/dL Normal 7.6-11.0 [facility] Comment on above: Performed By: #### L 100.0100, L500.4050, L506.1001, L500.4100 ####[facility] [address] [place], [address] Chloride [Moles/Vol] 104 mmol/L Normal 98-108 [facility] Comment on above: Performed By: #### L 100.0100, L500.4050, L506.1001, L500.4100 ####[facility] [address] [place], [address] CO2 [Moles/Vol] 24.8 mmol/L Normal 21.0-32.0 [facility] Comment on above: Performed By: #### L 100.0100, L500.4050, L506.1001, L500.4100 ####[facility] [address] [place], [address] Creatinine [Mass/Vol] 0.79 mg/dL Normal 0.70-1.20 [facility] Comment on above: Performed By: #### L 100.0100, L500.4050, L506.1001, L500.4100 ####[facility] [address] [place], [address] GAP 12 Normal 5-15 [facility] Comment on above: Performed By: #### L 100.0100, L500.4050, L506.1001, L500.4100 ####[facility] [address] [place], [address] GFR/1.73 sq M.predicted among non-blacks MDRD (S/P/Bld) [Vol rate/Area] 83 mL/min/{1.73_m2} Normal >60 [facility] Comment on above: Result Comment: mL/m in/1.73m2 CKD-EPI Creatinine Equation (2020) Performed By: #### L 100.0100, L500.4050, L506.1001, L500.4100 ####[facility] [address] [place], [address] Globulin (S) [Mass/Vol] 2.9 g/dL Normal 2.2-4.2 [facility] Comment on above: Performed By: #### L 100.0100, L500.4050, L506.1001, L500.4100 ####[facility] [address] [place], [address] Glucose [Mass/Vol] 90 mg/dL Normal 70-99 [facility] Comment on above: Performed By: #### L 100.0100, L500.4050, L506.1001, L500.4100 ####[facility] [address] [place], [address] Potassium [Moles/Vol] 4.3 mmol/L Normal 3.3-5.1 [facility] Comment on above: Performed By: #### L 100.0100, L500.4050, L506.1001, L500.4100 ####[facility] [address] [place], [address] Sodium [Moles/Vol] 140 mmol/L Normal 133-145 [facility] Comment on above: Performed By: #### L 100.0100, L500.4050, L506.1001, L500.4100 ####[facility] [address] [place], [address] T PROT 7.2 g/dL Normal 5.9-8.4 [facility] Comment on above: Performed By: #### L 100.0100, L500.4050, L506.1001, L500.4100 ####[facility] [address] [place], [address] Urea nitrogen [Mass/Vol] 17 mg/dL Normal 4-19 [facility] Comment on above: Performed By: #### L 100.0100, L500.4050, L506.1001, L500.4100 ####[facility] [address] [place], [address] Eosinophil percentageOrdered By: Sulma Teague on 08-07-2024 Eosinophils/100 WBC (Bld) 3.0 % 0-5 [facility] Erythrocyte distribution wid th ratioOrdered By: Sulma Teague on 08-07-2024 Erythrocyte distribution width (RBC) [Ratio] 14.0 % 11.6-14.6 [facility] Erythrocyte distribution wid th standard deviationOrdered By: Sulma Teague on 08-07-2024 Erythrocyte distribution width (RBC) [Entitic vol] 43.4 fL 35.1-43.9 [facility] GFR/1.73 sq M.predicted brien g non-blacks MDRD (S/P/Bld) [Vol rate/Area]Ordered By: Sulma Teague on 08-07-2024 Estimated GFR (MDRD) Non-Af Amer 83 >60 [facility] Comment on above: mL/min/1.73m2 CKD-EP I Creatinine Equation (2020) Hematocrit Auto (Bld) [Volum e fraction]Ordered By: Sulma Teague on 08-07-2024 Hematocrit (Bld) [Volume fraction] 37.1 % 37-47 [facility] Hemoglobin measurementOrdere d By: Sulma Teague on 08-07-2024 Hemoglobin (Bld) [Mass/Vol] 12.8 g/dL 12.0-15.0 [facility] Immature granulocytes/100 WB C Auto (Bld)Ordered By: Sulma Teague on 08-07-2024 Immature granulocytes/100 WBC (Bld) 0.200 % 0.0-0.9 [facility] Comment on above: IG% - Immature Granu locytes (promyelocytes, myelocytes and metamyelocytes) > 1% indicates that a LEFT SHIFT is Present. L506.1001on 08-07-2024 Vitamin D 25-OH 51.7 ng/mL Normal 30-100 [facility] Comment on above: Result Comment: Jami min D Status Deficiency: <20 ng/mL (50nmol/L) Insufficiency: 20-30 ng/mL (50-75 nmol/L) Sufficiency: 30-100 ng/mL (75-250 nmol/L) Toxicity: >100 ng/mL (>250 nmol/L) Performed By: #### L 100.0100, L500.4050, L506.1001, L500.4100 ####[facility] [address] [place], [address] LDL calc ser/plasOrdered By: Sulma Teague on 08-07-2024 LDL Cholesterol, Calculated 164 mg/dL [facility] Comment on above: Nnjlnuesll=491-792 m g/dL & Higher Vexl=546 mg/dL or greater Laboratory - Chemistry and C hemistry - challengeOrdered By: Sulma Teague on 08-07-2024 AST [Catalytic activity/Vol] 23 U/L <32 [facility] Lipid Profileon 08-07-2024 CHOL:HDL 3.57 Normal [facility] Comment on above: Performed By: #### L 100.0100, L500.4050, L506.1001, L500.4100 ####[facility] [address] [place], [address] Cholesterol [Mass/Vol] 246 mg/dL High <=200 [facility] Comment on above: Result Comment: Chol esterol level, Desirable <200 mg/dL Borderline high cholesterol 200-239 mg/dL High cholesterol >=240 mg/dL Recommendations of the NCEP Adult Treatment Panel for the following risk-cutoff thresholds for the [place] population. Performed By: #### L 100.0100, L500.4050, L506.1001, L500.4100 ####[facility] [address] [place], [address] Cholesterol in HDL [Mass/Vol] 69 mg/dL Normal [facility] Comment on above: Result Comment: Vannessa onal Cholesterol Education Program (NCEP) guidelines: <40 mg/dL: Low HDL-cholesterol (major risk factor for CHD) >= 60 mg/dL: High HDL-cholesterol (negative risk factor for CHD) HDL-cholesterol is affected by a number of factors, e.g. smoking, exercise, hormones, sex and age. Performed By: #### L 100.0100, L500.4050, L506.1001, L500.4100 ####[facility] [address] [place], [address] Cholesterol in LDL [Mass/Vol] 164 mg/dL Normal [facility] Comment on above: Result Comment: Bord uzxkag=167-123 mg/dL Higher Wdco=565 mg/dL or greater Performed By: #### L 100.0100, L500.4050, L506.1001, L500.4100 ####[facility] [address] [place], [address] Cholesterol in VLDL [Mass/Vol] 13 mg/dL Normal 5-40 [facility] Comment on above: Performed By: #### L 100.0100, L500.4050, L506.1001, L500.4100 ####[facility] [address] [place], [address] Triglyceride [Mass/Vol] 67 mg/dL Normal [facility] Comment on above: Result Comment: The drugs N-Acetylcysteine and Metamizole may falsely depress this assay. Normal range: <150 mg/dL Borderline High: 150-199 mg/dL High: 200-499 mg/dL Very High: >500 mg/dL Performed By: #### L 100.0100, L500.4050, L506.1001, L500.4100 ####[facility] [address] [place], [address] Lymphocytes Auto (Unsp spec) [#/Vol]Ordered By: Sulma Teague on 08-07-2024 Lymphocytes (Bld) [#/Vol] 1.30 10*3/uL 0.83-4.51 [facility] Lymphocytes/100 WBC Auto (Un sp spec)Ordered By: Sulma Teague on 08-07-2024 Lymphocytes/100 WBC (Bld) 29.7 % 19-41 [facility] MCV (mean corpuscular volume ) determinationOrdered By: Sulma Teague on 08-07-2024 MCV (RBC) [Entitic vol] 85.1 fL 81-99 [facility] Mean corpuscular hemoglobin (MCH) determinationOrdered By: Sulma Teague on 08-07-2024 MCH (RBC) [Entitic mass] 29.4 pg 27.0-32.0 [facility] Mean corpuscular hemoglobin concentration (MCHC) determinationOrdered By: Sulma Teague on 08-07-2024 MCHC (RBC) [Mass/Vol] 34.5 g/dL 32-36 [facility] Mean platelet volume determi nationOrdered By: Sulma Teague on 08-07-2024 Platelet mean volume (Bld) [Entitic vol] 9.8 fL 6.2-12.0 [facility] Monocyte percentageOrdered B y: Sulma Teague on 08-07-2024 Monocytes/100 WBC (Bld) 8.0 % 0-10 [facility] Neutrophil percentageOrdered By: Sulma Teague on 08-07-2024 Neutrophils/100 WBC (Bld) 58.4 % 47-70 [facility] Nucleated red blood cell per centageOrdered By: Sulma Teague on 08-07-2024 Nucleated RBC/100 WBC (Bld) [Ratio] 0 % 0-5 [facility] Platelet countOrdered By: Valentin ycyulisa Teague on 08-07-2024 Platelets (Bld) [#/Vol] 269 10*3/uL 150-450 [facility] Potassium (Unsp spec) [Mass/ Vol]Ordered By: Sulma Teague on 08-07-2024 Potassium [Moles/Vol] 4.3 mmol/L 3.3-5.1 [facility] RBC Auto (Bld) [#/Vol]Ordere d By: Sulma Teague on 08-07-2024 RBC (Bld) [#/Vol] 4.36 10*6/uL 4.2-5.[address] [facility] Screening total cholesterol/ high density lipoprotein (HDL) cholesterol ratioOrdered By: Sulma Teague on 08-07-2024 Cholesterol.total/Chol esterol in HDL [Mass ratio] 3.57 {ratio} [facility] Serum creatinine measurement (mass/volume)Ordered By: Sulma Teague on 08-07-2024 Creatinine [Mass/Vol] 0.79 mg/dL 0.70-1.20 [facility] Serum globulin measurementOr dered By: Sulma Teague on 08-07-2024 Globulin (S) [Mass/Vol] 2.9 g/dL 2.2-4.2 [facility] Serum glucose measurement (m ass/volume)Ordered By: Sulma Teague on 08-07-2024 Glucose [Mass/Vol] 90 mg/dL 70-99 [facility] Serum or plasma alanine hartley otransferase (ALT) measurementOrdered By: Sulma Teague on 08-07-2024 ALT [Catalytic activity/Vol] 16 U/L <35 [facility] Serum or plasma albumin declan urement (mass/volume)Ordered By: Sulma Teague on 08-07-2024 Albumin [Mass/Vol] 4.3 g/dL 3.4-4.8 [facility] Serum or plasma albumin/glob ulin mass ratioOrdered By: Sulma Teague on 08-07-2024 Albumin/Globulin [Mass ratio] 1.5 {ratio} 0.9-2.4 [facility] Serum or plasma alkaline kristin sphatase measurementOrdered By: Sulma Teague on 08-07-2024 ALP [Catalytic activity/Vol] 80 U/L 35-104 [facility] Serum or plasma calcium declan urement (mass/volume)Ordered By: Sulma Teague on 08-07-2024 Calcium [Mass/Vol] 9.6 mg/dL 7.6-11.0 [facility] Serum or plasma cholesterol in HDL measurement (mass/volume)Ordered By: Sulma Teague on 08-07-2024 Cholesterol in HDL [Mass/Vol] 69 mg/dL >40 [facility] Comment on above: National Cholesterol Education Program (NCEP) guidelines:<40 mg/dL: Low HDL-cholesterol (major risk factor for CHD)>= 60 mg/dL: High HDL-cholesterol (negative risk factor for CHD)HDL-cholesterol is affected by a number of factors, e.g. smoking, exercise, hormones, sex and age. Serum or plasma cholesterol measurement (mass/volume)Ordered By: Sulma Teague on 08-07-2024 Cholesterol [Mass/Vol] 246 mg/dL High <201 [facility] Comment on above: Cholesterol level, D esirable <200 mg/dLBorderline high cholesterol 200-239 mg/dLHigh cholesterol >=240 mg/dLRecommendations of the NCEP Adult Treatment Panel for the following risk-cutoff thresholds for the [place] population. Serum or plasma urea nitroge n measurement (mass/volume)Ordered By: Sulma Teague on 08-07-2024 Urea nitrogen [Mass/Vol] 17 mg/dL 4-19 [facility] Sodium levelOrdered By: Shanel Teague on 08-07-2024 Sodium [Moles/Vol] 140 mmol/L 133-145 [facility] Total proteinOrdered By: Paco Teague on 08-07-2024 Protein [Mass/Vol] 7.2 g/dL 5.9-8.4 [facility] Triglycerides measurementOrd ered By: Sulma Teague on 08-07-2024 Triglyceride [Mass/Vol] 67 mg/dL <199 [facility] Comment on above: The drugs N-Acetylcy steine and Metamizole may falsely depress this assay. Normal range: <150 mg/dLBorderline High: 150-199 mg/dLHigh: 200-499 mg/dLVery High: >500 mg/dL Vitamin D, 25-hydroxyOrdered By: Sulma Teague on 08-07-2024 Vitamin D 25-Hydroxy 51.7 ng/mL 30-100 [facility] Comment on above: Vitamin D StatusDefi ciency: <20 ng/mL (50nmol/L)Insufficiency: 20-30 ng/mL (50-75 nmol/L)Sufficiency: 30-100 ng/mL (75-250 nmol/L)Toxicity: >100 ng/mL (>250 nmol/L) White blood cell (WBC) count Ordered By: Sulma Teague on 08-07-2024 WBC (Bld) [#/Vol] 4.4 10*3/uL 4.4-11.0 [facility] Internal Medicine Office Vis iton 08-04-2024 Internal Medicine Office Visit [facility] [address] [place] [address] [place] [address] OFFICE VISIT Date of Service: 08/05/24 MR#: [id number] Acct: [id number] Name: SHENA MARQUEZ Rep #: [id number] : 1960 Provider: Dr. Sulma lopez MD Age/Sex: 64/F Location: [facility] Status: Signed Intake Vital Signs 06/17/24 09:20 08/05/24 11:36 Height 5 ft 6 in 5 ft 6 in Weight: 183 lb 2 oz BMI 29.5 BP 126/78 H Blood Pressure Location Lt brachial Position Sitting Respiration 16 Pulse 92 Pulse Source Monitor Temp 97.2 F L Temp Source Temporal Pulse Oximetry (%) 95 Oxygen Delivery Method room air Intake Visit Reasons: MED REFILL Chief Complaint: Annual Child And Family Counselor Required: No Accompanied by: Self Is patient in pain?: No Allergies chlorhexidine (From ChloraPrep Clear) Adverse Reaction (Mild, Verified 08/05/24 11:41) Itching isopropyl alcohol (From ChloraPrep Clear) Adverse Reaction (Mild, Verified 08/05/24 11:41) Itching Medications ???Medication ???Instructions ???Recorded ???Confirmed ???Type antiarthritic combination no.2 900 900 mg PO DAILY 04/18/23 5 History mg tablet (glucosamine-chondroit in) multivitamin 1 tab PO DAILY 04/18/23 08/05/24 H istory polyethylene glycol 3350 17 4 g PO DAILY 04/18/23 08/05/24 His tory gram/dose oral powder (Miralax) cholecalciferol (vitamin D3) 125 125 mcg PO QDAY #90 caps 01/17/24 08/05/24 Rx mcg (5,000 unit) capsule estradiol 0.01% (0.1 mg/gram) See Rx Instructions vaginal 08/05/24 Rx vaginal cream .COMPLEX #42.5 grams amitriptyline 75 mg tablet 150 mg (2 x 75 mg) PO QHS 90 days 07/23/24 08/05/24 Rx #180 tabs Have you fallen in the past year?: No PFSH Medical History Back pain History of eye problem History of osteoarthritis History of cardiac murmur History of cataract History of back problems History of arthritis Chronic constipation Wears glasses Arthritis Non-smoker History of stress test Hemorrhoids Vision problem Osteoarthritis Surgical History History of cataract surgery (11/17/19) History of colonoscopy (08/11/13) Status post excision of lipoma H/O eye surgery Family History Mother Diabetes Arthritis Hyperlipidemia CVA (cerebral vascular accident) Father Arthritis Heart disease Hypertension Hyperlipidemia Cancer skin Grandmother Cancer breast Aunt Cancer breast Social History adopted: No household members: spouse current occupational status: retired 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 uses ibuprofen as needed HPI HPI Chief Complaint: Annual Details: SHENA MARQUEZ, is a 64 F who presents to the office today for a follow up. She is up to date on her routine blood work and screening. She isn't due for any immunizations. She doesn't smoke and doesn't need any refills. The patient has been on elavil for about 20 years. She was initially started on it for insomnia and has since been diagnosed with fibromyalgia. She states she has tried to wean the dose and hasn't done well without it. She reports with the medication she does well. She does still get a dry mouth, but denies any other problems. She reports she continues to have problems with her knees. She reports she did therapy which helped her knee, however, reports it irritated her back. She states she then had her back adjusted and got shoe lifts which helped her back, but her knee flared up again. She states overall, her symptoms are manageable. She is still not interested in any type of surgery right now. Medications reviewed: Yes Shena likes to exercises by walking. They watch their diet for sodium, low fat, and low cholesterol some of the time. She does try to follow weight watchers, still. List of current specialists seen: OBGYN End of life planning discussed including patient's advanced directive wishes: Discussed. Patient does have one in place. I am willing to follow Shena's advanced directives PHQ-2/Depression screen They in the past two weeks denies having felt down, depressed, hopeless or with little interest or pleasure in doing things. Function (more content not included)... Normal [facility] Breast imaging reportOrdered By: Bello Villegas on 07-08-2024 Study report [facility] Imaging Services [address] [place] [address] SCRN MAMM (CAD)W/BALBINA BILAT MR#: [id number] Acct: [id number] Name: SHENA MARQUEZ Rep #: [id number] : 1960 F 64 From: Elfego Villegas MD PCP: Dr. Sulma Teague MD Status: REG [facility] Study:SCRN MAMM (CAD)W/BALBINA BILAT Date of Exa m: 07/08/24 Exam# [id number] Ordering Dr: Milena Escamilla [facility]-C ADDENDUM by Dr. Bello Villegas MD on 07/08/24 at 1310 No addendum required. Reading Location: [id number] 07/08/24 1311 Date cc: BARBIE Escamilla; Dr. Sulma Teague MD ~* Signed PROCEDURE: SCRN MAMM (CAD)W/BALBINA BILAT REASON FOR EXAM: F, Age 64 y/o, grandmother with breast cancer. Aunt with breast cancer. Annualfollow-up. TECHNIQUE: Bilateral screening digital breast tomosynthesis with 2D and 3D images. Computeraided detection. COMPARISON: Prior exam(s) dating back to July 04, 2023.. FINDINGS: There are scattered areas of fibroglandular density. Stable examination. No suspicious masses, areas of developing architectural distortion, or suspicious calcifications. BI/SCRN MAMM (CAD)W/BALBINA BILAT IMPRESSION: BI-RADS 1: NEGATIVE. RECOMMEND ANNUAL MAMMOGRAPHIC SCREENING. Follow-up code: Routine Follow-up The patient will be notified of the results by letter. Reading Location: [id number] CC: BARBIE Escamilla; Dr. Sulma Teague MD ~ Before School: Signed [facility] SCRN MAMM (CAD)W/BALBINA BILATo n 07-08-2024 SCRN MAMM (CAD)W/BALBINA BILAT [facility] Imaging Services [address] [place] [id number] SCRN MAMM (CAD)W/BALBINA BILAT MR#: [id number] Acct: [id number] Name: SHENA MARQUEZ Rep #: [id number] : 1960 F 64 From: Bello neely MD PCP: Dr. Sulma Teague MD Status: REG CL Study: SCRN MAMM (CAD)W/BALBINA BILAT Date of Exam: 06/14 11/04 Exam# [id number] Ordering Dr: Milena Escamilla NP [facility] -C ADDENDUM by Dr. Bello Villegas MD on 07/08/24 at 1310 No addendum required. Reading Location: [id number] 07/08/24 1311 Date cc: BARBIE Escamilla; Dr. Sulma Teague MD * Signed PROCEDURE: SCRN MAMM (CAD)W/BALBINA BILAT REASON FOR EXAM: F, Age 64 y/o, grandmother with breast cancer. Aunt with breast cancer. Annual follow-up. TECHNIQUE: Bilateral screening digital breast tomosynthesis with 2D and 3D images. Computer aided detection. COMPARISON: Prior exam(s) dating back to July 04, 2023.. FINDINGS: There are scattered areas of fibroglandular density. Stable examination. No suspicious masses, areas of developing architectural distortion, or suspicious calcifications. BI/SCRN MAMM (CAD)W/BALBINA BILAT IMPRESSION: BI-RADS 1: NEGATIVE. RECOMMEND ANNUAL MAMMOGRAPHIC SCREENING. Follow-up code: Routine Follow-up The patient will be notified of the results by letter. Reading Location: [place] CC: BARBIE Escamilla; Dr. Sulma Teague MD Before School: Signed Normal [facility] Miscellaneous procedureOrder ed By: Milena Escamilla on 06-17-2024 Miscellaneous Test Comment SEE SCANNED REPORT [facility] NATERAon 06-17-2024 NATURA SEE SCANNED REPORT Normal [facility] Comment on above: Order Comment: Comme nts: Empower Performed By: #### L 900.0098 #### [facility] [address] [place], [address] [employer] Office Visit Reporton 06-17-2024 [employer] Office Visit Report [facility] [address], [address] [place] [address] OFFICE VISIT Date of Service: 06/17/24 MR#: [id number] Acct: [id number] Name: SHENA MARQUEZ Rep #: [id number] : 1960 Provider: BARBIE moses Age/Sex: 64/F Location[place] [facility] [place] Status: Signed Intake Vital Signs 05/31/23 14:18 06/19/23 13:46 07/17/23 11:14 02/05/24 13:16 06/17/24 09:10 06/17/24 09:20 Height 5 ft 6 in 5 ft 6 in 5 ft 6 in 5 ft 6 in 5 ft 6 in 5 ft 6 in Weight: 189 lb 4 oz BMI 30.5 BP 120/82 H 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) Chief Complaint: Annual Child And Family Counselor Required: No Is patient in pain?: No Allergies chlorhexidine (From ChloraPrep Clear) Adverse Reaction (Mild, Verified 06/17/24 09:24) Itching isopropyl alcohol (From ChloraPrep Clear) Adverse Reaction (Mild, Verified 06/17/24 09:24) Itching Medications ???Medication ???Instructions ???Recorded ???Confirmed ???Type antiarthritic combination no.2 900 900 mg PO DAILY 04/18/23 5 History mg tablet (glucosamine-chondroit in) multivitamin 1 tab PO DAILY 04/18/23 06/17/24 H istory polyethylene glycol 3350 17 4 g PO DAILY 04/18/23 06/17/24 His tory gram/dose oral powder (Miralax) cholecalciferol (vitamin D3) 125 125 mcg PO QDAY #90 caps 01/17/24 06/17/24 Rx mcg (5,000 unit) capsule amitriptyline 75 mg tablet 150 mg (2 x 75 mg) PO QHS 90 days 01/21/24 06/17/24 Rx #180 tabs estradiol 0.01% (0.1 mg/gram) See Rx Instructions vaginal 06/17/24 Rx vaginal cream .COMPLEX #42.5 grams Is last menstrual period known: No Post menopausal: Yes Patient : No : No PFSH Medical History (Updated 06/17/24 @ 09:53 by Milena Escamilla CLINICAL REHAB LIAISON, BARBIE) Back pain History of eye problem History of osteoarthritis History of cardiac murmur History of cataract History of back problems History of arthritis Chronic constipation Wears glasses Arthritis Non-smoker History of stress test Hemorrhoids Vision problem Osteoarthritis Surgical History (Updated 06/17/24 @ 09:52 by Milena Escamilla NP, CLINICAL REHAB LIAISON-C) History of cataract surgery (11/17/19) History of colonoscopy (08/11/13) Status post excision of lipoma H/O eye surgery Family History Mother Diabetes Arthritis Hyperlipidemia CVA (cerebral vascular accident) Father Arthritis Heart disease Hypertension Hyperlipidemia Cancer skin Grandmother Cancer breast Aunt Cancer breast Social History (Updated 06/17/24 @ 09:18 by Doreen Eldridge) adopted: No household members: spouse current occupational status: retired 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 uses ibuprofen as needed History 3 Elective abortions Hx Para 3 Spontaneous abortions Hx # Term Pregnancies Ectopic pregnancies Hx # Pregnancies Multiple births # of living children 3 Past Pregnancies Del. Date Name GA/Weeks Outcome Route Bth Weight Infant Gen Labor Lgth Anesthesia Del [facility] Provider FOB Unknown Luis Unknown Jerson Unknown Dax HPI Encounter for routine gynecological examination Details: SHENA MARQUEZ is a 64 year old who presents for new patient annual exam. Strong family history of cancers and wants genetic testing. Seen last year at [facility] for intense vaginal itching. Was given clobetesol and estrogenn cream and symptoms resolved and no longer using. Last PAP: 2022 History of abnormal PAP: no Last mammogram: 07/04/23 History of abnormal mammogram: benign bx Colon cancer screenin Other preventative health care screenings: Catie Female Reproductive History Questions: metorrhagia: No, sexually active: Yes, dyspareunia: Yes and PCB: No ROS Const Constitutional: Denies fatigue, weight gain or weight loss Cardio Card: Denies chest pain Resp Resp: Denies cough or dyspnea on exertion GI GI: Denies abdominal pain, bloating, change in stool character, constipation or vomiting : Reports as per HPI; Denies difficulty voiding, pelvic pain, urinary frequency, urinary incontinence, urinary urgency, vaginal discharge or vaginal pruritus Exam Const General: cooperative, healthy appearing, no acute distress and well developed Orientation: alert, oriented to person and oriented (more content not included)... Normal [facility] Plastic Surgery Visit Report on 02-05-2024 Plastic Surgery Visit Report [facility] Plastic Reconstructive Surgery [address], [address] [place] [address] OFFICE VISIT Date of Service: 02/05/24 MR#: [id number] Acct: [id number] Name: SHENA MARQUEZ Rep #: [id number] : 1960 Provider: Dr. Michelle gilbert MD Age/Sex: 64/F Location[place] [facility] [place] Status: Signed Intake Vital Signs 01/08/24 14:08 01/31/24 13:30 02/05/24 13:16 Height 5 ft 6 in 5 ft 6 in 5 ft 6 in Weight: 190 lb BMI 30.7 BP 138/83 H Blood Pressure Location Rt brachial Position Sitting Respiration 18 Pulse 88 Pulse Source Monitor Temp 97.6 F L Temp Source Oral Pulse Oximetry (%) 97 Oxygen Delivery Method room air Intake Visit Reasons: post op mass post neck Chief Complaint: post op mass neck Is patient in pain?: No Allergies chlorhexidine (From ChloraPrep Clear) Adverse Reaction (Mild, Verified 02/05/24 13:15) Itching isopropyl alcohol (From ChloraPrep Clear) Adverse Reaction (Mild, Verified 02/05/24 13:15) Itching Medications ???Medication ???Instructions ???Recorded ???Confirmed ???Type antiarthritic combination no.2 900 900 mg PO DAILY 04/18/23 02/05/24 History mg tablet (glucosamine-chondroit in) multivitamin 1 tab PO DAILY 04/18/23 02/05/24 History polyethylene glycol 3350 17 4 g PO DAILY 04/18/23 02/05/24 History gram/dose oral powder (Miralax) cholecalciferol (vitamin D3) 125 125 mcg PO QDAY #90 caps 01/17/24 02/05/24 Rx mcg (5,000 unit) capsule amitriptyline 75 mg tablet 150 mg (2 x 75 mg) PO QHS 90 days 01/21/24 02/05/24 Rx #180 tabs cephalexin 500 mg capsule 500 mg PO BID 7 days #14 caps 01/24/24 02/05/24 Rx Have you fallen in the past year?: No Nurse's Note: post op neck mass Subjective Details: Shena comes in for recheck of the mass removed from her posterior neck. She denies any problems. Objective Details: Incision of the posterior neck is well-approximated. There is no evidence of infection or drainage. I showed her how to massage the area daily with Aquaphor. She can shower over the site. The pathology was reviewed with her which demonstrated a lipoma. No further intervention is necessary. I will see her back as needed. She is encouraged to call with any problems or questions. Coding Level of Care Code Global Post Op Diagnoses Status post excision of lipoma Z98.890; Z86.018 [facility] Medical History Back pain History of eye problem History of osteoarthritis History of cardiac murmur History of cataract History of back problems History of arthritis Chronic constipation Wears glasses Arthritis Non-smoker History of stress test Hemorrhoids Vision problem Osteoarthritis Surgical History H/O eye surgery Family History Mother Diabetes Arthritis Hyperlipidemia CVA (cerebral vascular accident) Father Arthritis Heart disease Hypertension Hyperlipidemia Cancer skin Grandmother Cancer breast Aunt Cancer breast Social History adopted: No household members: spouse current occupational status: retired 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 uses ibuprofen as needed Assessment and Plan (No Qualifiers) Assessment and Plan (1) Status post excision of lipoma: Status: Acute Plan Details Additional Comments: I will see her back as needed. 02/05/24 1653 Date Michelle Mcarthur MD Cosigner Signature: Date (if applicable) CC: Normal [facility] Plastic Surgery Visit Report on 01-31-2024 Plastic Surgery Visit Report [facility] Plastic Reconstructive Surgery [address], [address] [place] [address] OFFICE VISIT Date of Service: 01/31/24 MR#: [id number] Acct: [id number] Name: SHENA MARQUEZ Rep #: [id number] : 1960 Provider: Dr. Michelle gilbert MD Age/Sex: 64/F Location: [facility] Status: Signed Intake Vital Signs 01/24/24 08:43 01/31/24 13:30 Height 5 ft 6 in 5 ft 6 in BP 138/81 H Blood Pressure Location Lt brachial Position Sitting Respiration 16 Pulse 71 Temp 98.0 F Temp Source Oral Pulse Oximetry (%) 96 Oxygen Delivery Method room air Intake Visit Reasons: CHECK BANDAGE POST OP Chief Complaint: bandage post op Is patient in pain?: No Allergies chlorhexidine (From ChloraPrep Clear) Adverse Reaction (Mild, Verified 01/31/24 13:31) Itching isopropyl alcohol (From ChloraPrep Clear) Adverse Reaction (Mild, Verified 01/31/24 13:31) Itching Medications ???Medication ???Instructions ???Recorded ???Confirmed ???Type antiarthritic combination no.2 900 900 mg PO DAILY 04/18/23 01/31/24 History mg tablet (glucosamine-chondroit in) multivitamin 1 tab PO DAILY 04/18/23 01/31/24 History polyethylene glycol 3350 17 4 g PO DAILY 04/18/23 01/31/24 History gram/dose oral powder (Miralax) cholecalciferol (vitamin D3) 125 125 mcg PO QDAY #90 caps 01/17/24 01/31/24 Rx mcg (5,000 unit) capsule amitriptyline 75 mg tablet 150 mg (2 x 75 mg) PO QHS 90 days 01/21/24 01/31/24 Rx #180 tabs cephalexin 500 mg capsule 500 mg PO BID 7 days #14 caps 01/24/24 01/31/24 Rx Have you fallen in the past year?: No Nurse's Note: pt here concerned about bandage coming off Subjective Details: Shena comes in for recheck of the surgical site on her posterior neck. The dressing did come loose and her tried to fasten it in place with scotch tape without success. Objective Details: The Tegaderm is removed. The incision is well-approximated but there is some moisture along the incision line. This was dressed with dry gauze and tape. I have asked her to do the same. She can shower over it and then apply dry gauze. I have given her some gauze to use as a dressing. She will be finished with the antibiotic today and I see no need to continue this. Coding Level of Care Code Global Post Op Diagnoses Status post excision of lipoma Z98.890; Z86.018 [facility] Medical History Back pain History of eye problem History of osteoarthritis History of cardiac murmur History of cataract History of back problems History of arthritis Chronic constipation Wears glasses Arthritis Non-smoker History of stress test Hemorrhoids Vision problem Osteoarthritis Surgical History H/O eye surgery Family History Mother Diabetes Arthritis Hyperlipidemia CVA (cerebral vascular accident) Father Arthritis Heart disease Hypertension Hyperlipidemia Cancer skin Grandmother Cancer breast Aunt Cancer breast Social History adopted: No household members: spouse current occupational status: retired 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 uses ibuprofen as needed Assessment and Plan (No Qualifiers) Assessment and Plan (1) Status post excision of lipoma: Status: Acute Plan Details Additional Comments: She is to follow-up next week for recheck. 01/31/24 1522 Date [facility]: Date (if applicable) CC: Normal [facility] Discharge Instructionon 01-11 Discharge Instruction [facility] Medical Records Department [address] [place] [address] Instructions for Home/Discharge Instructions 01/24/24 1104 MR#: [id number] Acct: [id number] Name: SHENA MARQUEZ Rep #: [id number] : 1960 64 From: Michelle Mcarthur MD PCP: Dr. Sulma Teague MD Status:REG [facility] Discharge Instructions Dressing / Incision Additional Dressing/Incision Instructions:: May shower over the area but do not scrub. Keep your back elevated at night (recliner position) for the next 7 to 10 days. Take the oral antibiotic (Keflex) 2 times a day until finished. May take Tylenol or ibuprofen as needed for pain. Follow Up Care Please Follow Up With: Michelle Mcarthur MD When: 1 to 2 weeks Test Results: Test results from this visit will be discussed in further detail at your follow-up appointment, if applicable. Discharge Plan Admission Attending Provider: Michelle Mcarthur Primary Care Provider: Sulma Teague Instructions Print Language: Yi Discharge Orders/Prescriptions Prescriptions: New cephalexin 500 mg capsule 500 mg PO BID 7 Days Qty: 14 0RF No Action multivitamin Tablet 1 tab PO DAILY glucosamine-chondroiti n 900 mg tablet 900 mg PO DAILY polyethylene glycol 3350 [Miralax] 17 gram/dose powder 4 g PO DAILY cholecalciferol (vitamin D3) 125 mcg (5,000 unit) capsule 125 mcg PO QDAY Qty: 90 0RF amitriptyline 75 mg tablet 150 mg PO QHS 90 Days Qty: 180 1RF Referrals / Follow Up: Sulma Teague MD [Primary Care Provider] - Disposition Disposition (needs filled in before D/C Order can be placed): Home, Self Care 01/24/24 1107 Michelle Mcarthur MD CC: Dr. Sulma Teague MD Signed [facility] MR/POSTOP.[facility] 01-24-2024 MR/POSTOP.[facility] Medical Records Department [address] [place] [address] Anesthesia Postop Eval I 01/24/241126 MR#: [id number] Acct: [id number] Name: SHENA MARQUEZ Rep #: [id number] : 1960 64 From: Mayra Renee CRNA PCP: Dr. Sulma Teague MD Status:REG [facility] Y Race: C Location: [place] [address] Anesthesia: Postop Eval I Current Vital Signs Temperature: 96.9 F Pulse Rate: 93 Blood Pressure: 116/68 Respiratory Rate: 20 Pulse Ox: 100 Oxygen Delivery Method: Nasal Cannula Oxygen Flow Rate (L/min): 4 Assessment Airway patent: Yes Spontaneous unlabored respirations: Yes Mental status: Asleep nausea: No Vomiting: No Anesthesia Complication: No Fluid Hydration Crystalloid volume administer (ml): 800 Total IV fluid infused: 800 Progress Note Anesthesia document: Postop Eval 1 completed: Yes 01/24/24 112 Date Mayra Renee SALES AND MARKETING ASSOCIATE Rajigner Signature: Date CC: Signed Normal [facility] MR/UMRAHCVO0kn 01-24-2024 MR/POSTOPAN2 [facility] Medical Records Department [address] [place] [address] Anesthesia Postop Eval II 01/24/24 1540 MR#: [id number] Acct: [id number] Name: SHENA MARQUEZ Rep #: [id number] : 1960 64 From: Cordell Mukherjee MD PCP: Dr. Sulma Teague MD Status:[facility] Y Race: C Location: [facility] Anesthesia Postop Eval I Sum Postop Eval Completion status Anesthesia document: Postop Eval 1 completed: Yes Anesthesia Postop Eval I Summary Anesthesia Postop Eval I Summary: Anesthesia Postop Eval I: Assessment Summary Airway patent Yes 01/24/24 11:29 SALES AND MARKETING ASSOCIATE.JDEF Spontaneous unlabored Yes 01/24/24 11:29 SALES AND MARKETING ASSOCIATE.JDEF respirations Mental status Asleep 01/24/24 11:29 SALES AND MARKETING ASSOCIATE.JDEF nausea No 01/24/24 11:29 SALES AND MARKETING ASSOCIATE.JDEF Vomiting No 01/24/24 11:29 SALES AND MARKETING ASSOCIATE.JDEF Anesthesia Postop Eval I: Fluid Summary Crystalloid volume administer 800 01/24/24 11:29 SALES AND MARKETING ASSOCIATE.JDEF (ml) Colloids volume administered ( ml) Blood Product volume administered (ml) Total IV fluid infused 800 01/24/24 11:29 SALES AND MARKETING ASSOCIATE.JDEF Anesthesia Postop Eval I: Summary Notes Anesthesia Complication No 01/24/24 11:29 SALES AND MARKETING ASSOCIATE.JDEF Anesthesia Complication Comment: Post-operative progress note Anesthesia: Postop Eval II Evaluation Mental status: Awake Pain Level: 0 nausea: No Vomiting: No 01/24/24 1540 Date Cordell Anthonyigner Signature: Date CC: Signed Normal [facility] Operative Reporton 4 Operative Report [facility] Medical Records Department [address] [place] [address] Operative Report 01/24/24 1108 MR#: [id number] Acct: [id number] Name: SHENA MARQUEZ Rep #: [id number] : 1960 64 From: Michelle Mcarthur MD PCP: Dr. 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 She presents for excision of the mass with submission for pathologic evaluation. Informed consent had been obtained prior to the surgery. She is marked in the preop holding area prior to surgery. The patient is brought to the operating room and placed under general anesthesia in the supine position. Care is then taken to position the patient in a prone position with care to support her shoulders and chest with rolls as well as her hip. Adequate padding of pressure points is also performed. Posterior neck is prepped and draped in usual sterile fashion. We initially began with making an incision over top of the mass. This is carried down through the dermis and subcutaneous tissue until the mass is encountered. The mass is then enucleated from its bed. Hemostasis is controlled with cautery. The wound is then closed in layers using a strata fix suture to approximate deep subcutaneous tissue and dermis. Skin edges are approximated with a running subcuticular strata fix suture. Dermabond Steri-Strips and a Tegaderm are placed on the site. She tolerated the procedure well was taken to the recovery area in an awake and stable condition. Needle and sponge counts are correct. Complications None Admit VTE Documentation VTE Mechan Device Prophylaxis: SCD's 01/24/24 1114 Cosigner Signature (if applicable): CC: Dr. Sulma Teague MD; Dr. Michelle Mcarthur MD Signed Normal [facility] Surgery Specimen Level Siva 01-24-2024 Surgery Specimen Level IV ---- Patient Age/Sex Location Account Attending Physician ---- SHENA MARQUEZ 64/F [facility] [id number] Dr. Michelle Mcarthur MD ---- Specimen: [id number] Received: 01/24/24 Status: KELL Asher Num: [id number] Spec Type: Tissue Bx Subm Dr: Dr. Michelle Mcarthur MD HEADER OPERATION: Excision subcutaneous mass posterior neck (6cm) PRE-OP DIAGNOSIS: Neoplasm of uncertain behavior of connective tissue and soft tissue of neck TISSUE SUBMITTED: Mass posterior neck and tissue ---- MICROSCOPIC DIAGNOSIS Mass of posterior neck, excision: Mature adipose tissue consistent with lipoma. / 01/27/2024 MICROSCOPIC DESCRIPTION Slides are reviewed. GROSS DESCRIPTION Received in fixative is one container labeled with the patient's name and designated Mass posterior side neck and tissue. The specimen consists of a piece of parra-yellow adipose tissue measuring 4.5 x 3.5 x 2.0cm. The specimen is partly disrupted. Also present in the container are multiple pieces of parra-yellow fibroadipose tissue measuring in aggregate 2.5 x 1.0 x 1.0cm. Sections reveal yellow adipose cut surfaces without area of hemorrhage, necrosis or cystic degeneration. Horticulture Professor sections are submitted in three cassettes. [facility] 01/24/2024 TC:1 CPT:06240 ---- Patient Age/Sex Location Account Attending Physician ---- SHENA MARQUEZ 64/F [facility] [id number] Dr. Michelle Mcarthur MD ---- Signed (signature on file) Dr. Manfred Solorzano DO 01/27/24 1257 ---- Normal [facility] Comment on above: Performed By: #### P SUIV ####[facility] [address] [place], [address] CBC W/Diff, Automatedon 09-0 6-4 Absolute Lymph 1.58 X10 3/uL Normal 0.83-4.51 [facility] Comment on above: Performed By: #### L 100.0100, L500.4050, L500.4100 #### [facility] [address] [place], [address] Absolute Neut 3.8 X10 3/uL Normal 2.0-7.7 [facility] Comment on above: Performed By: #### L 100.0100, L500.4050, L500.4100 #### [facility] [address] [place], [address] Basophils/100 WBC (Bld) 0.5 % Normal 0-1 [facility] Comment on above: Performed By: #### L 100.0100, L500.4050, L500.4100 #### [facility] [address] [place], [address] Eosinophils/100 WBC (Bld) 3.9 % Normal 0-5 [facility] Comment on above: Performed By: #### L 100.0100, L500.4050, L500.4100 #### [facility] [address] [place], [address] Erythrocyte distribution width (RBC) [Ratio] 14.1 % Normal 11.6-14.6 [facility] Comment on above: Performed By: #### L 100.0100, L500.4050, L500.4100 #### [facility] [address] [place], [address] Hematocrit (Bld) [Volume fraction] 38.0 % Normal 37-47 [facility] Comment on above: Performed By: #### L 100.0100, L500.4050, L500.4100 #### [facility] [address] [place], [address] Hemoglobin (Bld) [Mass/Vol] 12.6 g/dL Normal 12.0-15.0 [facility] Comment on above: Performed By: #### L 100.0100, L500.4050, L500.4100 #### [facility] [address] [place], [address] IG% 0.200 Normal 0.0-0.9 [facility] Comment on above: Result Comment: IG% - Immature Granulocytes (promyelocytes, myelocytes and metamyelocytes) > 1% indicates that a LEFT SHIFT is Present. Performed By: #### L 100.0100, L500.4050, L500.4100 #### [facility] [address] [place], [address] Lymphocytes/100 WBC (Bld) 24.9 % Normal 19-41 [facility] Comment on above: Performed By: #### L 100.0100, L500.4050, L500.4100 #### [facility] [address] [place], [address] MCH (RBC) [Entitic mass] 29.3 pg Normal 27.0-32.0 [facility] Comment on above: Performed By: #### L 100.0100, L500.4050, L500.4100 #### [facility] [address] [place], [address] MCHC (RBC) [Mass/Vol] 33.2 g/dL Normal 32-36 [facility] Comment on above: Performed By: #### L 100.0100, L500.4050, L500.4100 #### [facility] [address] [place], [address] MCV (RBC) [Entitic vol] 88.4 fL Normal 81-99 [facility] Comment on above: Performed By: #### L 100.0100, L500.4050, L500.4100 #### [facility] [address] [place], [address] Monocytes/100 WBC (Bld) 9.9 % Normal 0-10 [facility] Comment on above: Performed By: #### L 100.0100, L500.4050, L500.4100 #### [facility] [address] [place], [address] Neutrophils/100 WBC (Bld) 60.6 % Normal 47-70 [facility] Comment on above: Performed By: #### L 100.0100, L500.4050, L500.4100 #### [facility] [address] [place], [address] Nucleated RBC (Bld) [#/Vol] 0 10*3/uL Normal 0-5 [facility] Comment on above: Performed By: #### L 100.0100, L500.4050, L500.4100 #### [facility] [address] [place], [address] Platelet mean volume (Bld) [Entitic vol] 9.8 fL Normal 6.2-12.0 [facility] Comment on above: Performed By: #### L 100.0100, L500.4050, L500.4100 #### [facility] [address] [place], [address] Platelets (Bld) [#/Vol] 258 10*3/uL Normal 150-450 [facility] Comment on above: Performed By: #### L 100.0100, L500.4050, L500.4100 #### [facility] [address] [place], [address] RBC (Bld) [#/Vol] 4.30 10*6/uL Normal 4.2-5.[address] [facility] Comment on above: Performed By: #### L 100.0100, L500.4050, L500.4100 #### [facility] [address] [place], [address] RDW SD 45.7 fl High 35.1-43.9 [facility] Comment on above: Performed By: #### L 100.0100, L500.4050, L500.4100 #### [facility] [address] [place], [address] WBC (Bld) [#/Vol] 6.3 10*3/uL Normal 4.4-11.0 [facility] Comment on above: Performed By: #### L 100.0100, L500.4050, L500.4100 #### [facility] [address] [place], [address] Comprehensive Metabolic Prof ilon 01-17-2024 Albumin [Mass/Vol] 3.7 g/dL Normal 3.2-5.0 [facility] Comment on above: Performed By: #### L 100.0100, L500.4050, L500.4100 #### [facility] [address] [place], [address] Albumin/Globulin [Mass ratio] 0.9 {ratio} Normal 0.9-2.4 [facility] Comment on above: Performed By: #### L 100.0100, L500.4050, L500.4100 #### [facility] [address] [place], [address] ALK P 79 U/L Normal 45-117 [facility] Comment on above: Performed By: #### L 100.0100, L500.4050, L500.4100 #### [facility] [address] [place], [address] ALT [Catalytic activity/Vol] 29 U/L Normal 13-56 [facility] Comment on above: Performed By: #### L 100.0100, L500.4050, L500.4100 #### [facility] [address] [place], [address] AST [Catalytic activity/Vol] 31 U/L Normal 15-37 [facility] Comment on above: Performed By: #### L 100.0100, L500.4050, L500.4100 #### [facility] [address] [place], [address] Bilirubin [Mass/Vol] 0.50 mg/dL Normal 0.20-1.00 [facility] Comment on above: Result Comment: For patients on eltrombopag therapy, use of Dimension [place] TBIL is not recommended. Performed By: #### L 100.0100, L500.4050, L500.4100 #### [facility] [address] [place], [address] BUN/CRE 23.5 RATIO High 10-20 [facility] Comment on above: Performed By: #### L 100.0100, L500.4050, L500.4100 #### [facility] [address] [place], [address] CA,Total 9.7 mg/dL Normal 8.5-10.1 [facility] Comment on above: Performed By: #### L 100.0100, L500.4050, L500.4100 #### [facility] [address] [place], [address] Chloride [Moles/Vol] 104 mmol/L Normal 98-107 [facility] Comment on above: Performed By: #### L 100.0100, L500.4050, L500.4100 #### [facility] [address] [place], [address] CO2 [Moles/Vol] 29.0 mmol/L Normal 21.0-32.0 [facility] Comment on above: Performed By: #### L 100.0100, L500.4050, L500.4100 #### [facility] [address] [place], [address] Creatinine [Mass/Vol] 0.85 mg/dL Normal 0.55-1.02 [facility] Comment on above: Result Comment: The validity of the calculated GFR GFRAA in patients over 70 years has not been determined. Clinical correlation is essential. Performed By: #### L 100.0100, L500.4050, L500.4100 #### [facility] [address] [place], [address] EST GFR - AA 86 mL/min Normal >60 [facility] Comment on above: Result Comment: Afri can Libyan GFR Calc Performed By: #### L 100.0100, L500.4050, L500.4100 #### [facility] [address] [place], [address] GAP 4 Low 5-15 [facility] Comment on above: Performed By: #### L 100.0100, L500.4050, L500.4100 #### [facility] [address] [place], [address] GFR/1.73 sq M.predicted among non-blacks MDRD (S/P/Bld) [Vol rate/Area] 71 mL/min/{1.73_m2} Normal >60 [facility] Comment on above: Result Comment: Non- GFR Calc Performed By: #### L 100.0100, L500.4050, L500.4100 #### [facility] [address] [place], [address] Globulin (S) [Mass/Vol] 3.9 g/dL Normal 2.2-4.2 [facility] Comment on above: Performed By: #### L 100.0100, L500.4050, L500.4100 #### [facility] [address] [place], [address] Glucose [Mass/Vol] 103 mg/dL Normal 74-106 [facility] Comment on above: Result Comment: Fast ing Glucose result from 100 to 125 mg/dL suggests IMPAIRED HOMEOSTASIS per A.D.A. criteria. Performed By: #### L 100.0100, L500.4050, L500.4100 #### [facility] [address] [place], [address] Potassium [Moles/Vol] 4.4 mmol/L Normal 3.5-5.1 [facility] Comment on above: Performed By: #### L 100.0100, L500.4050, L500.4100 #### [facility] [address] [place], [address] Sodium [Moles/Vol] 137 mmol/L Normal 136-145 [facility] Comment on above: Performed By: #### L 100.0100, L500.4050, L500.4100 #### [facility] [address] [place], [address] T PROT 7.6 g/dL Normal 6.4-8.2 [facility] Comment on above: Performed By: #### L 100.0100, L500.4050, L500.4100 #### [facility] [address] [place], [address] Urea nitrogen [Mass/Vol] 20 mg/dL High 7-18 [facility] Comment on above: Performed By: #### L 100.0100, L500.4050, L500.4100 #### [facility] [address] [place], [address] Internal Medicine Office Vis iton 01-17-2024 Internal Medicine Office Visit [facility] [address] [place], [place] [address] OFFICE VISIT Date of Service: 01/17/24 MR#: [id number] Acct: [id number] Name: SHENA MARQUEZ Rep #: [id number] : 1960 Provider: KALEY Smith Age/Sex: 64/F Location: [facility] Status: Signed Intake Vital Signs 01/08/24 14:08 01/17/24 08:35 Height 5 ft 6 in 5 ft 6 in Weight: 186 lb 185 lb 6 oz BMI 29.9 29.9 BP 147/82 H 128/82 H Blood Pressure Location Rt brachial Lt brachial Position Sitting Sitting Respiration 16 16 Pulse 87 67 Pulse Source Monitor Temp 98.1 F 97.2 F L Temp Source Temporal Temporal Pulse Oximetry (%) 98 97 Oxygen Delivery Method room air room air Intake Visit Reasons: ACUTE SURG CLEARANCE-PATIENT HAS PAPER Chief Complaint: surgical clearance Child And Family Counselor Required: No Accompanied by: Self Is patient in pain?: No Allergies No Known Allergies Allergy (Verified 01/17/24 08:31) Medications ???Medication ???Instructions ???Recorded ???Confirmed ???Type antiarthritic combination no.2 900 900 mg PO DAILY 04/18/23 01/17/24 History mg tablet (glucosamine-chondroit in) multivitamin 1 tab PO DAILY 04/18/23 01/17/24 History polyethylene glycol 3350 17 4 g PO DAILY 04/18/23 01/17/24 History gram/dose oral powder (Miralax) amitriptyline 75 mg tablet 150 mg (2 x 75 mg) PO QHS 90 days 07/19/23 01/17/24 Rx #180 tabs cholecalciferol (vitamin D3) 125 125 mcg PO QDAY #90 caps 01/17/24 01/17/24 Rx mcg (5,000 unit) capsule Have you fallen in the past year?: No PFSH Medical History Back pain History of eye problem History of osteoarthritis History of cardiac murmur History of cataract History of back problems History of arthritis Chronic constipation Wears glasses Arthritis Non-smoker History of stress test Hemorrhoids Vision problem Osteoarthritis Surgical History H/O eye surgery Family History Mother Diabetes Arthritis Hyperlipidemia CVA (cerebral vascular accident) Father Arthritis Heart disease Hypertension Hyperlipidemia Cancer skin Grandmother Cancer breast Aunt Cancer breast Social History adopted: No household members: spouse current occupational status: retired 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 uses ibuprofen as needed HPI HPI Chief Complaint: surgical clearance Details: SHENA MARQUEZ, is a 64 F who presents to the office today for surgical clearance. Patient is having a lipoma removed from base of her neck posteriorly Overall patient is a [age]uxembd8 year old female without significant past medical history. She only takes medication currently for insomnia as well as fibromyalgia. She has taken this for a long time. This does help her sleep. She states that overall she tolerates it well only having some dry mouth with this medication. She does take vitamin D daily She colbert see her eye doctor annually and her specialist in [place] every other year She has had some borderline elevations in her cholesterol and was working on her diet and lifestyle trying to avoid medications. She tries to get regular exercise walking She did have a colonoscopy this year She denies any current / recent chest pains/pressures, shortness of breath, headache, dizziness, nausae, vomiting, abdominal pain, lethargy, difficulties swallowing. ROS Const Constitutional: No body ache, chills, excessive sweating, fatigue, fever(s), frequent falls, headache(s), snoring, weakness or change in appetite Eyes Eyes: No blurry vision, change in vision, eye pain or Light sensitivity ENT ENT: No abnormal hearing, ear or mastoid pain, tinnitus, nasal congestion, headache(s), neck pain or sore throat Resp Respiratory: No cough, shortness of breath, snoring or wheezing Cardio Cardiology: No chest pain at rest, chest pain with exertion, excessive sweating, dyspnea on exertion, lightheadedness, orthopnea or palpitations Gastro GI: No abdominal pain, change in bowel habits, constipation, cramping, diarrhea, nausea/dyspepsia or vomiting Genitourinary-Female: No burning urination, painful urination, urinary incontinence or urinary frequency Musc Musculoskeleta (more content not included)... Normal [facility] Lipid Profileon 01-17-2024 Cholesterol [Mass/Vol] 222 mg/dL High 200 [facility] Comment on above: Result Comment: <200 mg/dL Desirable 200-240 mg/dL Borderline >240 mg/dL High Risk Performed By: #### L 100.0100, L500.4050, L500.4100 #### [facility] [address] [place], [place], [address] Cholesterol in HDL [Mass/Vol] 69 mg/dL Normal [facility] Comment on above: Result Comment: The drugs N-Acetylcysteine and Metamizole may falsely depress this assay. Reference Range HDL <40 mg/dL Low HDL Cholesterol HDL >or= 60 mg/dL High HDL Cholesterol Performed By: #### L 100.0100, L500.4050, L500.4100 #### [facility] [address] [place], [address] Cholesterol in LDL [Mass/Vol] 140 mg/dL High 0-130 [facility] Comment on above: Performed By: #### L 100.0100, L500.4050, L500.4100 #### [facility] [address] [place], [address] Cholesterol in VLDL [Mass/Vol] 13 mg/dL Normal 5-40 [facility] Comment on above: Performed By: #### L 100.0100, L500.4050, L500.4100 #### [facility] [address] [place], [address] Triglyceride [Mass/Vol] 67 mg/dL Normal [facility] Comment on above: Result Comment: The drugs N-Acetylcysteine and Metamizole may falsely depress this assay. Serum Triglycerides Reference Interval Normal <150 mg/dL Borderline high 150 - 199 mg/dL High 200 - 499 mg/dL Very High > or = 500 mg/dL Performed By: #### L 100.0100, L500.4050, L500.4100 #### [facility] [address] [place], [address] Urinalysis, Completeon 01-16 BACTERIA 0 SEEN Normal None Seen [facility] Comment on above: Order Comment: COLLE CTOR TO SPECIFY Performed By: #### L 400.0001 ####[facility] [address] [place], [address] EPI,SQUAMOUS 0 SEEN Normal 5-10 [facility] Comment on above: Order Comment: COLLE CTOR TO SPECIFY Performed By: #### L 400.0001 ####[facility] [address] [place], [address] Mucus Ql (Urine sed) 0 SEEN Normal [facility] Comment on above: Order Comment: COLLE CTOR TO SPECIFY Performed By: #### L 400.0001 ####[facility] [address] [place], [address] RBC 0 SEEN Normal 0-5 [facility] Comment on above: Order Comment: COLLE CTOR TO SPECIFY Performed By: #### L 400.0001 ####[facility] [address] [place], [address] WBC 0 SEEN Normal 0-5 [facility] Comment on above: Order Comment: COLLE CTOR TO SPECIFY Performed By: #### L 400.0001 ####[facility] [address] [place], [address] Plastic Surgery Visit Report on 01-08-2024 Plastic Surgery Visit Report [facility] [address] [place] [address] OFFICE VISIT Date of Service: 01/08/24 MR#: [id number] Acct: [id number] Name: SHENA MARQUEZ Rep #: [id number] : 1960 Provider: Dr. Michelle gilbert MD Age/Sex: 64/F Location: [facility] Status: Signed Intake Vital Signs 12/25/23 13:29 01/08/24 14:08 Height 5 ft 6 in 5 ft 6 in Weight: 184 lb 2 oz 186 lb BMI 29.7 29.9 BP 135/81 H 147/82 H Blood Pressure Location Rt brachial Rt brachial Position Sitting Sitting Respiration 16 16 Pulse 73 87 Temp 97.6 F L 98.1 F Temp Source Oral Temporal Pulse Oximetry (%) 98 98 Oxygen Delivery Method room air room air Intake Visit Reasons: REVIEW MRI RESULTS Chief Complaint: lipoma on back of neck-mri results Is patient in pain?: Yes (4/10 knee pain) Allergies No Known Allergies Allergy (Verified 01/08/24 14:11) Medications ???Medication ???Instructions ???Recorded ???Confirmed ???Type antiarthritic combination no.2 900 900 mg PO DAILY 04/18/23 01/08/24 History mg tablet (glucosamine-chondroit in) ergocalciferol (vitamin D2) 1,250 1,250 mcg PO DAILY 04/18/23 01/08/24 History mcg (50,000 unit) capsule multivitamin 1 tab PO DAILY 04/18/23 01/08/24 History polyethylene glycol 3350 17 4 g PO DAILY 04/18/23 01/08/24 History gram/dose oral powder (Miralax) turmeric 100 mg-debbie 150 1 cap PO DAILY 04/18/23 01/08/24 History mg-olive 50 mg-oreg 150 mg-capryl capsule Diltiazem 2% / Lidocaine 5% #1 ea 05/31/23 01/08/24 Rx ointment (compound) prednisone 20 mg tablet 20 mg PO BID #12 tabs 07/17/23 01/08/24 Rx amitriptyline 75 mg tablet 150 mg (2 x 75 mg) PO QHS 90 days 07/19/23 01/08/24 Rx #180 tabs amoxicillin 875 mg-potassium 1 tab PO Q12H #14 tabs 11/01/23 01/08/24 Rx clavulanate 125 mg tablet Have you fallen in the past year?: No Nurse's Note: pt here for follow up mri [facility] Medical History (Updated 12/25/23 @ 14:[address] Michelle Mcarthur MD) History of eye problem History of osteoarthritis History of cardiac murmur History of cataract History of back problems History of arthritis Chronic constipation Wears glasses Arthritis Non-smoker History of stress test Hemorrhoids Vision problem Osteoarthritis Surgical History H/O eye surgery Family History Mother Diabetes Arthritis Hyperlipidemia CVA (cerebral vascular accident) Father Arthritis Heart disease Hypertension Hyperlipidemia Cancer skin Grandmother Cancer breast Aunt Cancer breast Social History (Updated 12/25/23 @ 13:29 by Pooja Ellsworth) adopted: No household members: spouse current occupational status: retired 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 uses ibuprofen as needed HPI REVIEW MRI RESULTS Details: Марина comes in for recheck of the mass in the posterior neck. She has recently had an MRI. She comes in for review of the results and surgical planning. Exam Details Patient with a subcutaneous mass of the posterior neck. The mass is soft and the periphery well- defined. The MRI was reviewed with her which demonstrates findings consistent with a lipoma in the subcutaneous fat. There is no extension into the underlying muscle. She is incidentally noted to have spondylosis on multiple levels secondary to disc disease and bony hypertrophy. She states she is seeing a chiropractor to help her with her neck pain. The procedure of excision of the mass under general anesthetic was reviewed with her. The specimen would be sent to pathology for evaluation. She understands that there would be an incision mirroring the size of the mass. The procedure would be done as an outpatient. I reviewed with her limitations after surgery as well as the need to maintain her back elevated to help reduce swelling and bruising. We will need to obtain a medical clearance prior to the procedure. She has a vague history of possible heart murmur. 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 Normal [facility] CREATININE FINGERSTICKon CREATININE WB < 1.0 Normal 0.55-1.02 [facility] Comment on above: Performed By: #### L 9100.0200 ####[facility] [address] [place], [address] EGFR WB > 60.0000 Normal >60 [facility] Comment on above: Performed By: #### L 9100.0200 ####[facility] [address] [place], [address] Orbit Face Neck W/WO Contras ton 01-06-2024 Orbit Face Neck W/WO Contrast [facility] Imaging Services [address] [place] [address] Orbit Face Neck W/WO Contrast MR#: [id number] Acct: [id number] Name: SHENA MARQUEZ Rep #: [id number] : 1960 F 64 From: Edil Hoover MD PCP: Dr. Sulma Teague MD Status: REG CLI Study: Orbit Face Neck W/WO Contrast Date of Exam: Exam# [id number] Ordering Dr: Michelle Mcarthur [place] [id number] EXAMINATION: MRI NECK WITH CONTRAST- MR Face Neck Orbit WO/W Contrast TECHNIQUE: Multiplanar multisequence magnetic resonance imaging of the neck was performed before and after the administration of IV gadolinium-based contrast material. INDICATION: 64 years old Female SOFT TISSUE MASS BACK OF NECK-4 05/14 -- 4 05/14 GERARD SOFT TISSUE MASS BACK OF NECK. COMPARISON: None. FINDINGS: NASOPHARYNX: The posterior nasal fossa and nasopharynx are within normal limits. SUPRAHYOID NECK: The oropharynx, oral cavity, base of the tongue, and the structures of the central floor of the mouth are without focal abnormality. INFRAHYOID NECK: No intrinsic abnormality is seen within the larynx, hypopharynx, supraglottis, or trachea. THYROID: The thyroid gland is unremarkable. SALIVARY GLANDS: The parotid glands and submandibular glands show no focal abnormalities. LYMPH NODES: No pathologically enlarged lymph nodes are seen in the neck. VASCULAR STRUCTURES: The flow voids for the carotid and vertebral arteries are present. There is normal enhancement of the internal jugular veins without intraluminal filling defects. VISUALIZED PORTIONS OF THE ORBITS, PARANASAL SINUSES, MASTOID AIR CELLS AND SKULL BASE: The paranasal sinuses and mastoids are well aerated bilaterally. The globes and retrobulbar soft tissues are unremarkable. BONES: The cervical alignment is anatomic. No evidence for acute fracture or subluxation. There are no suspicious osseous lesions within the cervical spine or at the skull base. There is multilevel spondylosis and spinal stenosis secondary to disc disease and bony hypertrophy THORACIC INLET: The lung apices are unremarkable. The palpable density demarcated by vitamin E capsules demonstrates signal characteristics of fat on all pulse weighted imaging sequences and does not enhance consistent with benign lipoma measuring approximately 2.48 x 3.84 x 2.01 cm MRI/Orbit Face Neck W/WO Contrast IMPRESSION: Findings consistent with benign lipoma in the subcutaneous fat of the posterior neck. Incidental finding of spondylosis and mild multilevel spinal stenosis secondary to disc disease and bony hypertrophy . Electronically Signed: Edil Hoover MD at 17:01 EDT , CC: Dr. Sulma Teague MD; Dr. Michelle Mcarthur MD Before School: Signed Normal [facility] Plastic Surgery Visit Report on 12-25-2023 Plastic Surgery Visit Report [facility] [address], [address] [place] [id number] OFFICE VISIT Date of Service: 12/25/23 MR#: [id number] Acct: [id number] Name: SHENA MARQUEZ Rep #: [id number] : 1960 Provider: Dr. Michelle gilbert MD Age/Sex: 63/F Location: [facility] Status: Signed Intake Vital Signs 07/17/23 11:14 12/25/23 13:29 Height 5 ft 6 in 5 ft 6 in Weight: 185 lb 184 lb 2 oz BMI 29.8 29.7 BP 122/80 H 135/81 H Blood Pressure Location Lt brachial Rt brachial Position Sitting Sitting Respiration 16 16 Pulse 73 73 Pulse Source Monitor Temp 98.0 F 97.6 F L Temp Source Temporal Oral Pulse Oximetry (%) 97 98 Oxygen Delivery Method room air room air Intake Visit Reasons: lipoma back Chief Complaint: lipoma on back of neck Is patient in pain?: Yes (6/10 lower back pain) Allergies No Known Allergies Allergy (Verified 12/25/23 13:31) Medications ???Medication ???Instructions ???Recorded ???Confirmed ???Type antiarthritic combination no.2 900 900 mg PO DAILY 04/18/23 07/17/23 History mg tablet (glucosamine-chondroit in) ergocalciferol (vitamin D2) 1,250 1,250 mcg PO DAILY 04/18/23 07/17/23 History mcg (50,000 unit) capsule multivitamin 1 tab PO DAILY 04/18/23 07/17/23 History polyethylene glycol 3350 17 4 g PO DAILY 04/18/23 07/17/23 History gram/dose oral powder (Miralax) turmeric 100 mg-debbie 150 1 cap PO DAILY 04/18/23 07/17/23 History mg-olive 50 mg-oreg 150 mg-capryl capsule Diltiazem 2% / Lidocaine 5% #1 ea 05/31/23 07/17/23 Rx ointment (compound) prednisone 20 mg tablet 20 mg PO BID #12 tabs 07/17/23 07/17/23 Rx amitriptyline 75 mg tablet 150 mg (2 x 75 mg) PO QHS 90 days 07/19/23 12/25/23 Rx #180 tabs amoxicillin 875 mg-potassium 1 tab PO Q12H #14 tabs 11/01/23 11/01/23 Rx clavulanate 125 mg tablet Have you fallen in the past year?: No Nurse's Note: pt here for lipoma on back of neck PFSH Medical History (Updated 12/25/23 @ 14:[address] Michelle Mcarthur MD) History of eye problem History of osteoarthritis History of cardiac murmur History of cataract History of back problems History of arthritis Chronic constipation Wears glasses Arthritis Non-smoker History of stress test Hemorrhoids Vision problem Osteoarthritis Surgical History H/O eye surgery Family History Mother Diabetes Arthritis Hyperlipidemia CVA (cerebral vascular accident) Father Arthritis Heart disease Hypertension Hyperlipidemia Cancer skin Grandmother Cancer breast Aunt Cancer breast Social History (Updated 12/25/23 @ 13:29 by Pooja Ellsworth) adopted: No household members: spouse current occupational status: retired 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 uses ibuprofen as needed HPI lipoma back Details: Shena is a 63-year-old female who presents with a mass on the back of her neck which she estimates has been there for 1-1/2 to 2 years. She states it creates an achy feeling. She is otherwise in good health. She states her mother had something similar to this that was removed on her back. She sees a chiropractor for many issues regarding her back, neck, and extremities. ROS General General: Yes good health; No fatigue, fever(s) or weight loss HENMT HENMT: No rhinitis, sore throat/mouth sore, nasal congestion, contacts or glaucoma Endo Endocrine: No thyroid disease, polydipsia, heat intolerance, cold intolerance, hepatitis or excessive urine Skin Skin: No Bleeding, bruising, changing moles or suspicious lesion Musc Musculoskeletal: Yes joint pain, joint stiffness, muscle weakness, back pain, osteoarthritis and Muscle aches/ myalgia Neuro Neurological: No headache(s), No lightheadedness and No numbness Cardio Cardiovascular: No chest pain, pacemaker, fatigue or shortness of breat with exertion Psych Psychiatric: No depression, claustrophobia or anxiety Resp Respiratory: No spitting up, shortness of breath, sleep apnea, asthma, emphysema, TB, Cough or Smoker Gastro Gastrointestinal: Yes constipation; No diarrhea, blood in stool, nausea, vomiting or abdominal bloating Pete Hematologic: No anemia, No bleeding and No abnormal bleeding Genito (more content not included)... Normal [facility] Office Visit Reporton 2023 Office Visit Report [facility] [address] [place] [address] OFFICE VISIT Date of Service: 11/01/23 MR#: [id number] Acct: [id number] Patient: SHENA MARQUEZ Rep #: [id number] : 1960 Provider: KALEY Torres Age/Sex: 63/F Location: [facility] Status: Signed Intake Vital Signs 07/17/23 11:14 11/01/23 12:30 Height 1.68 m Weight: 83.915 kg BMI 29.8 BP 122/80 H 118/64 Blood Pressure Location Lt brachial Lt brachial Position Sitting Sitting Respiration 16 16 Pulse 73 88 Pulse Source Monitor NIBP Temp 98.0 F 98.4 F Temp Source Temporal Temporal Pulse Oximetry (%) 97 96 Oxygen Delivery Method room air room air Intake Visit Reasons: SINUS PRESSURE Chief Complaint: sinus pressure Child And Family Counselor Required: No Is patient in pain?: Yes Allergies No Known Allergies Allergy (Verified 11/01/23 12:31) Is last menstrual period known: No Post menopausal: Yes Patient : No Nurse's Note: VALENZUELA, congestion, face pain x 9 days. had covid 3 weeks ago, took home covid test 3 days ago (-). 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 Pt has been sick about 3.5 weeks. 3 weeks ago she had covid marked by fevers and body aches and mild sinus congestion. That resolved. About a week ago she started to have sinus pressure, congestion, and productive cough with mild SOB. ROS Const Constitutional: No chills, fatigue or fever(s) ENT ENT: Positive for nasal congestion, sinus pressure and sore throat; No ear or mastoid pain or ear pressure Resp Respiratory: Positive for cough and shortness of breath; No wheezing Endo Endocrine: No fatigue Aller/Imm Allergy/Immunologic: No wheezing Exam Const General: cooperative, healthy appearing, comfortable, no acute distress, well developed and well groomed Nutritional Appearance: average body habitus and well nourished Orientation: alert, awake and oriented x3 HENMT Head: normocephalic and atraumatic Ears: hearing grossly normal bilaterally, external ears normal and TM's normal bilaterally Face and sinus: sinus tenderness maxillary Throat: posterior oropharynx normal, tonsils normal and uvula midline Resp Effort Inspection: normal respiratory effort, able to speak in complete sentences, symmetric chest movement and not labored Auscultation: Bilateral: Clear to Auscultation Cardio Rate: regular rate Rhythm: regular rhythm Heart Sounds: no murmurs Coding Level of Care Code Off vis,new,level 3 Diagnoses COVID-19 U07.1 Acute sinusitis J01.90 Assessment and Plan Assessment and Plan (1) COVID-19: Status: Acute Plan: initial covid 19 symptoms from 3 weeks ago resolved and then were followed by acute sinusitis which is likely bacterial given that the viral illness has resolved. at this time start amox/clav, mucinex and floanse prn. if no improvement x 1 week then follow up with PCP for further eval. (2) Acute sinusitis: Status: Acute Medications: New amoxicillin-pot clavulanate 875-125 mg 1 TAB PO Q12H 14 tabs 0RF 11/01/23 1455 Date Tommy ROCHE Cosigner Signature: Date (if applicable) CC: [facility] 09-11-2023 CNPN Telephone (OBGYWM) SHENA MARQUEZ ([id number]) 1960 F NFR Date Time Provider Department 09/11/23 JARED HERNANDEZ During your visit today, we recorded the following information about you: Lyndsay Sun RN 09/11/2023 12:40 PM Signed [facility] pharmacist called. They changed wholesalers for the Clobetasol ointment. It's now over $200 for the ointment. Asking if it can be switched to the cream. Can call the pharmacy with the change or send in a new RX. MILE Rutledge Emily, APRN.QUALITY INSPECTOR 09/12/2023 8:11 AM Signed Can switch to cream. Please call in. Jared Hernandez APRN.Lilly Parikh RN 09/12/2023 10:52 AM Signed [facility] pharmacy notified. Lilly Hidalgo RN Allergies As of Date: 09/11/2023 (No Known Allergies) Date Reviewed: 06/26/2023 Reviewed by: Jared Hernandez APRN.QUALITY INSPECTOR - Fully Assessed Reason for Visit: Medication Problem [65] Prescriptions as of 09/12/2023 - estradiol (ESTRACE) 0.01 % (0.1 mg/gram) vaginal cream Use 1 g vaginally daily for 2 weeks. Then use 1 g vaginally twice per week. - clobetasol (TEMOVATE) 0.05 % ointment Apply 1 application to affected area once daily. - diclofenac sodium (VOLTAREN) 1 % topical gel Apply to affected area once daily. Bilateral knees - glucosam/linda-msm1/C/m ang/bosw (OSTEO BI-FLEX TRIPLE STRENGTH ORAL) Take by mouth once daily. - AMITRIPTYLINE 150 MG TAB Take two 75mg tablets at bedtime. - MULTIVITAMIN TAB Take 1 tablet by mouth once daily. - MIRALAX 17 G (100 %) ORAL PACK Take 17 g by mouth once daily as needed. 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] IRRITABLE COLON [K58.9] ABDOMINAL PAIN OTHER SPEC SITE [R10.9] OTHR MIGRNE WO NTRC MGRN [G43.809] PRURITUS OF GENITALIA [L29.3] BACTEREMIA NOS [R78.81] PURE HYPERCHOLESTEROLEM [E78.00] Lump or mass in breast [N63.0] 04/25/2010 Endometrial polyp [N84.0] 11/23/2014 Fibroids, submucosal [D25.0] 11/23/2014 Encounter Status:Closed by LILLY HIDALGO on 09/12/23 Normal [facility] PT D/C Summary (1)on 024 PT D/C Summary (1) [facility] Physical [facility] [address] [place] [address] [address] [place] [address] / REHABILITATION SERVICES DISCHARGE SUMMARY MR#: [id number] Acct: [id number] Name: SHENA MARQUEZ Rep #: [id number] : 1960 63 From: Torres Bonilla PT, Cert. T, OCS Referring Dr.: Dr. Sulma Teague MD Status: R EG RCR Insurance: MEDICARE PART A B MEDICARE SUPPLEMENT PLAN Discharge Summary D/C summary: It has been my pleasure to treat SHENA MARQUEZ referred by Dr. Sulma Teague MD, with the diagnosis of PAIN IN RIGHT KNEE ,PAIN IN LEFT KNEE for a total of 16 visit(s). Discharge Date: 09/11/23 Please see the following information for a summary of their discharge status. Subjective Subjective: Doing better overall .. Difficulty with steps Pain Left Knee: Pain Intensity (Out of 10): 0 Right Knee: Pain Intensity (Out of 10): 2 Low back: Pain Intensity (Out of 10): 0 Overall Improvement % Improvement: 70 Objective Objective/Function: PROGRESSED WELL TOWARDS GOALS TO MANAGE KNEE PAIN POSTURE: mild forward posture knee right slightly flexed PALAPTION: tender right I T band ,medial and lateral joint line EDEMA: absent GAIT: reciprocal pattern AROM: 5-135 degrees right supine flexion and left 0-135 degrees MMT:( peak force) right quads 51.5, left 44.7 ,hamstrings right 42.9,42.8 ,,hip flexion 39.1 right ,36. ,hip abduction 23.8 right ,left 29.8 FLEXABILITY: hamstrings min tight Goals Goal 1:: Patient to be I with HEP for knee Goal Progress: Goal Met Goal 2:: Patient to improve strength peak force of quads/hams hip by 5-10# to improve gait and function( new goal) Goal Progress: Goal Met Goal 3:: Patient to demonstrate 50% improvement with increase function with housework with less pain( new goal) Goal Progress: Goal Met Goal 4:: Patient improve LFES score by 5 points to improve function and QOL Goal Progress: Goal Met Goal 5:: Patient to improve ROM to ascend/descend steps one steps with less pain Goal Progress: Goal Met Plan Plan: D.C D/C Information Discharge Comments: HEP AND GYM PROGRAM d/c sentence: If there are questions or concerns regarding this patient's physical therapy, please feel free to call me at [phone]. Thank you for the referral of this patient. Sincerely, Torres Bonilla, PT, Cert MDT, OCS Balance/Gait/Functiona l tests Balance/Special Test Scores Lower Extremity Functional Score: 54 Improvement % Improvement: 70 09/11/23 1124 CC: Dr. Sulma Teague MD FABRICIO Signed Normal [facility] CNOVon 06-26-2023 CNOV Office Visit (OBGYWM ) SHENA MARQUEZ ([id number]) 1960 F NFR Date Time Provider Department 06/26/23 12:45 PM JARED HERNANDEZWLarry During your visit today, we recorded the following information about you: Blood pressure Weight Height 134/82 83.9 kg 1.638 m Jared Hernandez, JUANITO.QUALITY INSPECTOR 06/26/2023 1:44 PM Signed Ship Scraper offered: Patient declines. 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 Normal [facility] BACTERIAL VAGINOSIS NAATon 0 05-27-2023 Lactobacillus crispatus+gasseri+edgardo enii + Gardnerella vaginalis + Atopobium vaginae rRNA VALDO+probe Ql (Vag fld) Negative Normal Negative for bacterial vaginosis [facility] Comment on above: Order Comment: Speci men Type: SWAB Ordering Facility: [facility] Address: [address] [place] [address] Performed By: #### C VTV, BVAMP #### [facility] CLIA [id number] [address] [place] [address] [place] WICHO/TRICHOMONAS NAATon 0 05-27-2023 C. glabrata RNA VALDO+probe Ql (Vag fld) Negative Normal Negative for Wicho glabrata [facility] Comment on above: Order Comment: Speci men Type: SWAB Ordering Facility: [facility] Address: [address] [place] [address] Performed By: #### C VTV, BVAMP #### [facility] CLIA [id number] [address] [place] [address] [place] Wicho sp DNA VALDO+probe Ql (Vag fld) Negative Normal Negative for Wicho species [facility] Comment on above: Order Comment: Speci men Type: SWAB Ordering Facility: [facility] Address: [address] [place] [address] Performed By: #### C VTV, BVAMP #### [facility] CLIA [id number] [address] [place] [address] [place] T. vaginalis DNA VALDO+probe Ql (Unsp spec) Negative Normal Negative for Trichomonas vaginalis by amplification [facility] Comment on above: Order Comment: Speci men Type: SWAB Ordering Facility: [facility] Address: [address] [place] [address] Performed By: #### C VTV, BVAMP #### [facility] CLIA [id number] [address] [place] [address] [place] CNOVon 05-27-2023 CNOV Office Visit (OBGYWM ) SHENA MARQUEZ ([id number]) 1960 F NFR Date Time Provider Department 05/27/23 11:30 AM JARED HERNANDEZ During your visit today, we recorded the following information about you: Pulse Respiration Blood pressure Weight 82/minute 12/minute 122/88 85.2 kg Height 1.676 m Jared Hernandez APRN.QUALITY INSPECTOR 05/27/2023 12:05 PM Signed Ship Scraper offered: Patient declines. 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 Normal [facility] Absolute lymphocyte countOrd ered By: Sulma Teague on 05-24-2023 Lymphocytes Auto (Unsp spec) [#/Vol] 1.13 10*3/uL 0.83-4.51 [facility] Basophil percentageOrdered B y: Sulma Teague on 05-24-2023 Basophils/100 WBC (Bld) 0.7 % 0-1 [facility] Bilirubin [Mass/Vol] 0.50 mg/dL 0.20-1.00 [facility] Comment on above: For patients on eltr ombopag therapy, use of [employer]ension [place] TBIL is not recommended. Chloride [Moles/Vol] 105 mmol/L 98-107 [facility] Cholesterol [Mass/Vol] 227 mg/dL <200 [facility] Comment on above: <200 mg/dL Desirable 200-240 mg/dL Borderline >240 mg/dL High Risk Eosinophils/100 WBC (Bld) 5.8 % 0-5 [facility] Glucose [Mass/Vol] 91 mg/dL 74-106 [facility] Neutrophils (Bld) [#/Vol] 2.7 10*3/uL 2.0-7.7 [facility] Neutrophils/100 WBC (Bld) 59.1 % 47-70 [facility] Potassium [Moles/Vol] 4.0 mmol/L 3.5-5.1 [facility] Protein [Mass/Vol] 7.6 g/dL 6.4-8.2 [facility] Sodium [Moles/Vol] 139 mmol/L 136-145 [facility] Triglyceride [Mass/Vol] 74 mg/dL <199 [facility] Comment on above: The drugs N-Acetylcy steine and Metamizole may falsely depress this assay.Serum Triglycerides Reference Interval Normal <150 mg/dL Borderline high 150 - 199 mg/dL High 200 - 499 mg/dL Very High > or = 500 mg/dL WBC (Bld) [#/Vol] 4.5 10*3/uL 4.4-11.0 [facility] Blood erythrocytes count (nu mber/volume)Ordered By: Sulma Teague on 05-24-2023 RBC (Bld) [#/Vol] 4.43 10*6/uL 4.2-5.[address] [facility] Blood hemoglobin measurement (mass/volume)Ordered By: Sulma Teague on 05-24-2023 Hemoglobin (Bld) [Mass/Vol] 13.1 g/dL 12.0-15.0 [facility] Blood lymphocytes/100 leukoc ytesOrdered By: Sulma Teague on 05-24-2023 Lymphocytes/100 WBC (Bld) 25.1 % 19-41 [facility] Blood monocytes/100 leukocyt esOrdered By: Sulma Teague on 05-24-2023 Monocytes/100 WBC (Bld) 9.1 % 0-10 [facility] Blood platelet mean volumeOr dered By: Sulma Teague on 05-24-2023 Platelet mean volume (Bld) [Entitic vol] 9.7 fL 6.2-12.0 [facility] Determination of erythrocyte mean corpuscular volume (MCV)Ordered By: Sulma Teague on 05-24-2023 MCV (RBC) [Entitic vol] 90.3 fL 81-99 [facility] Hematocrit Auto (Bld) [Volum e fraction]Ordered By: Sulmati Teague on 05-24-2023 Hematocrit (Bld) [Volume fraction] 40.0 % 37-47 [facility] - Chemistry and C hemistry - challengeOrdered By: Sulmayulisa Teague on 05-24-2023 ALP [Catalytic activity/Vol] 78 U/L 45-117 [facility] ALT [Catalytic activity/Vol] 31 U/L 13-56 [facility] CO2 [Moles/Vol] 28.0 mmol/L 21.0-32.0 [facility] Globulin (S) [Mass/Vol] 3.9 g/dL 2.2-4.2 [facility] Urea nitrogen/Creatinine [Mass ratio] 22.3 mg/mg 10-20 [facility] - Hematology and Cell countsOrdered By: Sulma Teague on 05-24-2023 Erythrocyte distribution width (RBC) [Entitic vol] 45.3 fL 35.1-43.9 [facility] Erythrocyte distribution width (RBC) [Ratio] 13.7 % 11.6-14.6 [facility] Immature granulocytes/100 WBC (Bld) 0.200 % 0.0-0.9 [facility] Comment on above: IG% - Immature Granu locytes (promyelocytes, myelocytes and metamyelocytes) > 1% indicates that a LEFT SHIFT is Present. MCH (RBC) [Entitic mass] 29.6 pg 27.0-32.0 [facility] Nucleated RBC/100 WBC (Bld) [Ratio] 0 % 0-5 [facility] MCHC Auto (RBC) [Mass/Vol]Or dered By: Sulma Teague on 05-24-2023 MCHC (RBC) [Mass/Vol] 32.8 g/dL 32-36 [facility] No Panel InformationOrdered By: Sulma Teague on 05-24-2023 Estimated GFR (MDRD) Amer 105 mL/min >60 [facility] Comment on above: GFR Calc Estimated GFR (MDRD) Non-Af Amer 87 mL/min >60 [facility] Comment on above: Non- GFR Calc Platelets bldOrdered By: Paco Teague on 05-24-2023 Platelets (Bld) [#/Vol] 264 10*3/uL 150-450 [facility] Serum or plasma albumin declan urement (mass/volume)Ordered By: Sulma Teague on 05-24-2023 Albumin [Mass/Vol] 3.7 g/dL 3.2-5.0 [facility] Serum or plasma albumin/glob ulin mass ratioOrdered By: Sulma Teague on 05-24-2023 Albumin/Globulin [Mass ratio] 0.9 {ratio} 0.9-2.4 [facility] Serum or plasma calcium declan urement (mass/volume)Ordered By: Sulma Teague on 05-24-2023 Calcium [Mass/Vol] 9.1 mg/dL 8.5-10.1 [facility] Serum or plasma cholesterol in HDL measurement (mass/volume)Ordered By: Sulma Teague on 05-24-2023 Cholesterol in HDL [Mass/Vol] 69 mg/dL >40 [facility] Comment on above: The drugs N-Acetylcy steine and Metamizole may falsely depress this assay. Reference Range HDL <40 mg/dL Low HDL Cholesterol HDL >or= 60 mg/dL High HDL Cholesterol Serum or plasma cholesterol in VLDL measurement (mass/volume)Ordered By: Sulma Teague on 05-24-2023 Cholesterol in VLDL [Mass/Vol] 15 mg/dL 5-40 [facility] Serum or plasma creatinine m easurement (mass/volume)Ordered By: Sulma Teague on 05-24-2023 Creatinine [Mass/Vol] 0.72 mg/dL 0.55-1.02 [facility] Comment on above: The validity of the calculated GFR & GFRAA in patients over 70 years has not been determined. Clinical correlation is essential. Serum or plasma low density lipoprotein (LDL) cholesterol measurement (mass/volume)Ordered By: Sulma Teague on 05-24-2023 Cholesterol in LDL [Mass/Vol] 143 mg/dL 0-130 [facility] Serum or plasma urea nitroge n measurement (mass/volume)Ordered By: Sulma Teague on 05-24-2023 Urea nitrogen [Mass/Vol] 16 mg/dL 7-18 [facility] Thin prep Papanicolaou smear with manual screeningOrdered By: Sulma Teague on 05-24-2023 Thin prep Papanicolaou smear with manual screening 28 U/L 15-37 [facility] Thin prep Papanicolaou smear with manual screening 6 5-15 [facility] CNPNon 04-18-2023 [facility] SHENA MARQUEZ ([id number]) 1960 F NFR Date Time Provider Department 04/18/23 BEHZAD ZACARIAS [facility] During your visit today, we recorded the following information about you: Behzad Zacarias PA 04/18/2023 11:35 AM Signed Please call patient let her know she was negative for yeast and bacterial vaginosis. Follow-up with women's health as discussed at visit. Jason Grande MA 04/18/2023 1:16 PM Signed Patient notified of results, verbalized understanding of instructions given. Jason Grande MA Allergies As of Date: 04/18/2023 (No Known Allergies) Date Reviewed: 04/17/2023 Reviewed by: Jason Grande MA - Fully Assessed Reason for Visit: Results [95] Prescriptions as of 04/18/2023 - nystatin (MYCOSTATIN) cream Apply to affected area two times a day for 7 days. - metroNIDAZOLE (METROGEL) 0.75 % Topical Gel - diclofenac sodium (VOLTAREN) 1 % topical gel - glucosam/linda-msm1/C/m ang/bosw (OSTEO BI-FLEX TRIPLE STRENGTH ORAL) - AMITRIPTYLINE 150 MG TAB Take two 75mg tablets at bedtime. - MULTIVITAMIN TAB Take one(1) tablet daily. 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] IRRITABLE COLON [K58.9] ABDOMINAL PAIN OTHER SPEC SITE [R10.9] OTHR MIGRNE WO NTRC MGRN [G43.809] PRURITUS OF GENITALIA [L29.3] BACTEREMIA NOS [R78.81] PURE HYPERCHOLESTEROLEM [E78.00] Lump or mass in breast [N63.0] 04/25/2010 Endometrial polyp [N84.0] 11/23/2014 Fibroids, submucosal [D25.0] 11/23/2014 Encounter Status:Closed by JASON GRANDE on 04/18/23 Normal [facility] BACTERIAL VAGINOSIS NAATon 1 06-18-2022 Lactobacillus crispatus+gasseri+edgardo enii + Gardnerella vaginalis + Atopobium vaginae rRNA VALDO+probe Ql (Vag fld) Negative Normal Negative for bacterial vaginosis [facility] Comment on above: Order Comment: Speci men Type: SWAB Ordering Facility: [facility] Address: [address] [place] [address] Performed By: #### C VTV, BVAMP #### [facility] CLIA [id number] [address] [place] [address] [place] WICHO/TRICHOMONAS NAATon 1 06-18-2022 C. glabrata RNA VALDO+probe Ql (Vag fld) Negative Normal Negative for Wicho glabrata [facility] Comment on above: Order Comment: Speci men Type: SWAB Ordering Facility: [facility] Address: [address] [place] [address] Performed By: #### C VTV, BVAMP #### [facility] CLIA [id number] [address] [place] [address] [place] Wicho sp DNA VALDO+probe Ql (Vag fld) Negative Normal Negative for Wicho species [facility] Comment on above: Order Comment: Speci men Type: SWAB Ordering Facility: [facility] Address: [address] [place] [address] Performed By: #### C VTV, BVAMP #### [facility] CLIA [id number] [address] [place] [address] [place] T. vaginalis DNA VALDO+probe Ql (Unsp spec) Negative Normal Negative for Trichomonas vaginalis by amplification [facility] Comment on above: Order Comment: Speci men Type: SWAB Ordering Facility: [facility] Address: [address] [place] [address] Performed By: #### C VTV, BVAMP #### [facility] CLIA [id number] [address] [place] [address] [place] CNOVon 04-17-2023 CNOV Office Visit ([facility] ) SHENA MARQUEZ ([id number]) 1960 F NFR Date Time Provider Department 04/17/23 4:30 PM BEHZAD ZACARIAS [facility] During your visit today, we recorded the following information about you: Temperature Pulse Respiration Blood pressure 98 degrees 82/minute 18/minute 166/104 Weight 83.3 kg Behzad Zacarias PA 04/17/2023 4:52 PM Signed Follow up with Gynecology/womens health for nexta vailable appointment. Behzad Zacarias PA 04/17/2023 5:00 PM Signed This note was created using [employer]. Subjective Shena Marquez is a 63 year old female. HPI [...] then the itching returned. She has tried kqcn-qpi-iujascd medications. She has changed soaps and nothing [...] diclofenac sodium (VOLTAREN) 1 % topical gel glucosam/linda-msm1/C/m ang/bosw (OSTEO BI-FLEX TRIPLE STRENGTH ORAL) AMITRIPTYLINE 150 [...] nursing note reviewed. Exam conducted with a group art supervisor present. Constitutional: General: She is not in [...] appears reddened, irritated. No rash. No lesions (more content not included)... Normal [facility] Cervical or vagninal specime n microscopic examination by cytology stain (reported asOrdered By: Dr. Eldridge on 06-27-2022 Cytology report Cyto stain Doc (Cvx/Vag) Comment . [facility] Comment on above: The Pap smear is a s creening test designed to aid in thedetection of premalignant and malignant conditions of theuterine cervix. It is not a diagnostic procedure andshould not be used as the sole means of detecting cervicalcancer. Both false-positive and false-negative reports dooccur. Detection in cervical specim en of any of human papilloma virus (HPV) 16, 18, 31, 33,Ordered By: Dr. Eldridge on 06-27-2022 HPV 16+18+31+33+35+39+45+5 1+52+56+58+59+66+68 DNA Probe+sig amp Ql (Cvx) Negative Negative [facility] Comment on above: This nucleic acid am plification test detects fourteen high- risk HPV types (16,18,31,33,35,39,45,51,52,56,58,59,66,68)without differentiation. Laboratory - CytologyOrdered By: Dr. Eldridge on 06-27-2022 [employer]or Cyto stain Nom (Cvx/Vag) [ID] Comment . [facility] Comment on above: Torres Eldridge , Chisel Trimmer (ASCP) Laboratory - Miscellaneous t estsOrdered By: Dr. Eldridge on 06-27-2022 Service comment (Unsp spec) [Interp] Comment . [facility] Comment on above: This liquid based Th inPrep(R) pap test was screened withthe use of an image guided system. Service comment (Unsp spec) [Interp] . . [facility] Liquid-based cerv Pap + CT/G C by VALDO w reflex to high-risk HPV for ASCUSOrdered By: Dr. Eldridge on 06-27-2022 Cytology report Cyto stain.thin prep Doc (Cvx/Vag) Comment . [facility] Comment on above: Criteria not met, HP V Genotype not performed.Performed at: [facility] [id number] Director: Ivy Khalil MD, Phone: [phone] at: =[facility] - [facility] [id number] Director: Ivy Khalil MD, Phone: [phone] No Panel InformationOrdered By: Dr. Eldridge on 06-27-2022 Pathology report final diagnosis Narrative Comment . [facility] Comment on above: NEGATIVE FOR INTRAEP ITHELIAL LESION OR MALIGNANCY.CELLULAR CHANGES ASSOCIATED WITH ATROPHY ARE PRESENT. Basophil percentageOrdered B y: Dr. Yeung on 06-04-2022 Chloride [Moles/Vol] 103 mmol/L 98-107 [facility] Cholesterol [Mass/Vol] 243 mg/dL <200 [facility] Comment on above: <200 mg/dL Desirable 200-240 mg/dL Borderline >240 mg/dL High Risk Glucose [Mass/Vol] 95 mg/dL 74-106 [facility] Potassium [Moles/Vol] 4.4 mmol/L 3.5-5.1 [facility] Sodium [Moles/Vol] 139 mmol/L 136-145 [facility] Triglyceride [Mass/Vol] 76 mg/dL <199 [facility] Comment on above: The drugs N-Acetylcy steine and Metamizole may falsely depress this assay.Serum Triglycerides Reference Interval Normal <150 mg/dL Borderline high 150 - 199 mg/dL High 200 - 499 mg/dL Very High > or = 500 mg/dL Laboratory - Chemistry and C hemistry - challengeOrdered By: Dr. Yeung on 06-04-2022 CO2 [Moles/Vol] 26.0 mmol/L 21.0-32.0 [facility] Urea nitrogen/Creatinine [Mass ratio] 28.8 mg/mg 10-20 [facility] No Panel InformationOrdered By: Dr. Yeung on 06-04-2022 Estimated GFR (MDRD) Amer 98 mL/min >60 [facility] Comment on above: GFR Calc Estimated GFR (MDRD) Non-Af Amer 81 mL/min >60 [facility] Comment on above: Non- GFR Calc Vitamin D 25-Hydroxy 67.6 ng/mL [facility] Comment on above: Vitamin D 25(OH) Sta tus Range Deficiency <20 ng/mL (50nmol/L) Insufficiency 20 - 30 ng/mL (50 - 75 nmol/L) Sufficiency 30 - 100 ng/mL (75 - 250 nmol/L) Toxicity >100 ng/mL (>250 nmol/L) Serum or plasma calcium declan urement (mass/volume)Ordered By: Dr. Yeung on 06-04-2022 Calcium [Mass/Vol] 9.8 mg/dL 8.5-10.1 [facility] Serum or plasma cholesterol in HDL measurement (mass/volume)Ordered By: Dr. Yeung on 06-04-2022 Cholesterol in HDL [Mass/Vol] 70 mg/dL >40 [facility] Comment on above: The drugs N-Acetylcy steine and Metamizole may falsely depress this assay. Reference Range HDL <40 mg/dL Low HDL Cholesterol HDL >or= 60 mg/dL High HDL Cholesterol Serum or plasma cholesterol in VLDL measurement (mass/volume)Ordered By: Dr. Yeung on 06-04-2022 Cholesterol in VLDL [Mass/Vol] 15 mg/dL 5-40 [facility] Serum or plasma creatinine m easurement (mass/volume)Ordered By: Dr. Yeung on 06-04-2022 Creatinine [Mass/Vol] 0.76 mg/dL 0.55-1.02 [facility] Comment on above: The validity of the calculated GFR & GFRAA in patients over 70 years has not been determined. Clinical correlation is essential. Serum or plasma low density lipoprotein (LDL) cholesterol measurement (mass/volume)Ordered By: Dr. Yeung on 06-04-2022 Cholesterol in LDL [Mass/Vol] 158 mg/dL 0-130 [facility] Serum or plasma urea nitroge n measurement (mass/volume)Ordered By: Dr. Yeung on 06-04-2022 Urea nitrogen [Mass/Vol] 22 mg/dL 7-18 [facility] Thin prep Papanicolaou smear with manual screeningOrdered By: Dr. Yeung on 06-04-2022 Thin prep Papanicolaou smear with manual screening 10 5-15 [facility] OCT MACULA CIRRUS OU (BOTH E YES) [facility] Vital Signs Date Time Vital Sign Value Performing Clinician Jeremy lux 08-05-2024 11:36-0400 Body height 167.[address] Sulma Teague MD Work Phone: [facility] 08-05-2024 11:36-0400 Body mass index (BMI) [Ratio] 29.5 kg/m2 Dr. Sulma Teague MD Work Phone: [facility] 08-05-2024 11:36-0400 Body temperature 97.2 [degF] Dr. Sulma Teague MD Work Phone: [facility] 08-05-2024 11:36-0400 Body weight 83.[address] Sulma Teague MD Work Phone: [facility] 08-05-2024 11:36-0400 Diastolic blood pressure 78 mm[Hg] Dr. Sulma Teague MD Work Phone: [facility] 08-05-2024 11:36-0400 Heart rate 92 /min Dr. Sulma Teague MD Work Phone: [facility] 08-05-2024 11:36-0400 Respiratory rate 16 /min Dr. Sulma Teague MD Work Phone: [facility] 08-05-2024 11:36-0400 SaO2% (BldA) [Mass fraction] 95 % Dr. Sulma Teague MD Work Phone: [facility] 08-05-2024 11:36-0400 Systolic blood pressure 126 mm[Hg] Dr. Sulma Teague MD Work Phone: [facility] 06-17-2024 09:20-0500 Body height 167.[address] Sulma Teague MD Work Phone: [facility] 06-17-2024 09:10-0500 Body mass index (BMI) [Ratio] 30.5 kg/m2 Dr. Sulma Teague MD Work Phone: [facility] 06-17-2024 09:10-0500 Body weight 85.[address] Sulma Teague MD Work Phone: [facility] 06-17-2024 09:10-0500 Diastolic blood pressure 82 mm[Hg] Dr. Sulma Teague MD Work Phone: [facility] 06-17-2024 09:10-0500 Systolic blood pressure 120 mm[Hg] Dr. Sulma Teague MD Work Phone: [facility] 07-17-2023 11:14-0500 Body height 167.[address] Satnam Yeung Work Phone: [facility] 07-17-2023 11:14-0500 Body mass index (BMI) [Ratio] 29.8 kg/m2 Dr. Satnam Yeung Work Phone: [facility] 07-17-2023 11:14-0500 Body temperature 98 [degF] Dr. Satnam Yeung Work Phone: [facility] 07-17-2023 11:14-0500 Body weight 83.[address] Satnam Yeung Work Phone: [facility] 07-17-2023 11:14-0500 Diastolic blood pressure 80 mm[Hg] Dr. Satnam Yeung Work Phone: [facility] 07-17-2023 11:14-0500 Heart rate 73 /min Dr. Satnam Yeung Work Phone: [facility] 07-17-2023 11:14-0500 Respiratory rate 16 /min Dr. Satnam Yeung Work Phone: [facility] 07-17-2023 11:14-0500 SaO2% (BldA) [Mass fraction] 97 % Dr. Satnam Yeung Work Phone: [facility] 07-17-2023 11:14-0500 Systolic blood pressure 122 mm[Hg] Dr. Satnam Yeung Work Phone: [facility] 07-02-2023 11:00-0500 Body temperature 97.2 [degF] Dr. Surinder Yeung Work Phone: [facility] 07-02-2023 11:00-0500 Diastolic blood pressure 85 mm[Hg] Dr. Surinder Yeung Work Phone: [facility] 07-02-2023 11:00-0500 Heart rate 65 /min Dr. Surinder Yeung Work Phone: [facility] 07-02-2023 11:00-0500 Respiratory rate 18 /min Dr. Surinder Yeung Work Phone: [facility] 07-02-2023 11:00-0500 SaO2% (BldA) [Mass fraction] 100 % Dr. Surinder Yeung Work Phone: [facility] 07-02-2023 11:00-0500 Systolic blood pressure 126 mm[Hg] Dr. Surinder Yeung Work Phone: [facility] 07-02-2023 08:55-0500 Body height 167.[address] Surinder Yeung Work Phone: [facility] 07-02-2023 08:55-0500 Body mass index (BMI) [Ratio] 28.8 kg/m2 Dr. Surinder Yeung Work Phone: [facility] 07-02-2023 08:55-0500 Body weight 80.[address] Surinder Yeung Work Phone: [facility] 06-26-2023 12:41-0500 Body height 163.8 cm Jared Hernandez APRN.QUALITY INSPECTOR Work Phone: [facility] 06-26-2023 12:41-0500 Body weight 83.92 kg Jared Hernandez APRN.QUALITY INSPECTOR Work Phone: [facility] 06-26-2023 12:41-0500 Diastolic blood pressure 82 mm[Hg] Jared Mary SOLOMON.QUALITY INSPECTOR Work Phone: [facility] 06-26-2023 12:41-0500 Systolic blood pressure 134 mm[Hg] Jared Valenzuelafalguni SOLOMON.QUALITY INSPECTOR Work Phone: [facility] 05-31-2023 14:18-0500 Body mass index (BMI) [Ratio] 30.4 kg/m2 Dr. Surinder Yeung Work Phone: [facility] 05-31-2023 14:18-0500 Body temperature 97.2 [degF] Dr. Surinder Yeung Work Phone: [facility] 05-31-2023 14:18-0500 Body weight 85.[address] Surinder Yeung Work Phone: [facility] 05-31-2023 14:18-0500 Diastolic blood pressure 79 mm[Hg] Dr. Surinder Yeung Work Phone: [facility] 05-31-2023 14:18-0500 Heart rate 89 /min Dr. Surinder Yeung Work Phone: [facility] 05-31-2023 14:18-0500 Respiratory rate 18 /min Dr. Surinder Yeung Work Phone: [facility] 05-31-2023 14:18-0500 SaO2% (BldA) [Mass fraction] 93 % Dr. Surinder Yeung Work Phone: [facility] 05-31-2023 14:18-0500 Systolic blood pressure 136 mm[Hg] Dr. Surinder Yeung Work Phone: [facility] 05-20-2023 11:10-0500 Body height 167.[address] Surinder Yeung Work Phone: [facility] 05-20-2023 11:10-0500 Body mass index (BMI) [Ratio] 30.7 kg/m2 Dr. Surinder Yeung Work Phone: [facility] 05-20-2023 11:10-0500 Body temperature 97 [degF] Dr. Surinder Yeung Work Phone: [facility] 05-20-2023 11:10-0500 Body weight 86.[address] Surinder Yeung Work Phone: [facility] 05-20-2023 11:10-0500 Diastolic blood pressure 74 mm[Hg] Dr. Surinder Yeung Work Phone: [facility] 05-20-2023 11:10-0500 Heart rate 92 /min Dr. Surinder Yeung Work Phone: [facility] 05-20-2023 11:10-0500 Respiratory rate 16 /min Dr. Surinder Yeung Work Phone: [facility] 05-20-2023 11:10-0500 SaO2% (BldA) [Mass fraction] 96 % Dr. Surinder Yeung Work Phone: [facility] 05-20-2023 11:10-0500 Systolic blood pressure 126 mm[Hg] Dr. Surinder Yeung Work Phone: [facility] 04-17-2023 16:35-0500 Body temperature 98.01 [degF] Krislyn Aberegg PA Work Phone: [facility] 04-17-2023 16:35-0500 Body weight 83.28 kg Krislyn Aberegg PA Work Phone: [facility] 04-17-2023 16:35-0500 Diastolic blood pressure 104 mm[Hg] Krislyn Aberegg PA Work Phone: [facility] 04-17-2023 16:35-0500 Heart rate 82 /min Krislyn Aberegg PA Work Phone: [facility] 04-17-2023 16:35-0500 Respiratory rate 18 /min Krislyn Aberegg PA Work Phone: [facility] 04-17-2023 16:35-0500 SaO2% (BldA) [Mass fraction] 98 % Behzad ROCHE Work Phone: [facility] 04-17-2023 16:35-0500 Systolic blood pressure 166 mm[Hg] Jordantj ROCHE Work Phone: [facility] Encounters Encounter Date Encounter Type Care Provider Facility Start: 08-17-2024 End: 08-17-[address] Sulma Teague MD Work Phone: [facility] Work Phone: Start: 08-17-2024 End: 08-17-[address] Anirudh Conner MD -Radiology, [facility] Work Phone: Start: 08-17-2024 End: 08-17-2024 ambulatory Sulma Teague Facility:[facility] Start: 08-07-2024 End: 08-07-[address] Sulma Teague MD Work Phone: [facility] Work Phone: Start: 08-07-2024 End: 08-07-[address] Sulma Teague MD -Laboratory, [place] Start: 08-07-2024 End: 08-07-2024 ambulatory Sulma Teague Facility:[facility] Start: 08-05-2024 End: 08-05-[address] Sulma Teague MD -[facility] Work Phone: Start: 08-05-2024 End: 08-05-2024 ambulatory Sulma Teague Facility:[facility] Start: 07-08-2024 End: 07-08-[address] Sulma Teague MD Work Phone: [facility] Work Phone: Start: 07-08-2024 End: 07-08-2024 Patient encounter procedure Milena VALENTIN -Outpatient Breast Imaging Work Phone: Start: 07-08-2024 End: 07-08-2024 ambulatory Milena Escamilla CLINICAL REHAB LIAISON Facility:[facility] Start: 06-17-2024 End: 06-17-2024 Patient encounter procedure Milena Escamilla CLINICAL REHAB LIAISON-C -[facility] Work Phone: Start: 06-17-2024 End: 06-17-2024 Patient encounter status Milena Escamilla CLINICAL REHAB LIAISON-C [facility] Start: 06-17-2024 End: 06-17-2024 ambulatory Milena Escamilla CLINICAL REHAB LIAISON Facility:[facility] Start: 06-17-2024 End: 06-17-2024 ambulatory Milena Escamilla CLINICAL REHAB LIAISON Facility:[facility] Start: 02-09-2024 Encounter for other preprocedural examination Jorge ROCHE [facility] Start: 02-05-2024 End: 02-05-2024 ambulatory Sulma [place] Facility:[facility] Start: 01-31-2024 End: 01-31-2024 ambulatory Sulma [place] Facility:[facility] Start: 01-24-2024 ambulatory Sulma Ho Facility :[facility] Start: 01-24-2024 End: 01-24-2024 ambulatory Sulma Ho Facility:[facility] Start: 01-20-2024 Encounter for preprocedural laboratory examination Michelle Mcarthur [facility] Start: 01-17-2024 End: 01-17-2024 ambulatory Sulma Ho Facility:[facility] Start: 01-17-2024 End: 01-17-2024 ambulatory Sulma Ho Facility:[facility] Start: 01-08-2024 End: 01-08-2024 ambulatory Sulma [place] Facility:[facility] Start: 01-06-2024 End: 01-06-2024 ambulatory Sulma Ho Facility:[facility] Start: 12-25-2023 End: 12-25-2023 ambulatory Sulma [place] Facility:[facility] Start: 11-01-2023 End: 11-01-2023 ambulatory Tommy ROCHE Facility:[facility] Start: 09-11-2023 Telephone encounter Jared peña APRN.CNP Work Phone: OB/Gynecology Comment on above: Medication Problem Start: 09-11-2023 End: 09-11-[address] Satnam Yeung Work Phone: [facility] Work Phone: Start: 09-11-2023 End: 09-11-[address] Satnam Yeung Work Phone: [facility]-Physical Therapy Work Phone: Start: 07-17-2023 End: 07-17-[address] Satnam Yeung Work Phone: [facility] Work Phone: Start: 07-10-2023 End: 07-10-[address] Satnam Yeung Work Phone: [facility] Work Phone: Start: 07-04-2023 End: 07-04-[address] Satnam Yeung Work Phone: [facility]-Outpatient Breast Imaging Work Phone: Start: 07-02-2023 Non-patient / Non-visit Dr. Franklin Yeung Work Phone: [facility] Start: 07-02-2023 End: 07-02-2023 Admission to same day surgery center Dr. Surinder Yeung Work Phone: [facility]-Endoscopy Work Phone: Start: 07-02-2023 End: 07-02-[address] Surinder Yeung Work Phone: [facility] Work Phone: Start: 06-26-2023 End: 06-27-2023 ambulatory JARED HERNANDEZ Facility:[facility] Start: 06-26-2023 End: 06-26-2023 Patient encounter procedure Jared Hernandez APRN.QUALITY INSPECTOR Work Phone: OB/Gynecology Comment on above: Lichen sclerosus et atrophicus (Primary Dx); Genitourinary syndrome of menopause Start: 06-19-2023 End: 06-19-[address] Surinder Yeung Work Phone: [facility] Work Phone: Start: 06-19-2023 End: 06-19-[address] Surinder Yeung Work Phone: [facility]-Outpatient Bone Densitometry Work Phone: Start: 05-31-2023 End: 05-31-[address] Surinder Yeung Work Phone: [facility] Work Phone: Start: 05-27-2023 End: 05-27-2023 ambulatory FRANCISCO MCDANIELSF Facility:[facility] Start: 05-24-2023 End: 05-24-[address] Surinder Yeung Work Phone: [facility] Work Phone: Start: 05-24-2023 End: 05-24-[address] Surinder Yeung Work Phone: [facility], [facility] Start: 05-20-2023 End: 05-20-[address] Surinder Yeung Work Phone: [facility] Work Phone: Start: 04-18-2023 Non-patient / Non-visit Dr. Franklin Yeung Work Phone: [facility] Work Phone: Start: 04-18-2023 Telephone encounter Behzad ROCHE Work Phone: [facility] Comment on above: Results Start: 04-17-2023 End: 04-17-2023 ambulatory SALUD SARGENT Facility:[facility] Start: 04-17-2023 End: 04-17-2023 Patient encounter procedure Behzad ROCHE Work Phone: [facility] Comment on above: Vaginal itching (Taya mina Dx); Elevated blood pressure reading without diagnosis of hypertension Start: 10-02-2022 End: 10-02-2022 ambulatory SALUD SARGENT Facility:[facility] Start: 07-02-2022 End: 07-02-2022 ambulatory [facility] Work Phone: Start: 07-02-2022 End: 07-02-2022 Patient encounter procedure [facility]-Outpatient Breast Imaging Start: 06-27-2022 End: 06-27-2022 ambulatory [facility] Work Phone: Start: 06-27-2022 End: 06-27-2022 Patient encounter procedure [facility]-Laboratory, Specimen Start: 06-04-2022 End: 06-04-2022 ambulatory [facility] Work Phone: Start: 06-04-2022 End: 06-04-2022 Patient encounter procedure [facility], [facility] Start: 09-05-2021 End: 09-05-2021 Patient encounter procedure Mruali Meng MD Work Phone: Ophthalmology Comment on above: 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 Sulma Teague MD Work Phone: Start: 07-08-[address] Sulma Teague MD Work Phone: Start: 07-04-[address] Satnam ro Work Phone: Start: 07-02-[address] Surinder peña Work Phone: Start: 06-19-2023 Dual energy X-ray absorptiometry Dr. Surinder Yeung Work Phone: Start: 07-02-2022 Screening mammography Start: 09-05-2021 Computerized ophthalmic imaging retina Murali Meng MD Work Phone: Start: 11-17-2019 History of cataract extraction History of cataract surgery Dr. Sulma Teague MD Work Phone: Start: 04-12-2017 Mammography Murali Meng MD Work Phone: Start: 08-02-2014 Colonoscopy Murali Meng MD Work Phone: Start: 12-31-2012 Lipid 1996 panel - Serum or Plasma Behzad ROCHE Work Phone: Plan of Treatment Date Care Activity Detail Author Start: 04-17-2031 Urine microalbumin profile DTaP,Tdap,Td Vaccine (2 - Td or Tdap) [facility] Start: 05-20-2028 Pneumococcal Vaccine: 65+ (3 of 3 - PPSV23 or PCV20) Pneumococcal Vaccine: 65+ (3 of 3 - PPSV23 or PCV20) [facility] Start: 08-02-2024 Colonoscopy COLONOSCOPY [facility] Start: 08-02-2024 COLORECTAL CANCER SCREENING COLORECTAL CANCER SCREENING [facility] Start: 08-02-2024 Screening for malignant neoplasm of colon [facility] Start: 01-12-2024 Influenza vaccination Influenza Vaccine (Season Ended) [facility] Start: 07-10-2023 Patient referral [facility] Work Phone: Start: 07-02-2023 Screening for malignant neoplasm of breast Mammogram Screening [facility] Start: 07-02-2023 Patient discharge [facility] Start: 05-22-2023 Shingrix Vaccine (2 of 2) Shingrix Vaccine (2 of 2) [facility] Start: 05-20-2023 Patient referral [facility] Work Phone: Start: 05-13-2023 Advance Directive Discussion Advance Directive Discussion [facility] Start: 01-11-2023 Covid-19 Vaccine ( season) Covid-19 Vaccine ( season) [facility] Start: 01-11-2023 Influenza vaccination Influenza Vaccine (#1) [facility] Start: 2023 Advance Directive Discussion Advance Directive Discussion [facility] Start: 2023 Bone Density Screening Bone Density Screening [facility] Start: 2023 Pneumococcal Vaccine: 65+ (2 - PCV) Pneumococcal Vaccine: 65+ (2 - PCV) [facility] Start: 2023 Screening for osteoporosis Bone Density Screening [facility] Start: 04-12-2022 HPV TESTING HPV TESTING [facility] Start: 04-12-2022 PAP TESTING PAP TESTING [facility] Start: 04-12-2018 Mammography [facility] Start: 2018 RSV Vaccine (1 - 1-dose 60+ series) RSV Vaccine (1 - 1-dose 60+ series) [facility] Start: 12-31-2017 Lipid 1996 panel - Serum or Plasma Lipid Screening [facility] Start: 12-31-2017 Lipid panel Lipid Screening [facility] Start: 12-31-2017 LIPID SCREEN LIPID SCREEN [facility] Start: 01-01-2016 DIABETES SCREEN DIABETES SCREEN [facility] Start: 01-01-2016 Diabetes Screening Diabetes Screening [facility] Start: 07-21-2015 FECAL OCCULT BLOOD FECAL OCCULT BLOOD [facility] Start: 07-21-2015 Screening for malignant neoplasm of colon Fecal Occult Blood [facility] Start: 01-04-2008 SHINGRIX VACCINE (1 of 2) SHINGRIX VACCINE (1 of 2) [facility] Start: 2003 COLOGUARD (FIT-DNA) COLOGUARD (FIT-DNA) [facility] Start: [address] COLONOGRAPHY [facility] Start: 2003 Screening for malignant neoplasm of colon [facility] Start: 2003 SIGMOIDOSCOPY SIGMOIDOSCOPY [facility] Start: 1977 Urine microalbumin profile DTAP,TDAP,TD (1 - Tdap) [facility] Start: 01-04-1976 HEPATITIS C SCREENING HEPATITIS C SCREENING [facility] Start: 01-04-1976 Hepatitis C screening Hepatitis C Screening [facility] Start: 01-04-1976 HIV SCREENING HIV SCREENING [facility] Start: 01-04-1976 HIV screening HIV Screening [facility] BACTERIAL VAGINOSIS NAAT BACTERI AL VAGINOSIS NAAT Lab Routine Vaginal itching 04/17/2023 7:24 PM [facility] Work Phone: WICHO/TRICHOMONAS NAAT WICHO /TRICHOMONAS NAAT Lab Routine Vaginal itching 04/17/2023 7:24 PM EST [facility] Work Phone: Colonoscopy [facility] DXA Bone [Mass/Area] Bone density [facility] Patient referral [facility] Work Phone: [facility] Immunizations Immunization Date Immunization Notes Care Provider Fa cility 07-10-[address] Sulma Teague MD Work Phone: [facility] 05-20-2023 pneumococcal conjuga te vaccine, [address] Surinder Yeung Work Phone: [facility] 03-27-[address] Surinder Yeung Work Phone: [facility] 01-28-2022 Covid Pfizer Bivalen t Booster Dr. Surinder Yeung Work Phone: [facility] 01-28-2022 influenza, injectabl e, quadrivalent, preservative free Dr. Surinder Yeung Work Phone: [facility] 01-28-2022 influenza virus vacc ine, unspecified formulation Behzad ROCHE Work Phone: [facility] 10-14-2021 Covid (Moderna) Dr. Edy Yeung Work Phone: [facility] 04-17-2021 tetanus toxoid, redu heydi diphtheria toxoid, and acellular pertussis vaccine, adsorbed Dr. Surinder Yeung Work Phone: [facility] 03-28-2021 Covid (Moderna) Dr. Edy Yeung Work Phone: [facility] 03-28-2021 influenza, injectabl e, quadrivalent, preservative free Dr. Surinder Yeung Work Phone: [facility] 03-13-2021 Covid (Moderna) Dr. Edy Yeung Work Phone: [facility] 07-22-2020 Covid (Moderna) Dr. Edy Yeung Work Phone: [facility] 06-24-2020 Ansley Pardo) Dr. Edy Yeung Work Phone: [facility] 01-28-2020 influenza, injectabl e, quadrivalent, preservative free Dr. Surinder Yeung Work Phone: [facility] 03-27-2018 influenza, injectabl e, quadrivalent, preservative free Dr. Surinder Yeung Work Phone: [facility] 12-09-2017 pneumococcal polysaccharide vaccine, [address] Surinder Yeung Work Phone: [facility] Payers Date Payer Category Payer Self-pay [id number] 2023 Medicare [id number] 2022 Medicare MEDICARE MEDICAR E A AND B [id number] 2022-Present [phone] [address] [address] [place] [address] Medicare 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 2006 Unknown [id number] Medicare MEDICARE SUPPLEMENT PLAN MADISYN N G [id number] Unknown [id number] Unknown [id number] [id number] Unknown [id number] [id number] Unknown [id number] [id number] Unknown [id number] 2.16.840.1.359026.3.579.2.462 Unknown [id number] 2.16.840.1.238921.3.579.2.462 Unknown [id number] 2.16.840.1.075087.3.579.2.462 Unknown [id number] [id number] Unknown [id number] 2.840.1.742353.3.579.2.462 Unknown [id number] 2.840.1.029081.3.579.2.462 Unknown [id number] 2.16.840.1.339059.3.579.2.462 Unknown [id number] 2.16.840.1.233747.3.579.2.462 Unknown [id number] 2.840.1.136921.3.579.2.462 Unknown [id number] [id number] Unknown [id number] [id number] Unknown [id number] [id number] Unknown [id number] Social History Date Type Detail Facility Start: 04-17-2023 End: 06-17-2024 Tobacco smoking status CAIS Never smoked tobacco [facility] Start: 09-05-2021 End: 04-17-2023 Alcohol intake Current non-drinker of alcohol (finding) [facility] Start: 1960 Sex Assigned At Female C [facility] Start: 04-17-2023 Tobacco use and exposure Smokeless tobacco non-user [facility] Start: 04-16-2020 End: 04-17-2023 History of Social function [facility] Start: 04-16-2020 End: 04-17-2023 Tobacco use panel [facility] National Score (1-100), lower number is lower risk Not on file [facility] Start: 11-15-2020 Gender identity Identifies as female gender (finding) [facility] Start: 05-20-2023 End: 07-17-2023 Tobacco smoking status NHIS Unknown if ever smoked [facility] Start: 06-26-2023 Alcohol intake Ex-drinker (finding) [facility] Start: 07-21-2024 End: 08-20-2024 Sex Female (finding) [facility] Medical Equipment Procedure Code Equipment Code Equipment Origin al Text Equipment Identifier Dates Gas Ispan [employer] Intraocular Vision System [id number] - [id number] Start: 04-13-2020 Goals Date Patient Goal Desired Activity /State Mental Status Date Assessment Result Facility 07-02-2023 Cognitive function Level Of Consciousness Sedated [facility] Work Phone: 07-02-2023 Cognitive function Voice/Name [facility] Work Phone: Clinical Notes 09-05-2021 to 08-20-2024 Note Date & Type Note Facility 08-20-2024 Radiology Diagnostic study note [facility] Imaging Services [address], [place] [address] Bone Length MR#: [id number] Acct: [id number] Name: SHENA MARQUEZ Rep #: [id number] : 1960 F 64 From: Sarah Adams MD PCP: Dr. Sulma Teague MD Status: REG CLI Study:Bone Length Date of Exam: 08/17/24 Exam# [id number] Ordering Dr: Mark Conner MD EXAM: XR Bone Length CLINICAL INDICATION: UNEQUAL LIMB LENGTH TECHNIQUE: X-ray bone length. COMPARISON: No relevant prior studies available. FINDINGS: Right femur measures 45.5 cm in length. Right tibia measures 33.5 cm in length. Left femur measures 44.0 cm in length. Left tibia measures 34.0 cm in length. RAD/Bone Length IMPRESSION: Right femur and tibia length is 79 cm. Left femur and tibia atelectasis 78 cm. [facility] CC: Dr. Sulma Teague MD; Dr. Anirudh Conner MD ~ Before School: Signed [facility] 06-17-2024 Evaluation note Diagnosis Onset Date Resolution Family history of breast cancer acute June 17 9:08am Family history of cancer acute June 17, 2024 9:08am Encounter for routine gynecological examination noneactive June 17 9:08am [facility] Work Phone: 1(672) 201-643702-05-2025 Evaluation note* Diagnosis Onset Date Resolution Status Admit Date Family history of breast cancer acute June 17 9:08am Family history of cancer acute June 17, 2024 9:08am Encounter for routine gynecological examination noneactive 2024 9:08am Hyperlipidemia acute July 11:37am Chronic insomnia noneactive August 052024 11:37am Fibromyalgia noneactive August 05, 2024 11:37am Annual physical exam noneactive [facility] 2024 11:37am Chronic pain of both knees noneactiv e August 05, 2024 11:37am [facility] Work Phone: 1(533) 444-511009-13-2024 [facility] Medical Records Department [address] [place] [address] History Physical Exam 01/24/24 0921 MR#: [id number] Acct: [id number] Name: SHENA MARQUEZ Rep #: [id number] : 1960 64 From: Michelle Mcarthur MD PCP: Dr. Sulma Teague MD Status:[facility] Location: [place] [address]- History and Physical Date of Admission: 01/24/24 The patient is examined and there are no changes to the H P dated 01/17/2024. The patient presents for excision of a posterior neck mass. Informed consent is obtained. 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 01/24/24 0922 Cosigner Signature (if applicable): CC: Dr. Sulma Teague MD; Dr. Michelle Mcarthur MD [facility] Telephone encounter Note* Telephone Encounter - Lilly Hidalgo RN - 09/12/2023 10:52 AM EDT [facility] pharmacy notified. Lilly Hidalgo RN [facility]05-02-2024 Miscellaneous Notes* Telephone Encounter - Lilly Hidalgo RN - 09/12/2023 10:52 AM EDT [facility] pharmacy notified. Lilly Hidalgo RN * Telephone Encounter - Jared Hernandez APRN.CNP - 09/12/2023 8:11 AM EDT Can switch to cream. Please call in. Jared Hernandez APRN.CNP * Telephone Encounter - Lyndsay Sun RN - 09/11/2023 12:38 PM EDT [facility] pharmacist called. They changed wholesalers for the Clobetasol ointment. It's now over $200 for the ointment. Asking if it can be switched to the cream. Can call the pharmacy with the change or send in a new RX. Lyndsay Sun RN [facility] Telephone encounter Note * Telephone Encounter - Jared Hernandez APRN.CNP - 09/12/2023 8:11 AM EDT Can switch to cream. Please call in. Jared Hernandez APRN.CNP [facility]05-01-2024 Telephone encounter Note* Telephone Encounter - Lyndsay Sun, MILE - 09/11/2023 12:38 PM EDT [facility] pharmacist called. They changed wholesalers for the Clobetasol ointment. It's now over $200 for the ointment. Asking if it can be switched to the cream. Can call the pharmacy with the change or send in a new RX. Lyndsay Sun RN [facility]05-01-2024 Discharge summary Author Torres Bonilla [facility] September 11, 2023 11:24am Note Date/Time September 11, 2023 11:07a m [facility] Physical Therapy [address] [place] [address] / REHABILITATION SERVICES DISCHARGE SUMMARY MR#: [id number] Acct: [id number] Name: SHENA MARQUEZ Rep #: [id number] : 1960 63 From: Cert. PATRIZIA Ivory, OCS Referring Dr.: Dr. Sulma Teague MD Status: REG RCR Insurance: MEDICARE PART A B MEDICARE SUPPLEMENT PLAN Discharge Summary D/C summary: It has been my pleasure to treat SHENA MARQUEZ referred by Dr. Sulma Teague MD, with the diagnosis of PAIN IN RIGHT KNEE ,PAIN IN LEFT KNEE for a total of 16 visit(s). Discharge Date: 09/11/23 Please see the following information for a summary of their discharge status. Subjective Subjective: Doing better overall .. Difficulty with steps Pain Left Knee: Pain Intensity (Out of 10): 0 Right Knee: Pain Intensity (Out of 10): 2 Low back: Pain Intensity (Out of 10): 0 Overall Improvement % Improvement: 70 Objective Objective/Function: PROGRESSED WELL TOWARDS GOALS TO MANAGE KNEE PAIN POSTURE: mild forward posture knee right slightly flexed PALAPTION: tender right I T band ,medial and lateral joint line EDEMA: absent GAIT: reciprocal pattern AROM: 5-135 degrees right supine flexion and left 0-135 degrees MMT:( peak force) right quads 51.5, left 44.7 ,hamstrings right 42.9,42.8 ,,hipflexion 39.1 right ,36. ,hip abduction 23.8 right ,left 29.8 FLEXABILITY: hamstrings min tight Goals Goal 1:: Patient to be I with HEP for knee Goal Progress: Goal Met Goal 2:: Patient to improve strength peak force of quads/hams hip by 5-10# to improve gait and function( new goal) Goal Progress: Goal Met Goal 3:: Patient to demonstrate 50% improvement with increase function with housework with less pain( new goal) Goal Progress: Goal Met Goal 4:: Patient improve LFES score by 5 points to improve function and QOL Goal Progress: Goal Met Goal 5:: Patient to improve ROM to ascend/descend steps one steps with less pain Goal Progress: Goal Met Plan Plan: D.C D/C Information Discharge Comments: HEP AND GYM PROGRAM d/c sentence: If there are questions or concerns regarding this patient's physical therapy, please feel free to call me at [phone]. Thank you for the referral of thispatient. Sincerely, Torres Bonilla PT, Cert MDT, OCS Balance/Gait/Functional tests Balance/Special Test Scores Lower Extremity Functional Score: 54 Improvement % Improvement: 70 <Electronically signed by Torres Bonilla PT Cert. PATRIZIA, DASH> 09/11/23 1124 CC: Dr. Sulma Teague MD ~ FABRICIO Signed [facility] Work Phone: 1(751) 772-464102-20-2024 History and physical note Author Dale Edwards [facility] July 02, 2023 10:03am Note Date/Time July 02, 2023 10:03am [facility] Medical Records Department [address] [place] [address] History & Physical Exam 07/02/23 1003 MR#: [id number] Acct: [id number] Name: SHENA MARQUEZ Rep #:[id number] : 1960 63 From: Dale prather MD PCP: Dr. Sulma Teague MD Status:[facility] Location: [place] [address] History and Physical Date of Admission: 07/02/23 Intake Vital Signs 05/20/2410:10 05/31/2413:18 Height 5 ft 6 in 5 ft 6 in Weight: 190 lb 188 lb 8 oz BMI 30.7 30.4 BP 126/74 H 136/79 H Blood Pressure Location Lt brachial Rt brachial Position Sitting Sitting Respiration 16 18 Pulse 92 89 Pulse Source Monitor Monitor Temp 97 F L 97.2 F L Temp Source Temporal Temporal Pulse Oximetry (%) 96 93 Oxygen Delivery Method room air room air Intake Visit Reasons: HEMORRHOID AND COLONOSCOPY SCREENING Chief Complaint: Hemorrhoidconsult and c-scope consult Child And Family Counselor Required: No Is patient in pain?: No Allergies No Known Allergies Allergy (Unverified 05/31/23 14:19) Medications amitriptyline 75 mg tablet mg PO 04/18/23 [History Confirmed 05/31/23] antiarthritic combination no.2 900 mg tablet (glucosamine-chondroitin) mg PO 04/18/23 [History Confirmed 05/31/23] ergocalciferol (vitamin D2) 1,250 mcg (50,000 unit) capsule PO 04/18/23 [History Confirmed 05/31/23] multivitamin 1 tab PO DAILY 04/18/23 [History Confirmed 05/31/23] polyethylene glycol 3350 17 gram/dose oral powder (Miralax) 4 g PO DAILY 04/18/23 [History Confirmed 05/31/23] turmeric 100 mg-debbie 150 mg-olive 50 mg-oreg 150 mg-capryl capsule cap PO 04/18/23 [History Confirmed 05/31/23] Diltiazem 2% / Lidocaine 5% ointment (compound) #1 ea 05/31/23 [Rx Confirmed 05/31/23] [facility] Medical History (Updated 05/31/23 @ 15:[address] 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 She says that it is uncomfortable she has to clean around them. She also says she is occasionally seeing blood and having pain with bowel movements but she has very hard bowel movements and has chronic constipation. Her last screening colonoscopy was over 10 years ago. ROS General General: No weight change, appetite, fatigue, colon cancer, breast cancer or weakness HEENT HEENT: Yes eye surgery; No difficulty swallowing, eye injury, swollen glands or hoarseness Endo Endocrine: No thyroid disease, diabetes mellitus, thyroid cancer, Hair loss, heat intolerance or cold intolerance Skin Skin: No rash or changing moles Breast Breast: No left breast lump, right breast lump, nipple discharge, breast pain, abnormal mammogram, abnormal US or breast enlargement Musc Musculoskeletal: Yes back problems and arthritis; No rheumatoid arthritis, gout or joint pain Cardio Cardiovascular: No murmur, pacemaker, heart disease, atrial fibrillation, high blood pressure, heart attack, heart stent, palpitations, shortness of breat withexertion or chest pain Psych Psychiatric: No depression, anxiety or hearing voices Resp Respiratory: No shortness of breath, No sleep apnea, No cough, No COPD, No asthma, No emphysema and No wheezing Gastro Gastrointestinal: No abdominal pain, No nausea or vomiting, No diarrhea, Yes constipation, Yes blood in stool, No acid reflux, Yes hemorrhoids, No ulcers, Nogallbladder problem and No black,tarry stools Pete Hematologic: No blood thinners, No blood disorders, No bleeding, No anemia and No blood clots Neuro Neurologic: No system reviewed and no additional complaints, except as documented, No as per HPI, No abnormal gait, No abnormal hearing, No abnormal movements, No abnormal speech, No behavioral changes, No burning sensations, No confusion, No convulsions, No disequilibrium, No dizziness, No localized weakness, No frequent falls, No headache(s), No lack of coordination, No loss ofvision, No memory loss, No numbness, No other visual disturbances, No radicular pain, No restless legs, No sensory deficit, No syncope, No tingling, No tremor(s), No weakness and No other Exam Const General: cooperative Orientation: alert and oriented x3 HENMT Head: normal to inspection Neck Neck: normal visual inspection and full ROM Chest Chest palpation & inspection: normal inspection of the chest Resp Effort & Inspection: normal respiratory effort Auscultation: clear to auscultation bilaterally Cardio Rate: regular rate Rhythm: regular rhythm GI Inspection: non-distended Palpation: soft and nontender Skin General: no rashes or lesions noted Neuro General: patient alert and patient oriented x3 Extrem General: full ROM Psych Appearance: grossly normal Mental Status: mental status grossly normal Assessment and Plan Assessment and Plan (1) Anal fissure: Status: Acute Plan: On rectal exam the patient had a small skin tag on the outside but she had a prominent fissure posteriorly. She may also have internal hemorrhoids but the fissure is likely what is causing the pain. I will order her some diltiazem cream. I also encouraged Colace and more regular MiraLAX. (2) Encounter for screening for malignant neoplasm of colon: Status: Acute Plan: Patient is due for screening colonoscopy. While performing screening I will perform retroflexion to check for more hemorrhoids and evaluate the extent of the fissure. I explained endoscopy in detail to the patient. I explained the risks including but not limited to stroke or heart attack with anesthesia, perforation of the GI tract, bleeding, infection. I explained that any of thesecould necessitate further emergency surgery. The patient understands and all questions were answered sufficiently. The patient wishes to proceed with procedure. Patient will hold her turmeric for a week. Dale Edwards MD Pager: [facility] [address] [place] [address] [address], [address] [place] [address] Office: I have examined the patient and the H&P has been reviewed. There are no clinicalchanges since date of exam. 07/02/23 1003 <Electronically signed by Dale Edwards MD> Cosigner Signature (if applicable): CC: Dr. Sulma Teague MD; Dr. Dale Edwards MD~ Signed [facility] Work Phone: 1(386) 595-813102-20-2024 Procedure [facility] 07-02-2023 Procedure [facility]02-14-2024 NoteHNO ID: [id number] Author: JARED HERNANDEZ APRN.QUALITY INSPECTOR Service: ? Author Type: Nurse Practitioner Type: Progress Notes Filed: 06/26/2023 13:44 Note Text: Ship Scraper offered: Patient declines. 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 Genitourinary syndrome of menopause - ICD9: 627.8, ICD10: N95.8 - To trial estrogen cream - Reviewed r/b/a, reviewed minimal systemic absorption, and directions - To follow up if symptoms ar (more content not included)...[facility]02-14-2024 Instructions* Patient Instructions* Jared Hernandez APRN.QUALITY INSPECTOR - 06/26/2023 1:00 PM EST Vaginal atrophy [...] the vaginal tissue in premenopausal patients. This cancause pain with intercourse, dryness, irritation, itching, and [...] 8 breaths per minute). Practice deep breathing for15 minutes in the morning, 15 minutes in [...] hot flashes and has been approved by [place] [employer] [place] for only 6 months of use, however has NOT been well studied in the [place] for senior living effects AND THERE HAVE BEEN REPORTS OF [...] all have risks and benefits like any prescriptionor off the shelf medicine. * Use of [...] estring vaginal ring can be used and estringcan be used in breast cancer survivors as [...] result of exercising, diet, and genetics. Exercises thatincrease bone mass are the ones that make [...] walking, dancing and aerobic exercises. The activity perioddoes not need to be continuous. Consider getting a pedometer to monitor your activity and strive towalk at least 10,000 steps a day. * [...] 'heart diease equivalent'. Cholesterol lowering with diet andstatin agents have been shown to reduce the risk of heart disease. Consider having an [facility] blood test for further cardiac risk assessment [...] 30% stroke risk reduction). web info: www.menopause.org www.[facility].org/womenshealth Calcium and Vitamin D Supplementation (from the [...] history of osteoporosis, are thin, or , orwho take certain medications such as cancer chemotherapy, [...] calcium and are the major food contributors inthe [place]. For example, 8oz of milk (whole, lowfat or skim) contains about 300mg calcium, 8oz of yogurt contains 415mg. Nondairy sources include salmon and sardines and vegetables, such as Portuguese cabbage, kale, and broccoli. Foods fortified with calcium include many fruit juices, tofu and cereals. For more food calcium content information, visit http://ods.od.nih.gov/factsheets/calcium. Calcium supplements come in several different forms. [...] acid, calcium carbonate is found in some lzll-ogg-rjiwsoc antacid products, such as Tums and Rolaids . Depending on its strength, each chewable pill or softchew provides 200 to 400 mg of elemental calcium. The percentage of calcium absorbed depends on the total amount of elemental calcium consumed at onetime. Absorption is highest in doses <500mg. So [...] and maintains adequate blood levels of calcium andphosphate for normal bone growth and bone remodeling. [...] content, and sunscreen are among the factors thataffect UV radiation exposure and vitamin D synthesis. Despite the importance of the sun for vitaminD synthesis, it is prudent to limit exposure [...] available in two forms, D2 (ergocalciferol) and D3(cholecalciferol). The two are equivalent at normal supplement [...] prescribed by your doctor. documented in this encounterOhio[facility]02-14-[facility]24 History of Present illness Narrative* Jared Hernandez APRN.CNP - 06/26/2023 12:38 PM EST Ship Scraper offered: Patient declines. Shena is a 63 year old who presents for a follow up of vaginal itching, likely caused by lichen and atrophy. She has been using clobetasol cream nightly and reports that symptoms have significantly improved. She is postmenopausal. Has not used HRT in the past. Her last ap smear was NILM and HPV negative [id number]. She is sexually active, but does report dryness and irritation, resulting in painful intercourse. She also has occasional post coital bleeding. She is experiencing a major hot flash every nightbefore bed. She walks 3 times per week. 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 Genitourinary syndrome of menopause - ICD9: 627.8, ICD10: N95.8 - To trial estrogen cream - Reviewed r/b/a, reviewed minimal systemic absorption, and directions - To follow up if symptoms are unresolved Has upcoming colonoscopy and mammogram. Jared Hernandez APRN.QUALITY INSPECTOR Medical Decision Making: Problems: Moderate: 2+ stable chronic illnesses Risk: Low: Low risk from testing/treatment Moderate: Drug management Medical Decision Making Level: 4 - Moderate documented in this encounterOhio[facility] Hospital01-15-2024 NoteHNO ID: [id number] Author: JARED HERNANDEZ APRN.CNP Service: ? Author Type: Nurse Practitioner Type: Progress Notes Filed: 05/27/2023 12:05 Note Text: Ship Scraper offered: Patient declines. 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 Jason Grande MA * Telephone Encounter - Behzad Zacarias PA - 04/18/2023 11:35 AM EST Please call patient let her know she was negative for yeast and bacterial vaginosis. Follow-up withwomen's health as discussed at visit. documented in this encounterOhiohealth Shelby Hospital12-06-2023 NoteHNO ID: [id number] Author: Behzad Zacarias PA Service: ? Author Type: Physician Machine I Engraver Type: Progress Notes Filed: 04/17/2023 5:00 PM Note Text: This note was created using [employer]riter. Kimberly Marquez is a 63 year old female. HPI [...] then the itching returned. She has tried pche-wmz-xjalwig medications. She has changed soaps and nothing [...] nursing note reviewed. Exam conducted with a group art supervisor present. Constitutional: General: She is not in [...] postmenopausal. Discussed she ne (more content not included)...[facility] 04-17-2023 History of Present illness Narrative* Behzad Zacarias PA - 04/17/2023 4:54 PM EST This note was created using [employer]. Subjective Shena Marquez is a 63 year old female. HPI 83-year-old female presents for vaginal itching. Patient states she has had vaginal itching forthe past few months. She states she thinks she scratched her today and she had some bleeding. She has not had vaginal bleeding before. She states that she thinks the bleeding was from the external vulva. She states that she has not had any abnormal discharge. No rash. States she was seen by dermatoliva flores a few months ago and given miconazole cream. She states she thought it got a little bit better,but then the itching returned. She has tried wuga-gfs-ejybaor medications. She has changed soaps and nothing [...] nursing note reviewed. Exam conducted with a group art supervisor present. Constitutional: General: She is not in [...] she is nervous today. Usually does not havehigh blood pressure. No symptoms at this time. [...] ER evaluation. KALEY Chambers documented in this encounterOhiohealth Shelby Hospital12-06-2023 Instructions* Patient Instructions* Behzad Zacarias PA - 04/17/2023 4:52 PM EST Follow up with Gynecology/womens health for nexta vailable appointment. documented in this encounterOhiohealth Shelby Hospital05-23-2023 NoteHNO ID: [id number] Author: Murali Meng MD Service: ? Author Type: Physician Type: Progress Notes Filed: 10/02/2022 11:53 AM Note Text: This is a 60 year old woman with history of macular hole right eye s/p Pars plana vitrectomy/gas 05/[address] Samuels at [facility] ([place], [place]) s/p Pars plana vitrectomy/MS/22% SF6 gas [...] and agree with all of its relevant components.[facility]02-[facility]23 NotePap Smear Specimen Adequacy February 2022 11:27amComment.Satisfactory for evaluation. Endocervical component may not bedistinguished in cases of atrophy.[facility] INTERFACED A#[id number] HospitalComment on above:Satisfactory for evaluation. Endocervical component may not bedistinguished in cases of atrophy. 06-27-2022 NotePap Smear Specimen AdequacyFebr2022 11:27amComment. Satisfactory for evaluation. Endocervical component may not bedistinguished in cases of atrophy.[facility] INTERFACED A#[id number] HospitalComment on above:Satisfactory for evaluation. Endocervical component may not bedistinguished in cases of atrophy.09-05-2021 History of Present illness Narrative* Murali Meng MD - 09/05/2021 3:53 PM EDT This is a 60 year old woman with history of macular hole right eye s/p Pars plana vitrectomy/gas 05/[address] Samuels at [facility] ([place], [place]) s/p Pars plana vitrectomy/MS/22% SF6gas left eye (04/13/2020) for Stage 2 macular [...] and plan as stated above and agree withall of its relevant components. 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 documented [facility] noteNo assessment information availableWWilson Street Hospital Work Phone: Evaluation note* Diagnosis Vaginal itching- Primary Pruritus of genital organs Elevated blood pressure reading without diagnosis of hypertension documented in this encounter [facility] note* Diagnosis Onset Date Resolution Status Screening for colon cancer n oneactive Immunization due noneactive Establishing care with new doctor, encounter for noneactive Lipoma noneactive Chronic insomnia noneactive Fibromyalgia noneactive Post-menopausal noneactive Chronic pain of both knees n oneactive Hemorrhoid noneactive Anal fissure acute Encounter for screening for malignant neoplasm of colon acute [facility] Work Phone: Evaluation note* Diagnosis 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 documented in this encounter [facility] note* Diagnosis Onset Date Resolution Status Screening for colon cancer n oneactive Immunization due noneactive Establishing care with new doctor, encounter for noneactive Lipoma noneactive Chronic insomnia noneactive Fibromyalgia noneactive Post-menopausal noneactive Chronic pain of both knees n oneactive Hemorrhoid noneactive Anal fissure acute Encounter for screening for malignant neoplasm of colon acute Anal fissure acute Chronic constipation chronic Allergic dermatitis acute [facility] Work Phone: Reason for referral (narrative)No reason for referral information availableWWilson Street Hospital Work Phone: Medications Administered Section Active Administered Medications - [...] FoundDocuments on File Type Date Recorded 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 Advance Directive(s) 04/11/2020 2:35 PM Advance Directive Response Recorded Date/ Time Living Will Yes June 19 1:46pm Power of Plate Finisher Yes June 19, 2023 1:46pm Advance Directive Response Recorded Date/ Time Name of Medical Power of Plate Finisher BRYCE KALLI ZIEGLER June 13, 2023 11:20am Living Will Yes June 19 1:46pm Power of Plate Finisher Yes June 19, 2023 1:46pm Advance Directive Response Recorded Date/ Time Name of Medical Power of Plate Finisher BRYCE KALLI ZIEGLER June 13, 2023 12:20pm Living Will Yes June 19 2:46pm Power of Plate Finisher Yes June 19, 2023 2:46pm Advance Directive Response Recorded Date/ Time Living Will Yes January 15 1:21pm Power of Plate Finisher Yes January 16, 2024 1:21pm Advance Directive Response Recorded Date/ Time Living Will Yes January 15 1:21pm Do you have a Healthcare Power of Plate Finisher? Yes January 16, 2024 1:21pm Chief Complaint and Reason for Visit Chief Complaint SCREENING Chief Complaint Amb Documentation CLINICAL REHAB LIAISON EST CARE-PPW SENT Chief Complaint Amb Documentation CLINICAL REHAB LIAISON EST CARE-PPW SENT HEMORRHOID AND COLONOSCOPY SCREENING ASYMPTOMATIC MENOPAUSAL STATE Reason for Visit Screening for colon cancer Immunization due Establishing care with new doctor, encounter for Lipoma Chronic insomnia Fibromyalgia Post-menopausal Chronic pain of both knees Hemorrhoid Anal fissure Encounter for screening for malignant neoplasm of colon Chief Complaint CLINICAL REHAB LIAISON EST CARE-PPW SENT HEMORRHOID AND COLONOSCOPY SCREENING ASYMPTOMATIC MENOPAUSAL STATE SCREENING S/P SCOPE/ DISCUSS ANAL FISSURE rash on neck CHRONIC PAIN IN BOTH KNEES, RX HERE Reason for Visit Screening for colon cancer Immunization due Establishing care with new doctor, encounter for Lipoma Chronic insomnia Fibromyalgia Post-menopausal Chronic pain of both knees Hemorrhoid Anal fissure Encounter for screening for malignant neoplasm of colon Anal fissure Chronic constipation Allergic dermatitis Chief Complaint Admit Date 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) June 17, 2024 9 :08am SCREENING July 08, 2024 10:36am Reason for Visit Admit Date Family history of breast cancer June 17, 2024 9:08am Family history of cancer June 17 9:08am Encounter for routine gynecological exam ination June 17, 2024 9:08am Chief Complaint Admit Date 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) June 17, 2024 9 :08am SCREENING July 08, 2024 10:36am MED REFILL August 05, 2024 11: 37am Reason for Visit Admit Date Family history of breast cancer June 17, 2024 9:08am Family history of cancer June 17 9:08am Encounter for routine gynecological exam ination June 17, 2024 9:08am Hyperlipidemia August 05, 2024 11: 37am Chronic insomnia August 05, 2024 11: 37am Fibromyalgia August 05, 2024 11: 37am Annual physical exam August 05, 2024 11 :37am Chronic pain of both knees August 05 11:37am Reason for Referral Specialty Diagnoses / Procedures Referred By Lisset cortés Referred To Contact Gynecology Diagnoses Vaginal itching Procedures CONSULT TO GYNECOLOGY OFFICE/OUTPATIENT NEW HIGH MDM 60-74 MINUTES [facility] [address] [place] [address] Referral ID Status Reason Start Date Expiration Date Visits Requested Visits Authorized [id number] Authorized PCP Requested Referral Auto-Generate d Referral 04/17/2023 04/16/2024 1 1 Family History No Family History Records Found Relationship Condition Age at Onset Recorded Date/T brissa mother Diabetes mellitus Unknown Arthritis Unknown Hyperlipidemia Unknown Cerebrovascular accident (CVA) Unknown father Arthritis Unknown Cardiac disease Unknown Hypertension Unknown Malignant neoplasm Unknown grandmother Malignant neoplasm Unknown aunt Malignant neoplasm Unknown Summary Purpose Additional Source Comments Source Comments (unrecognize d section and content) In the event this informatio n is protected by the Federal Confidentiality of Alcohol and Drug Abuse Patient Records regulations: The Federal rules restrict any use of the information to criminally investigate or prosecute any alcohol or drug abuse patient.[facility] HospitalIn the event this information is protected by the Federal Confidentiality of Alcohol and Drug Abuse Patient Records regulations: The Federal rules restrict any use of the information to criminally investigate or prosecute any alcohol or drug abuse patient.[facility] HospitalIn the event this information is protected by the Federal Confidentiality of Alcohol and Drug Abuse Patient Records regulations: The Federal rules restrict any use of the information to criminally investigate or prosecute any alcohol or drug abuse patient.[facility] HospitalIn the event this information is protected by the Federal Confidentiality of Alcohol and Drug Abuse Patient Records regulations: The Federal rules restrict any use of the information to criminally investigate or prosecute any alcohol or drug abuse patient.[facility] HospitalIn the event this information is protected by the Federal Confidentiality of Alcohol and Drug Abuse Patient Records regulations: The Federal rules restrict any use of the information to criminally investigate or prosecute any alcohol or drug abuse patient.[facility] Reason for Visit (unrecogniz ed section and content) Reason Comments Vitreomacular adhesion of both eyes Reason Comments Vaginal Problem Itching and bloody x 3 months intermittent Reason Comments Results Reason Comments Yearly Exam Reason Comments Medication Problem Care Teams (unrecognized sec tion and content) Electro Optical Engineer Relationship Specialty Start Date End Date Salud Sargent MD [facility] [address] PCP - General 07/01/03 Team Status: Active Member Role Status Dates Dr. Surinder Yeung MD Family Provider Active Dr. Surinder Yeung MD Primary Care Provider Activ e Team Status: Inactive Member Role Status Dates Dr. Surinder Yeung MD Primary Care Provider, Atte nding Provider Active Team Status: Inactive Member Role Status Dates Dr. Surinder Yeung MD Primary Care Provider Activ e Dr. Nikki Eldridge DO Attending Provider Active Team Status: Active Member Role Status Dates Dr. Surinder Yeung MD Primary Care Provider Activ e Dr. Nikki lEdridge DO Attending Provider Active Electro Optical Engineer Relationship Specialty Start Date End Date Salud Sargent MD [address] [facility] [address] [place] [address] PCP - General 07/01/03 Electro Optical Engineer Relationship Specialty Start Date End Date Salud Sargent MD [address] [facility] [address] [place] [address] PCP - General 07/01/03 Team Status: Active Member Role Status Dates Dr. Surinder Yeung MD Family Provider Active Dr. Sulma Tegaue MD Primary Care Provider Active Team Status: Inactive Member Role Status Dates Dr. Surinder Yeung MD Primary Care Provider, Refe rring Provider Active Dr. Sulma Teague MD Attending Provider Active Team Status: Active Member Role Status Dates Dr. Surinder Yeung MD Primary Care Provider Activ e Paty Quintana MA Attending Provider Active Team Status: Inactive Member Role Status Dates Dr. Sulma Teague MD Primary Care Pro vider, Attending Provider, Referring Provider Active Team Status: Inactive Member Role Status Dates Dr. Surinder Yeung MD Referring Provider Active Dr. Dale Edwards MD Attending Provider Active Dr. Sulma Teague MD Primary Care Provider Active Electro Optical Engineer Relationship Specialty Start Date End Date Salud Sargent MD [address] [facility] [address] [place] [address] PCP - General 07/01/03 Team Status: Active Member Role Status Dates Dr. Sulma Teague MD Primary Care Provider, Referri ng Provider Active Dr. Dale Edwards MD Attending Provider, Other Provider Active Team Status: Inactive Member Role Status Dates Dr. Sulma Teague MD Primary Care Provider, Referri ng Provider Active Dr. Dale Edwards MD Attending Provider Active Team Status: Active Member Role Status Dates Dr. Satnam Yeung MD Family Provider Active Dr. Sulma Teague MD Primary Care Provider Active Team Status: Inactive Member Role Status Dates Dr. Satnam Yeung MD Primary Care Provider, Ref erring Provider Active Dr. Sulma Teague MD Attending Provider Active Team Status: Inactive Member Role Status Dates Dr. Satnam Yeung MD Referring Provider Active Dr. Dale Edwards MD Attending Provider Active Dr. Sulma Teague MD Primary Care Provider Active Team Status: Inactive Member Role Status Dates Dr. Sulma Teague MD Primary Care Provider, Referri ng Provider Active Jorge ROCHE PA Attending Provider Active Electro Optical Engineer Relationship Specialty Start Date End Date Salud Sargent MD [address] [address] PCP - General 07/01/03 Team Status: Active Member Role Status Dates Dr. Sulma Teague MD Primary Care Provider Active Team Status: Inactive Member Role Status Dates Dr. Sulma Teague MD Primary Care Provider Active Start: June 17, 2024 End: June 17, 2024 Dr. Sulma Teague MD Referring Provider Active Start: June 17, 2024 End: June 17, 2024 Milena Escamilla CLINICAL REHAB LIAISON, CLINICAL REHAB LIAISON-C Attending Provider Active Start: June 17, 2024 End: June 17, 2024 Team Status: Inactive Member Role Status Dates Dr. Sulma Teague MD Primary Care Provider Active Start: June 17, 2024 End: June 17, 2024 Milena Escamilla CLINICAL REHAB LIAISON, CLINICAL REHAB LIAISON-C Attending Provider Active Start: June 17, 2024 End: June 17, 2024 Milena Escamilla CLINICAL REHAB LIAISON, CLINICAL REHAB LIAISON-C Referring Provider Active Start: June 17, 2024 End: June 17, 2024 Team Status: Inactive Member Role Status Dates Dr. Sulma Teague MD Primary Care Provider Active Start: July 08, 2024 End: July 08, 2024 Milena Escamilla CLINICAL REHAB LIAISON, CLINICAL REHAB LIAISON-C Attending Provider Active Start: July 08, 2024 End: July 08, 2024 Milena Escamilla CLINICAL REHAB LIAISON, CLINICAL REHAB LIAISON-C Referring Provider Active Start: July 08, 2024 End: July 08, 2024 Team Status: Inactive Member Role Status Dates Dr. Sulma Teague MD Primary Care Provider Active Start: August 05, 2024 End: August 05, 2024 Dr. Sulma Teague MD Attending Provider Active Start: August 05, 2024 End: August 05, 2024 Dr. Sulma Teague MD Referring Provider Active Start: August 05, 2024 End: August 05, 2024 Team Status: Inactive Member Role Status Dates Dr. Sulma Teague MD Primary Care Provider Active Start: August 07, 2024 End: August 07, 2024 Dr. Sulma Teague MD Attending Provider Active Start: August 07, 2024 End: August 07, 2024 Dr. Sulma Teague MD Referring Provider Active Start: August 07, 2024 End: August 07, 2024 Team Status: Inactive Member Role Status Dates Dr. Sulma Teague MD Primary Care Provider Active Start: August 17, 2024 End: August 17, 2024 Dr. Anirudh Conner MD Attending Provider Active Start: August 17, 2024 End: August 17, 2024 Dr. Anirudh Conner MD Referring Provider Active Start: August 17, 2024 End: August 17, 2024 Goals (unrecognized section and content) Goals may be documented in a n alternate sectionGoals may be documented in an alternate sectionGoals may be documented in an alternate sectionGoals may be documented in an alternate sectionGoals may be documented in an alternate sectionGoals may be documented in an alternate sectionGoals may be documented in an alternate sectionGoals may be documented in an alternate section INFORMATION SOURCE (unrecogn ized section and content) DATE CREATED AUTHOR 09/13/2023 [facility] DATE CREATED AUTHOR AUTHOR'S ORGANIZ ATION 08/22/2024 [facility] FOR RECORDS PERTAINING TO PATIENTS WHO ARE [...] BE BASED ON THE PRIMARY CLINICAL RECORDS. [facility] [employer] [facility]. provides no warranty or guarantee of the accuracy or completeness of information in this document.
[2024-10-21 09:15] LABS: Absolute Lymphocyte Count 1.42 X10^3/uL (0.83-4.51); Absolute Neutrophil Count 3.3 X10^3/uL (2.0-7.7); Basophil# 0.02 X10^3/uL; Basophil% 0.4 % (0-1); Eosinophil# 0.18 X10^3/uL; Eosinophils% 3.4 % (0-5); Hematocrit 37.5 % (37-47); Hemoglobin 12.6 g/dL (12.0-15.0); Lymphocyte # 1.42 X10^3/ul (0.83-4.51); Lymphocyte % 26.5 % (19-41); Mean Corp Hgb Conc 33.6 g/dL (32-36); Mean Corpuscular Hgb 29.5 pg (27.0-32.0); Mean Corpuscular Volume 87.8 fL (81-99); Mean Platelet Vol. 9.3 fl (6.2-12.0); Monocyte# 0.48 X10^3/uL; NRBC Flagged by Analyzer 0 % (0-5); Neutrophil # 3.25 X10^3/uL (2.7-7.7); Neutrophil % 60.5 % (47-70); Platelet Count 248 K/mm3 (150-450); RBC Distribution Width CV 13.8 % (11.6-14.6); RBC Distribution Width SD 44.4 fl (35.1-43.9); Red Blood Count 4.27 M/mm3 (4.2-5.4); White Blood Count 5.4 K/mm3 (4.4-11.0)
[2024-10-21 10:41] LABS: Albumin, Serum 4.3 g/dL (3.4-4.8); Anion Gap 10 (5-15); BUN 19 mg/dL (4-19); Calcium,Total 9.8 mg/dL (7.6-11.0); Carbon Dioxide 26.8 mmol/L (21.0-32.0); Chloride 105 mmol/L (98-108); Creatinine, Serum 0.79 mg/dL (0.70-1.20); EST Glomerular Filtration Rate 83 (>60); Glucose 98 mg/dL (70-99); Potassium 4.2 mmol/L (3.3-5.1); Sodium Level 141 mmol/L (133-145)
[2024-10-27 13:24] LABS: Cholesterol 167 mg/dL (<=200); High Density Lipoprotein 62 mg/dL; Low Density Lipoprotein Calc. 89 mg/dL; Triglycerides 82 mg/dL; Very Low Density Lipoprotein 16 mg/dL (5-40)
== END | disposition home or self-care (01) ==
LOC: PSN 08:13
PROVIDERS: PCP Internal Medicine; Referring Provider Specialist; Visit Provider Specialist
DX: Z01.818 Encounter for other preprocedural examination (principal); M17.11 Unilateral primary osteoarthritis, right knee; E78.00 Pure hypercholesterolemia, unspecified; Z01.810 Encounter for preprocedural cardiovascular examination; M21.70 Unequal limb length (acquired), unspecified site
CPT/HCPCS: 36415; 73700; 80048; 80061; 82040; 85025; 93005

== ENCOUNTER → 2024-11-23 | Outpatient (CLI) | payer MEDICARE, OTHER, SELFPAY ==
--- NOTE | 2024-11-23 14:48 | VDLE_ITS ---
Reason For Study Reason For Study: Pain RLE RIGHT LEFT GSV is normal. CFV is compressible, spontaneous, phasic, competent, CFV is compressible, spontaneous, phasic, competent and demonstrates normal augmentation. and demonstrates normal augmentation. FV is compressible, spontaneous, phasic, competent and demonstrates normal augmentation. POP V is compressible, spontaneous, phasic, competent and demonstrates normal augmentation. T/P Trunk is compressible. PTV is compressible. RT PerV is compressible. Procedure This is a venous duplex using B-mode, color flow and spectral Doppler. Exam performed in department. A preliminary report was called and/or faxed to Nasir ROCHE. VL/Venous Duplex US, Unilateral Interpretation Summary Deep veins of the right lower extremity are patent and compressible segmentally . There is no evidence of right lower extremity deep vein thrombosis. Valvular competence appears intact within the p roximal deep venous system on the right . The right great saphenous vein appears patent and compressible segmentally. The left common femoral vein is patent and compressible . Ordering Physician: Nasir Martinez Referring Physician: Sulma Teague Performed By: Ivelisse Hightower, RDCS, RVT
--- OUTSIDE RECORDS SUMMARY | 2024-11-23 22:44 | XMS RPT_ITS | CCD ---
Author Organization [facility] Care Team Providers Care Molecular Modeler Name Role Phone Salud Sargent MD Primary Care Provider [phone] Dr. Surinder Yeung Primary Care Provider [phone] RIOS Quintana Attending Provider Unavailable Dr. Surinder Yeung Referring Provider Dr. Sulma Teague Attending Provider [phone] Dr. Dale Edwards Attending Provider [phone] Dr. Sulma Teague Primary Care Provider Salud Sargent MD Primary Care Provider [phone] Dr. Sulma Teague Referring Provider 1(330) Dr. Dale Edwards Other Provider [phone]) Dr. Satnam Yeung Primary Care Provider Dr. Satnam Yeung Referring Provider Dr. Sulma Teague Attending Provider 1(330) Dr. Dale Edwards Attending Provider [phone] Dr. Sulma Teague Primary Care Provider Dr. Sulma Teague Referring Provider 1(330) Dr. Dale Edwards Other Provider 1(330) KALEY Rea Attending Provider 1(330) Salud Sargent MD Primary Care Provider [phone] SALUD SARGENT Primary Care Unavailable MURALI MENG Attending Unavailable BONEZZI, SALUD M Primary Care Unavailable FRANCISCO HEREDIA Attending Unavailable BONESTEFFANYI, SALUD M Primary Care Unavailable JARED HERNANDEZ Attending Unavailable BONESTEFFANYI, SALUD M Primary Care Unavailable Ho MCKENNA, Dr. Ozuna Primary Care Provider [phone] Dr. Sulma Teague MD Referring Provider Shamrock GENERATION TECHNICIAN-C, Milena Attending Provider [phone] [place]rock GENERATION TECHNICIAN-C, Milena Referring Provider Ho MCKENNA, Dr. Ozuna Attending Provider Dalila MCKENNA, Dr. Oleary Attending Provider [phone] Dalila MCKENNA, Dr. Oleary Referring Provider [phone] Ho MCKENNA, Dr. Ozuna Primary Care Provider 1([phone] Francine GENERATION TECHNICIAN-C, Milena Attending Provider [phone] Francine GENERATION TECHNICIAN-C, Milena Referring Provider Ho MCKENNA, Dr. Ozuna Referring Provider Flako MCKENNA, Dr. Sierra Attending Provider Ho MCKENNA, Dr. Ozuna Primary Care Provider [phone] Yossi GENERATION TECHNICIAN-CNika Attending Provider [phone] Francine GENERATION TECHNICIAN, Milena Attending Unavailable [place], Sulma Primary Care Unavailable [place], Sulma Referring Unavailable [place], Sulma Primary Care Unavailable Ho, Sulma Referring Unavailable Ho, Sulma Attending Unavailable Ghaz[place], Michelle Attending Unavailable [place], Michelle Consulting Unavailable [place], Michelle Referring Unavailable Oh, Sulma Primary Care Unavailable Ho, Sulma Referring Unavailable [place], Sulma Primary Care Unavailable Jorge Coto Attending Unavailable Ho, Sulma Referring Unavailable [place], Sulma Attending Unavailable Ho, Sulma Primary Care Unavailable Ho, Sulma Referring Unavailable Ungerer, Nika Attending Unavailable Ho, Sulma Primary Care Unavailable [place], Sulma Referring Unavailable [place]az[place], Michelle Attending Unavailable Ho, Sulma Primary Care Unavailable Rigo Arriola Attending Unavailable Ho, Sulma Primary Care Unavailable Anirudh Conner Referring Unavailable [place], Sulma Primary Care Unavailable Anirudh Conner Attending Unavailable Anirudh Conner Referring Unavailable Francine GENERATION TECHNICIAN, Milena Referring Unavailable [place] GENERATION TECHNICIAN, Milena Attending Unavailable Ho, Sulma Primary Care Unavailable Francine GENERATION TECHNICIAN, Milena Referring Unavailable Francine GENERATION TECHNICIAN, Milena Attending Unavailable Ho, Sulma Primary Care Unavailable Ho, Sulma Primary Care Unavailable [place], Sulma Referring Unavailable [place], Sulma Attending Unavailable [place], Sulma Primary Care Unavailable Anirudh Conner Referring Unavailable Anirudh Conner Attending Unavailable Ghaz[place], Michelle Attending Unavailable Ho, Sulma Primary Care Unavailable [place], Michelle Referring Unavailable [place], Sulma Primary Care Unavailable Jorge Coto Referring Unavailable Jorge Coto Attending Unavailable Ho, Sulma Primary Care Unavailable Ghaz[place], Michelle Referring Unavailable [place], Michelle Attending Unavailable [place], Sulma Referring Unavailable [place], Sulma Primary Care Unavailable [place], Michelle Attending Unavailable [place], Sulma Referring Unavailable Ho, Sulma Primary Care Unavailable Ghaz[place], Michelle Attending Unavailable [place], Sulma Referring Unavailable Ghazoul, Michelle Attending Unavailable [place], Sulma Primary Care Unavailable Allergies Allergy Classification Reported Allergen(s) Allergy Type Date of Onset Reaction(s) Facility (6 sources) Chlorhexidine Drug Allergy 06-17-2024 [facility] Comment on above: Itching and redness (6 sources) Isopropyl Alcohol Drug Allergy 06-17-2024 [facility] Comment on above: Itching and redness (1 source) Chlorhexidine Drug Allergy 11-09-2024 [facility] Repository (1 source) Isopropyl Alcohol Drug Allergy 11-09-2024 [facility] Repository Medications Current Medications Medication Drug Class(es) Dates Sig (Normalized) Sig (Original) amitriptyline hydrochloride 75 mg oral tablet (20 sources) Tricyclic Antidepressant Start: 10-22-2024 take 2 tablets by mouth at bedtime Amitriptyline 75 mg tablet Active 150 mg PO AT BEDTIME 180 90 0 October 22, 2024 3:54pm January 19, 2025 12:00am Start: 04-18-2023 End: 10-21-2024 take 2 tablets by mouth at bedtime Amitriptyline 75 mg tablet Discontinued 150 mg PO AT BEDTIME 180 90 0 July 23, 2024 4:14pm October 20, 2024 12:00am October 21, 2024 12:07am Start: 04-18-2023 End: 07-19-2023 take 150 mg by mouth at bedtime Amitriptyline Disconti nued 150 MG PO AT BEDTIME 90 July 19, 2023 1:36pm July 19, 2023 3:17pm Start: 04-18-2023 Amitriptyline Active MG PO April 18, 2023 12:00am Start: 03-22-2009 AMITRIPTYLINE 150 MG TAB Take two 75mg tablets at bedtime. 0 03/22/2009 Active Comment on above: Take two 75mg tablet s at bedtime. Antiarthritic Combination No.2 (Glucosamine-Chondroit in) 900 mg tablet (10 sources) Start: take 1 tablet by mouth once daily Antiarthritic Combination No.2 (Glucosamine-Chondroit in) 900 mg tablet Active 900 mg PO [...] 2023 12:00am atorvastatin 10 mg oral tablet (8 sources) HMG-CoA Reductase Inhibitor Start: 08-10-2024 End: 09-29-2024 take 1 tablet by mouth at bedtime Atorvastatin (Lipitor) 10 mg tablet Active 10 mg PO AT BEDTIME 90 1 September 29, 2024 11:06am benoxinate hydrochloride 4 mg/ml / fluorescein sodium 2.5 mg/ml ophthalmic solution (1 source) Diagnostic Dye Start: 09-05-2021 End: 09-06-2021 fluorescein-benoxin ate 0.25-0.4 % 1 Drop (FLURESS) cholecalciferol 0.125 mg oral capsule (6 sources) Vitamin D Start: 01-17-2024 take 1 capsule by mouth once daily Cholecalciferol (Vitamin D3) 125 mcg (5,000 unit) capsule Active 125 ug PO daily 90 0 January 17, 2024 12:00am clobetasol propionate 0.0005 [...] Lidocaine 5% Ointment (Compound) Active 0 .Route 1 May 31, 2023 1:00am TID rectally Start: 05-31-2023 Diltiazem 2% / Lidocaine 5% Ointment (Compound) Active 0 .Route May 31, 2023 12:00am TID rectally estradiol 0.1 mg/ml vaginal cream (11 sources) Estrogen Start: 10-27-2024 Estradiol 0.01 % (0.1 mg/gram) cream Active 0 VAGINAL .COMPLEX October 27, 2024 11:42am small amount as directed vaginally qoweek; Start: 06-17-2024 End: 10-27-2024 Estradiol 0.01 % (0.1 mg/gra m) cream Discontinued 0 VAGINAL .COMPLEX 42.5 2 June 17, 2024 1:00am October 27, 2024 11:43am small amount as directed vaginal every other [...] by oliver th once daily. Multivitamin tablet (6 sources) Start: 04-18-2023 Multivitamin tablet Active 1 {tbl} PO DAILY April 18, 2023 1:00am nystatin 300803 unt/ml topical cream (2 sources) Polyene Antifungal [...] 1 Drop (AK-DILATE, ELIAS-SYNEPHRINE) polyethylene glycol 3350 69964 mg powder for oral solution (15 sources) Osmotic Laxative Start: 01-23-2005 Polyethylene Glycol [...] 09-07-19 tropicamide 1 % 1 Drop (MYDRIACYL) Euelcbbr-Kulp-Lfvus-O reg-Capry (4 sources) Start: 04-18-20 take 1 capsule by mouth once daily Wvelsmkh-Rzsn-Zubwr -Oreg-Capry Active 1 CAP PO DAILY April 18, 2023 1:00am Start: 04-18-2023 take 1 capsule by mouth once daily Dhkpqvsw-Uiah-Fwdxv-Oreg-Capry Active 1 CAP PO DAILY April 18, 2023 12:00am Start: 04-18-2023 Turmeric-Ging- Ktqar-Pfyr-Hmvef Active CAP PO April 18, 2023 12:00am Completed/Discontinued Medications Medication Drug Class(es) Dates Sig (Normalized) Sig (Original) amoxicillin 875 mg / clavulanate 125 mg oral tablet (6 sources) Penicillin-class Antibacterial Start: 11-01-2023 End: 01-16-2024 Amoxicillin-Pot Clavulanate 875-125 mg tablet Discontinued 1 {tbl} PO Q12H 14 0 November 01, 2023 12:00am January 16, 2024 1:19pm cephalexin 500 mg oral capsule (6 sources) Cephalosporin Antibacterial Start: 01-24-2024 End: 02-05-2025 take 1 capsule by mouth twice daily Cephalexin 500 mg capsule Discontinued 500 mg PO TWICE A DAY 14 7 0 January 24, 2024 12:00am June 17, 2024 10:14am Diltiazem 2% / Lidocaine 5% Ointment (Compound) ointment (6 sources) Start: 05-31-2023 End: 01-16-2024 Diltiazem 2% / Lidocaine 5% Ointment (Compound) ointment Discontinued 0 .Route 1 May 31, 2023 1:00am January 16, 2024 1:20pm Hemorrhoids Unspecified hemorrhoids rectal pain TID rectally Start: 05-31-2023 End: 01-16-2024 Diltiazem 2% / Lidocaine 5% Ointment (Compound) ointment Discontinued 0 .Route 1 May 31, 2023 1:00am January 16, 2024 1:20pm TID rectally ergocalciferol 1.25 mg oral capsule (10 sources) Provitamin D2 Compound Start: 04-18-2023 End: 01-17-2024 Ergocalciferol (Vitamin D2) 1,250 mcg (50,000 unit) capsule Discontinued 1250 ug PO DAILY April 18, 2023 1:00am January 17, 2024 8:55am metroNIDAZOLE 0.0075 mg/mg topical gel (3 sources) Nitroimidazole Antimicrobial Start: 04-26-2021 metroNIDAZOLE (METROGEL) 0.75 % Topical Gel polyethylene glycol 3350 705675 mg / potassium chloride 2970 mg / sodium bicarbonate 6740 mg / sodium chloride 5860 mg / sodium sulfate 99442 mg powder for oral solution (9 sources) Osmotic Laxative Start: 06-19-2023 End: 07-10-2023 take 4000 mL by mouth once Peg 3350-Electrolytes 236-22.74-6.74 -5.86 gram recon soln Discontinued 4000 mL PO ONCE 4000 0 June 19, 2023 1:00am July 10, 2023 [...] 4000 mL predniSONE 20 mg oral tablet (7 sources) Start: 07-17-2023 End: 01-16-2024 take 1 tablet by mouth twice daily Prednisone 20 mg tablet Discontinued 20 mg PO TWICE A DAY 12 July 17, 2023 1:00am January 16, 2024 1:20pm Yugcujcv-Hfhx-Dteqj-Or eg-Capry 100 mg-150 mg- 50 mg-150 mg capsule (6 sources) Start: 04-18-2023 End: 01-16-2024 take 1 capsule by mouth once daily Jsptxekw-Blcs-Sbbjo-Oreg -Capry 100 mg-150 mg- 50 mg-150 mg capsule Discontinued 1 NMA PO DAILY April 18, 2023 1:00am January 16, 2024 1:20pm Problems Active Problems Problem Classification Problem Date Documented Da te Episodic/Chronic Abdominal pain (5 sources) Abdominal pain; Translations: [Unspecified abdominal pain] 03-19-2008 Episodic Administrative/social admission (4 sources) Persons encountering health services in other specified circumstances; Translations: [Other reasons for seeking consultation] Onset: 11-17-2024 05-20-2023 Episodic Allergic reactions (8 sources) Allergic disorder of skin; Translations: [Allergic contact dermatitis, unspecified cause] 07-17-2023 Episodic Anal and rectal conditions (13 sources) Anal fissure; Translations: [Anal fissure, unspecified] 05-31-2023 Episodic Bacterial infection; unspecified site (5 sources) Bacteremia; Translations: [Bacteremia] 03-19-2008 Episodic Disorders of lipid metabolism (19 sources) Pure hypercholesterolemia; Translations: [Pure hypercholesterolemia, unspecified] Onset: 10-28-2024 03-19-2008 Chronic Genitourinary symptoms and ill-defined conditions (2 sources) Frequency of micturition; Translations: [Retention of urine, unspecified] Onset: 11-17-2024 Episodic Headache; including migraine (5 sources) Migraine; Translations: [...] 06-26-2023 06-26-2023 Chronic Miscellaneous mental health disorders (17 sources) Non-organic sleep disorder; Translations: [Sleep disorder not due to a substance or known physiological condition, unspecified] Onset: 10-28-2024 03-19-2008 Chronic Mood disorders (5 sources) Depressive disorder; Translations: [Other specified depressive episodes] 03-19-2008 Chronic Neoplasms of unspecified nature or uncertain behavior (6 sources) Neoplasm of uncertain behavior of soft tissues of neck; Translations: [Neoplasm of uncertain behavior of connective and soft tissue of neck] 06-17-2024 Episodic Nonmalignant breast conditions (11 sources) Breast lump; Translations: [Unspecified lump in [...] unspecified] 03-19-2008 Episodic Other connective tissue disease (4 sources) Fibromyalgia; Translations: [Myalgia and myositis, unspecified] Onset: 10-28-2024 05-20-2023 Episodic Other connective tissue disease (8 sources) Fibromyalgia; Translations: [Fibromyalgia] 08-05-2024 Episodic Other eye disorders (1 source) Vitreomacular adhesion of bilateral eyes; 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, bilateral] Chronic Other female genital disorders (1 source) Pruritus of vagina; Translations: [Other specified noninflammatory disorders of vagina] 04-17-2023 Episodic Other gastrointestinal disorders (5 sources) Irritable bowel syndrome; Translations: [Irritable bowel syndrome without diarrhea] 03-19-2008 Chronic Other gastrointestinal disorders (7 sources) Chronic constipation; Translations: [Other constipation] 07-10-2023 Episodic Other gastrointestinal disorders (1 source) Other constipation; Translations: [Constipation, unspecified] 07-10-2023 Episodic Other inflammatory condition of skin (5 sources) Rosacea; Translations: [Rosacea, unspecified] Onset: 01-23-2005 01-23-2005 Chronic Other inflammatory condition of skin (5 sources) Pruritus of genital organs; Translations: [Anogenital pruritus, unspecified] 03-19-2008 Episodic Other nervous system disorders (1 source) Other chronic pain; Translations: [Other chronic pain] Onset: 10-28-2024 Chronic Other non-traumatic joint disorders (12 sources) Pain in right knee; Translations: [Pain in joint, lower leg] Onset: 10-28-2024 05-20-2023 Episodic Other non-traumatic joint disorders (1 source) Pain in left knee; Translations: [Pain in left knee] Onset: 10-28-2024 Episodic Other skin disorders (2 sources) Lichen sclerosus et atrophicus; Translations: [Circumscribed scleroderma] Onset: 06-26-2023 06-26-2023 Chronic Residual codes; unclassified (14 sources) Family history of cancer; Translations: [Family history of malignant neoplasm of other organs or systems] Onset: 01-23-2005 01-23-2005 Episodic Comment on above: father prostate canc erMat and Pat aunts colon cancer Residual codes; unclassified (3 sources) Asymptomatic menopausal state; Translations: [Asymptomatic postmenopausal status (age-related) (natural)] 05-20-2023 Episodic Residual codes; unclassified (9 sources) Family history of breast cancer; Translations: [Family history of malignant neoplasm of breast] 07-01-2024 Episodic Comment on above: paternal grandmother , aunt, cousin; [employer] genetic test:negative. Lifetime risk 21.5%: yrly mammogram and MRI alternating. Residual codes; unclassified (6 sources) H/O: neoplasm; Translations: [Other specified postprocedural states] 06-17-2024 Episodic Systemic lupus erythematosus and connective tissue disorders (5 sources) Disorder of connective tissue; Translations: [Systemic involvement of connective tissue, unspecified] Onset: 01-23-2005 01-23-2005 Chronic Unclassified (1 source) Low back pain, unspecified; Translations: [Low back pain, unspecified] Onset: 11-17-2024 Unclassified (1 source) Other specified neoplasm of uncertain behavior of connective and other soft tissue; Translations: [Other specified neoplasm of uncertain behavior of connective and other soft tissue] Onset: 02-19-2024 Past or Other Problems Problem Classification Problem Date Documented Date Episodic/Chronic Benign neoplasm of uterus (5 sources) Submucous leiomyoma of uterus; Translations: [Submucous leiomyoma of uterus] Onset: 11-23-2014 11-23-2014 Episodic Other acquired deformities (1 source) Unequal limb length (acquired), left femur; Translations: [Unequal limb length (acquired), left femur] Onset: 08-20-2024 Episodic Other and unspecified benign neoplasm (5 [...] seborrheic dermatitis] Onset: 01-23-2005 01-23-2005 Episodic Other screening for suspected conditions (not mental disorders or infectious disease) (11 sources) Patient encounter status; Translations: [Encounter for screening for malignant neoplasm of colon] Onset: 06-17-2024 05-31-2023 Episodic Other skin disorders (1 source) Localized swelling, mass and lump, neck; Translations: [Localized swelling, mass and lump, neck] Onset: 02-19-2024 Episodic Residual codes; unclassified (6 sources) History of colonoscopy; Translations: [Other specified postprocedural states] Onset: 08-11-2013 06-17-2024 Episodic Comment on above: 2023 Residual codes; unclassified (1 source) Genetic susceptibility to malignant neoplasm of breast; Translations: [Genetic susceptibility to malignant neoplasm of breast] Onset: 07-03-2024 Episodic Residual codes; unclassified (1 source) Family history of malignant neoplasm of breast; Translations: [Family history of malignant neoplasm of breast] Onset: 06-17-2024 Episodic Results Test Name Value Interpretation Reference Range Facil [facility] Internal [facility] Office Vis raudel 11-09-2024 Internal Medicine Office Visit [facility] [address] [place] [address] OFFICE VISIT Date of Service: 11/09/24 MR#: [id number] Acct: [id number] Name: SHENA QUIÑONES Rep #: [id number] : 1960 Provider: BARBIE draper Age/Sex: 64/F Location: [facility] Status: Signed Intake Vital Signs 10/27/24 11:44 11/09/24 12:45 Height 5 ft 6 in 5 ft 6 in Weight: 180 lb 180 lb BMI 29.0 29.0 BP 126/68 H 124/78 H Blood Pressure Location Lt brachial Lt brachial Position Sitting Sitting Respiration 18 18 Pulse 76 81 Pulse Source Monitor Monitor Temp 97 F L 97.2 F L Temp Source Temporal Temporal Pulse Oximetry (%) 96 97 Oxygen Delivery Method room air room air Intake Visit Reasons: POSSIBLE UTI Doctor Podiatric Medicine Required: No Is patient in pain?: Yes (low back/side) Pain scale (1-10): 2 Allergies chlorhexidine (From ChloraPrep Clear) Adverse Reaction (Mild, Verified 11/09/24 12:36) Itching isopropyl alcohol (From ChloraPrep Clear) Adverse Reaction (Mild, Verified 11/09/24 12:36) Itching Medications ???Medication ???Instructions ???Recorded ???Confirmed ???Type antiarthritic combination no.2 900 900 mg PO DAILY 04/18/23 5 History mg tablet (glucosamine-chondroit in) multivitamin 1 tab PO DAILY 04/18/23 11/09/24 H istory polyethylene glycol 3350 17 4 g PO DAILY 04/18/23 11/09/24 His tory gram/dose oral powder (Miralax) cholecalciferol (vitamin D3) 125 125 mcg PO QDAY #90 caps 01/17/24 11/09/24 Rx mcg (5,000 unit) capsule atorvastatin 10 mg tablet (Lipitor) 10 mg PO QHS #90 tabs 09/29/24 11/09/24 Rx amitriptyline 75 mg tablet 150 mg (2 x 75 mg) PO QHS 90 days 10/22/24 11/09/24 Rx #180 tabs estradiol 0.01% (0.1 mg/gram) See Rx Instructions vaginal 11/09/24 History vaginal cream .COMPLEX Have you fallen in the past year?: No Nurse's Note: Pt having upcoming knee replacement surgery on 11/12/24. Has occasional low back pain but states about a week ago she started having low back pain that was different, she has had incidents of urinary urgency, frequency and retention. Pt states the pain started on L side then started on R side, has pain by R side of groin, it is always there. The pain is worse at night. Pt does not want surgery to get cancelled. Pt denies, hematuria,urinary incontinence, dribbling, pyuria,hesitancy, change in color or odor, pelvic pressure or dysuria Pt has not tried treating w/ anything otc. 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 uses ibuprofen as needed HPI HPI Details: SHENA QUIÑONES, is a 64 F who presents to the office today for evaluation of possible UTI. Patient states last week she noticed lower back pain. Orma urinary urgency and frequency no dysuria. Denies any burning or itching. States low back pain is worse positionally worse when lying down. Does not note any foul odor or dark color of urine states she did notice the pain began after shampooing carpets last week which included bending over for long periods of time. States she does have a history of low back pain. She is scheduled to have surgery later this week and wants to make sure that she does not have an infection. Denies any nausea vomiting diarrhea denies fever or chills ROS Const Constitutional: No body ache, chills, excessive sweating, fatigue, fever (more content not included)... Normal [facility] Lipid Profileon 10-27-2024 CHOL:HDL 2.70 Normal [facility] Comment on above: Order Comment: ADD O N TO BW DRAWN 10-21(SAT) WG3 1 I Performed By: #### L 500.4100 ####[facility] [id number] [place], [place], [id number] Cholesterol [Mass/Vol] 167 mg/dL Normal <=200 [facility] Comment on above: Order Comment: ADD O N TO BW DRAWN 10-21(SAT) WG3 1 I Result Comment: Chol esterol level, Desirable <200 mg/dL Borderline high cholesterol 200-239 mg/dL High cholesterol >=240 mg/dL Recommendations of the NCEP Adult Treatment Panel for the following risk-cutoff thresholds for the [place] population. Performed By: #### L 500.4100 ####[facility] [id number] [place], [place], [id number] Cholesterol in HDL [Mass/Vol] 62 mg/dL Normal [facility] Comment on above: Order Comment: ADD O N TO BW DRAWN -(SAT) WG3 1 I Result Comment: Vannessa onal Cholesterol Education Program (NCEP) guidelines: <40 mg/dL: Low HDL-cholesterol (major risk factor for CHD) >= 60 mg/dL: High HDL-cholesterol (negative risk factor for CHD) HDL-cholesterol is affected by a number of factors, e.g. smoking, exercise, hormones, sex and age. Performed By: #### L 500.4100 ####[facility] [id number] [place], [address] Cholesterol in LDL [Mass/Vol] 89 mg/dL Normal [facility] Comment on above: Order Comment: ADD O N TO BW DRAWN -(SAT) WG3 1 I Result Comment: Bord ktjsjk=770-374 mg/dL Higher Jiep=295 mg/dL or greater Performed By: #### L 500.4100 ####[facility] [id number] [place], [address] Cholesterol in VLDL [Mass/Vol] 16 mg/dL Normal 5-40 [facility] Comment on above: Order Comment: ADD O N TO BW DRAWN 6-(SAT) WG3 1 I Performed By: #### L 500.4100 ####[facility] [id number] [place], [address] Triglyceride [Mass/Vol] 82 mg/dL Normal [facility] Comment on above: Order Comment: ADD O N TO BW DRAWN -(SAT) WG3 1 I Result Comment: The drugs N-Acetylcysteine and Metamizole may falsely depress this assay. Normal range: <150 mg/dL Borderline High: 150-199 mg/dL High: 200-499 mg/dL Very High: >500 mg/dL Performed By: #### L 500.4100 ####[facility] [id number] [place], [address] Internal Medicine Office Vis raudel 10-26-2024 Internal Medicine Office Visit [facility] [address] [place] [address] [place] [address] OFFICE VISIT Date of Service: 10/27/24 MR#: [id number] Acct: [id number] Name: SHENA QUIÑONES Rep #: [id number] : 1960 Provider: Dr. Sulma lopez MD Age/Sex: 64/F Location: [facility] Status: Signed Intake Vital Signs 08/05/24 11:36 10/27/24 11:44 Height 5 ft 6 in 5 ft 6 in Weight: 180 lb BMI 29.0 BP 126/68 H Blood Pressure Location Lt brachial Position Sitting Respiration 18 Pulse 76 Pulse Source Monitor Temp 97 F L Temp Source Temporal Pulse Oximetry (%) 96 Oxygen Delivery Method room air Intake Visit Reasons: SURGICAL CLEARANCE Doctor Podiatric Medicine Required: No Is patient in pain?: Yes (R knee) Pain scale (1-10): 5 Allergies chlorhexidine (From ChloraPrep Clear) Adverse Reaction (Mild, Verified 10/27/24 11:37) Itching isopropyl alcohol (From ChloraPrep Clear) Adverse Reaction (Mild, Verified 10/27/24 11:37) Itching Medications ???Medication ???Instructions ???Recorded ???Confirmed ???Type antiarthritic combination no.2 900 900 mg PO DAILY 04/18/23 5 History mg tablet (glucosamine-chondroit in) multivitamin 1 tab PO DAILY 04/18/23 10/27/24 H istory polyethylene glycol 3350 17 4 g PO DAILY 04/18/23 10/27/24 His tory gram/dose oral powder (Miralax) cholecalciferol (vitamin D3) 125 125 mcg PO QDAY #90 caps 01/17/24 10/27/24 Rx mcg (5,000 unit) capsule atorvastatin 10 mg tablet (Lipitor) 10 mg PO QHS #90 tabs 09/29/24 10/27/24 Rx amitriptyline 75 mg tablet 150 mg (2 x 75 mg) PO QHS 90 days 10/22/24 10/27/24 Rx #180 tabs estradiol 0.01% (0.1 mg/gram) See Rx Instructions vaginal History vaginal cream .COMPLEX Have you fallen in the past year?: No Nurse's Note: Pt here for surgical assistance for R TKA on 11/12/[address] Anirudh Conner. Pt states she is taking tylneol arthritis 1qd. Dc'd advil about a week ago as she knows that she needs to dc due to bleeding risk, has a preop physical w/ Dr. De La Torre on 11/02/24. Had ekg and labs done last week. 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 uses ibuprofen as needed HPI HPI Details: SHENA QUIÑONES, is a 64 F who presents to the office today for a surgical clearance. She is up to date on her [...] dry mouth, but denies any other problems. Since she was last seen, she was started on lipitor for her cholesterol. She has been taking it as prescribed without problems. The patient is scheduled to have right knee surgery on 11/12/[address] Conner at [facility]. They report they have had problems for years. It was progressively worsening prompting surgery. The patient is aware of the risks and benefits and wishes to proceed. They deny having any chest pain or shortness of breath with going up stairs. She rates her pain 4-5/10 currently. She states as of right now, she has plans to get her left knee done in February. R (more content not included)... Normal [facility] Electrocardiogram reportOrde red By: Rigo Arriola on 10-22-2024 EKG study [facility] Cardi[facility] Services [address] [place] [address] 12 Lead EKG 10/21/24 0835 MR#: [id number] Acct: [id number] Name: SHENA QUIÑONES Rep #:[id number] : 1960 64 From: Rigo byrd MD Attending Dr: Dr. Anirudh Conner MD Status: REG CLI Ordering Dr: Anirudh Conner MD Date: 0 10/21/24 Location: [facility] Sex: F C Admitted: Test Reason : PREOP Blood Pressure : */* mmHG Vent. Rate : 74 BPM Atrial Rate : 74 BPM P-R Int : 168 ms QRS Dur : 82 ms QT Int : 378 ms P-R-T Axes : 53 50 61 degrees QTcB Int : 419 ms Normal sinus rhythm Normal ECG Confirmed by Rigo Arriola ([id number]), manager editorial XIOMARA ALCANTARA ([id number]) on 56:14:21 AM Referred By: Anirudh Conner Confirmed By: Rigo Arriola 10/22/24 0614 Date _ Rigo Arriola MD CC: Dr. Sulma Teague MD; Dr. Anirudh Conner MD ~ Signed [facility] Work Phone: 12 Lead EKGon 10-21-2024 12 Lead EKG [facility] Cardi[facility] Services [address] [place] [address] 12 Lead EKG 10/21/24 0835 MR#: [id number] Acct: [id number] Name: SHENA QUIÑONES Rep #: [id number] : 1960 64 From: Rigo Arriola MD Attending Dr: Dr. Anirudh Conner MD Status: REG CLI Ordering Dr: Anirudh Conner MD Date: 10/21/24 Location: N Sex: F C Admitted: Test Reason : PREOP Blood Pressure : */* mmHG Vent. Rate : 74 BPM Atrial Rate : 74 BPM P-R Int : 168 ms QRS Dur : 82 ms QT Int : 378 ms P-R-T Axes : 53 50 61 degrees QTcB Int : 419 ms Normal sinus rhythm Normal ECG Confirmed by Rigo Arriola ([id number]), manager editorial XIOMARA ALCANTARA ([id number]) on 10/22/2024 6:14:21 AM Referred By: Anirudh Conner Confirmed By: Rigo Arriola 10/22/24 0614 Date Rigo Arriola MD CC: Dr. Sulma Teague MD; Dr. Anirudh Conner MD Signed Normal [facility] Absolute lymphocyte countOrd ered By: Anirudh Conner on 10-21-2024 Lymphocytes Auto (Unsp spec) [#/Vol] 1.42 10*3/uL 0.83-4.51 [facility] Absolute neutrophil countOrd ered By: Anirudh Conner on 10-21-2024 Neutrophils (Bld) [#/Vol] 3.3 10*3/uL 2.0-7.7 [facility] Albumin, Serumon 10-21-2024 Albumin [Mass/Vol] 4.3 g/dL Normal 3.4-4.8 [facility] Comment on above: Performed By: #### L 100.0100, L500.2500, L501.1800 #### [facility] Laboratory [address] [place], [address] Anion gap in Serum or Plasma Ordered By: Anirudh Conner on 10-21-2024 Anion gap [Moles/Vol] 10 mmol/L 5-15 [facility] Automated lymphocyte count a s percentage of total leukocytesOrdered By: Anirudh Conner on 10-21-2024 Lymphocytes/100 WBC Auto (Unsp spec) 26.5 % [facility] BUN/creatinine ratioOrdered By: Anirudh Conner on 10-21-2024 Urea nitrogen/Creatinine [Mass ratio] 24.0 mg/mg High 03-01 [facility] Basic Metabolic Profile (BMP )on 10-21-2024 BUN/CRE 24.0 RATIO High 03-01 [facility] Comment on above: Performed By: #### L 100.0100, L500.2500, L501.1800 #### [facility] Laboratory [address] [place], [address] Calcium [Mass/Vol] 9.8 mg/dL Normal 7.6-11.0 [facility] Comment on above: Performed By: #### L 100.0100, L500.2500, L501.1800 #### [facility] Laboratory [address] [place], [address] Chloride [Moles/Vol] 105 mmol/L Normal 98-108 [facility] Comment on above: Performed By: #### L 100.0100, L500.2500, L501.1800 #### [facility] Laboratory [address] [place], [address] CO2 [Moles/Vol] 26.8 mmol/L Normal 21.0-32.0 [facility] Comment on above: Performed By: #### L 100.0100, L500.2500, L501.1800 #### [facility] Laboratory [address] [place], [address] Creatinine [Mass/Vol] 0.79 mg/dL Normal 0.70-1.20 [facility] Comment on above: Performed By: #### L 100.0100, L500.2500, L501.1800 #### [facility] Laboratory [address] [place], [address] GAP 10 Normal 5-15 [facility] Comment on above: Performed By: #### L 100.0100, L500.2500, L501.1800 #### [facility] [address] [place], [address] GFR/1.73 sq M.predicted among non-blacks MDRD (S/P/Bld) [Vol rate/Area] 83 mL/min/{1.73_m2} Normal >60 [facility] Comment on above: Result Comment: mL/m in/1.73m2 CKD-EPI Creatinine Equation (2020) Performed By: #### L 100.0100, L500.2500, L501.1800 #### [facility] [address] [place], [address] Glucose [Mass/Vol] 98 mg/dL Normal 70-99 [facility] Comment on above: Performed By: #### L 100.0100, L500.2500, L501.1800 #### [facility] [address] [place], [address] Potassium [Moles/Vol] 4.2 mmol/L Normal 3.3-5.1 [facility] Comment on above: Performed By: #### L 100.0100, L500.2500, L501.1800 #### [facility] [address] [place], [address] Sodium [Moles/Vol] 141 mmol/L Normal 133-145 [facility] Comment on above: Performed By: #### L 100.0100, L500.2500, L501.1800 #### [facility] [address] [place], [address] Urea nitrogen [Mass/Vol] 19 mg/dL Normal 4-19 [facility] Comment on above: Performed By: #### L 100.0100, L500.2500, L501.1800 #### [facility] [address] [place], [address] Basophil percentageOrdered B y: Anirudh Conner on 10-21-2024 Basophils/100 WBC (Bld) 0.4 % 0-1 [facility] CBC W/Diff, Automatedon 10-11-2024 Absolute Lymph 1.42 X10 3/uL Normal 0.83-4.51 [facility] Comment on above: Performed By: #### L 100.0100, L500.2500, L501.1800 #### [facility] [address] [place], [address] Absolute Neut 3.3 X10 3/uL Normal 2.0-7.7 [facility] Comment on above: Performed By: #### L 100.0100, L500.2500, L501.1800 #### [facility] [address] [place], [address] Basophils/100 WBC (Bld) 0.4 % Normal 0-1 [facility] Comment on above: Performed By: #### L 100.0100, L500.2500, L501.1800 #### [facility] [address] [place], [address] Eosinophils/100 WBC (Bld) 3.4 % Normal 0-5 [facility] Comment on above: Performed By: #### L 100.0100, L500.2500, L501.1800 #### [facility] [address] [place], [address] Erythrocyte distribution width (RBC) [Ratio] 13.8 % Normal 11.6-14.6 [facility] Comment on above: Performed By: #### L 100.0100, L500.2500, L501.1800 #### [facility] [address] [place], [address] Hematocrit (Bld) [Volume fraction] 37.5 % Normal 37-47 [facility] Comment on above: Performed By: #### L 100.0100, L500.2500, L501.1800 #### [facility] [address] [place], [address] Hemoglobin (Bld) [Mass/Vol] 12.6 g/dL Normal 12.0-15.0 [facility] Comment on above: Performed By: #### L 100.0100, L500.2500, L501.1800 #### [facility] [address] [place], [address] IG% 0.200 Normal 0.0-0.9 [facility] Comment on above: Result Comment: IG% - Immature Granulocytes (promyelocytes, myelocytes and metamyelocytes) > 1% indicates that a LEFT SHIFT is Present. Performed By: #### L 100.0100, L500.2500, L501.1800 #### [facility] [address] [place], [address] Lymphocytes/100 WBC (Bld) 26.5 % Normal 19-41 [facility] Comment on above: Performed By: #### L 100.0100, L500.2500, L501.1800 #### [facility] [address] [place], [address] MCH (RBC) [Entitic mass] 29.5 pg Normal 27.0-32.0 [facility] Comment on above: Performed By: #### L 100.0100, L500.2500, L501.1800 #### [facility] [address] [place], [address] MCHC (RBC) [Mass/Vol] 33.6 g/dL Normal 32-36 [facility] Comment on above: Performed By: #### L 100.0100, L500.2500, L501.1800 #### [facility] [address] [place], [address] MCV (RBC) [Entitic vol] 87.8 fL Normal 81-99 [facility] Comment on above: Performed By: #### L 100.0100, L500.2500, L501.1800 #### [facility] [address] [place], [address] Monocytes/100 WBC (Bld) 9.0 % Normal 0-10 [facility] Comment on above: Performed By: #### L 100.0100, L500.2500, L501.1800 #### [facility] [address] [place], [address] Neutrophils/100 WBC (Bld) 60.5 % Normal 47-70 [facility] Comment on above: Performed By: #### L 100.0100, L500.2500, L501.1800 #### [facility] [address] [place], [address] Nucleated RBC (Bld) [#/Vol] 0 10*3/uL Normal 0-5 [facility] Comment on above: Performed By: #### L 100.0100, L500.2500, L501.1800 #### [facility] [address] [place], [address] Platelet mean volume (Bld) [Entitic vol] 9.3 fL Normal 6.2-12.0 [facility] Comment on above: Performed By: #### L 100.0100, L500.2500, L501.1800 #### [facility] Laboratory [address] [place], [address] Platelets (Bld) [#/Vol] 248 10*3/uL Normal 150-450 [facility] Comment on above: Performed By: #### L 100.0100, L500.2500, L501.1800 #### [facility] [address] [place], [address] RBC (Bld) [#/Vol] 4.27 10*6/uL Normal 4.2-5.4 [facility] Comment on above: Performed By: #### L 100.0100, L500.2500, L501.1800 #### [facility] [address] [place], [address] RDW SD 44.4 fl High 35.1-43.9 [facility] Comment on above: Performed By: #### L 100.0100, L500.2500, L501.1800 #### [facility] [address] [place], [address] WBC (Bld) [#/Vol] 5.4 10*3/uL Normal 4.4-11.0 [facility] Comment on above: Performed By: #### L 100.0100, L500.2500, L501.1800 #### [facility] [address] [place], [address] Calculated very low density lipoprotein (VLDL) cholesterol measurementOrdered By: Sulma Teague on 10-21-2024 Calculated very low density lipoprotein (VLDL) cholesterol measurement 16 mg/dL 5-40 [facility] Carbon dioxide, total [Moles /volume] in Central venous bloodOrdered By: Anirudh Conner on 10-21-2024 CO2 [Moles/Vol] 26.8 mmol/L 21.0-32.0 [facility] Chloride assayOrdered By: St amparo Conner on 10-21-2024 Chloride [Moles/Vol] 105 mmol/L 98-108 [facility] Eosinophil percentageOrdered By: Anirudh Conner on 10-21-2024 Eosinophils/100 WBC (Bld) 3.4 % 0-5 [facility] Erythrocyte distribution wid th ratioOrdered By: Aniurdh Conner on 10-21-2024 Erythrocyte distribution width (RBC) [Ratio] 13.8 % 11.6-14.6 [facility] Erythrocyte distribution wid th standard deviationOrdered By: Anirudh Conner on 10-21-2024 Erythrocyte distribution width (RBC) [Ratio] 44.4 fl High 35.1-43.9 [facility] Extremity Lower without Cont raon 10-21-2024 Extremity Lower without Contra [facility] Imaging Services [address] [place] [address] Extremity Lower without Contra MR#: [id number] Acct: [id number] Name: SHENA QUIÑONES Rep #: [id number] : 1960 F 64 From: Oliver Sylvester MD PCP: Dr. Sulma Teague MD Status: REG CLI Study: Extremity Lower without Contra Date of Exam: 0 10/21/24 Exam# [id number] Ordering Dr: Anirudh Conner MD PROCEDURE: EXTREMITY LOWER WITHOUT CONTRA 10/21/2024 REASON FOR EXAM: PRE OP WASC TECHNIQUE: Axial CT images of the right knee obtained without intravenous contrast. Coronal and Sagittal reconstruction series were provided. CONTRAST: None One or more dose reduction techniques were used (e.g., Automated exposure control, adjustment of the mA and/or kV according to patient size, use of iterative reconstruction technique). RADIATION DOSE SUMMARY: DLP: 1191.61 mGycm COMPARISON: None FINDINGS: There is a moderate tricompartment osteoarthritis, most severe at the patellofemoral articulation, with joint space narrowing, subcortical cyst formation, and marginal osteophytes. There is no acute fracture or dislocation. There is no significant joint effusion. There is no soft tissue mass or cyst. There is no visible adenopathy. There is a 2.0 x 2.6 cm uncomplicated fat containing right inguinal hernia. Mineralization is normal. There is no visible atherosclerosis. CT/Extremity Lower without Contra IMPRESSION: There is a moderate tricompartment osteoarthritis, most severe at the patellofemoral articulation, with joint space narrowing, subcortical cyst formation, and marginal osteophytes. Reading [facility] CC: Dr. Sulma Teague MD; Dr. Anirudh Conner MD Transportation Department Supervisor: Signed Normal [facility] Glomerular filtration rate ( GFR) estimation/1.73 sq m using serum, plasma, or whole bOrdered By: Anirudh Conner on 10-21-2024 GFR/1.73 sq M.predicted among non-blacks MDRD (S/P/Bld) [Vol rate/Area] 83 mL/min/{1.73_m2} >60 [facility] Comment on above: mL/min/1.73m2 CKD-EP I Creatinine Equation (2020) Hematocrit Auto (Bld) [Volum e fraction]Ordered By: Anirudh Conner on 10-21-2024 Hematocrit (Bld) [Volume fraction] 37.5 % 37-47 [facility] Hemoglobin measurementOrdere d By: Anirudh Conner on 10-21-2024 Hemoglobin (Bld) [Mass/Vol] 12.6 g/dL 12.0-15.0 [facility] Immature granulocytes/100 WB C Auto (Bld)Ordered By: Anirudh Conner on 10-21-2024 Immature granulocytes/100 WBC (Bld) 0.200 % 0.0-0.9 [facility] Comment on above: IG% - Immature Granu locytes (promyelocytes, myelocytes and metamyelocytes) > 1% indicates that a LEFT SHIFT is Present. LDL calc ser/plasOrdered By: Sulma Teague on 10-21-2024 Cholesterol in LDL [Mass/Vol] 89 mg/dL [facility] Comment on above: Intivptvcb=077-862 m g/dL & Higher Fmqi=352 mg/dL or greater MCV (mean corpuscular volume ) determinationOrdered By: Anirudh Conner on 10-21-2024 MCV (RBC) [Entitic vol] 87.8 fL 81-99 [facility] Mean corpuscular hemoglobin (MCH) determinationOrdered By: Anirudh Conner on 10-21-2024 MCH (RBC) [Entitic mass] 29.5 pg 27.0-32.0 [facility] Mean corpuscular hemoglobin concentration (MCHC) determinationOrdered By: Anirudh Conner on 10-21-2024 MCHC (RBC) [Mass/Vol] 33.6 g/dL 32-36 [facility] Mean platelet volume determi nationOrdered By: Anirudh Conner on 10-21-2024 Platelet mean volume (Bld) [Entitic vol] 9.3 fL 6.2-12.0 [facility] Monocyte percentageOrdered B y: Anirudh Conner on 10-21-2024 Monocytes/100 WBC (Bld) 9.0 % 0-10 [facility] Neutrophil percentageOrdered By: Anirudh Conner on 10-21-2024 Neutrophils/100 WBC (Bld) 60.5 % 47-70 [facility] Nucleated red blood cell per centageOrdered By: Anirudh Conner on 10-21-2024 Nucleated RBC/100 WBC (Bld) [Ratio] 0 % 0-5 [facility] Platelet countOrdered By: St amparo Conner on 10-21-2024 Platelets (Bld) [#/Vol] 248 10*3/uL 150-450 [facility] Potassium measurement (mass/ volume)Ordered By: Anirudh Conner on 10-21-2024 Potassium (Unsp spec) [Mass/Vol] 4.2 mmol/L 3.3-5.1 [facility] RBC Auto (Bld) [#/Vol]Ordere d By: Anirudh Conner on 10-21-2024 RBC (Bld) [#/Vol] 4.27 10*6/uL 4.2-5.4 [facility] Screening total cholesterol/ high density lipoprotein (HDL) cholesterol ratioOrdered By: Sulma Teague on 10-21-2024 Cholesterol.total/Chol esterol in HDL [Mass ratio] 2.70 {ratio} [facility] Serum creatinine measurement (mass/volume)Ordered By: Anirudh Conner on 10-21-2024 Creatinine [Mass/Vol] 0.79 mg/dL 0.70-1.20 [facility] Serum glucose measurement (m ass/volume)Ordered By: Anirudh Conner on 10-21-2024 Glucose [Mass/Vol] 98 mg/dL 70-99 [facility] Serum or plasma albumin declan urement (mass/volume)Ordered By: Anirudh Conner on 10-21-2024 Albumin [Mass/Vol] 4.3 g/dL 3.4-4.8 [facility] Serum or plasma calcium declan urement (mass/volume)Ordered By: Anirudh Conner on 10-21-2024 Calcium [Mass/Vol] 9.8 mg/dL 7.6-11.0 [facility] Serum or plasma cholesterol in HDL measurement (mass/volume)Ordered By: Sulma Teague on 10-21-2024 Cholesterol in HDL [Mass/Vol] 62 mg/dL >40 [facility] Comment on above: National Cholesterol Education Program (NCEP) guidelines:<40 mg/dL: Low HDL-cholesterol (major risk factor for CHD)>= 60 mg/dL: High HDL-cholesterol (negative risk factor for CHD)HDL-cholesterol is affected by a number of factors, e.g. smoking, exercise, hormones, sex and age. Serum or plasma cholesterol measurement (mass/volume)Ordered By: Sulma Teague on 10-21-2024 Cholesterol [Mass/Vol] 167 mg/dL <201 [facility] Comment on above: Cholesterol level, D esirable <200 mg/dLBorderline high cholesterol 200-239 mg/dLHigh cholesterol >=240 mg/dLRecommendations of the NCEP Adult Treatment Panel for the following risk-cutoff thresholds for the [place] population. Serum or plasma urea nitroge n measurement (mass/volume)Ordered By: Anirudh Conner on 10-21-2024 Urea nitrogen [Mass/Vol] 19 mg/dL 4-19 [facility] Sodium levelOrdered By: Mike Conner on 10-21-2024 Sodium [Moles/Vol] 141 mmol/L 133-145 [facility] Triglycerides measurementOrd ered By: Sulma Teague on 10-21-2024 Triglyceride [Mass/Vol] 82 mg/dL <199 [facility] Comment on above: The drugs N-Acetylcy steine and Metamizole may falsely depress this assay. Normal range: <150 mg/dLBorderline High: 150-199 mg/dLHigh: 200-499 mg/dLVery High: >500 mg/dL White blood cell (WBC) count Ordered By: Anirudh Conner on 10-21-2024 WBC (Bld) [#/Vol] 5.4 10*3/uL 4.4-11.0 [facility] Bone Lengthon 08-17-2024 Bone Length [facility] Imaging Services [address], [place] [id number] Bone Length MR#: [id number] Acct: [id number] Name: SHENA QUIÑONES Rep #: [id number] : 1960 F 64 From: Natalio Adams MD PCP: Dr. Sulma Teague MD Status: REG CLI Study: Bone Length Date of Exam: 08/17/24 Exam# [id number] Ordering Dr: Anirudh Conner MD EXAM: XR [...] and tibia atelectasis 78 cm. Reading Location: [facility] CC: Dr. Sulma Teague MD; Dr. Anirudh Conner MD Transportation Department Supervisor: Signed Normal [facility] Absolute lymphocyte countOrd ered By: Sulma Teague on 08-07-2024 Lymphocytes Auto (Unsp spec) [#/Vol] 1.30 10*3/uL 0.83-4.51 [facility] Absolute neutrophil countOrd ered By: Sulma Teague on 08-07-2024 Neutrophils (Bld) [#/Vol] 2.6 10*3/uL 2.0-7.7 [facility] Anion gap in Serum or Plasma Ordered By: Sulma Teague on 08-07-2024 Anion gap [Moles/Vol] 12 mmol/L 5-15 [facility] Automated lymphocyte count a s percentage of total leukocytesOrdered By: Sulma Teague on 08-07-2024 Lymphocytes/100 WBC Auto (Unsp spec) 29.7 % 19-41 [facility] BUN/creatinine ratioOrdered By: Sulma Teague on 08-07-2024 Urea nitrogen/Creatinine [Mass ratio] 21.5 mg/mg High 10-20 [facility] Basophil percentageOrdered B y: Sulma Teague on 08-07-2024 Basophils/100 WBC (Bld) 0.7 % 0-1 [facility] Bilirubin, totalOrdered By: Sulma Teague on 08-07-2024 Bilirubin [Mass/Vol] 0.34 mg/dL 0.00-1.30 [facility] CBC W/Diff, Automatedon 07-12 Absolute Lymph 1.30 X10 3/uL Normal 0.83-4.51 [facility] Comment on above: Performed By: #### L 100.0100, L500.4050, L506.1001, L500.4100 #### [facility] [address] [place], [address] Absolute Neut 2.6 X10 3/uL Normal 2.0-7.7 [facility] Comment on above: Performed By: #### L 100.0100, L500.4050, L506.1001, L500.4100 #### [facility] [address] [place], [address] Basophils/100 WBC (Bld) 0.7 % Normal 0-1 [facility] Comment on above: Performed By: #### L 100.0100, L500.4050, L506.1001, L500.4100 #### [facility] [address] [place], [address] Eosinophils/100 WBC (Bld) 3.0 % Normal 0-5 [facility] Comment on above: Performed By: #### L 100.0100, L500.4050, L506.1001, L500.4100 #### [facility] [address] [place], [address] Erythrocyte distribution width (RBC) [Ratio] 14.0 % Normal 11.6-14.6 [facility] Comment on above: Performed By: #### L 100.0100, L500.4050, L506.1001, L500.4100 #### [facility] [address] [place], [address] Hematocrit (Bld) [Volume fraction] 37.1 % Normal 37-47 [facility] Comment on above: Performed By: #### L 100.0100, L500.4050, L506.1001, L500.4100 #### [facility] [address] [place], [address] Hemoglobin (Bld) [Mass/Vol] 12.8 g/dL Normal 12.0-15.0 [facility] Comment on above: Performed By: #### L 100.0100, L500.4050, L506.1001, L500.4100 #### [facility] [address] [place], [address] IG% 0.200 Normal 0.0-0.9 [facility] Comment on above: Result Comment: IG% - Immature Granulocytes (promyelocytes, myelocytes and metamyelocytes) > 1% indicates that a LEFT SHIFT is Present. Performed By: #### L 100.0100, L500.4050, L506.1001, L500.4100 #### [facility] [address] [place], [address] Lymphocytes/100 WBC (Bld) 29.7 % Normal 19-41 [facility] Comment on above: Performed By: #### L 100.0100, L500.4050, L506.1001, L500.4100 #### [facility] [address] [place], [address] MCH (RBC) [Entitic mass] 29.4 pg Normal 27.0-32.0 [facility] Comment on above: Performed By: #### L 100.0100, L500.4050, L506.1001, L500.4100 #### [facility] [address] [place], [address] MCHC (RBC) [Mass/Vol] 34.5 g/dL Normal 32-36 [facility] Comment on above: Performed By: #### L 100.0100, L500.4050, L506.1001, L500.4100 #### [facility] [address] [place], [address] MCV (RBC) [Entitic vol] 85.1 fL Normal 81-99 [facility] Comment on above: Performed By: #### L 100.0100, L500.4050, L506.1001, L500.4100 #### [facility] [address] [place], [address] Monocytes/100 WBC (Bld) 8.0 % Normal 0-10 [facility] Comment on above: Performed By: #### L 100.0100, L500.4050, L506.1001, L500.4100 #### [facility] [address] [place], [address] Neutrophils/100 WBC (Bld) 58.4 % Normal 47-70 [facility] Comment on above: Performed By: #### L 100.0100, L500.4050, L506.1001, L500.4100 #### [facility] [address] [place], [address] Nucleated RBC (Bld) [#/Vol] 0 10*3/uL Normal 0-5 [facility] Comment on above: Performed By: #### L 100.0100, L500.4050, L506.1001, L500.4100 #### [facility] [address] [place], [address] Platelet mean volume (Bld) [Entitic vol] 9.8 fL Normal 6.2-12.0 [facility] Comment on above: Performed By: #### L 100.0100, L500.4050, L506.1001, L500.4100 #### [facility] [address] [place], [address] Platelets (Bld) [#/Vol] 269 10*3/uL Normal 150-450 [facility] Comment on above: Performed By: #### L 100.0100, L500.4050, L506.1001, L500.4100 #### [facility] [address] [place], [address] RBC (Bld) [#/Vol] 4.36 10*6/uL Normal 4.2-5.4 [facility] Comment on above: Performed By: #### L 100.0100, L500.4050, L506.1001, L500.4100 #### [facility] [address] [place], [address] RDW SD 43.4 fl Normal 35.1-43.9 [facility] Comment on above: Performed By: #### L 100.0100, L500.4050, L506.1001, L500.4100 #### [facility] [address] [place], [address] WBC (Bld) [#/Vol] 4.4 10*3/uL Normal 4.4-11.0 [facility] Comment on above: Performed By: #### L 100.0100, L500.4050, L506.1001, L500.4100 #### [facility] [address] [place], [address] Calculated very low density lipoprotein (VLDL) cholesterol measurementOrdered By: Sulma Teague on 08-07-2024 Calculated very low density lipoprotein (VLDL) cholesterol measurement 13 mg/dL [facility] VLDL Cholesterol 13 mg/dL [facility] Carbon dioxide, total [Moles /volume] in Central venous bloodOrdered By: Sulma Teague on 08-07-2024 CO2 [Moles/Vol] 24.8 mmol/L 21.0-32.0 [facility] Chloride assayOrdered By: Valentin Teague on 08-07-2024 Chloride [Moles/Vol] 104 mmol/L 98-108 [facility] Comprehensive Metabolic Prof ilon 08-07-2024 Albumin [Mass/Vol] 4.3 g/dL Normal 3.4-4.8 [facility] Comment on above: Performed By: #### L 100.0100, L500.4050, L506.1001, L500.4100 #### [facility] [address] [place], [address] Albumin/Globulin [Mass ratio] 1.5 {ratio} Normal 0.9-2.4 [facility] Comment on above: Performed By: #### L 100.0100, L500.4050, L506.1001, L500.4100 #### [facility] [address] [place], [address] ALK PHOS 80 U/L Normal 35-104 [facility] Comment on above: Performed By: #### L 100.0100, L500.4050, L506.1001, L500.4100 #### [facility] [address] [place], [address] ALT [Catalytic activity/Vol] 16 U/L Normal <=34 [facility] Comment on above: Performed By: #### L 100.0100, L500.4050, L506.1001, L500.4100 #### [facility] [address] [place], [address] AST [Catalytic activity/Vol] 23 U/L Normal <=31 [facility] Comment on above: Performed By: #### L 100.0100, L500.4050, L506.1001, L500.4100 #### [facility] [address] [place], [address] Bilirubin [Mass/Vol] 0.34 mg/dL Normal 0.00-1.30 [facility] Comment on above: Performed By: #### L 100.0100, L500.4050, L506.1001, L500.4100 #### [facility] [address] [place], [address] BUN/CRE 21.5 RATIO High 10-20 [facility] Comment on above: Performed By: #### L 100.0100, L500.4050, L506.1001, L500.4100 #### [facility] [address] [place], [address] Calcium [Mass/Vol] 9.6 mg/dL Normal 7.6-11.0 [facility] Comment on above: Performed By: #### L 100.0100, L500.4050, L506.1001, L500.4100 #### [facility] [address] [place], [address] Chloride [Moles/Vol] 104 mmol/L Normal 98-108 [facility] Comment on above: Performed By: #### L 100.0100, L500.4050, L506.1001, L500.4100 #### [facility] [address] [place], [address] CO2 [Moles/Vol] 24.8 mmol/L Normal 21.0-32.0 [facility] Comment on above: Performed By: #### L 100.0100, L500.4050, L506.1001, L500.4100 #### [facility] [address] [place], [address] Creatinine [Mass/Vol] 0.79 mg/dL Normal 0.70-1.20 [facility] Comment on above: Performed By: #### L 100.0100, L500.4050, L506.1001, L500.4100 #### [facility] [address] [place], [address] GAP 12 Normal 5-15 [facility] Comment on above: Performed By: #### L 100.0100, L500.4050, L506.1001, L500.4100 #### [facility] [address] [place], [address] GFR/1.73 sq M.predicted among non-blacks MDRD (S/P/Bld) [Vol rate/Area] 83 mL/min/{1.73_m2} Normal >60 [facility] Comment on above: Result Comment: mL/m in/1.73m2 CKD-EPI Creatinine Equation (2020) Performed By: #### L 100.0100, L500.4050, L506.1001, L500.4100 #### [facility] [address] [place], [address] Globulin (S) [Mass/Vol] 2.9 g/dL Normal 2.2-4.2 [facility] Comment on above: Performed By: #### L 100.0100, L500.4050, L506.1001, L500.4100 #### [facility] [address] [place], [address] Glucose [Mass/Vol] 90 mg/dL Normal 70-99 [facility] Comment on above: Performed By: #### L 100.0100, L500.4050, L506.1001, L500.4100 #### [facility] [address] [place], [address] Potassium [Moles/Vol] 4.3 mmol/L Normal 3.3-5.1 [facility] Comment on above: Performed By: #### L 100.0100, L500.4050, L506.1001, L500.4100 #### [facility] [address] [place], [address] Sodium [Moles/Vol] 140 mmol/L Normal 133-145 [facility] Comment on above: Performed By: #### L 100.0100, L500.4050, L506.1001, L500.4100 #### [facility] [address] [place], [address] T PROT 7.2 g/dL Normal 5.9-8.4 [facility] Comment on above: Performed By: #### L 100.0100, L500.4050, L506.1001, L500.4100 #### [facility] [address] [place], [address] Urea nitrogen [Mass/Vol] 17 mg/dL Normal 4-19 [facility] Comment on above: Performed By: #### L 100.0100, L500.4050, L506.1001, L500.4100 #### [facility] [address] [place], [address] Eosinophil percentageOrdered By: Sulma Teague on 08-07-2024 Eosinophils/100 WBC (Bld) 3.0 % 0-5 [facility] Erythrocyte distribution wid th ratioOrdered By: Sulma Teague on 08-07-2024 Erythrocyte distribution width (RBC) [Ratio] 14.0 % 11.6-14.6 [facility] Erythrocyte distribution wid th standard deviationOrdered By: Sulma Teague on 08-07-2024 Erythrocyte distribution width (RBC) [Entitic vol] 43.4 fL 35.1-43.9 [facility] Erythrocyte distribution width (RBC) [Ratio] 43.4 fl 35.1-43.9 [facility] GFR/1.73 sq M.predicted brien g non-blacks MDRD (S/P/Bld) [Vol rate/Area]Ordered By: Sulma Teague on 08-07-2024 Estimated GFR (MDRD) Non-Af Amer 83 >60 [facility] Comment on above: mL/min/1.73m2 CKD-EP I Creatinine Equation (2020) Glomerular filtration rate ( GFR) estimation/1.73 sq m using serum, plasma, or whole bOrdered By: Sulma Teague on 08-07-2024 GFR/1.73 sq M.predicted among non-blacks MDRD (S/P/Bld) [Vol rate/Area] 83 mL/min/{1.73_m2} >60 [facility] Comment on above: mL/min/1.73m2 CKD-EP I Creatinine Equation (2020) Hematocrit Auto (Bld) [Volum e fraction]Ordered By: Sulma Teague on 08-07-2024 Hematocrit (Bld) [Volume fraction] 37.1 % 37-47 [facility] Hemoglobin measurementOrdere d By: Sulma Teague on 08-07-2024 Hemoglobin (Bld) [Mass/Vol] 12.8 g/dL 12.0-15.0 [facility] Immature granulocytes/100 WB C Auto (Bld)Ordered By: Sulma Teague on 08-07-2024 Immature granulocytes/100 WBC (Bld) 0.200 % 0.0-0.9 [facility] Comment on above: IG% - Immature Granu locytes (promyelocytes, myelocytes and metamyelocytes) > 1% indicates that a LEFT SHIFT is Present. L506.1001on 08-07-2024 Vitamin D 25-OH 51.7 ng/mL Normal 30-100 [facility] Comment on above: Result Comment: Jami min D Status Deficiency: <20 ng/mL (50nmol/L) Insufficiency: 20-30 ng/mL (50-75 nmol/L) Sufficiency: 30-100 ng/mL (75-250 nmol/L) Toxicity: >100 ng/mL (>250 nmol/L) Performed By: #### L 100.0100, L500.4050, L506.1001, L500.4100 ####[facility] [address] [place], [place], [id number] LDL calc ser/plasOrdered By: Sulma Teague on 08-07-2024 Cholesterol in LDL [Mass/Vol] 164 mg/dL [facility] Comment on above: Gqncfarfqi=537-917 m g/dL & Higher Vetd=029 mg/dL or greater LDL Cholesterol, Calculated 164 mg/dL [facility] Comment on above: Fuedxragqk=497-167 m g/dL & Higher Hncx=800 mg/dL or greater Laboratory - Chemistry and C hemistry - challengeOrdered By: Sulma Teague on 08-07-2024 AST [Catalytic activity/Vol] 23 U/L <32 [facility] Lipid Profileon 08-07-2024 CHOL:HDL 3.57 Normal [facility] Comment on above: Performed By: #### L 100.0100, L500.4050, L506.1001, L500.4100 #### [facility] [address] [place], [address] Cholesterol [Mass/Vol] 246 mg/dL High <=200 [facility] Comment on above: Result Comment: Chol esterol level, Desirable <200 mg/dL Borderline high cholesterol 200-239 mg/dL High cholesterol >=240 mg/dL Recommendations of the NCEP Adult Treatment Panel for the following risk-cutoff thresholds for the [place] population. Performed By: #### L 100.0100, L500.4050, L506.1001, L500.4100 #### [facility] [address] [place], [address] Cholesterol in HDL [Mass/Vol] 69 mg/dL Normal [facility] Comment on above: Result Comment: Vannessa onal Cholesterol Education Program (NCEP) guidelines: <40 mg/dL: Low HDL-cholesterol (major risk factor for CHD) >= 60 mg/dL: High HDL-cholesterol (negative risk factor for CHD) HDL-cholesterol is affected by a number of factors, e.g. smoking, exercise, hormones, sex and age. Performed By: #### L 100.0100, L500.4050, L506.1001, L500.4100 #### [facility] [address] [place], [address] Cholesterol in LDL [Mass/Vol] 164 mg/dL Normal [facility] Comment on above: Result Comment: Bord vufkqn=665-118 mg/dL Higher Jrvm=545 mg/dL or greater Performed By: #### L 100.0100, L500.4050, L506.1001, L500.4100 #### [facility] [address] [place], [address] Cholesterol in VLDL [Mass/Vol] 13 mg/dL Normal 5-40 [facility] Comment on above: Performed By: #### L 100.0100, L500.4050, L506.1001, L500.4100 #### [facility] [address] [place], [address] Triglyceride [Mass/Vol] 67 mg/dL Normal [facility] Comment on above: Result Comment: The drugs N-Acetylcysteine and Metamizole may falsely depress this assay. Normal range: <150 mg/dL Borderline High: 150-199 mg/dL High: 200-499 mg/dL Very High: >500 mg/dL Performed By: #### L 100.0100, L500.4050, L506.1001, L500.4100 #### [facility] [address] [place], [address] Lymphocytes Auto (Unsp spec) [#/Vol]Ordered By: Sulma Teague on 08-07-2024 Lymphocytes (Bld) [#/Vol] 1.30 10*3/uL 0.83-4.51 [facility] Lymphocytes/100 WBC Auto (Un sp spec)Ordered By: Sulma Teague on 08-07-2024 Lymphocytes/100 WBC (Bld) 29.7 % 19-41 [facility] MCV (mean corpuscular volume ) determinationOrdered By: Sulma Teague on 08-07-2024 MCV (RBC) [Entitic vol] 85.1 fL 81-99 [facility] Mean corpuscular hemoglobin (MCH) determinationOrdered By: Sulma Teague on 08-07-2024 MCH (RBC) [Entitic mass] 29.4 pg 27.0-32.0 [facility] Mean corpuscular hemoglobin concentration (MCHC) determinationOrdered By: Sulma Teague on 08-07-2024 MCHC (RBC) [Mass/Vol] 34.5 g/dL 32-36 [facility] Mean platelet volume determi nationOrdered By: Sulma Teague on 08-07-2024 Platelet mean volume (Bld) [Entitic vol] 9.8 fL 6.2-12.0 [facility] Monocyte percentageOrdered B y: Sulma Teague on 08-07-2024 Monocytes/100 WBC (Bld) 8.0 % 0-10 [facility] Neutrophil percentageOrdered By: Sulma Teague on 08-07-2024 Neutrophils/100 WBC (Bld) 58.4 % 47-70 [facility] Nucleated red blood cell per centageOrdered By: Sulma Teague on 08-07-2024 Nucleated RBC/100 WBC (Bld) [Ratio] 0 % 0-5 [facility] Platelet countOrdered By: Valentin Teague on 08-07-2024 Platelets (Bld) [#/Vol] 269 10*3/uL 150-450 [facility] Potassium (Unsp spec) [Mass/ Vol]Ordered By: Sulma Teague on 08-07-2024 Potassium [Moles/Vol] 4.3 mmol/L 3.3-5.1 [facility] Potassium measurement (mass/ volume)Ordered By: Sulma Teague on 08-07-2024 Potassium (Unsp spec) [Mass/Vol] 4.3 mmol/L 3.3-5.1 [facility] RBC Auto (Bld) [#/Vol]Ordere d By: Sulma Teague on 08-07-2024 RBC (Bld) [#/Vol] 4.36 10*6/uL 4.2-5.4 [facility] Screening total cholesterol/ high density lipoprotein (HDL) cholesterol ratioOrdered By: Sulma Teague on 08-07-2024 Cholesterol.total/Chol esterol in HDL [Mass ratio] 3.57 {ratio} [facility] Serum creatinine measurement (mass/volume)Ordered By: Sulma Teague on 08-07-2024 Creatinine [Mass/Vol] 0.79 mg/dL 0.70-1.20 [facility] Serum globulin measurementOr dered By: Sulma Teague on 08-07-2024 Globulin (S) [Mass/Vol] 2.9 g/dL 2.2-4.2 [facility] Serum glucose measurement (m ass/volume)Ordered By: Sulma Teague on 08-07-2024 Glucose [Mass/Vol] 90 mg/dL 70-99 [facility] Serum or plasma alanine hartley otransferase (ALT) measurementOrdered By: Sulma Teague on 08-07-2024 ALT [Catalytic activity/Vol] 16 U/L <35 [facility] Serum or plasma albumin declan urement (mass/volume)Ordered By: Sulma Teague on 08-07-2024 Albumin [Mass/Vol] 4.3 g/dL 3.4-4.8 [facility] Serum or plasma albumin/glob ulin mass ratioOrdered By: Sulma Teague on 08-07-2024 Albumin/Globulin [Mass ratio] 1.5 {ratio} 0.9-2.4 [facility] Serum or plasma alkaline kristin sphatase measurementOrdered By: Sulma Teague on 08-07-2024 ALP [Catalytic activity/Vol] 80 U/L 35-104 [facility] Serum or plasma calcium declan urement (mass/volume)Ordered By: Sulma Teague on 08-07-2024 Calcium [Mass/Vol] 9.6 mg/dL 7.6-11.0 [facility] Serum or plasma cholesterol in HDL measurement (mass/volume)Ordered By: Sulma Teague on 08-07-2024 Cholesterol in HDL [Mass/Vol] 69 mg/dL >40 [facility] Comment on above: National Cholesterol Education Program (NCEP) guidelines:<40 mg/dL: Low HDL-cholesterol (major risk factor for CHD)>= 60 mg/dL: High HDL-cholesterol (negative risk factor for CHD)HDL-cholesterol is affected by a number of factors, e.g. smoking, exercise, hormones, sex and age. Serum or plasma cholesterol measurement (mass/volume)Ordered By: Sulma Teague on 08-07-2024 Cholesterol [Mass/Vol] 246 mg/dL High <201 [facility] Comment on above: Cholesterol level, D esirable <200 mg/dLBorderline high cholesterol 200-239 mg/dLHigh cholesterol >=240 mg/dLRecommendations of the NCEP Adult Treatment Panel for the following risk-cutoff thresholds for the [place] population. Serum or plasma urea nitroge n measurement (mass/volume)Ordered By: Sulma Teague on 08-07-2024 Urea nitrogen [Mass/Vol] 17 mg/dL 4-19 [facility] Sodium levelOrdered By: Shanel Teague on 08-07-2024 Sodium [Moles/Vol] 140 mmol/L 133-145 [facility] Total proteinOrdered By: Paco Teague on 08-07-2024 Protein [Mass/Vol] 7.2 g/dL 5.9-8.4 [facility] Triglycerides measurementOrd ered By: Sulma Teague on 08-07-2024 Triglyceride [Mass/Vol] 67 mg/dL <199 [facility] Comment on above: The drugs N-Acetylcy steine and Metamizole may falsely depress this assay. Normal range: <150 mg/dLBorderline High: 150-199 mg/dLHigh: 200-499 mg/dLVery High: >500 mg/dL Vitamin D, 25-hydroxyOrdered By: Sulma Teague on 08-07-2024 Vitamin D 25-Hydroxy 51.7 ng/mL 30-100 [facility] Comment on above: Vitamin D StatusDefi ciency: <20 ng/mL (50nmol/L)Insufficiency: 20-30 ng/mL (50-75 nmol/L)Sufficiency: 30-100 ng/mL (75-250 nmol/L)Toxicity: >100 ng/mL (>250 nmol/L) White blood cell (WBC) count Ordered By: Sulma Teague on 08-07-2024 WBC (Bld) [#/Vol] 4.4 10*3/uL 4.4-11.0 [facility] Internal Medicine Office Vis raudel 08-04-2024 Internal Medicine Office Visit [facility] [address] [place] [address] [address] [place], [place] [address] OFFICE VISIT Date of Service: 08/05/24 MR#: [id number] Acct: [id number] Name: SHENA QUIÑONES Rep #: [id number] : 1960 Provider: Dr. Sulma lopez MD Age/Sex: 64/F Location: 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 Function (more content not included)... Normal [facility] Breast imaging reportOrdered By: Bello Villegas on 07-08-2024 Study report [facility] Imaging Services [address] [place] [place], [place] [address] SCRN MAMM (CAD)W/BALBINA BILAT MR#: [id number] Acct: [id number] Name: SHENA QUIÑONES Rep #: [id number] : 1960 F 64 From: Elfego Villegas MD PCP: Dr. Sulma Teague MD Status: REG CLI Study:SCRN MAMM (CAD)W/BALBINA BILAT Date of Exa m: 07/08/24 Exam# [id number] Ordering Dr: Milena Escamilla NP, NP-C ADDENDUM by Dr. Bello Villegas MD on 07/08/24 at 1310 No addendum required. Reading Location: [id number] 07/08/24 1311 Date cc: BARBIE Escamilla; Dr. [...] of the results by letter. Reading Location: [id number] CC: BARBIE Escamilla; Dr. Sulma Teague MD ~ Transportation Department Supervisor: Signed [facility] SCRN MAMM (CAD)W/BALBINA BILATo n 07-08-2024 SCRN MAMM (CAD)W/BALBINA BILAT [facility] Imaging Services [address] [place] [address] SCRN MAMM (CAD)W/BALBINA BILAT MR#: [id number] Acct: [id number] Name: SHENA QUIÑONES Rep #: [id number] : 1960 F 64 From: Bello neely MD PCP: Dr. Sulma Teague MD Status: REG CLI Study: SCRN MAMM (CAD)W/BALBINA BILAT Date of Exam: 06/14 11/04 Exam# [id number] Ordering Dr: Milena Escamilla NP, NP -C ADDENDUM by Dr. Bello Villegas MD on 07/08/24 at 1310 No addendum required. Reading Location: [id number] 07/08/24 1311 Date cc: BARBIE Escamilla; Dr. [...] of the results by letter. Reading Location: [id number] CC: BARBIE Escamilla; Dr. Sulma Teague MD Transportation Department Supervisor: Signed Normal [facility] Miscellaneous procedureOrder ed By: Milena Escamilla on 06-17-2024 Miscellaneous Test Comment SEE SCANNED REPORT [facility] NATERAon 06-17-2024 NATURA SEE SCANNED REPORT Normal [facility] Comment on above: Order Comment: Comme nts: Empower Performed By: #### L 900.0098 ####[facility] [address] [place], [address] Crime Analyst Office Visit Reporton 06-17-2024 Crime Analyst Office Visit Report [facility] Women[facility] [address], [address] [place] [address] OFFICE VISIT Date of Service: 06/17/24 MR#: [id number] Acct: [id number] Name: SHENA QUIÑONES Rep #: [id number] : 1960 Provider: BARBIE moses Age/Sex: 64/F [place] [facility]: Signed Intake Vital Signs 05/31/23 14:18 06/19/23 13:46 07/17/23 11:14 02/05/24 13:16 06/17/24 09:10 06/17/24 09:20 Height 5 ft 6 in 5 ft 6 in 5 ft 6 in 5 ft 6 in 5 ft 6 in 5 ft 6 in Weight: 189 lb 4 oz BMI 30.5 BP 120/82 H Intake Visit Reasons: 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) Chief Complaint: Annual Doctor Podiatric Medicine Required: No Is patient in pain?: No [...] menopausal: Yes Patient : No : No [facility] Medical History (Updated 06/17/24 @ 09:53 by Milena Escamilla GENERATION TECHNICIAN, GENERATION TECHNICIAN-C) Back pain History of eye problem History of osteoarthritis History of cardiac murmur History of cataract History of back problems History of arthritis Chronic constipation Wears glasses Arthritis Non-smoker History of stress test Hemorrhoids Vision problem Osteoarthritis Surgical History (Updated 06/17/24 @ 09:52 by Milena Escamilla GENERATION TECHNICIAN, GENERATION TECHNICIAN-C) History of cataract surgery (11/17/19) History of colonoscopy (08/11/13) Status post excision of lipoma H/O eye surgery Family History Mother Diabetes Arthritis Hyperlipidemia CVA (cerebral vascular accident) Father Arthritis Heart disease Hypertension Hyperlipidemia Cancer skin Grandmother Cancer breast Aunt Cancer breast Social History (Updated 06/17/24 @ 09:18 by Doreen Eldridge) adopted: No household members: spouse current occupational status: retired 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 Strong family history of cancers and wants genetic testing. Seen last year at [facility] for intense vaginal itching. Was given [...] and oriented (more content not included)... Normal [facility] Plastic Surgery Visit Report on 02-05-2024 Plastic Surgery Visit Report [facility] Plastic Reconstructive Surgery [address], [address] [place], [place] [id number] OFFICE VISIT Date of Service: 02/05/24 MR#: [id number] Acct: [id number] Name: SHENA QUIÑONES Rep #: [id number] : 1960 Provider: Dr. Michelle gilbert MD Age/Sex: 64/F [place] 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 02/05/24 165 Date Michelle Mcarthur MD Cosigner Signature: Date (if applicable) CC: Normal [facility] Plastic Surgery Visit Report on 01-31-2024 Plastic Surgery Visit Report [facility] Plastic Reconstructive Surgery [address], [address] [place] [address] OFFICE VISIT Date of Service: 01/31/24 MR#: [id number] Acct: [id number] Name: SHENA QUIÑONES Rep #: [id number] : 1960 Provider: Dr. 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 01/31/24 1522 Date [facility] Signature: Date (if applicable) CC: Normal [facility] Discharge Instructionon 01-11 Discharge Instruction [facility] Medical Records Department [address] [place] [address] Instructions for Home/Discharge Instructions 01/24/24 1104 MR#: [id number] Acct: [id number] Name: SHENA QUIÑONES Rep #: [id number] : 1960 64 From: Michelle Mcarthur MD PCP: Dr. Sulma Teague MD Status:REG [facility] Discharge Instructions Dressing / Incision Additional Dressing/Incision [...] Care Provider: Sulma Teague Instructions Print Language: Albanian Discharge Orders/Prescriptions Prescriptions: New cephalexin 500 mg [...] MD CC: Dr. Sulma Teague MD Signed [facility] MR/POSTOP.ANEon 01-24-2024 MR/POSTOP.[facility] Medical Records Department [address] [place] [address] Anesthesia Postop Eval I 01/24/24 1127 MR#: [id number] Acct: [id number] Name: SHENA QUIÑONES Rep #: [id number] : 1960 64 From: Mayra Renee CRNA PCP: Dr. Sulma Teague MD Status:REG [facility] Y Race: C Location: [place] [address] Anesthesia: Postop Eval I Current Vital Signs [...] completed: Yes 01/24/24 112 Date Mayra Renee METAL PLATER Cosigner Signature: Date CC: Signed [facility] MR/GKUSZCKA3ps 01-24-2024 MR/POSTOPA[address] Medical Records Department [address] [place] [address] Anesthesia Postop Eval II 01/24/24 1540 MR#: [id number] Acct: [id number] Name: SHENA QUIÑONES Rep #: [id number] : 1960 64 From: Cordell Mukherjee MD PCP: Dr. Sulma Teague MD Status:DEP [facility] Y Race: C Location: [facility] Anesthesia Postop Eval I Sum Postop Eval Completion status Anesthesia document: Postop Eval 1 completed: Yes Anesthesia Postop Eval I Summary Anesthesia Postop Eval I Summary: Anesthesia Postop Eval I: Assessment Summary Airway patent Yes 01/24/24 11:29 METAL PLATER.JDEF Spontaneous unlabored Yes 01/24/24 11:29 METAL PLATER.JDEF respirations Mental status Asleep 01/24/24 11:29 METAL PLATER.JDEF nausea No 01/24/24 11:29 METAL PLATER.JDEF Vomiting No 01/24/24 11:29 METAL PLATER.JDEF Anesthesia Postop Eval I: Fluid Summary Crystalloid volume administer 800 01/24/24 11:29 METAL PLATER.JDEF (ml) Colloids volume administered ( ml) Blood Product volume administered (ml) Total IV fluid infused 800 01/24/24 11:29 METAL PLATER.JDEF Anesthesia Postop Eval I: Summary Notes Anesthesia Complication No 01/24/24 11:29 METAL PLATER.JDEF Anesthesia Complication Comment: Post-operative progress note Anesthesia: Postop Eval II Evaluation Mental status: Awake Pain Level: 0 nausea: No Vomiting: No 01/24/24 1540 Date Cordell Mukherjee MD [facility] Signature: Date CC: Signed Normal [facility] Operative Reporton 4 Operative Report [facility] Medical Records Department [address] [place] [address] Operative Report 01/24/24 1108 MR#: [id number] Acct: [id number] Name: SHENA QUIÑONES Rep #: [id number] : 1960 64 From: Michelle Mcarthur MD PCP: Dr. 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 Michelle Mcarthur MD Signed Normal [facility] Surgery Specimen Level Siva 01-24-2024 Surgery Specimen Level IV ---- Patient Age/Sex Location Account Attending Physician ---- SHENA QUIÑONES 64/F [facility] [id number] Dr. Michelle Mcarthur MD ---- Specimen: [id number] Received: 01/24/24 Status: KELL Asher Num: [id number] Spec Type: Tissue Bx Subm Dr: Dr. Michelle Mcarthur MD HEADER OPERATION: Excision subcutaneous mass posterior neck (6cm) PRE-OP DIAGNOSIS: Neoplasm of uncertain behavior of connective tissue and soft tissue of neck TISSUE SUBMITTED: Mass posterior neck and tissue ---- MICROSCOPIC DIAGNOSIS Mass of posterior neck, excision: Mature adipose tissue consistent with lipoma. AM/ 01/27/2024 MICROSCOPIC DESCRIPTION Slides are reviewed. GROSS [...] area of hemorrhage, necrosis or cystic degeneration. Electrician Supervisor sections are submitted in three cassettes. Jim 01/24/2024 TC:1 CPT:44920 ---- Patient Age/Sex Location Account Attending Physician ---- SHENA QUIÑONES 64/F [facility] [id number] Dr. Michelle Mcarthur MD ---- Signed (signature on file) Dr. Manfred Solorzano DO 01/27/24 1257 ---- Normal [facility] Comment on above: Performed By: #### P SUIV ####[facility] [address] [place], [address] CBC W/Diff, Automatedon 09-0 6-2023 Absolute Lymph 1.58 X10 3/uL Normal 0.83-4.51 [facility] Comment on above: Performed By: #### L 100.0100, L500.4050, L500.4100 ####[facility] [address] [place], [address] Absolute Neut 3.8 X10 3/uL Normal 2.0-7.7 [facility] Comment on above: Performed By: #### L 100.0100, L500.4050, L500.4100 ####[facility] [address] [place], [address] Basophils/100 WBC (Bld) 0.5 % Normal 0-1 [facility] Comment on above: Performed By: #### L 100.0100, L500.4050, L500.4100 ####[facility] [address] [place], [address] Eosinophils/100 WBC (Bld) 3.9 % Normal 0-5 [facility] Comment on above: Performed By: #### L 100.0100, L500.4050, L500.4100 ####[facility] [address] [place], [address] Erythrocyte distribution width (RBC) [Ratio] 14.1 % Normal 11.6-14.6 [facility] Comment on above: Performed By: #### L 100.0100, L500.4050, L500.4100 ####[facility] [address] [place], [address] Hematocrit (Bld) [Volume fraction] 38.0 % Normal 37-47 [facility] Comment on above: Performed By: #### L 100.0100, L500.4050, L500.4100 ####[facility] [address] [place], [address] Hemoglobin (Bld) [Mass/Vol] 12.6 g/dL Normal 12.0-15.0 [facility] Comment on above: Performed By: #### L 100.0100, L500.4050, L500.4100 ####[facility] [address] [place], [address] IG% 0.200 Normal 0.0-0.9 [facility] Comment on above: Result Comment: IG% - Immature Granulocytes (promyelocytes, myelocytes and metamyelocytes) > 1% indicates that a LEFT SHIFT is Present. Performed By: #### L 100.0100, L500.4050, L500.4100 ####[facility] [address] [place], [address] Lymphocytes/100 WBC (Bld) 24.9 % Normal 19-41 [facility] Comment on above: Performed By: #### L 100.0100, L500.4050, L500.4100 ####[facility] [address] [place], [address] MCH (RBC) [Entitic mass] 29.3 pg Normal 27.0-32.0 [facility] Comment on above: Performed By: #### L 100.0100, L500.4050, L500.4100 ####[facility] [address] [place], [address] MCHC (RBC) [Mass/Vol] 33.2 g/dL Normal 32-36 [facility] Comment on above: Performed By: #### L 100.0100, L500.4050, L500.4100 ####[facility] [address] [place], [address] MCV (RBC) [Entitic vol] 88.4 fL Normal 81-99 [facility] Comment on above: Performed By: #### L 100.0100, L500.4050, L500.4100 ####[facility] [address] [place], [address] Monocytes/100 WBC (Bld) 9.9 % Normal 0-10 [facility] Comment on above: Performed By: #### L 100.0100, L500.4050, L500.4100 ####[facility] [address] [place], [address] Neutrophils/100 WBC (Bld) 60.6 % Normal 47-70 [facility] Comment on above: Performed By: #### L 100.0100, L500.4050, L500.4100 ####[facility] [address] [place], [address] Nucleated RBC (Bld) [#/Vol] 0 10*3/uL Normal 0-5 [facility] Comment on above: Performed By: #### L 100.0100, L500.4050, L500.4100 ####[facility] [address] [place], [address] Platelet mean volume (Bld) [Entitic vol] 9.8 fL Normal 6.2-12.0 [facility] Comment on above: Performed By: #### L 100.0100, L500.4050, L500.4100 ####[facility] [address] [place], [address] Platelets (Bld) [#/Vol] 258 10*3/uL Normal 150-450 [facility] Comment on above: Performed By: #### L 100.0100, L500.4050, L500.4100 ####[facility] [address] [place], [address] RBC (Bld) [#/Vol] 4.30 10*6/uL Normal 4.2-5.4 [facility] Comment on above: Performed By: #### L 100.0100, L500.4050, L500.4100 ####[facility] [address] [place], [address] RDW SD 45.7 fl High 35.1-43.9 [facility] Comment on above: Performed By: #### L 100.0100, L500.4050, L500.4100 ####[facility] [address] [place], [address] WBC (Bld) [#/Vol] 6.3 10*3/uL Normal 4.4-11.0 [facility] Comment on above: Performed By: #### L 100.0100, L500.4050, L500.4100 ####[facility] [address] [place], [address] Comprehensive Metabolic Prof [facility] 01-17-2024 Albumin [Mass/Vol] 3.7 g/dL Normal 3.2-5.0 [facility] Comment on above: Performed By: #### L 100.0100, L500.4050, L500.4100 ####[facility] [address] [place], [address] Albumin/Globulin [Mass ratio] 0.9 {ratio} Normal 0.9-2.4 [facility] Comment on above: Performed By: #### L 100.0100, L500.4050, L500.4100 ####[facility] [address] [place], [address] ALK P 79 U/L Normal 45-117 [facility] Comment on above: Performed By: #### L 100.0100, L500.4050, L500.4100 ####[facility] [address] [place], [address] ALT [Catalytic activity/Vol] 29 U/L Normal 13-56 [facility] Comment on above: Performed By: #### L 100.0100, L500.4050, L500.4100 ####[facility] [address] [place], [address] AST [Catalytic activity/Vol] 31 U/L Normal 15-37 [facility] Comment on above: Performed By: #### L 100.0100, L500.4050, L500.4100 ####[facility] [address] [place], [address] Bilirubin [Mass/Vol] 0.50 mg/dL Normal 0.20-1.00 [facility] Comment on above: Result Comment: For patients on eltrombopag therapy, use of Dimension [place] TBIL is not recommended. Performed By: #### L 100.0100, L500.4050, L500.4100 ####[facility] [address] [place], [address] BUN/CRE 23.5 RATIO High 10-20 [facility] Comment on above: Performed By: #### L 100.0100, L500.4050, L500.4100 ####[facility] [address] [place], [address] CA,Total 9.7 mg/dL Normal 8.5-10.1 [facility] Comment on above: Performed By: #### L 100.0100, L500.4050, L500.4100 ####[facility] [address] [place], [address] Chloride [Moles/Vol] 104 mmol/L Normal 98-107 [facility] Comment on above: Performed By: #### L 100.0100, L500.4050, L500.4100 ####[facility] [address] [place], [address] CO2 [Moles/Vol] 29.0 mmol/L Normal 21.0-32.0 [facility] Comment on above: Performed By: #### L 100.0100, L500.4050, L500.4100 ####[facility] [address] [place], [address] Creatinine [Mass/Vol] 0.85 mg/dL Normal 0.55-1.02 [facility] Comment on above: Result Comment: The validity of the calculated GFR GFRAA in patients over 70 years has not been determined. Clinical correlation is essential. Performed By: #### L 100.0100, L500.4050, L500.4100 ####[facility] [address] [place], [address] EST GFR - AA 86 mL/min Normal >60 [facility] Comment on above: Result Comment: Afri can English GFR Calc Performed By: #### L 100.0100, L500.4050, L500.4100 ####[facility] [address] [place], [address] GAP 4 Low 5-15 [facility] Comment on above: Performed By: #### L 100.0100, L500.4050, L500.4100 ####[facility] [address] [place], [address] GFR/1.73 sq M.predicted among non-blacks MDRD (S/P/Bld) [Vol rate/Area] 71 mL/min/{1.73_m2} Normal >60 [facility] Comment on above: Result Comment: Non- GFR Calc Performed By: #### L 100.0100, L500.4050, L500.4100 ####[facility] [address] [place], [address] Globulin (S) [Mass/Vol] 3.9 g/dL Normal 2.2-4.2 [facility] Comment on above: Performed By: #### L 100.0100, L500.4050, L500.4100 ####[facility] [address] [place], [address] Glucose [Mass/Vol] 103 mg/dL Normal 74-106 [facility] Comment on above: Result Comment: Fast ing Glucose result from 100 to 125 mg/dL suggests IMPAIRED HOMEOSTASIS per A.D.A. criteria. Performed By: #### L 100.0100, L500.4050, L500.4100 ####[facility] [address] [place], [address] Potassium [Moles/Vol] 4.4 mmol/L Normal 3.5-5.1 [facility] Comment on above: Performed By: #### L 100.0100, L500.4050, L500.4100 ####[facility] [address] [place], [address] Sodium [Moles/Vol] 137 mmol/L Normal 136-145 [facility] Comment on above: Performed By: #### L 100.0100, L500.4050, L500.4100 ####[facility] [address] [place], [address] T PROT 7.6 g/dL Normal 6.4-8.2 [facility] Comment on above: Performed By: #### L 100.0100, L500.4050, L500.4100 ####[facility] [address] [place], [address] Urea nitrogen [Mass/Vol] 20 mg/dL High 7-18 [facility] Comment on above: Performed By: #### L 100.0100, L500.4050, L500.4100 ####[facility] [address] [place], [address] Internal Medicine Office Vis raudel 01-17-2024 Internal Medicine Office Visit [facility] [address] [place] [address] [place] [address] OFFICE VISIT Date of Service: 01/17/24 MR#: [id number] Acct: [id number] Name: SHENA QUIÑONES Rep #: [id number] : 1960 Provider: KALEY Smith Age/Sex: 64/F [place] 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 Patient is having a lipoma removed from base of her neck posteriorly Overall patient is a [age]vuegf36 year old female without significant past medical [...] eye doctor annually and her specialist in [place] every other year She has had some [...] Musc Musculoskeleta (more content not included)... Normal [facility] Lipid Profileon 01-17-2024 Cholesterol [Mass/Vol] 222 mg/dL High 200 [facility] Comment on above: Result Comment: <200 mg/dL Desirable 200-240 mg/dL Borderline >240 mg/dL High Risk Performed By: #### L 100.0100, L500.4050, L500.4100 ####[facility] [address] [place], [address] Cholesterol in HDL [Mass/Vol] 69 mg/dL Normal [facility] Comment on above: Result Comment: The drugs N-Acetylcysteine and Metamizole may falsely depress this assay. Reference Range HDL <40 mg/dL Low HDL Cholesterol HDL >or= 60 mg/dL High HDL Cholesterol Performed By: #### L 100.0100, L500.4050, L500.4100 ####[facility] [address] [place], [address] Cholesterol in LDL [Mass/Vol] 140 mg/dL High 0-130 [facility] Comment on above: Performed By: #### L 100.0100, L500.4050, L500.4100 ####[facility] [address] [place], [address] Cholesterol in VLDL [Mass/Vol] 13 mg/dL Normal 5-40 [facility] Comment on above: Performed By: #### L 100.0100, L500.4050, L500.4100 ####[facility] [address] [place], [address] Triglyceride [Mass/Vol] 67 mg/dL Normal [facility] Comment on above: Result Comment: The drugs N-Acetylcysteine and Metamizole may falsely depress this assay. Serum Triglycerides Reference Interval Normal <150 mg/dL Borderline high 150 - 199 mg/dL High 200 - 499 mg/dL Very High > or = 500 mg/dL Performed By: #### L 100.0100, L500.4050, L500.4100 ####[facility] [address] [place], [address] Urinalysis, Completeon 01-16 BACTERIA 0 SEEN Normal None Seen [facility] Comment on above: Order Comment: RJ CTOR TO SPECIFY Performed By: #### L 400.0001 ####[facility] [address] [place], [address] EPI,SQUAMOUS 0 SEEN Normal 5-10 [facility] Comment on above: Order Comment: RJ CTOR TO SPECIFY Performed By: #### L 400.0001 ####[facility] [address] [place], [address] Mucus Ql (Urine sed) 0 SEEN Normal [facility] Comment on above: Order Comment: RJ CTOR TO SPECIFY Performed By: #### L 400.0001 ####[facility] [address] [place], [address] RBC 0 SEEN Normal 0-5 [facility] Comment on above: Order Comment: RJ CTOR TO SPECIFY Performed By: #### L 400.0001 ####[facility] [address] [place], [address] WBC 0 SEEN Normal 0-5 [facility] Comment on above: Order Comment: RJ CTOR TO SPECIFY Performed By: #### L 400.0001 ####[facility] [address] [place], [address] Plastic Surgery Visit Report on 01-08-2024 Plastic Surgery Visit Report [facility] Plastic Reconstructive Surgery [address], [address] [place] [address] OFFICE VISIT Date of Service: 01/08/24 MR#: [id number] Acct: [id number] Name: SHENA QUIÑONES Rep #: [id number] : 1960 Provider: Dr. Michelle gilbert MD Age/Sex: 64/F [place] 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 Normal [facility] CREATININE FINGERSTICKon CREATININE WB < 1.0 Normal 0.55-1.02 [facility] Comment on above: Performed By: #### L 9100.0200 ####[facility] [address] [facility] [place], [address] EGFR WB > 60.0000 Normal >60 [facility] Comment on above: Performed By: #### L 9100.0200 ####[facility] [address] [facility] [place], [address] Orbit Face Neck W/WO Contras ton 01-06-2024 Orbit Face Neck W/WO Contrast [facility] [address] [place] [address] Orbit Face Neck W/WO Contrast MR#: [id number] Acct: [id number] Name: SHENA QUIÑONES Rep #: [id number] : 1960 F 64 From: Edil Hoover MD PCP: Dr. Sulma Teague MD Status: REG CLI Study: Orbit Face Neck W/WO Contrast Date of Exam: Exam# [id number] Ordering Dr: Michelle Mcarthur MD [id number] EXAMINATION: MRI NECK WITH CONTRAST- MR Face Neck Orbit WO/W Contrast TECHNIQUE: Multiplanar multisequence magnetic resonance imaging of the neck was performed before and after the administration of IV gadolinium-based contrast material. INDICATION: 64 years old Female SOFT TISSUE MASS BACK OF NECK-4 1/2 -- 4 1/2 GERARD SOFT TISSUE MASS BACK OF NECK. [...] Sulma Teague MD; Dr. Michelle Mcarthur MD Transportation Department Supervisor: Signed Normal [facility] Plastic Surgery Visit Report on 12-25-2023 Plastic Surgery Visit Report [facility] Plastic Reconstructive Surgery [address], [address] [place] [address] OFFICE VISIT Date of Service: 12/25/23 MR#: [id number] Acct: [id number] Name: SHENA QUIÑONES Rep #: [id number] : 1960 Provider: Dr. Michelle gilbert MD Age/Sex: 63/F [place] 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 Normal [facility] 09-11-2023 SKYLARN Telephone (OBGYWM) SHENA QUIÑONES ([id number]) 1960 F NFR Date Time Provider Department 09/11/23 JARED HERNANDEZ During your visit today, we recorded the following information about you: Lyndsay Sun RN 09/11/2023 12:40 PM Signed Daniel pharmacist called. They changed wholesalers for the Clobetasol ointment. It's now over $200 for the ointment. Asking if it can be switched to the cream. Can call the pharmacy with the change or send in a new RX. MILE Rutledge Emily, GANTRY RIGGER.[facility] 09/12/2023 8:11 AM Signed Can switch to cream. Please call in. Jared Hernandez APRN.TAPING MACHINE OPERATOR Lilly Zapata RN 09/12/2023 10:52 AM Signed [facility] pharmacy notified. 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] IRRITABLE COLON [K58.9] ABDOMINAL PAIN OTHER SPEC SITE [R10.9] OTHR MIGRNE WO NTRC MGRN [G43.809] PRURITUS OF GENITALIA [L29.3] BACTEREMIA NOS [R78.81] PURE HYPERCHOLESTEROLEM [E78.00] Lump or mass in breast [N63.0] 04/25/2010 Endometrial polyp [N84.0] 11/23/2014 Fibroids, submucosal [D25.0] 11/23/2014 Encounter Status:Closed by LILLY ZAPATA on 09/12/23 [facility] CNOVon 06-26-2023 CNOV Office Visit (OBGYWM ) SHENA QUIÑONES ([id number]) 1960 F NFR Date Time Provider Department 06/26/23 12:45 PM JARED HERNANDEZ During your visit today, we recorded the following information about you: Blood pressure Weight Height 134/82 83.9 kg 1.638 m Jared Hernandez APRN.TAPING MACHINE OPERATOR 06/26/2023 1:44 PM Signed Forge [employer]ater offered: Patient declines. 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 Normal [facility] BACTERIAL VAGINOSIS NAATon 0 05-27-2023 Lactobacillus crispatus+gasseri+edgardo enii + Gardnerella vaginalis + Atopobium vaginae rRNA VALDO+probe Ql (Vag fld) Negative Normal Negative for bacterial vaginosis [facility] Comment on above: Order Comment: Speci men Type: SWAB Ordering Facility: [facility] Address: [address] [place] [address] Performed By: #### C VTV, BVAMP #### [facility] CLIA [id number] [address] [place] [address] [place] WICHO/TRICHOMONAS NAATon 0 05-27-2023 C. glabrata RNA VALDO+probe Ql (Vag fld) Negative Normal Negative for Wicho glabrata [facility] Comment on above: Order Comment: Speci men Type: SWAB Ordering Facility: [facility] Address: [address] [place] [address] Performed By: #### C VTV, BVAMP #### [facility] CLIA [id number] [address] [place] [address] OF [place] Wicho sp DNA VALDO+probe Ql (Vag fld) Negative Normal Negative for Wicho species [facility] Comment on above: Order Comment: Speci men Type: SWAB Ordering Facility: [facility] Address: [address] [place] [address] Performed By: #### C VTV, BVAMP #### [facility] CLIA [id number] [address] [place] [address] OF [facility] T. vaginalis DNA VALDO+probe Ql (Unsp spec) Negative Normal Negative for Trichomonas vaginalis by amplification [facility] Comment on above: Order Comment: Speci men Type: SWAB Ordering Facility: [facility] Address: [address] [place] [address] Performed By: #### C VTV, BVAMP #### [facility] CLIA [id number] [address] [place] [address] [place] CNOVon 05-27-2023 CNOV Office Visit (OBGYWM ) SHENA QUIÑONES ([id number]) 1960 F NFR Date Time Provider Department 05/27/23 11:30 AM JARED HERNANDEZ OBSEYMOURWLarry During your visit today, we recorded the following information about you: Pulse Respiration Blood pressure Weight 82/minute 12/minute 122/88 85.2 kg Height 1.676 m Jared Hernandez APRN.TAPING MACHINE OPERATOR 05/27/2023 12:05 PM Signed Forge Heater offered: Patient declines. 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 Normal [facility] Absolute lymphocyte countOrd ered By: Sulma Teague on 01-12-2024 Lymphocytes Auto (Unsp spec) [#/Vol] 1.13 10*3/uL 0.83-4.51 [facility] Basophil percentageOrdered B y: Sulma Teague on 05-24-2023 Basophils/100 WBC (Bld) 0.7 % 0-1 [facility] Bilirubin [Mass/Vol] 0.50 mg/dL 0.20-1.00 [facility] Comment on above: For patients on eltr ombopag therapy, use of Dimension [place] TBIL is not recommended. Chloride [Moles/Vol] 105 mmol/L 98-107 [facility] Cholesterol [Mass/Vol] 227 mg/dL <200 [facility] Comment on above: <200 mg/dL Desirable 200-240 mg/dL Borderline >240 mg/dL High Risk Eosinophils/100 WBC (Bld) 5.8 % 0-5 [facility] Glucose [Mass/Vol] 91 mg/dL 74-106 [facility] Neutrophils (Bld) [#/Vol] 2.7 10*3/uL 2.0-7.7 [facility] Neutrophils/100 WBC (Bld) 59.1 % 47-70 [facility] Potassium [Moles/Vol] 4.0 mmol/L 3.5-5.1 [facility] Protein [Mass/Vol] 7.6 g/dL 6.4-8.2 [facility] Sodium [Moles/Vol] 139 mmol/L 136-145 [facility] Triglyceride [Mass/Vol] 74 mg/dL <199 [facility] Comment on above: The drugs N-Acetylcy steine and Metamizole may falsely depress this assay.Serum Triglycerides Reference Interval Normal <150 mg/dL Borderline high 150 - 199 mg/dL High 200 - 499 mg/dL Very High > or = 500 mg/dL WBC (Bld) [#/Vol] 4.5 10*3/uL 4.4-11.0 [facility] Blood erythrocytes count (nu mber/volume)Ordered By: Sulma Teague on 05-24-2023 RBC (Bld) [#/Vol] 4.43 10*6/uL 4.2-5.4 [facility] Blood hemoglobin measurement (mass/volume)Ordered By: Sulma Teague on 05-24-2023 Hemoglobin (Bld) [Mass/Vol] 13.1 g/dL 12.0-15.0 [facility] Blood lymphocytes/100 leukoc ytesOrdered By: Sluma Teague on 05-24-2023 Lymphocytes/100 WBC (Bld) 25.1 % 19-41 [facility] Blood monocytes/100 leukocyt esOrdered By: Sulma Teague on 05-24-2023 Monocytes/100 WBC (Bld) 9.1 % 0-10 [facility] Blood platelet mean volumeOr dered By: Sulma Teague on 05-24-2023 Platelet mean volume (Bld) [Entitic vol] 9.7 fL 6.2-12.0 [facility] Determination of erythrocyte mean corpuscular volume (MCV)Ordered By: Sulma Teague on 05-24-2023 MCV (RBC) [Entitic vol] 90.3 fL 81-99 [facility] Hematocrit Auto (Bld) [Volum e fraction]Ordered By: Sulma Teague on 05-24-2023 Hematocrit (Bld) [Volume fraction] 40.0 % 37-47 [facility] Laboratory - Chemistry and C hemistry - challengeOrdered By: Sulma Teague on 05-24-2023 ALP [Catalytic activity/Vol] 78 U/L 45-117 [facility] ALT [Catalytic activity/Vol] 31 U/L 13-56 [facility] CO2 [Moles/Vol] 28.0 mmol/L 21.0-32.0 [facility] Globulin (S) [Mass/Vol] 3.9 g/dL 2.2-4.2 [facility] Urea nitrogen/Creatinine [Mass ratio] 22.3 mg/mg 10-20 [facility] Laboratory - Hematology and Cell countsOrdered By: Sulma Teague on 05-24-2023 Erythrocyte distribution width (RBC) [Entitic vol] 45.3 fL 35.1-43.9 [facility] Erythrocyte distribution width (RBC) [Ratio] 13.7 % 11.6-14.6 [facility] Immature granulocytes/100 WBC (Bld) 0.200 % 0.0-0.9 [facility] Comment on above: IG% - Immature Granu locytes (promyelocytes, myelocytes and metamyelocytes) > 1% indicates that a LEFT SHIFT is Present. MCH (RBC) [Entitic mass] 29.6 pg 27.0-32.0 [facility] Nucleated RBC/100 WBC (Bld) [Ratio] 0 % 0-5 [facility] MCHC Auto (RBC) [Mass/Vol]Or dered By: Sulma Teague on 05-24-2023 MCHC (RBC) [Mass/Vol] 32.8 g/dL 32-36 [facility] No Panel InformationOrdered By: Sulma Teague on 05-24-2023 Estimated GFR (MDRD) Amer 105 mL/min >60 [facility] Comment on above: GFR Calc Estimated GFR (MDRD) Non-Af Amer 87 mL/min >60 [facility] Comment on above: Non- GFR Calc Platelets bldOrdered By: Paco Teague on 05-24-2023 Platelets (Bld) [#/Vol] 264 10*3/uL 150-450 [facility] Serum or plasma albumin declan urement (mass/volume)Ordered By: Sulma Teague on 05-24-2023 Albumin [Mass/Vol] 3.7 g/dL 3.2-5.0 [facility] Serum or plasma albumin/glob ulin mass ratioOrdered By: Sulma Teague on 05-24-2023 Albumin/Globulin [Mass ratio] 0.9 {ratio} 0.9-2.4 [facility] Serum or plasma calcium declan urement (mass/volume)Ordered By: Sulma Teague on 05-24-2023 Calcium [Mass/Vol] 9.1 mg/dL 8.5-10.1 [facility] Serum or plasma cholesterol in HDL measurement (mass/volume)Ordered By: Sulma Teague on 05-24-2023 Cholesterol in HDL [Mass/Vol] 69 mg/dL >40 [facility] Comment on above: The drugs N-Acetylcy steine and Metamizole may falsely depress this assay. Reference Range HDL <40 mg/dL Low HDL Cholesterol HDL >or= 60 mg/dL High HDL Cholesterol Serum or plasma cholesterol in VLDL measurement (mass/volume)Ordered By: Sulma Teague on 05-24-2023 Cholesterol in VLDL [Mass/Vol] 15 mg/dL 5-40 [facility] Serum or plasma creatinine m easurement (mass/volume)Ordered By: Sulma Teague on 05-24-2023 Creatinine [Mass/Vol] 0.72 mg/dL 0.55-1.02 [facility] Comment on above: The validity of the calculated GFR & GFRAA in patients over 70 years has not been determined. Clinical correlation is essential. Serum or plasma low density lipoprotein (LDL) cholesterol measurement (mass/volume)Ordered By: Sulma Teague on 05-24-2023 Cholesterol in LDL [Mass/Vol] 143 mg/dL 0-130 [facility] Serum or plasma urea nitroge n measurement (mass/volume)Ordered By: Sulma Teague on 05-24-2023 Urea nitrogen [Mass/Vol] 16 mg/dL 7-18 [facility] Thin prep Papanicolaou smear with manual screeningOrdered By: Sulma Teague on 05-24-2023 Thin prep Papanicolaou smear with manual screening 28 U/L 15-37 [facility] Thin prep Papanicolaou smear with manual screening 6 5-15 [facility] CNPNon 04-18-2023 CNPN Telephone (RUST) SHENA QUIÑONES ([id number]) 1960 F NFR Date Time Provider Department 04/18/23 BEHZAD LAFLEUR RUST During your visit today, we recorded the following information about you: Behzad Lafleur PA 04/18/2023 11:35 AM Signed Please call [...] 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] MYALGIA AND MYOSITIS NOS [[id number]] 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] IRRITABLE COLON [K58.9] ABDOMINAL PAIN OTHER SPEC SITE [R10.9] OTHR MIGRNE WO [facility] MGRN [G43.809] PRURITUS OF GENITALIA [L29.3] BACTEREMIA NOS [R78.81] PURE HYPERCHOLESTEROLEM [E78.00] Lump or mass in breast [N63.0] 04/25/2010 Endometrial polyp [N84.0] 11/23/2014 Fibroids, submucosal [D25.0] 11/23/2014 Encounter Status:Closed by JASON GRANDE on 04/18/23 [facility] BACTERIAL VAGINOSIS NAATon 1 2- Lactobacillus crispatus+gasseri+edgardo enii + Gardnerella vaginalis + Atopobium vaginae rRNA VALDO+probe Ql (Vag fld) Negative Normal Negative for bacterial vaginosis [facility] Comment on above: Order Comment: Speci men Type: SWAB Ordering Facility: [facility] Address: [address] [place] [address] Performed By: #### C VTV, BVAMP #### [facility] CLIA [id number] [address] [place] [address] [place] WICHO/TRICHOMONAS NAATon 1 06-18-2022 C. glabrata RNA VALDO+probe Ql (Vag fld) Negative Normal Negative for Wicho glabrata [facility] Comment on above: Order Comment: Speci men Type: SWAB Ordering Facility: [facility] Address: [address] [place] [address] Performed By: #### C VTV, BVAMP #### [facility] CLIA [id number] [address] [place] [address] [place] Wicho sp DNA VALDO+probe Ql (Vag fld) Negative Normal Negative for Wicho species [facility] Comment on above: Order Comment: Speci men Type: SWAB Ordering Facility: [facility] Address: [address] [place] [address] Performed By: #### C VTV, BVAMP #### [facility] CLIA [id number] [address] [place] [address] [place] T. vaginalis DNA VALDO+probe Ql (Unsp spec) Negative Normal Negative for Trichomonas vaginalis by amplification [facility] Comment on above: Order Comment: Speci men Type: SWAB Ordering Facility: [facility] Address: [address] [place] [address] Performed By: #### C VTV, BVAMP #### [facility] CLIA [id number] [address] [place] [address] [place] CNOVon 04-17-2023 CNOV Office Visit (UCWSTR ) SHENA QUIÑONES ([id number]) 1960 F NFR Date Time Provider Department 04/17/23 4:30 PM BEHZAD LAFLEUR RUST During your visit today, we recorded the following information about you: Temperature Pulse Respiration Blood pressure 98 degrees 82/minute 18/minute 166/104 Weight 83.3 kg Behzad Lafleur PA 04/17/2023 4:52 PM Signed Follow up with Gynecology/womens health for nexta vailable appointment. Behzad Lafleur PA 04/17/2023 5:00 PM Signed This note was created using Simple Star[employer]. Subjective Shena Quiñones is a 63 year [...] then the itching returned. She has tried xtmz-oxt-djuslef medications. She has changed soaps and nothing [...] nursing note reviewed. Exam conducted with a facial operator present. Constitutional: General: She is not [...] No lesions (more content not included)... Normal [facility] Cervical or vagninal specime n microscopic examination by cytology stain (reported asOrdered By: Dr. Eldridge on 06-27-2022 Cytology report Cyto stain Doc (Cvx/Vag) Comment . [facility] Comment on above: The Pap smear is [...] DNA Probe+sig amp Ql (Cvx) Negative Negative [facility] Comment on above: This nucleic acid am plification test detects fourteen high- risk HPV types (16,18,31,33,35,39,45,51,52,56,58,59,66,68)without differentiation. Laboratory - CytologyOrdered By: Dr. Eldridge on 06-27-2022 Market Research Consultant Cyto stain Nom (Cvx/Vag) [ID] Comment . [facility] Comment on above: Torres Eldridge , Child Adolescent Psychiatrist (ASCP) Laboratory - Miscellaneous t estsOrdered By: Dr. Eldridge on 06-27-2022 Service comment (Unsp spec) [Interp] Comment . [facility] Comment on above: This liquid based Th inPrep(R) pap test was screened withthe use of an image guided system. Service comment (Unsp spec) [Interp] . . [facility] Liquid-based cerv Pap + CT/G C by VALDO w reflex to high-risk HPV for ASCUSOrdered By: Dr. Eldridge on 06-27-2022 Cytology report Cyto stain.thin prep Doc (Cvx/Vag) Comment . [facility] Comment on above: Criteria not met, HP V Genotype not performed.Performed at: - [facility] [id number] Director: Ivy Khalil MD, Phone: [phone] at: =G - [facility] [id number] Director: Ivy Khalil MD, Phone: [phone] No Panel InformationOrdered By: Dr. Eldridge on 06-27-2022 Pathology report final diagnosis Narrative Comment . [facility] Comment on above: NEGATIVE FOR INTRAEP ITHELIAL LESION OR MALIGNANCY.CELLULAR CHANGES ASSOCIATED WITH ATROPHY ARE PRESENT. Basophil percentageOrdered B y: Dr. Yeung on 06-04-2022 Chloride [Moles/Vol] 103 mmol/L 98-107 [facility] Cholesterol [Mass/Vol] 243 mg/dL <200 [facility] Comment on above: <200 mg/dL Desirable 200-240 mg/dL Borderline >240 mg/dL High Risk Glucose [Mass/Vol] 95 mg/dL 74-106 [facility] Potassium [Moles/Vol] 4.4 mmol/L 3.5-5.1 [facility] Sodium [Moles/Vol] 139 mmol/L 136-145 [facility] Triglyceride [Mass/Vol] 76 mg/dL <199 [facility] Comment on above: The drugs N-Acetylcy steine and Metamizole may falsely depress this assay.Serum Triglycerides Reference Interval Normal <150 mg/dL Borderline high 150 - 199 mg/dL High 200 - 499 mg/dL Very High > or = 500 mg/dL Laboratory - Chemistry and C hemistry - challengeOrdered By: Dr. Yeugn on 06-04-2022 CO2 [Moles/Vol] 26.0 mmol/L 21.0-32.0 [facility] Urea nitrogen/Creatinine [Mass ratio] 28.8 mg/mg 10-20 [facility] No Panel InformationOrdered By: Dr. Yeung on 06-04-2022 Estimated GFR (MDRD) Amer 98 mL/min >60 [facility] Comment on above: GFR Calc Estimated GFR (MDRD) Non-Af Amer 81 mL/min >60 [facility] Comment on above: Non- GFR Calc Vitamin D 25-Hydroxy 67.6 ng/mL [facility] Comment on above: Vitamin D 25(OH) Sta tus Range Deficiency <20 ng/mL (50nmol/L) Insufficiency 20 - 30 ng/mL (50 - 75 nmol/L) Sufficiency 30 - 100 ng/mL (75 - 250 nmol/L) Toxicity >100 ng/mL (>250 nmol/L) Serum or plasma calcium declan urement (mass/volume)Ordered By: Dr. Yeung on 06-04-2022 Calcium [Mass/Vol] 9.8 mg/dL 8.5-10.1 [facility] Serum or plasma cholesterol in HDL measurement (mass/volume)Ordered By: Dr. Yeung on 06-04-2022 Cholesterol in HDL [Mass/Vol] 70 mg/dL >40 [facility] Comment on above: The drugs N-Acetylcy steine and Metamizole may falsely depress this assay. Reference Range HDL <40 mg/dL Low HDL Cholesterol HDL >or= 60 mg/dL High HDL Cholesterol Serum or plasma cholesterol in VLDL measurement (mass/volume)Ordered By: Dr. Yeung on 06-04-2022 Cholesterol in VLDL [Mass/Vol] 15 mg/dL 5-40 [facility] Serum or plasma creatinine m easurement (mass/volume)Ordered By: Dr. Yeung on 06-04-2022 Creatinine [Mass/Vol] 0.76 mg/dL 0.55-1.02 [facility] Comment on above: The validity of the calculated GFR & GFRAA in patients over 70 years has not been determined. Clinical correlation is essential. Serum or plasma low density lipoprotein (LDL) cholesterol measurement (mass/volume)Ordered By: Dr. Yeung on 06-04-2022 Cholesterol in LDL [Mass/Vol] 158 mg/dL 0-130 [facility] Serum or plasma urea nitroge n measurement (mass/volume)Ordered By: Dr. Yeung on 06-04-2022 Urea nitrogen [Mass/Vol] 22 mg/dL 7-18 [facility] Thin prep Papanicolaou smear with manual screeningOrdered By: Dr. Yeung on 06-04-2022 Thin prep Papanicolaou smear with manual screening 10 5-15 [facility] OCT MACULA CIRRUS OU (BOTH E YES) [facility] Vital Signs Date Time Vital Sign Value Performing Clinician Faci lity 11-09-2024 12:45-0400 Body height 167.[address] Sulma Teague MD Work Phone: [facility] 11-09-2024 12:45-0400 Body mass index (BMI) [Ratio] 29 kg/m2 Dr. Sulma Teague MD Work Phone: [facility] 11-09-2024 12:45-0400 Body temperature 97.2 [degF] Dr. Sulma Teague MD Work Phone: [facility] 11-09-2024 12:45-0400 Body weight 81.[address] Sulma Teague MD Work Phone: [facility] 11-09-2024 12:45-0400 Diastolic blood pressure 78 mm[Hg] Dr. Sulma Teague MD Work Phone: [facility] 11-09-2024 12:45-0400 Heart rate 81 /min Dr. Sulma Teague MD Work Phone: [facility] 11-09-2024 12:45-0400 Respiratory rate 18 /min Dr. Sulma Teague MD Work Phone: [facility] 11-09-2024 12:45-0400 SaO2% (BldA) [Mass fraction] 97 % Dr. Sulma Teague MD Work Phone: [facility] 11-09-2024 12:45-0400 Systolic blood pressure 124 mm[Hg] Dr. Sulma Teague MD Work Phone: [facility] 10-27-2024 11:44-0400 Body height 167.[address] Sulma Teague MD Work Phone: [facility] 10-27-2024 11:44-0400 Body mass index (BMI) [Ratio] 29 kg/m2 Dr. Sulma Teague MD Work Phone: [facility] 10-27-2024 11:44-0400 Body temperature 97 [degF] Dr. Sulma Teague MD Work Phone: [facility] 10-27-2024 11:44-0400 Body weight 81.[address] Sulma Teague MD Work Phone: [facility] 10-27-2024 11:44-0400 Diastolic blood pressure 68 mm[Hg] Dr. Sulma Teague MD Work Phone: [facility] 10-27-2024 11:44-0400 Heart rate 76 /min Dr. Sulma Teague MD Work Phone: [facility] 10-27-2024 11:44-0400 Respiratory rate 18 /min Dr. Sulma Teague MD Work Phone: [facility] 10-27-2024 11:44-0400 SaO2% (BldA) [Mass fraction] 96 % Dr. Sulma Teague MD Work Phone: [facility] 10-27-2024 11:44-0400 Systolic blood pressure 126 mm[Hg] Dr. Sulma Teague MD Work Phone: [facility] 08-05-2024 11:36-0400 Body height 167.[address] Sulma Teague MD Work Phone: [facility] 08-05-2024 11:36-0400 Body mass index (BMI) [Ratio] 29.5 kg/m2 Dr. Sulma Teague MD Work Phone: [facility] 08-05-2024 11:36-0400 Body temperature 97.2 [degF] Dr. Sumla Teague MD Work Phone: [facility] 08-05-2024 11:36-0400 Body weight 83.[address] Sulma Teague MD Work Phone: [facility] 08-05-2024 11:36-0400 Diastolic blood pressure 78 mm[Hg] Dr. Sulma Teague MD Work Phone: [facility] 08-05-2024 11:36-0400 Heart rate 92 /min Dr. Sulma Teague MD Work Phone: [facility] 08-05-2024 11:36-0400 Respiratory rate 16 /min Dr. Sulma Teague MD Work Phone: [facility] 08-05-2024 11:36-0400 SaO2% (BldA) [Mass fraction] 95 % Dr. Sulma Teague MD Work Phone: [facility] 08-05-2024 11:36-0400 Systolic blood pressure 126 mm[Hg] Dr. Sulma Teague MD Work Phone: [facility] 06-17-2024 09:20-0500 Body height 167.[address] Sulma Teague MD Work Phone: [facility] 06-17-2024 09:10-0500 Body mass index (BMI) [Ratio] 30.5 kg/m2 Dr. Sulma Teague MD Work Phone: [facility] 06-17-2024 09:10-0500 Body weight 85.[address] Sulma Teague MD Work Phone: [facility] 06-17-2024 09:10-0500 Diastolic blood pressure 82 mm[Hg] Dr. Sulma Teague MD Work Phone: [facility] 06-17-2024 09:10-0500 Systolic blood pressure 120 mm[Hg] Dr. Sulma Teague MD Work Phone: [facility] 07-17-2023 11:14-0500 Body height 167.[address] Satnam Yeung Work Phone: [facility] 07-17-2023 11:14-0500 Body mass index (BMI) [Ratio] 29.8 kg/m2 Dr. Satnam Yeung Work Phone: [facility] 07-17-2023 11:14-0500 Body temperature 98 [degF] Dr. Satnam Yeung Work Phone: [facility] 07-17-2023 11:14-0500 Body weight 83.[address] Satnam Yeung Work Phone: [facility] 07-17-2023 11:14-0500 Diastolic blood pressure 80 mm[Hg] Dr. Satnam Yeung Work Phone: [facility] 07-17-2023 11:14-0500 Heart rate 73 /min Dr. Satnam Yeung Work Phone: [facility] 07-17-2023 11:14-0500 Respiratory rate 16 /min Dr. Satnam Yeung Work Phone: [facility] 07-17-2023 11:14-0500 SaO2% (BldA) [Mass fraction] 97 % Dr. Satnam Yeung Work Phone: [facility] 07-17-2023 11:14-0500 Systolic blood pressure 122 mm[Hg] Dr. Satnam Yeung Work Phone: [facility] 07-02-2023 11:00-0500 Body temperature 97.2 [degF] Dr. Surinder Yeung Work Phone: [facility] 07-02-2023 11:00-0500 Diastolic blood pressure 85 mm[Hg] Dr. Surinder Yeung Work Phone: [facility] 07-02-2023 11:00-0500 Heart rate 65 /min Dr. Surinder Yeung Work Phone: [facility] 07-02-2023 11:00-0500 Respiratory rate 18 /min Dr. Surinder Yeung Work Phone: [facility] 07-02-2023 11:00-0500 SaO2% (BldA) [Mass fraction] 100 % Dr. Surinder Yeung Work Phone: [facility] 07-02-2023 11:00-0500 Systolic blood pressure 126 mm[Hg] Dr. Surinder Yeung Work Phone: [facility] 07-02-2023 08:55-0500 Body height 167.[address] uSrinder Yeung Work Phone: [facility] 07-02-2023 08:55-0500 Body mass index (BMI) [Ratio] 28.8 kg/m2 Dr. Surinder Yeung Work Phone: [facility] 07-02-2023 08:55-0500 Body weight 80.[address] Surinder Yeung Work Phone: [facility] 06-26-2023 12:41-0500 Body height 163.8 cm Jared Hernandez APRN.TAPING MACHINE OPERATOR Work Phone: [facility] 06-26-2023 12:41-0500 Body weight 83.92 kg Jared Hernandez GANTRY RIGGER.TAPING MACHINE OPERATOR Work Phone: [facility] 06-26-2023 12:41-0500 Diastolic blood pressure 82 mm[Hg] Jared Haury GANTRY RIGGER.TAPING MACHINE OPERATOR Work Phone: [facility] 06-26-2023 12:41-0500 Systolic blood pressure 134 mm[Hg] Jared Haury GANTRY RIGGER.TAPING MACHINE OPERATOR Work Phone: [facility] 05-31-2023 14:18-0500 Body mass index (BMI) [Ratio] 30.4 kg/m2 Dr. Surinder Yeung Work Phone: [facility] 05-31-2023 14:18-0500 Body temperature 97.2 [degF] Dr. Surinder Yeung Work Phone: [facility] 05-31-2023 14:18-0500 Body weight 85.[address] Surinder Yeung Work Phone: [facility] 05-31-2023 14:18-0500 Diastolic blood pressure 79 mm[Hg] Dr. Surinder Yeung Work Phone: 5(823)[phone] [address] 05-31-2023 14:18-0500 Heart rate 89 /min Dr. Surinder Yeung Work Phone: 8(148)324-084825 [place] [address] 05-31-2023 14:18-0500 Respiratory rate 18 /min Dr. Surinder Yeung Work Phone: 8(653)016-198553 [address] 05-31-2023 14:18-0500 SaO2% (BldA) [Mass fraction] 93 % Dr. Surinder Yeung Work Phone: 1(682)513-299053 [address] 05-31-2023 14:18-0500 Systolic blood pressure 136 mm[Hg] Dr. Surinder Yeung Work Phone: 3(605)102-297153 [address] 05-20-2023 11:10-0500 Body height 167.[address] Surinder Yeung Work Phone: 2(152)[phone] [place] [address] 05-20-2023 11:10-0500 Body mass index (BMI) [Ratio] 30.7 kg/m2 Dr. Surinder Yeung Work Phone: 9(326)[phone] [address] 05-20-2023 11:10-0500 Body temperature 97 [degF] Dr. Surinder Yeung Work Phone: 0(840)589-715125 [place] [address] 05-20-2023 11:10-0500 Body weight 86.[address] Surinder Yeung Work Phone: 6(852)756-333953 [address] 05-20-2023 11:10-0500 Diastolic blood pressure 74 mm[Hg] Dr. Surinder Yeung Work Phone: [facility] 05-20-2023 11:10-0500 Heart rate 92 /min Dr. Surinder Yeung Work Phone: [facility] 05-20-2023 11:10-0500 Respiratory rate 16 /min Dr. Surinder Yeung Work Phone: [facility] 05-20-2023 11:10-0500 SaO2% (BldA) [Mass fraction] 96 % Dr. Surinder Yeung Work Phone: [facility] 05-20-2023 11:10-0500 Systolic blood pressure 126 mm[Hg] Dr. Surinder Yeung Work Phone: [facility] 04-17-2023 16:35-0500 Body temperature 98.01 [degF] Krislyn Aberegg PA Work Phone: [facility] 04-17-2023 16:35-0500 Body weight 83.28 kg Krislyn Aberegg PA Work Phone: [facility] 04-17-2023 16:35-0500 Diastolic blood pressure 104 mm[Hg] Krislyn Aberegg PA Work Phone: [facility] 04-17-2023 16:35-0500 Heart rate 82 /min Krislyn Aberegg PA Work Phone: [facility] 04-17-2023 16:35-0500 Respiratory rate 18 /min Krislyn Aberegg PA Work Phone: [facility] 04-17-2023 16:35-0500 SaO2% (BldA) [Mass fraction] 98 % Krislyn Aberegg PA Work Phone: [facility] 04-17-2023 16:35-0500 Systolic blood pressure 166 mm[Hg] Krislyn Aberegg PA Work Phone: [facility] Encounters Encounter Date Encounter Type Care Provider Facility Start: 11-09-2024 End: 11-09-2024 Patient encounter procedure Nika VALENTIN -[facility] Work Phone: Start: 11-09-2024 End: 11-09-[address] Sulma Teague MD Work Phone: -[facility] Start: 10-28-2024 Encounter for other preprocedural examination Anirudh Conner [facility] Start: 10-27-2024 End: 10-27-[address] Sulma Teague MD -[facility] Work Phone: Start: 10-27-2024 End: 10-27-[address] Sulma Teague MD [facility] Start: 10-27-2024 End: 10-27-[address] Sulma Teague MD Work Phone: [facility] Work Phone: Start: 10-21-2024 End: 10-21-2024 Non-patient / Non-visit Dr. Rigo Arriola MD -[facility] Work Phone: Start: 10-21-2024 End: 10-21-[address] Sulma Teague MD Work Phone: [facility] Work Phone: Start: 10-21-2024 End: 10-21-[address] Anirudh Conner MD -Pulmonary Services/Neurology Work Phone: Start: 10-21-2024 End: 10-21-2024 ambulatory Sulma eTague Facility:[facility] Start: 08-17-2024 End: 08-17-[address] Sulma Teague MD Work Phone: [facility] Work Phone: Start: 08-17-2024 End: 08-17-[address] Anirudh Conner MD -Radiology, [facility] Work Phone: Start: 08-17-2024 End: 08-17-2024 ambulatory Sulma Teague Facility:[facility] Start: 08-07-2024 End: 08-07-[address] Sulma Teague MD Work Phone: [facility] Work Phone: Start: 08-07-2024 End: 08-07-[address] Sulma Teague MD -Laboratory, [facility] Start: 08-07-2024 End: 08-07-2024 ambulatory Sulma Teague Facility:[facility] Start: 08-05-2024 End: 08-05-[address] Sulma Teague MD -[facility] Work Phone: Start: 08-05-2024 End: 08-05-2024 ambulatory Sulma Teague Facility:[facility] Start: 07-08-2024 End: 07-08-[address] Sulma Teague MD Work Phone: [facility] Work Phone: Start: 07-08-2024 End: 07-08-2024 Patient encounter procedure Milena Escamilla GENERATION TECHNICIAN-C -Outpatient Breast Imaging Work Phone: Start: 07-08-2024 End: 07-08-2024 ambulatory Milena Escamilla GENERATION TECHNICIAN Facility:[facility] Start: 06-17-2024 End: 06-17-2024 Patient encounter procedure Milena Escamilla GENERATION TECHNICIAN-C -[facility] Work Phone: Start: 06-17-2024 End: 06-17-2024 Patient encounter status Milena Escamilla GENERATION TECHNICIAN-C [facility] Start: 06-17-2024 End: 06-17-2024 ambulatory Milena Escamilla GENERATION TECHNICIAN Facility:[facility] Start: 06-17-2024 End: 06-17-2024 ambulatory Milena Rodriguezs GENERATION TECHNICIAN Facility:[facility] Start: 02-05-2024 End: 02-05-2024 ambulatory Sulma Teague Facility:[facility] Start: 01-31-2024 End: 01-31-2024 ambulatory Sulma Ho Facility:[facility] Start: 01-24-2024 ambulatory [facility] Start: 01-24-2024 End: 01-24-2024 ambulatory [facility] Facility:[facility] Start: 01-20-2024 Encounter for preprocedural laboratory examination [facility] Start: 01-17-2024 End: 01-17-2024 ambulatory Sulma Oh Facility:[facility] Start: 01-17-2024 End: 01-17-2024 ambulatory Sulma Ho Facility:[facility] Start: 01-08-2024 End: 01-08-2024 ambulatory Sul[place] Facility:[facility] Start: 01-06-2024 End: 01-06-2024 ambulatory Sulma [place] Facility:[facility] Start: 12-25-2023 End: 12-25-2023 ambulatory Sulma [place] Facility:[facility] Start: 09-11-2023 Telephone encounter Jared peña APRN.CNP Work Phone: OB/Gynecology Comment on above: Medication Problem Start: 09-11-2023 End: 09-11-[address] Satnam Yeung Work Phone: [facility] Work Phone: Start: 09-11-2023 End: 09-11-[address] Satnam Yeung Work Phone: [facility]-Physical Therapy Work Phone: Start: 07-17-2023 End: 07-17-[address] Satnam Yeung Work Phone: [facility] Work Phone: Start: 07-10-2023 End: 07-10-[address] Satnam Yeung Work Phone: [facility] Work Phone: Start: 07-04-2023 End: 07-04-[address] Satnam Yeung Work Phone: [facility]-Outpatient Breast Imaging Work Phone: Start: 07-02-2023 Non-patient / Non-visit Dr. Franklin Yeung Work Phone: [facility] Start: 07-02-2023 End: 07-02-2023 Admission to same day surgery center Dr. Surinder Yeung Work Phone: [facility]-Endoscopy Work Phone: Start: 07-02-2023 End: 07-02-[address] Surinder Yeung Work Phone: [facility] Work Phone: Start: 06-26-2023 End: 06-27-2023 ambulatory JARED HERNANDEZ Facility:[facility] Start: 06-26-2023 End: 06-26-2023 Patient encounter procedure Jared Hernandez APRN.CNP Work Phone: OB/Gynecology Comment on above: Lichen sclerosus et atrophicus (Primary Dx); Genitourinary syndrome of menopause Start: 06-19-2023 End: 06-19-[address] Surnider Yeung Work Phone: [facility] Work Phone: Start: 06-19-2023 End: 06-19-[address] Surinder Yeung Work Phone: [facility]-Outpatient Bone Densitometry Work Phone: Start: 05-31-2023 End: 05-31-[address] Surinder Yeung Work Phone: [facility] Work Phone: Start: 05-27-2023 End: 05-27-2023 ambulatory FRANCISCO MCDANIELSF Facility:[facility] Start: 05-24-2023 End: 05-24-[address] Surinder Yeung Work Phone: [facility] Work Phone: Start: 05-24-2023 End: 05-24-[address] Surinder Yeung Work Phone: [facility]-Laboratory, [facility] Start: 05-20-2023 End: 05-20-[address] Surinder Yeung Work Phone: [facility] Work Phone: Start: 04-18-2023 Non-patient / Non-visit Dr. Franklin Yeung Work Phone: [facility] Work Phone: Start: 04-18-2023 Telephone encounter Behzad ROCHE Work Phone: [facility] Comment on above: Results Start: 04-17-2023 End: 04-17-2023 ambulatory [facility] Facility:[facility] Start: 04-17-2023 End: 04-17-2023 Patient encounter procedure Behzad ROCHE Work Phone: [facility] Comment on above: Vaginal itching (Taya leopoldo Dx); Elevated blood pressure reading without diagnosis of hypertension Start: 10-02-2022 End: 10-02-2022 ambulatory [facility] Facility:[facility] Start: 07-02-2022 End: 07-02-2022 ambulatory [facility] Work Phone: Start: 07-02-2022 End: 07-02-2022 Patient encounter procedure [facility]-Outpatient Breast Imaging Start: 06-27-2022 End: 06-27-2022 ambulatory [facility] Work Phone: Start: 06-27-2022 End: 06-27-2022 Patient encounter procedure [facility]-Laboratory, Specimen Start: 06-04-2022 End: 06-04-2022 ambulatory [facility] Work Phone: Start: 06-04-2022 End: 06-04-2022 Patient encounter procedure [facility] Start: 09-05-2021 End: 09-05-2021 Patient encounter procedure Murali Meng MD Work Phone: Ophthalmology Comment on above: 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 Sulma Teague MD Work Phone: Start: 08-17-2024 Plain x-ray for bone length measurement Dr. Sulma Teague MD Work Phone: Start: 08-07-2024 Vitamin D, 25-hydrox y measurement Dr. Sulma Teague MD Work Phone: Comment on above: Vitamin D StatusDefi ciency: <20 ng/mL (50nmol/L)Insufficiency: 20-30 ng/mL (50-75 nmol/L)Sufficiency: 30-100 ng/mL (75-250 nmol/L)Toxicity: >100 ng/mL (>250 nmol/L) Start: 07-08-2024 Screening mammography Yanci Teague MD Work Phone: Start: 07-04-2023 Screening mammography Yanci Yeung Work Phone: Start: 07-02-[address] Lan Yeung Work Phone: Start: 06-19-2023 Dual energy X-ray absorptiometry Dr. Surinder Yeung Work Phone: Start: 07-02-2022 Screening mammography Start: 09-05-2021 Computerized ophthal tabitha imaging retina Murali Meng MD Work Phone: Start: 11-17-2019 History of cataract extraction History of cataract surgery Dr. Sulma Teague MD Work Phone: Start: 04-12-2017 Mammography Murali perkins MD Work Phone: Start: 08-02-2014 Colonoscopy Murali perkins MD Work Phone: Start: 12-31-2012 Lipid 1996 panel - S shiv or Plasma Behzad ROCHE Work Phone: Plan of Treatment Date Care Activity Detail Author Start: 04-17-2031 Urine microalbumin profile DTaP,Tdap,Td Vaccine (2 - Td or Tdap) [facility] Start: 05-20-2028 Pneumococcal Vaccine: 65+ (3 of 3 - PPSV23 or PCV20) Pneumococcal Vaccine: 65+ (3 of 3 - PPSV23 or PCV20) [facility] Start: 08-02-2024 Colonoscopy COLONOSCOPY [facility] Start: 08-02-2024 COLORECTAL CANCER SCREENING COLORECTAL CANCER SCREENING [facility] Start: 08-02-2024 Screening for malignant neoplasm of colon [facility] Start: 01-12-2024 Influenza vaccination Influenza Vaccine (Season Ended) [facility] Start: 07-10-2023 Patient referral [facility] Work Phone: Start: 07-02-2023 Screening for malignant neoplasm of breast Mammogram Screening [facility] Start: 07-02-2023 Patient discharge [facility] Start: 05-22-2023 Shingrix Vaccine (2 of 2) Shingrix Vaccine (2 of 2) [facility] Start: 05-20-2023 Patient referral [facility] Work Phone: Start: 05-13-2023 Advance Directive Discussion Advance Directive Discussion [facility] Start: 01-11-2023 Covid-19 Vaccine ( season) Covid-19 Vaccine ( season) [facility] Start: 01-11-2023 Influenza vaccination Influenza Vaccine (#1) [facility] Start: 2023 Advance Directive Discussion Advance Directive Discussion [facility] Start: 2023 Bone Density Screening Bone Density Screening [facility] Start: 2023 Pneumococcal Vaccine: 65+ (2 - PCV) Pneumococcal Vaccine: 65+ (2 - PCV) [facility] Start: 2023 Screening for osteoporosis Bone Density Screening [facility] Start: 04-12-2022 HPV TESTING HPV TESTING [facility] Start: 04-12-2022 PAP TESTING PAP TESTING [facility] Start: 04-12-2018 Mammography [facility] Start: 2018 RSV Vaccine (1 - 1-dose 60+ series) RSV Vaccine (1 - 1-dose 60+ series) [facility] Start: 12-31-2017 Lipid 1996 panel - Serum or Plasma Lipid Screening [facility] Start: 12-31-2017 Lipid panel Lipid Screening [facility] Start: 12-31-2017 LIPID SCREEN LIPID SCREEN [facility] Start: 01-01-2016 DIABETES SCREEN DIABETES SCREEN [facility] Start: 01-01-2016 Diabetes Screening Diabetes Screening [facility] Start: 07-21-2015 FECAL OCCULT BLOOD FECAL OCCULT BLOOD [facility] Start: 07-21-2015 Screening for malignant neoplasm of colon Fecal Occult Blood [facility] Start: 01-04-2008 SHINGRIX VACCINE (1 of 2) SHINGRIX VACCINE (1 of 2) [facility] Start: 2003 COLOGUARD (FIT-DNA) COLOGUARD (FIT-DNA) [facility] Start: [address] COLONOGRAPHY [facility] Start: 2003 Screening for malignant neoplasm of colon [facility] Start: 2003 SIGMOIDOSCOPY SIGMOIDOSCOPY [facility] Start: 1977 Urine microalbumin profile DTAP,TDAP,TD (1 - Tdap) [facility] Start: 01-04-1976 HEPATITIS C SCREENING HEPATITIS C SCREENING [facility] Start: 01-04-1976 Hepatitis C screening Hepatitis C Screening [facility] Start: 01-04-1976 HIV SCREENING HIV SCREENING [facility] Start: 01-04-1976 HIV screening HIV Screening [facility] BACTERIAL VAGINOSIS NAAT BACTERI AL VAGINOSIS NAAT Lab Routine Vaginal itching 04/17/2023 7:24 PM EST [facility] Work Phone: WICHO/TRICHOMONAS NAAT WICHO /TRICHOMONAS NAAT Lab Routine Vaginal itching 04/17/2023 7:24 PM EST [facility] Work Phone: Colonoscopy [facility] DXA Bone [Mass/Area] Bone density [facility] Patient referral [facility] Work Phone: Urinalysis complete panel - Urine [facility] Immunizations Immunization Date Immunization Notes Care Provider Elena gant 07-10-[address] Sulma Teague MD Work Phone: [facility] 05-20-2023 pneumococcal conjuga te vaccine, [address] Surinder Yeung Work Phone: [facility] 03-27-[address] Surinder Yeung Work Phone: [facility] 01-28-2022 Covid Pfizer Bivalen t Booster Dr. Surinder Yeung Work Phone: [facility] 01-28-2022 influenza, injectabl e, quadrivalent, preservative free Dr. Surinder Yeung Work Phone: [facility] 01-28-2022 influenza virus vacc ine, unspecified formulation Behzad ROCHE Work Phone: [facility] 10-14-2021 Covid (Moderna) Dr. Edy Yeung Work Phone: [facility] 04-17-2021 tetanus toxoid, redu heydi diphtheria toxoid, and acellular pertussis vaccine, adsorbed Dr. Surinder Yeung Work Phone: [facility] 03-28-2021 Covid (Moderna) Dr. Edy Yeung Work Phone: [facility] 03-28-2021 influenza, injectabl e, quadrivalent, preservative free Dr. Surinder Yeung Work Phone: [facility] 03-13-2021 Covid (Moderna) Dr. Edy Yeung Work Phone: [facility] 07-22-2020 Covid (Moderna) Dr. Edy Yeung Work Phone: [facility] 06-24-2020 Covid (Moderna) Dr. Edy Yeung Work Phone: [facility] 01-28-2020 influenza, injectabl e, quadrivalent, preservative free Dr. Surinder Yeung Work Phone: [facility] 03-27-2018 influenza, injectabl e, quadrivalent, preservative free Dr. Surinder Yeung Work Phone: [facility] 12-09-2017 pneumococcal polysaccharide vaccine, [address] 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 [id number] 2018-Present [phone] [address] [place] [address] PPO [id number] 2006 Unknown [id number] Medicare PLAN G [id number] Unknown [id number] Unknown [id number] 2.16.840.1.745071.3.579.2.462 Unknown [id number] 2.16.840.1.009994.3.579.2.462 Unknown [id number] 2.16.840.1.430034.3.579.2.462 Unknown [id number] 2.16.840.1.218973.3.579.2.462 Unknown [id number] 2.16.840.1.688390.3.579.2.462 Unknown [id number] 2.16.840.1.170075.3.579.2.462 Unknown [id number] 2.16.840.1.999376.3.579.2.462 Unknown [id number] 2.16.840.1.157588.3.579.2.462 Unknown [id number] 2.16.840.1.856831.3.579.2.462 Unknown [id number] 2.16.840.1.359397.3.579.2.462 Unknown [id number] 2.16.840.1.776128.3.579.2.462 Unknown [id number] 2.16.840.1.490386.3.579.2.462 Unknown [id number] 2.16.840.1.782972.3.579.2.462 Unknown [id number] 2.16.840.1.656439.3.579.2.462 Unknown [id number] 2.16.840.1.928955.3.579.2.462 Unknown [id number] 2.16.840.1.106248.3.579.2.462 Unknown [id number] 2.16840.1.103241.3.579.2.462 Unknown [id number] 2.16840.1.357882.3.579.2.462 Social History Date Type Detail Facility Start: 04-17-2023 End: 06-17-2024 Tobacco smoking status NHIS Never smoked tobacco [facility] Start: 09-05-2021 End: 04-17-2023 Alcohol intake Current non-drinker of alcohol (finding) [facility] Start: 1960 Sex Assigned At Female [facility] Start: 04-17-2023 Tobacco use and exposure Smokeless tobacco non-user [facility] Start: 04-16-2020 End: 04-17-2023 History of Social function [facility] Start: 04-16-2020 End: 04-17-2023 Tobacco use panel [facility] National Score (1-100), lower number is lower risk Not on file [facility] Start: 11-15-2020 Gender identity Identifies as female gender (finding) [facility] Start: 05-20-2023 End: 07-17-2023 Tobacco smoking status NHIS Unknown if ever smoked [facility] Start: 06-26-2023 Alcohol intake Ex-drinker (finding) [facility] Start: 07-21-2024 End: 08-20-2024 Sex Female (finding) [facility] Medical Equipment Procedure Code Equipment Code Equipment Origin al Text Equipment Identifier Dates Gas Ispan Constellation Intraocular Vision System [id number] - [id number] Start: 04-13-2020 Goals Date Patient Goal Desired Activity /State Mental Status Date Assessment Result Facility 07-02-2023 Cognitive function Level Of Consciousness Sedated [facility] Work Phone: 07-02-2023 Cognitive function Voice/Name [facility] Work Phone: Clinical Notes 09-05-2021 to 10-22-2024 Note Date & Type Note Facility 10-22-2024 Radiology Diagnostic study note [facility] Imaging Services [address] [place], [place] [address] Extremity Lower without Contra MR#: [id number] Acct: [id number] Name: SHENA QUIÑONES Rep #: [id number] : 1960 F 64 From: Olga Sylvester MD PCP: Dr. Sulma Teague MD Status: REG CLI Study:Extremity Lower without Contra Date of Exam: 10/21/24 Exam# [id number] Ordering Dr: Mark Conner MD PROCEDURE: EXTREMITY LOWER WITHOUT CONTRA 10/21/2024 REASON FOR EXAM: PRE OP WASC TECHNIQUE: Axial CT images of the right knee obtained without intravenous contrast. [place] Sagittal reconstruction series were provided. CONTRAST: None One or more dose reduction techniques were used (e.g., Automated exposure control, adjustment of the mA and/or kV according to patient size, use of iterative reconstruction technique). RADIATION DOSE SUMMARY: DLP: 1191.61 mGycm COMPARISON: None FINDINGS: There is a moderate tricompartment osteoarthritis, most severe at the patellofemoral articulation, with joint space narrowing, subcortical cyst formation, and marginal osteophytes. There is no acute fracture or dislocation. There is no significant joint effusion. There is no soft tissue mass or cyst. There is no visible adenopathy. There is a 2.0 x 2.6 cm uncomplicated fat containing right inguinal hernia. Mineralization is normal. There is no visible atherosclerosis. CT/Extremity Lower without Contra IMPRESSION: There is a moderate tricompartment osteoarthritis, most severe at the patellofemoral articulation, with joint space narrowing, subcortical cyst formation, and marginal osteophytes. Reading Location: [facility] CC: Dr. Sulma Teague MD; Dr. Anirudh Conner MD ~ Transportation Department Supervisor: Signed [facility] 08-20-2024 Radiology Diagnostic study note [facility] Imaging Services [address] [place] [address] Bone Length MR#: [id number] Acct: [id number] Name: SHENA QUIÑONES Rep #: [id number] : 1960 F 64 From: Sarah Adams MD PCP: Dr. Sulma Teague MD Status: REG CLI Study:Bone Length Date of Exam: 08/17/24 Exam# [id number] Ordering Dr: Mark Conner MD EXAM: XR [...] and tibia atelectasis 78 cm. Reading [facility] CC: Dr. Sulma Teague MD; Dr. Anirudh Conner MD ~ Transportation Department Supervisor: Signed [facility] 08-05-2024 Evaluation note Diagnosis Onset Date Resolution Hyperlipidemia acute July 11:37am Chronic insomnia noneactive August 052024 11:37am Fibromyalgia noneactive August 05, 2024 11:37am Annual physical exam noneactive [facility] 2024 11:37am Chronic pain of both knees noneactive August 05, 2024 11:37am Chronic insomnia noneactive October 11:35am Preoperative clearance noneactive [facility] 2024 11:35am Fibromyalgia noneactive October 27 11:35am Chronic pain of both knees noneactive October 27, 2024 11:35am [facility] Work Phone: 1(835) 365-126603-26-2025 Evaluation note* Diagnosis Onset Date Resolution Status Admit Date Hyperlipidemia acute July 11:37am Chronic insomnia noneactive August 052024 11:37am Fibromyalgia noneactive August 05, 2024 11:37am Annual physical exam noneactive [facility] 2024 11:37am Chronic pain of both knees noneactiv e August 05, 2024 11:37am Hyperlipidemia acute October 27, 2024 11:35am Chronic insomnia noneactive October 11:35am Preoperative clearance noneactive [facility] 2024 11:35am Fibromyalgia noneactive October 27 11:35am Chronic pain of both knees noneactiv e October 27, 2024 11:35am [facility] Work Phone: 1(223) 999-405202-05-2025 Evaluation note* Diagnosis Onset Date Resolution Status Admit Date Family history of breast cancer acute June 17 9:08am Family history of cancer acute June 17, 2024 9:08am Encounter for routine gynecological examination noneactive 2024 9:08am [facility] Work Phone: 1(616) 916-666202-05-2025 Evaluation note* Diagnosis Onset Date Resolution Status Admit Date Family history of breast cancer acute June 17 9:08am Family history of cancer acute June 17, 2024 9:08am Encounter for routine gynecological examination noneactive Februa 2024 9:08am Hyperlipidemia acute July 11:37am Chronic insomnia noneactive August 052024 11:37am Fibromyalgia noneactive August 05, 2024 11:37am Annual physical exam noneactive [facility] 2024 11:37am Chronic pain of both knees noneactiv e August 05, 2024 11:37am [facility] Work Phone: 1(426) 554-610709-13-2024 [facility] Medical Records Department [address] [place] [address] History Physical Exam 01/24/24 0921 MR#: [id number] Acct: [id number] Name: SHENA QUIÑONES Rep #: [id number] : 1960 64 From: Michelle Mcarthur MD PCP: Dr. Sulma Teague MD Status:[facility] Location: [place] [address] History and Physical Date of Admission: 01/24/24 [...] Sulma Teague MD; Dr. Michelle Mcarthur MD [facility]igned[facility] Telephone encounter Note* Telephone Encounter - Lilly Zapata RN - 09/12/2023 10:52 AM EDT [facility] notified. Lilly Zapata RN [facility]05-02-2024 Miscellaneous Notes* Telephone Encounter - Lilly Zapata RN - 09/12/2023 10:52 AM EDT [facility] notified. Lilly Zapata RN * Telephone Encounter - Jared Hernandez APRN.CNP - 09/12/2023 8:11 AM EDT Can switch to cream. Please call in. Jared Hernandez APRN.CNP * Telephone Encounter - Lyndsay Sun RN - 09/11/2023 12:38 PM EDT [facility] pharmacist called. They changed wholesalers for the Clobetasol ointment. It's now over $200 for the ointment. Asking if it can be switched to the cream. Can call the pharmacy with the change or send in a new RX. Lyndsay Sun RN documented in this encounterProm[facility]05-[facility] Telephone encounter Note * Telephone Encounter - Jared Hernandez APRN.CNP - 09/12/2023 8:11 AM EDT Can switch to cream. Please call in. Jared Hernandez APRN.CNP [facility]05-01-2024 Telephone encounter Note* Telephone Encounter - Lyndsay Sun RN - 09/11/2023 12:38 PM EDT [facility] pharmacist called. They changed wholesalers for the Clobetasol ointment. It's now over $200 for the ointment. Asking if it can be switched to the cream. Can call the pharmacy with the change or send in a new RX. Lyndsay Sun RN [facility]05-01-2024 Discharge summary Author Torres Androsik [facility] September 11, 2023 11:24am Note Date/Time September 11, 2023 11:07a m [facility] Physical Therapy [facility] [address] [place] [address] / REHABILITATION SERVICES DISCHARGE SUMMARY MR#: [id number] Acct: [id number] Name: SHENA QUIÑONES Rep #: [id number] : 1960 63 From: Cert. PATRIZIA Ivory, OCS Referring Dr.: Dr. Sulma Teague MD Status: REG RCR Insurance: MEDICARE PART A B MEDICARE SUPPLEMENT PLAN Discharge Summary D/C summary: It has been my pleasure to treat SHENA QUIÑONES referred by Dr. Sulma Teague MD, with [...] please feel free to call me at [phone]. Thank you for the referral of thispatient. Sincerely, Torres Bonilla PT, Cert MDT, OCS Balance/Gait/Functional tests Balance/Special Test Scores Lower Extremity Functional Score: 54 Improvement % Improvement: 70 <Electronically signed by Torres Bonilla PT Cert. T, OCS> 09/11/23 1124 CC: Dr. Sulma Teague MD ~ JLA Signed [facility] Work Phone: 1(582) 685-461102-20-2024 History and physical note Author Dale Edwards [facility] July 02, 2023 10:03am Note Date/Time July 02, 2023 10:03am [facility] Medical Records Department [address] [place] [address] History & Physical Exam 07/02/23 1003 MR#: [id number] Acct: [id number] Name: SHENA QUIÑONES Rep #:[id number] : 1960 63 From: Dale prather MD PCP: Dr. Sulma Teague MD Status:[facility] Location: [place] [address] History and Physical Date of Admission: 07/02/23 [...] SCREENING Chief Complaint: Hemorrhoidconsult and c-scope consult Doctor Podiatric Medicine Required: No Is patient in pain?: No [...] (compound) #1 ea 05/31/23 [Rx Confirmed 05/31/23] PFSH Medical History (Updated 05/31/23 @ 15:[address] 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 Dale Edwards MD Pager: [facility] [address] [place] [address], [address] [place] [address] Office: I have examined the patient and the H&P has been reviewed. There are no clinicalchanges since date of exam. 07/02/23 1003 <Electronically signed by Dale Edwards MD> Cosigner Signature (if applicable): CC: Dr. Sulma Teague MD; Dr. Dale Edwards MD~ Signed [facility] Work Phone: 1(121) 981-550702-20-2024 Procedure [facility] 07-02-2023 Procedure [facility]02-14-2024 NoteHNO ID: [id number] Author: JARED HERNANDEZ APRN.TAPING MACHINE OPERATOR Service: ? Author Type: Nurse Practitioner Type: Progress Notes Filed: 06/26/2023 13:44 Note Text: Forge Heater offered: Patient declines. 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 Genitourinary syndrome of menopause - ICD9: 627.8, ICD10: N95.8 - To trial estrogen cream - Reviewed r/b/a, reviewed minimal systemic absorption, and directions - To follow up if symptoms ar (more content not included)...[facility]02-14-2024 Instructions* Patient Instructions* Jared Hernandez APRN.SKYLAR - 06/26/2023 1:00 PM EST Vaginal atrophy [...] hot flashes and has been approved by [place] [employer] for only 6 months of use, however has NOT been well studied in the [place] for tank terminal gauger effects AND THERE HAVE BEEN REPORTS OF [...] risk of heart disease. Consider having an [facility] blood test for further cardiac risk assessment [...] and are the major food contributors inthe [place]. For example, 8oz of milk (whole, lowfat or skim) contains about 300mg calcium, 8oz of yogurt contains 415mg. Nondairy sources include salmon and sardines and vegetables, such as French cabbage, kale, and broccoli. Foods fortified with [...] acid, calcium carbonate is found in some xylv-dog-zpvrhva antacid products, such as Tums and Rolaids [...] prescribed by your doctor. documented in this encounterPromedica Fostoria [facility]02-14-[facility] History of Present illness Narrative* Jared Hernandez APRN.CNP - 06/26/2023 12:38 PM EST Forge Heater offered: Patient declines. Shena is a 63 year old who presents for a follow up of vaginal itching, likely caused by lichen and atrophy. She has been using clobetasol cream nightly and reports that symptoms have significantly improved. She is postmenopausal. Has not used HRT in the past. Her last ap smear was NILM and HPV negative [id number]. She is sexually active, but does report dryness and irritation, resulting in painful intercourse. She also has occasional post coital bleeding. She is experiencing a major hot flash every nightbefore bed. She walks 3 times per week. 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 Genitourinary syndrome of menopause - ICD9: 627.8, ICD10: N95.8 - To trial estrogen cream - Reviewed r/b/a, reviewed minimal systemic absorption, and directions - To follow up if symptoms are unresolved Has upcoming colonoscopy and mammogram. Jared Hernandez APRN.CNP Medical Decision Making: Problems: Moderate: 2+ stable chronic illnesses Risk: Low: Low risk from testing/treatment Moderate: Drug management Medical Decision Making Level: 4 - Moderate documented in this encounterPromedica Fostoria [facility]01-15-2024 NoteHNO ID: [id number] Author: JARED HERNANDEZ APRN.SKYLAR Service: ? Author Type: Nurse Practitioner Type: Progress Notes Filed: 05/27/2023 12:05 Note Text: Forge Heater offered: Patient declines. 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 Jason Grande MA * Telephone Encounter - Behzad Lafleur PA - 04/18/2023 11:35 AM EST Please call patient let her know she was negative for yeast and bacterial vaginosis. Follow-up withwomen's health as discussed at visit. documented in this encounterPromedica Fostoria [facility]12-06-2023 NoteHNO ID: [id number] Author: Behzad Lafleur PA Service: ? Author Type: Physician Prosecuting Attorney Type: Progress Notes Filed: 04/17/2023 5:00 PM Note Text: This note was created using iAgree. Subjective Shena Quiñones is a 63 year [...] then the itching returned. She has tried ndal-vop-sdvmvor medications. She has changed soaps and nothing [...] nursing note reviewed. Exam conducted with a facial operator present. Constitutional: General: She is not [...] postmenopausal. Discussed she ne (more content not included)...[facility] 04-17-2023 History of Present illness Narrative* Behzad Lafleur PA - 04/17/2023 4:54 PM EST This note was created using [employer]. Subjective Shena Quiñones is a 63 year [...] No rash. States she was seen by loreto flores a few months ago and given miconazole cream. She states she thought it got a little bit better,but then the itching returned. She has tried raci-ukl-ardgqrt medications. She has changed soaps and nothing [...] nursing note reviewed. Exam conducted with a facial operator present. Constitutional: General: She is not [...] ER evaluation. KALEY Chambers documented in this encounterPromedica Fostoria [facility] Hospital12-06-2023 Instructions* Patient Instructions* Behzad Lafleur PA - 04/17/2023 4:52 PM EST Follow up with Gynecology/womens health for nexta vailable appointment. documented in this encounterPromedica Fostoria [facility] Hospital05-23-2023 NoteHNO ID: [id number] Author: Murali Meng MD Service: ? Author Type: Physician Type: Progress Notes Filed: 10/02/2022 11:53 AM Note Text: This is a 60 year old woman with history of macular hole right eye s/p Pars plana vitrectomy/gas 05/[address] Samuels at [facility] ([place], [place]) s/p Pars plana vitrectomy/MS/22% SF6 gas [...] and agree with all of its relevant components.[facility]02-15-2023 NotePap Smear Specimen Adequacy June 27, 2022 11:27amComment.Satisfactory for evaluation. Endocervical component may not bedistinguished in cases of atrophy.[facility] INTERFACED A#[id number] Hospitals Lake West Medical CenterComment on above:Satisfactory for evaluation. Endocervical component may not bedistinguished in cases of atrophy. 06-27-2022 NotePap Smear Specimen AdequacyFebruary 2022 11:27amComment. Satisfactory for evaluation. Endocervical component may not bedistinguished in cases of atrophy.[facility] INTERFACED A#[id number] Hospitals Lake West Medical CenterComment on above:Satisfactory for evaluation. Endocervical component may not bedistinguished in cases of atrophy.09-05-2021 History of Present illness Narrative* Murali Meng MD - 09/05/2021 3:53 PM EDT This is a 60 year old woman with history of macular hole right eye s/p Pars plana vitrectomy/gas 05/[address] Samuels at [facility] ([place], [place]) s/p Pars plana vitrectomy/MS/22% SF6gas left [...] of its relevant components. 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 adhesion documented in this encounter [facility] noteNo assessment information availableWHenry County Hospital Work Phone: Evaluation note* Diagnosis Vaginal itching- Primary Pruritus of genital organs Elevated blood pressure reading without diagnosis of hypertension documented in this encounter [facility]* Diagnosis Onset Date Resolution Status Screening for colon cancer n oneactive Immunization due noneactive Establishing care with new doctor, encounter for noneactive Lipoma noneactive Chronic insomnia noneactive Fibromyalgia noneactive Post-menopausal noneactive Chronic pain of both knees n oneactive Hemorrhoid noneactive Anal fissure acute Encounter for screening for malignant neoplasm of colon acute [facility] Work Phone: Evaluation note* Diagnosis 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 documented in this encounter [facility]* Diagnosis Onset Date Resolution Status Screening for colon cancer n oneactive Immunization due noneactive Establishing care with new doctor, encounter for noneactive Lipoma noneactive Chronic insomnia noneactive Fibromyalgia noneactive Post-menopausal noneactive Chronic pain of both knees n oneactive Hemorrhoid noneactive Anal fissure acute Encounter for screening for malignant neoplasm of colon acute Anal fissure acute Chronic constipation chronic Allergic dermatitis [facility] Work Phone: Reason for referral (narrative)No reason for referral information availableWHenry County Hospital Work Phone: Medications Administered Section Active [...] FoundDocuments on File Type Date Recorded 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 Expl anation Advance Directive(s) 04/11/2020 2:35 PM Advance Directive Response Recorded Date/ Time Living Will Yes June 19 1:46pm Power of Regional Maintenance Manager Yes June 19, 2023 1:46pm Advance Directive Response Recorded Date/ Time Name of Medical Power of Regional Maintenance Manager KALLI KAVONViolet June 13, 2023 11:20am Living Will Yes June 19 1:46pm Power of Regional Maintenance Manager Yes June 19, 2023 1:46pm Advance Directive Response Recorded Date/ Time Name of Medical Power of Regional Maintenance Manager , KALLI Heath KAVONViolet June 13, 2023 12:20pm Living Will Yes June 19 2:46pm Power of Regional Maintenance Manager Yes June 19, 2023 2:46pm Advance Directive Response Recorded Date/ Time Living Will Yes January 15, 2 024 1:21pm Power of Regional Maintenance Manager Yes January 16, 2024 1:21pm Advance Directive Response Recorded Date/ Time Living Will Yes January 15, 2 024 1:21pm Do you have a Healthcare Power of Regional Maintenance Manager? 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 CARE-PPW SENT HEMORRHOID AND COLONOSCOPY SCREENING [...] Allergic dermatitis Chief Complaint Admit Date 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) June 17, 2024 9 :08am SCREENING July 08, 2024 10:36am Reason for Visit Admit Date Family history of breast cancer June 17, 2024 9:08am Family history of cancer June 17 9:08am Encounter for routine gynecological exam ination June 17, 2024 9:08am Chief Complaint Admit Date 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) June 17, 2024 9 :08am SCREENING July [...] pain of both knees August 05 11:37am Chief Complaint Admit Date SCREENING July 08, 2024 10:36am MED REFILL August 05, 2024 11: 37am PRE OP October 21, 2024 8:12 am PRE OP October 21, 2024 8:35 am SURGICAL CLEARANCE October 27, 2024 11:3 5am Reason for Visit Admit Date Hyperlipidemia August 05, 2024 11: 37am Chronic insomnia August 05, 2024 11: 37am Fibromyalgia August 05, 2024 11: 37am Annual physical exam August 05, 2024 11 :37am Chronic pain of both knees August 05 11:37am Chronic insomnia October 27, 2024 11:3 5am Preoperative clearance October 27, 2024 1 1:35am Fibromyalgia October 27, 2024 11:3 5am Chronic pain of both knees October 27 11:35am Reason for Visit Admit Date Hyperlipidemia August 05, 2024 11: 37am Chronic insomnia August 05, 2024 11: 37am Fibromyalgia August 05, 2024 11: 37am Annual physical exam August 05, 2024 11 :37am Chronic pain of both knees August 05 11:37am Hyperlipidemia October 27, 2024 11:3 5am Chronic insomnia October 27, 2024 11:3 5am Preoperative clearance October 27, 2024 1 1:35am Fibromyalgia October 27, 2024 11:3 5am Chronic pain of both knees October 27 11:35am Chief Complaint Admit Date MED REFILL August 05, 2024 11: 37am PRE OP October 21, 2024 8:12 am PRE OP October 21, 2024 8:35 am SURGICAL CLEARANCE October 27, 2024 11:3 5am POSSIBLE UTI November 09, 2024 12:3 7pm Reason for Referral Specialty Diagnoses / Procedures Referred By Contac t Referred To Contact Gynecology Diagnoses Vaginal itching Procedures CONSULT TO GYNECOLOGY OFFICE/OUTPATIENT [facility] 60-74 MINUTES [facility] [address] [place] [address] Referral ID Status Reason Start Date Expiration Date Visits Requested Visits Authorized [id number] Authorized PCP Requested Referral Auto-Generate d Referral [...] or prosecute any alcohol or drug abuse patient.[facility] HospitalIn the event this information is protected by the Federal Confidentiality of Alcohol and Drug Abuse Patient Records regulations: The Federal rules restrict any use of the information to criminally investigate or prosecute any alcohol or drug abuse patient.[facility] HospitalIn the event this information is protected by the Federal Confidentiality of Alcohol and Drug Abuse Patient Records regulations: The Federal rules restrict any use of the information to criminally investigate or prosecute any alcohol or drug abuse patient.[facility] HospitalIn the event this information is protected by the Federal Confidentiality of Alcohol and Drug Abuse Patient Records regulations: The Federal rules restrict any use of the information to criminally investigate or prosecute any alcohol or drug abuse patient.[facility] HospitalIn the event this information is protected by the Federal Confidentiality of Alcohol and Drug Abuse Patient Records regulations: The Federal rules restrict any use of the information to criminally investigate or prosecute any alcohol or drug abuse patient.[facility] Reason for Visit (unrecogniz ed section and content) Reason Comments Vitreomacular adhesion of both eyes Reason Comments Vaginal Problem Itching and bloody x 3 months intermittent Reason Comments Results Reason Comments Yearly Exam Reason Comments Medication Problem Care Teams (unrecognized sec tion and content) Molecular Modeler Relationship Specialty Start Date End Date Salud Sargent MD [address] [facility] [address] [place] [address] PCP - General 07/01/03 Team Status: Active [...] Primary Care Provider Activ e Dr. Nikki Edlridge DO Attending Provider Active Molecular Modeler Relationship Specialty Start Date End Date Salud Sargent MD [address] [place] [address] [address] [place] [address] PCP - General 07/01/03 Molecular Modeler Relationship Specialty Start Date End Date Salud Sargent MD [address] [facility] [address] [place] [address] PCP - General 07/01/03 Team Status: Active [...] Sulma Teague MD Primary Care Provider Active Molecular Modeler Relationship Specialty Start Date End Date Salud Sargent MD [facility] [address] PCP - General 07/01/03 Team Status: Active [...] Care Provider, Referri ng Provider Active Jorge Coto PA, PA Attending Provider Active Molecular Modeler Relationship Specialty Start Date End Date Salud Sargent MD [address] [address] PCP - General 07/01/03 Team Status: Active Member Role Status Dates Dr. Sulma Teague MD Primary Care Provider Active Team Status: Inactive Member Role Status Dates Dr. Sulma Teague MD Primary Care Provider Active Start: June 17, 2024 End: June 17, 2024 Dr. Sulma Teague MD Referring Provider Active Start: June 17, 2024 End: June 17, 2024 Milena Escamilla GENERATION TECHNICIAN, GENERATION TECHNICIAN-C Attending Provider Active Start: June 17, 2024 End: June 17, 2024 Team Status: Inactive Member Role Status Dates Dr. Sulma Teague MD Primary Care Provider Active Start: June 17, 2024 End: June 17, 2024 Milena Escamilla GENERATION TECHNICIAN, GENERATION TECHNICIAN-C Attending Provider Active Start: June 17, 2024 End: June 17, 2024 Milena Escamilla GENERATION TECHNICIAN, GENERATION TECHNICIAN-C Referring Provider Active Start: June 17, 2024 End: June 17, 2024 Team Status: Inactive Member Role Status Dates Dr. Sulma Teague MD Primary Care Provider Active Start: July 08, 2024 End: July 08, 2024 Milena Escamilla GENERATION TECHNICIAN, GENERATION TECHNICIAN-C Attending Provider Active Start: July 08, 2024 End: July 08, 2024 Milena Escamilla GENERATION TECHNICIAN, GENERATION TECHNICIAN-C Referring Provider Active Start: July 08, 2024 [...] August 17, 2024 End: August 17, 2024 Team Status: Active Member Role Status Dates Dr. Sulma Teague MD Primary Care Provider Active Start: October 21, 2024 Dr. Anirudh Conner MD Attending Provider Active Start: October 21, 2024 Dr. Anirudh Conner MD Referring Provider Active Start: October 21, 2024 Team Status: Active Member Role Status Dates Dr. Sulma Teague MD Primary Care Provider Active Start: October 21, 2024 End: October 21, 2024 Dr. Rigo Arriola MD Attending Provider Active Start: October 21, 2024 End: October 21, 2024 Dr. Anirudh Conner MD Referring Provider Active Start: October 21, 2024 End: October 21, 2024 Team Status: Inactive Member Role Status Dates Dr. Sulma Teague MD Primary Care Provider Active Start: October 27, 2024 End: October 27, 2024 Dr. Sulma Teague MD Attending Provider Active Start: October 27, 2024 End: October 27, 2024 Dr. Sulma Teague MD Referring Provider Active Start: October 27, 2024 End: October 27, 2024 Team Status: Inactive Member Role Status Dates Dr. Sulma Teague MD Primary Care Provider Active Start: October 21, 2024 End: October 21, 2024 Dr. Anirudh Conner MD Attending Provider Active Start: October 21, 2024 End: October 21, 2024 Dr. Ainrudh Conner MD Referring Provider Active Start: October 21, 2024 End: October 21, 2024 Team Status: Active Member Role/Relationship Status Dates Dr. Sulma Teague MD Primary Care Provider Active Team Status: Inactive Member Role/Relationship Status Dates Dr. Sulma Teague MD Primary Care Provider Active Start: August 05, 2024 End: August 05, 2024 Dr. Sulma Teague MD Attending Provider Active Start: August 05, 2024 End: August 05, 2024 Dr. Sulma Teague MD Referring Provider Active Start: August 05, 2024 End: August 05, 2024 Team Status: Inactive Member Role/Relationship Status Dates Dr. Sulma Teague MD Primary Care Provider Active Start: August 07, 2024 End: August 07, 2024 Dr. Sulma Teague MD Attending Provider Active Start: August 07, 2024 End: August 07, 2024 Dr. Sulma Teague MD Referring Provider Active Start: August 07, 2024 End: August 07, 2024 Team Status: Inactive Member Role/Relationship Status Dates Dr. Sulma Teague MD Primary Care Provider Active Start: August 17, 2024 End: August 17, 2024 Dr. Anirudh Conner MD Attending Provider Active Start: August 17, 2024 End: August 17, 2024 Dr. Anirudh Conner MD Referring Provider Active Start: August 17, 2024 End: August 17, 2024 Team Status: Inactive Member Role/Relationship Status Dates Dr. Sulma Teague MD Primary Care Provider Active Start: October 21, 2024 End: October 21, 2024 Dr. Anirudh Conner MD Attending Provider Active Start: October 21, 2024 End: October 21, 2024 Dr. Anirudh Conner MD Referring Provider Active Start: October 21, 2024 End: October 21, 2024 Team Status: Active Member Role/Relationship Status Dates Dr. Sulma Teague MD Primary Care Provider Active Start: October 21, 2024 End: October 21, 2024 Dr. Rigo Arriola MD Attending Provider Active Start: October 21, 2024 End: October 21, 2024 Dr. Anirudh Conner MD Referring Provider Active Start: October 21, 2024 End: October 21, 2024 Team Status: Inactive Member Role/Relationship Status Dates Dr. Sulma Teague MD Primary Care Provider Active Start: October 27, 2024 End: October 27, 2024 Dr. Sulma Teague MD Attending Provider Active Start: October 27, 2024 End: October 27, 2024 Dr. Sulma Teague MD Referring Provider Active Start: October 27, 2024 End: October 27, 2024 Team Status: Inactive Member Role/Relationship Status Dates Dr. Sulma Teague MD Primary Care Provider Active Start: November 09, 2024 End: November 09, 2024 Dr. Sulma Teague MD Referring Provider Active Start: November 09, 2024 End: November 09, 2024 BARBIE Funez Attending Provider Active Start: November 09, 2024 End: November 09, 2024 Goals (unrecognized section and content) Goals [...] section and content) DATE CREATED AUTHOR 09/13/2023 [facility] DATE CREATED AUTHOR AUTHOR'S MARBELLA PAPPAS 11/21/2024 [facility] FOR RECORDS PERTAINING TO PATIENTS WHO ARE [...] BE BASED ON THE PRIMARY CLINICAL RECORDS. [employer] provides no warranty or guarantee of the accuracy or completeness of information in this document.
== END | disposition home or self-care (01) ==
PROVIDERS: PCP Internal Medicine; Referring Provider Physician Assistant Surgical; Visit Provider Physician Assistant Surgical
DX: M79.661 Pain in right lower leg (principal); Z96.651 Presence of right artificial knee joint
CPT/HCPCS: 93971

== ENCOUNTER → 2025-02-05 | Outpatient (CLI) | payer MEDICARE, OTHER, SELFPAY ==
[2025-02-05 13:53] LABS: Hematocrit 35.3 % (37-47); Hemoglobin 12.0 g/dL (12.0-15.0); Immature Granulocytes Count 0.020 X10^3/uL (0.0-0.0); Mean Corp Hgb Conc 34.0 g/dL (32-36); Mean Corpuscular Volume 85.9 fL (81-99); Mean Platelet Vol. 9.5 fl (6.2-12.0); NRBC Flagged by Analyzer 0 % (0-5); Platelet Count 264 K/mm3 (150-450); RBC Distribution Width CV 14.6 % (11.6-14.6); RBC Distribution Width SD 44.9 fl (35.1-43.9); Red Blood Count 4.11 M/mm3 (4.2-5.4); White Blood Count 7.6 K/mm3 (4.4-11.0)
[2025-02-05 15:09] LABS: Albumin, Serum 4.2 g/dL (3.4-4.8); Anion Gap 12 (5-15); BUN 22 mg/dL (4-19); BUN/Creat Ratio 25.8 RATIO (10-20); Calcium,Total 9.7 mg/dL (7.6-11.0); Carbon Dioxide 26.0 mmol/L (21.0-32.0); Chloride 99 mmol/L (98-108); Glucose 86 mg/dL (70-99); Potassium 4.1 mmol/L (3.3-5.1)
== END | disposition home or self-care (01) ==
PROVIDERS: PCP Internal Medicine; Referring Provider Specialist; Visit Provider Specialist
DX: Z01.818 Encounter for other preprocedural examination (principal); M17.12 Unilateral primary osteoarthritis, left knee
CPT/HCPCS: 36415; 80048; 82040; 85025

== ENCOUNTER → 2025-02-05 | Outpatient (CLI) | payer MEDICARE, OTHER, SELFPAY ==
--- NOTE | 2025-02-05 12:52 | CT_ITS ---
PROCEDURE: EXTREMITY LOWER WITHOUT CONTRA 02/05/2025 REASON FOR EXAM: KNEE PAIN TECHNIQUE: Procedure Code: CTELWO Modality: CT Procedure: EXTREMITY LOWER WITHOUT CONTRA Coronal and Sagittal reconstruction series were provided. CONTRAST: None One or more dose reduction techniques were used (e.g., Automated exposure control, adjustment of the mA and/or kV according to patient size, use of iterative reconstruction technique). 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 Marginal osteophytes and subcortical cyst formation are noted. There is no fracture or dislocation identified. There are no visible loose bodies. Moderate lateral patellar subluxation is noted. There is a moderate joint effusion. A Del Real's cyst is visible measuring 5.0 by 2.1 by 1.5 cm. Varicosities are noted. CT/Extremity Lower without Contra IMPRESSION: There is moderate tricompartment osteoarthritis, most severe in the medial comp artment. There is a moderate joint effusion. A Del Real's cyst is visible measuring 5.0 by 2.1 by 1.5 cm. Reading Location: [facility]
--- OUTSIDE RECORDS SUMMARY | 2025-02-05 13:12 | XMS RPT_ITS | CCD ---
Author Organization [facility] Care Team Providers Care Systems Test Engineer Name Role Phone Salud Sargent MD Primary Care Provider [phone] Dr. Surinder Yeung Primary Care Provider [phone] RIOS Quintana Attending Provider Unavailable Dr. Surinder Yeung Referring Provider Dr. Sulma Teague Attending Provider [phone] Dr. Dale Edwards Attending Provider [phone] Dr. Sulma Teague Primary Care Provider Salud [...] Unavailable BONEZZI, SALUD M Primary Care Unavailable GIOVANNAFRANCISCO Attending Unavailable ROSETTA, SALUD M Primary Care Unavailable JARED HERNANDEZ Attending Unavailable ROSETTA, SALUD M Primary Care Unavailable Ho MCKENNA, Dr. Ozuna Primary Care Provider [phone] Dr. Sulma Teague MD Referring Provider Rogers LAB COURIER-C, Milena Attending Provider [phone] Francine LAB COURIER-C, Milena Referring Provider Ho MCKENNA, Dr. Ozuna Attending Provider Dalila MCKENNA, Dr. Oleary Attending Provider [phone] Dalila MCKENNA, Dr. Oleary Referring Provider [phone] Ho MCKENNA, Dr. Ozuna Primary Care Provider Rogers LAB COURIER-C, Milena Attending Provider [phone] Francine LAB COURIER-C, Milena Referring Provider Ho MCKENNA, Dr. Ozuna Referring Provider Flako MCKENNA, Dr. Sierra Attending Provider Ho MCKENNA, Dr. Ozuna Primary Care Provider [phone] Lizetterer LAB COURIER-C, Nika Attending Provider [phone] Michelle ROCHE-C Ray Attending Provider Eshenaur PA-C Ray Referring Provider [place], Sulma Primary Care Unavailable Francine LAB COURIER, Milena Attending Unavailable Ho, Sulma Referring Unavailable [place], Sulma Primary Care Unavailable [place], Sulma Attending Unavailable Ho, Sulma Referring Unavailable [place], Sulma Attending Unavailable Ho, Sulma Referring Unavailable [place], Sulma Primary Care Unavailable Anirudh Conner Referring Unavailable Anirudh Conner Attending Unavailable [place], Sulma Primary Care Unavailable Anirudh Conner Attending Unavailable Ho, Sulma Primary Care Unavailable Anirudh Conner Referring Unavailable Anirudh Conner Attending Unavailable [place], Sulma Primary Care Unavailable Anirudh Conner Referring Unavailable Anirudh Conner Attending Unavailable [place], Sulma Primary Care Unavailable Nasir Martinez Attending Unavailable Nasir Martinez Referring Unavailable Ho, Sulma Primary Care Unavailable Ho, Sulma Primary Care Unavailable Francine LAB COURIER, Milena Attending Unavailable Rogers LAB COURIER, Milena Referring Unavailable Ho, Sulma Primary Care Unavailable Rogers LAB COURIER, Milena Attending Unavailable Francine LAB COURIER, Milena Referring Unavailable Ho, Sulma Primary Care Unavailable [place], Sulma Attending Unavailable [place], Sulma Referring Unavailable Nika Sy Attending Unavailable [place], Sulma Referring Unavailable Ho, Sulma Primary Care Unavailable Anirudh Conner Referring Unavailable Rigo Arriola Attending Unavailable [place], Sulma Primary Care Unavailable Allergies Allergy Classification Reported Allergen(s) Allergy Type Date of Onset Reaction(s) Facility (7 sources) Chlorhexidine Drug Allergy 06-17-2024 [facility] Comment on above: Itching and redness (7 sources) Isopropyl Alcohol Drug Allergy 06-17-2024 [facility] Comment on above: Itching and redness (1 source) Chlorhexidine Drug Allergy 11-09-2024 [facility] Repository (1 source) Isopropyl Alcohol Drug Allergy 11-09-2024 [facility] Repository Medications Current Medications Medication Drug [...] Combination No.2 (Glucosamine-Chondroit in) 900 mg tablet (11 sources) Start: take 1 tablet by mouth [...] 2023 12:00am atorvastatin 10 mg oral tablet (10 sources) HMG-CoA Reductase Inhibitor Start: 08-10-2024 End: 09-29-2024 take 1 tablet by mouth at bedtime Atorvastatin (Lipitor) 10 mg tablet Active 10 mg PO AT BEDTIME 90 September 29, 2024 11:06am benoxinate hydrochloride 4 mg/ml / fluorescein sodium 2.5 mg/ml ophthalmic solution (1 source) Diagnostic Dye Start: 09-05-2021 End: 09-06-2021 fluorescein-benoxin ate 0.25-0.4 % 1 Drop (FLURESS) cholecalciferol 0.125 mg oral capsule (7 sources) Vitamin D Start: 01-17-2024 take 1 [...] Active 0 .Route 1 May 31, 2023 12:00am TID rectally estradiol 0.1 mg/ml vaginal cream (13 sources) Estrogen Start: 10-27-2024 Estradiol 0.01 % [...] by oliver th once daily. Multivitamin tablet (7 sources) Start: 04-18-2023 Multivitamin tablet Active 1 {tbl} PO DAILY April 18, 2023 1:00am nystatin 941976 unt/ml topical cream (2 sources) Polyene Antifungal [...] 1 Drop (AK-DILATE, ELIAS-SYNEPHRINE) polyethylene glycol 3350 01052 mg powder for oral solution (16 sources) Osmotic Laxative Start: 01-23-2005 Polyethylene Glycol [...] 09-07-19 tropicamide 1 % 1 Drop (MYDRIACYL) Zinhxqbf-Xnzq-Wcvqn-O reg-Capry (4 sources) Start: 04-18-20 take 1 capsule by mouth once daily Fiyczlvt-Gkdq-Mcobl -Oreg-Capry Active 1 CAP PO DAILY April 18, 2023 1:00am Start: 04-18-2023 take 1 capsule by mouth once daily Jhjleiky-Xrwe-Mamdt-Oreg-Capry Active 1 CAP PO DAILY April 18, 2023 12:00am Start: 04-18-2023 Turmeric-Ging- Frlcu-Fymy-Jtaob Active CAP PO April 18, 2023 12:00am Completed/Discontinued Medications Medication Drug Class(es) Dates Sig (Normalized) Sig (Original) amoxicillin 875 mg / clavulanate 125 mg oral tablet (7 sources) Penicillin-class Antibacterial Start: 11-01-2023 End: 01-16-2024 Amoxicillin-Pot Clavulanate 875-125 mg tablet Discontinued 1 {tbl} PO Q12H 14 0 November 01, 2023 12:00am January 16, 2024 1:19pm cephalexin 500 mg oral capsule (7 sources) Cephalosporin Antibacterial Start: 01-24-2024 End: 06-17-2024 take 1 capsule by mouth twice daily Cephalexin 500 mg capsule Discontinued 500 mg PO TWICE A DAY 14 7 0 January 24, 2024 12:00am June 17, 2024 10:14am Diltiazem 2% / Lidocaine 5% Ointment (Compound) ointment (7 sources) Start: 05-31-2023 End: 01-16-2024 Diltiazem 2% / Lidocaine 5% Ointment (Compound) ointment Discontinued 0 .Route 1 May 31, 2023 1:00am January 16, 2024 1:20pm Hemorrhoids Unspecified hemorrhoids rectal pain TID rectally Start: 05-31-2023 End: 01-16-2024 Diltiazem 2% / Lidocaine 5% Ointment (Compound) ointment Discontinued 0 .Route 1 May 31, 2023 1:00am January 16, 2024 1:20pm TID rectally ergocalciferol 1.25 mg oral capsule (11 sources) Provitamin D2 Compound Start: 04-18-2023 End: 01-17-2024 Ergocalciferol (Vitamin D2) 1,250 mcg (50,000 unit) capsule Discontinued 1250 ug PO DAILY April 18, 2023 1:00am January 17, 2024 8:55am metroNIDAZOLE 0.0075 mg/mg topical gel (3 sources) Nitroimidazole Antimicrobial Start: 04-26-2021 metroNIDAZOLE (METROGEL) 0.75 % Topical Gel polyethylene glycol 3350 153344 mg / potassium chloride 2970 mg / sodium bicarbonate 6740 mg / sodium chloride 5860 mg / sodium sulfate 69429 mg powder for oral solution (10 sources) Osmotic Laxative Start: 06-19-2023 End: 07-10-2023 [...] 4000 mL predniSONE 20 mg oral tablet (8 sources) Start: 07-17-2023 End: 01-16-2024 take 1 tablet by mouth twice daily Prednisone 20 mg tablet Discontinued 20 mg PO TWICE A DAY 12 July 17, 2023 1:00am January 16, 2024 1:20pm Mjbtkctl-Kmql-Tselt-Or eg-Capry 100 mg-150 mg- 50 mg-150 mg capsule (7 sources) Start: 04-18-2023 End: 01-16-2024 take 1 capsule by mouth once daily Xngrrlmg-Upzf-Vytgr-Oreg -Capry 100 mg-150 mg- 50 mg-150 mg capsule Discontinued 1 NMA PO DAILY April 18, 2023 1:00am January 16, 2024 1:20pm Problems Active Problems Problem Classification Problem Date Documented Da te Episodic/Chronic Abdominal pain (5 sources) Abdominal pain; Translations: [Unspecified abdominal pain] 03-19-2008 Episodic Administrative/social admission (6 sources) Persons encountering health services in other specified circumstances; Translations: [Other reasons for seeking consultation] Onset: 11-17-2024 05-20-2023 Episodic Allergic reactions (9 sources) Allergic disorder of skin; Translations: [Allergic contact dermatitis, unspecified cause] 07-17-2023 Episodic Anal and rectal conditions (14 sources) Anal fissure; Translations: [Anal fissure, unspecified] 05-31-2023 Episodic Bacterial infection; unspecified site (5 sources) Bacteremia; Translations: [Bacteremia] 03-19-2008 Episodic Disorders of lipid metabolism (20 sources) Pure hypercholesterolemia; Translations: [Pure hypercholesterolemia, unspecified] [...] 06-26-2023 06-26-2023 Chronic Miscellaneous mental health disorders (19 sources) Non-organic sleep disorder; Translations: [Sleep disorder not due to a substance or known physiological condition, unspecified] Onset: 10-28-2024 03-19-2008 Chronic Mood disorders (5 sources) Depressive disorder; Translations: [Other specified depressive episodes] 03-19-2008 Chronic Neoplasms of unspecified nature or uncertain behavior (7 sources) Neoplasm of uncertain behavior of soft tissues of neck; Translations: [Neoplasm of uncertain behavior of connective and soft tissue of neck] 06-17-2024 Episodic Nonmalignant breast conditions (12 sources) Breast lump; Translations: [Unspecified lump in unspecified breast] Onset: 04-25-2010 04-25-2010 Episodic Osteoarthritis (1 source) Unilateral primary osteoarthritis, left knee; Translations: [Unilateral primary osteoarthritis, left knee] Onset: 02-03-2025 Chronic Other and unspecified benign neoplasm (3 sources) Benign lipomatous neoplasm, unspecified; Translations: [Lipoma, unspecified site] 05-20-2023 Episodic Other circulatory disease (1 source) Elevated blood-pressure reading without diagnosis of hypertension; Translations: [Elevated blood-pressure reading, without diagnosis of hypertension] 04-17-2023 Episodic Other connective tissue disease (5 sources) Muscle pain; Translations: [Myalgia and myositis, unspecified] 03-19-2008 Episodic Other connective tissue disease (10 sources) Fibromyalgia; Translations: [Fibromyalgia] 08-05-2024 Episodic Other connective tissue disease (1 source) Pain in right lower leg; Translations: [Pain in right lower leg] Onset: 11-26-2024 Episodic Other eye disorders (1 source) Vitreomacular adhesion of bilateral eyes; 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, bilateral] Chronic Other female genital disorders (1 source) Pruritus of vagina; Translations: [Other specified noninflammatory disorders of vagina] 04-17-2023 Episodic Other gastrointestinal disorders (5 sources) Irritable bowel syndrome; Translations: [Irritable bowel syndrome without diarrhea] 03-19-2008 Chronic Other gastrointestinal disorders (8 sources) Chronic constipation; Translations: [Other constipation] 07-10-2023 [...] [Other chronic pain] Onset: 10-28-2024 Chronic Other skin disorders (2 sources) Lichen sclerosus et atrophicus; Translations: [Circumscribed scleroderma] Onset: 06-26-2023 06-26-2023 Chronic Residual codes; unclassified (15 sources) Family history of cancer; Translations: [Family history of malignant neoplasm of other organs or systems] Onset: 01-23-2005 01-23-2005 Episodic Comment on above: father prostate canc erMat and Pat aunts colon cancer Residual codes; unclassified (3 sources) Asymptomatic menopausal state; Translations: [Asymptomatic postmenopausal status (age-related) (natural)] 05-20-2023 Episodic Residual codes; unclassified (10 sources) Family history of breast cancer; Translations: [Family history of malignant neoplasm of breast] 07-01-2024 Episodic Comment on above: paternal grandmother , aunt, cousin; [employer] genetic test:negative. Lifetime risk 21.5%: yrly mammogram and MRI alternating. Residual codes; unclassified (7 sources) H/O: neoplasm; Translations: [Other specified postprocedural states] 06-17-2024 Episodic Spondylosis; intervertebral disc disorders; other back problems (2 sources) Low back pain; Translations: [Low back pain] 11-09-2024 Episodic Systemic lupus erythematosus and connective tissue disorders (5 sources) Disorder of connective tissue; Translations: [Systemic involvement of connective tissue, unspecified] Onset: 01-23-2005 01-23-2005 Chronic Unclassified (1 source) Low back pain, unspecified; Translations: [Low back pain, unspecified] Onset: 11-17-2024 Past or Other Problems Problem Classification Problem [...] skin, unspecified] Onset: 01-23-2005 01-23-2005 Episodic Other connective tissue disease (4 sources) Fibromyalgia; Translations: [Myalgia and myositis, unspecified] Onset: 10-28-2024 05-20-2023 Episodic Other female genital disorders (1 source) [...] seborrheic dermatitis] Onset: 01-23-2005 01-23-2005 Episodic Other non-traumatic joint disorders (14 sources) Pain in right knee; Translations: [Pain in joint, lower leg] Onset: 10-28-2024 05-20-2023 Episodic Other non-traumatic joint disorders (1 source) Pain in left knee; Translations: [Pain in left knee] Onset: 10-28-2024 Episodic Other screening for suspected conditions (not mental disorders or infectious disease) (11 sources) Patient encounter status; Translations: [Encounter for screening for malignant neoplasm of colon] Onset: 06-17-2024 05-31-2023 Episodic Residual codes; unclassified (7 sources) History of colonoscopy; Translations: [Other specified [...] Name Value Interpretation Reference Range Facil ity Venous Duplex US, Unilateral on 11-23-2024 Venous Duplex US, Unilateral [facility] [address] [place] [address] Venous Duplex US, Unilateral 11/23/24 1504 MR#: [id number] Acct: [id number] Name: SHENA MARQUEZ Rep #: [id number] : 1960 64 From: Joel Sow MD Attending Dr: Nasir Martinez PA-C Status: REG CL I Ordering Dr: Nasir Martinez PA-C Date: 11/23/24 Location: [facility] Sex: F C Admitted: Reason For Study Reason For Study: Pain RLE RIGHT LEFT GSV is normal. CFV is compressible, spontaneous, phasic, competent, CFV is compressible, spontaneous, phasic, competent and demonstrates normal augmentation. and demonstrates normal augmentation. FV is compressible, spontaneous, phasic, competent and demonstrates normal augmentation. POP V is compressible, spontaneous, phasic, competent and demonstrates normal augmentation. T/P Trunk is compressible. PTV is compressible. RT PerV is compressible. Procedure This is a venous duplex using B-mode, color flow and spectral Doppler. Exam performed in department. A preliminary report was called and/or faxed to Nasir ROCHE. VL/Venous Duplex US, Unilateral Interpretation Summary Deep veins of the right lower extremity are patent and compressible segmentally. There is no evidence of right lower extremity deep vein thrombosis. Valvular competence appears intact within the proximal deep venous system on the right . The right great saphenous vein appears patent and compressible segmentally. The left common femoral vein is patent and compressible . Ordering Physician: Nasir Martinez Referring Physician: Sulma Teague Performed By: Ivelisse Hightower, LACIE, RVT 11/23/242033 Date Joel Sow MD CC: SUSAN Martinez; Dr. Sulma Teague MD Date Dictated: 11/23/24 1504 Date Transcribed: 11/23/242033 [employer]: Signed Normal [facility] Venous duplex ultrasound rep ortOrdered By: Joel Sow on 11-23-2024 US Vein [facility] Cardi[facility] Services [address] [place] [address] Venous Duplex US, Unilateral 11/23/24 1504 MR#: [id number] Acct: [id number] Name: SHENA MARQUEZ Rep #:[id number] : 1960 64 From: Joel Sow MD Attending Dr: Nasir Martinez PA-C [facility] at[facility]: REG CLI Ordering Dr: Nasir Martinez PA-C Date : 11/23/24 Location: [facility] Sex: F C Admitted: Reason For Study Reason For Study: Pain RLE RIGHT LEFT GSV is normal. CFV is compressible, spontaneous, phasic, competent, CFV is compressible, spontaneous, phasic, competent and demonstrates normal augmentation. and demonstrates normal augmentation. FV is compressible, spontaneous, phasic, competent and demonstrates normal augmentation. POP V is compressible, spontaneous, phasic, competent and demonstrates normal augmentation. T/P Trunk is compressible. PTV is compressible. RT PerV is compressible. Procedure This is a venous duplex using B-mode, color flow and spectral Doppler. Exam performed in department. A preliminary report was called and/or faxed to Nasir ROCHE. VL/Venous Duplex US, Unilateral Interpretation Summary Deep veins of the right lower extremity are patent and compressible segmentally.There is no evidence of right lower extremity deep vein thrombosis. Valvular competence appears intact within the proximal deep venous system on the right . The right great saphenous vein appears patent and compressible segmentally. The left common femoral vein is patent and compressible . Ordering Physician: Nasir Martinez Referring Physician: Sulma Teague Performed By: Ivelisse Hightower, RDCS, RVT 11/23/242033 Date _ Joel Sow MD CC: SUSAN Martinez; Dr. Sulma Teague MD ~ Date Dictated: 11/23/24 1504 Date Transcribed: 11/23/242033 [employer]: Signed [facility] Other Phone: Internal Medicine Office Vis [facility] 11-09-2024 Internal Medicine Office Visit [facility] [address] [place] [address] [place] [address] OFFICE VISIT Date of Service: 11/09/24 MR#: [id number] Acct: [id number] Name: SHENA MARQUEZ Rep #: [id number] : 1960 Provider: BARBIE draper Age/Sex: 64/F Location[place] [facility] Status: Signed Intake Vital Signs 10/27/24 11:44 [...] room air Intake Visit Reasons: POSSIBLE UTI Chipper Feeder Required: No Is patient in pain?: Yes [...] has not tried treating w/ anything otc. 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 Patient states last week she noticed lower back pain. [place] urinary urgency and frequency no dysuria. Denies [...] fatigue, fever (more content not included)... Normal [facility] Laboratory - Chemistry and C hemistry - challengeOrdered By: Nika Sy on 11-09-2024 Bilirubin Ql (U) Small (1+) [facility] Ketones Ql (U) Negative [facility] pH (U) 6.5 [pH] [facility] Specific gravity (U) [Rel density] 1.015 [facility] Urobilinogen (U) [Mass/Vol] Negative [facility] Laboratory - Hematology and Cell countsOrdered By: Nika Sy on 11-09-2024 Hemoglobin Ql (U) Negative [facility] Laboratory - Specimen inform ationOrdered By: Nika Sy on 11-09-2024 Clarity (U) Cloudy [facility] Color (U) YELLOW [facility] Laboratory - UrinalysisOrder ed By: Nika Sy on 11-09-2024 Nitrite Ql (U) Negative [facility] Protein Ql (U) Trace [facility] No Panel InformationOrdered By: Nika Sy on 11-09-2024 Urine Leukocytes Negatve [facility] Urine Non-Hemolyzed Blood [facility] Lipid Profileon 10-27-2024 CHOL:HDL 2.70 Normal [facility] Comment on above: Order Comment: ADD O N TO BW DRAWN 10-21(SAT) WG3 1 I Performed By: #### L 500.4100 ####[facility] [address] [place], [place], [phone] Cholesterol [Mass/Vol] 167 mg/dL Normal <=200 [facility] Comment on above: Order Comment: ADD O N TO BW DRAWN 10-21(SAT) WG3 1 I Result Comment: Chol esterol level, Desirable <200 mg/dL Borderline high cholesterol 200-239 mg/dL High cholesterol >=240 mg/dL Recommendations of the NCEP Adult Treatment Panel for the following risk-cutoff thresholds for the [place] population. Performed By: #### L 500.4100 ####[facility] [address] [place], [place], [id number] Cholesterol in HDL [Mass/Vol] 62 mg/dL Normal [facility] Comment on above: Order Comment: ADD O N TO BW DRAWN 10-21(SAT) WG3 1 I Result Comment: Vannessa onal Cholesterol Education Program (NCEP) guidelines: <40 mg/dL: Low HDL-cholesterol (major risk factor for CHD) >= 60 mg/dL: High HDL-cholesterol (negative risk factor for CHD) HDL-cholesterol is affected by a number of factors, e.g. smoking, exercise, hormones, sex and age. Performed By: #### L 500.4100 ####[facility] [address] [place], [place], [id number] Cholesterol in LDL [Mass/Vol] 89 mg/dL Normal [facility] Comment on above: Order Comment: ADD O N TO BW DRAWN 6-(WED) WG3 1 I Result Comment: Bord intwlu=277-702 mg/dL Higher Hjyl=383 mg/dL or greater Performed By: #### L 500.4100 ####[facility] [address] [place], [address] Cholesterol in VLDL [Mass/Vol] 16 mg/dL Normal 5-40 [facility] Comment on above: Order Comment: ADD O N TO BW DRAWN 6-11(WED) WG3 1 I Performed By: #### L 500.4100 ####[facility] [address] [place], [address] Triglyceride [Mass/Vol] 82 mg/dL Normal [facility] Comment on above: Order Comment: ADD O N TO BW DRAWN 6-(WED) WG3 1 I Result Comment: The drugs N-Acetylcysteine and Metamizole may falsely depress this assay. Normal range: <150 mg/dL Borderline High: 150-199 mg/dL High: 200-499 mg/dL Very High: >500 mg/dL Performed By: #### L 500.4100 ####[facility] [address] [place], [address] Internal Medicine Office Vis [facility] 10-26-2024 Internal Medicine Office Visit [facility] [address] [place] [address] [place] [address] OFFICE VISIT Date of Service: 10/27/24 MR#: [id number] Acct: [id number] Name: SHENA MARQUEZ Rep #: [id number] : 1960 Provider: Dr. Sulma lopez MD Age/Sex: 64/F Location[place] [facility] Status: Signed Intake Vital Signs 08/05/24 11:36 10/27/24 11:44 Height 5 ft 6 in 5 ft 6 in Weight: 180 lb BMI 29.0 BP 126/68 H Blood Pressure Location Lt brachial Position Sitting Respiration 18 Pulse 76 Pulse Source Monitor Temp 97 F L Temp Source Temporal Pulse Oximetry (%) 96 Oxygen Delivery Method room air Intake Visit Reasons: SURGICAL CLEARANCE Chipper Feeder Required: No Is patient in pain?: Yes [...] Had ekg and labs done last week. 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 Conner at [facility]. They report they have had problems [...] February. R (more content not included)... Normal [facility] Electrocardiogram reportOrde red By: Rigo Arriola on 10-22-2024 EKG study [facility] Cardiovascular Services [address] [place] [address] 12 Lead EKG 10/21/24 0835 MR#: [id number] Acct: [id number] Name: SHENA MARQUEZ Rep #:[id number] : 1960 64 From: Rigo byrd MD Attending Dr: Dr. Anirudh Conner MD Status: REG CLI Ordering Dr: Anirudh Conner MD Date: 10/21/24 Location: [facility] Sex: F C Admitted: Test Reason : PREOP Blood Pressure : */* mmHG Vent. Rate : 74 BPM Atrial Rate : 74 BPM P-R Int : 168 ms QRS Dur : 82 ms QT Int : 378 ms P-R-T Axes : 53 50 61 degrees QTcB Int : 419 ms Normal sinus rhythm Normal ECG Confirmed by Rigo Arriola ([id number]), photo editor XIOMARA ALCANTARA ([id number]) on 56:14:21 AM Referred By: Anirudh Conner Confirmed By: Rigo Arriola 10/22/2414 Date _ Rigo Arriola MD CC: Dr. Sulma Teague MD; Dr. Anirudh Conner MD ~ Signed [facility] Work Phone: 12 Lead EKGon 10-21-2024 12 Lead EKG [facility] Cardiovascular Services [address] [place] [address] 12 Lead EKG 10/21/24 0835 MR#: [id number] Acct: [id number] Name: SHENA MARQUEZ Rep #: [id number] : 1960 64 From: Rigo Arriola MD Attending Dr: Dr. Anirudh Conner MD Status: REG CLI Ordering Dr: Anirudh Conner MD Date: 10/21/24 Location: [facility] Sex: F C Admitted: Test Reason : PREOP Blood Pressure : */* mmHG Vent. Rate : 74 BPM Atrial Rate : 74 BPM P-R Int : 168 ms QRS Dur : 82 ms QT Int : 378 ms P-R-T Axes : 53 50 61 degrees QTcB Int : 419 ms Normal sinus rhythm Normal ECG Confirmed by Rigo Arriola ([id number]), photo editor XIOMARA ALCANTARA ([id number]) on 10/22/2024 6:14:21 AM Referred By: Anirudh Conner Confirmed By: Rigo Arriola 10/22/24 0614 Date Rigo Arriola MD CC: Dr. Sulma Teague MD; Dr. Anirudh Conner MD Signed Normal [facility] Absolute lymphocyte countOrd ered By: Anirudh Conner on 10-21-2024 Lymphocytes Auto (Unsp spec) [#/Vol] 1.42 10*3/uL 0.83-4.51 [facility] Absolute neutrophil countOrd ered By: Anirudh Conner on 10-21-2024 Neutrophils (Bld) [#/Vol] 3.3 10*3/uL 2.0-7.7 [facility] Albumin, Serumon 10-21-2024 Albumin [Mass/Vol] 4.3 g/dL Normal 3.4-4.8 [facility] Comment on above: Performed By: #### L 500.2500, L501.1800, L100.0100 ####[facility] [address] [place], [address] Anion gap in Serum or Plasma Ordered By: Anirudh Conner on 10-21-2024 Anion gap [Moles/Vol] 10 mmol/L 5-15 [facility] Automated lymphocyte count a s percentage of total leukocytesOrdered By: Anirudh Conner on 10-21-2024 Lymphocytes/100 WBC Auto (Unsp spec) 26.5 % 19-41 [facility] BUN/creatinine ratioOrdered By: Anirudh Conner on 10-21-2024 Urea nitrogen/Creatinine [Mass ratio] 24.0 mg/mg High 10-20 [facility] Basic Metabolic Profile (BMP )on 10-21-2024 BUN/CRE 24.0 RATIO High - [facility] Comment on above: Performed By: #### L 500.2500, L501.1800, L100.0100 ####[facility] [address] [place], [address] Calcium [Mass/Vol] 9.8 mg/dL Normal 7.6-11.0 [facility] Comment on above: Performed By: #### L 500.2500, L501.1800, L100.0100 ####[facility] [address] [place], [address] Chloride [Moles/Vol] 105 mmol/L Normal 98-108 [facility] Comment on above: Performed By: #### L 500.2500, L501.1800, L100.0100 ####[facility] [address] [place], [address] CO2 [Moles/Vol] 26.8 mmol/L Normal 21.0-32.0 [facility] Comment on above: Performed By: #### L 500.2500, L501.1800, L100.0100 ####[facility] [address] [place], [address] Creatinine [Mass/Vol] 0.79 mg/dL Normal 0.70-1.20 [facility] Comment on above: Performed By: #### L 500.2500, L501.1800, L100.0100 ####[facility] [address] [place], [address] GAP 10 Normal 5-15 [facility] Comment on above: Performed By: #### L 500.2500, L501.1800, L100.0100 ####[facility] [address] [place], [address] GFR/1.73 sq M.predicted among non-blacks MDRD (S/P/Bld) [Vol rate/Area] 83 mL/min/{1.73_m2} Normal >60 [facility] Comment on above: Result Comment: mL/m in/1.73m2 CKD-EPI Creatinine Equation (2020) Performed By: #### L 500.2500, L501.1800, L100.0100 ####[facility] [address] [place], [address] Glucose [Mass/Vol] 98 mg/dL Normal 70-99 [facility] Comment on above: Performed By: #### L 500.2500, L501.1800, L100.0100 ####[facility] [address] [place], [address] Potassium [Moles/Vol] 4.2 mmol/L Normal 3.3-5.1 [facility] Comment on above: Performed By: #### L 500.2500, L501.1800, L100.0100 ####[facility] [address] [place], [address] Sodium [Moles/Vol] 141 mmol/L Normal 133-145 [facility] Comment on above: Performed By: #### L 500.2500, L501.1800, L100.0100 ####[facility] [address] [place], [address] Urea nitrogen [Mass/Vol] 19 mg/dL Normal 4-19 [facility] Comment on above: Performed By: #### L 500.2500, L501.1800, L100.0100 ####[facility] [address] [place], [address] Basophil percentageOrdered B y: Anirudh Conner on 10-21-2024 Basophils/100 WBC (Bld) 0.4 % 0-1 [facility] CBC W/Diff, Automatedon 10-11 Absolute Lymph 1.42 X10 3/uL Normal 0.83-4.51 [facility] Comment on above: Performed By: #### L 500.2500, L501.1800, L100.0100 #### [facility] [address] [place], [address] Absolute Neut 3.3 X10 3/uL Normal 2.0-7.7 [facility] Comment on above: Performed By: #### L 500.2500, L501.1800, L100.0100 #### [facility] [address] [place], [address] Basophils/100 WBC (Bld) 0.4 % Normal 0-1 [facility] Comment on above: Performed By: #### L 500.2500, L501.1800, L100.0100 #### [facility] [address] [place], [address] Eosinophils/100 WBC (Bld) 3.4 % Normal 0-5 [facility] Comment on above: Performed By: #### L 500.2500, L501.1800, L100.0100 #### [facility] [address] [place], [address] Erythrocyte distribution width (RBC) [Ratio] 13.8 % Normal 11.6-14.6 [facility] Comment on above: Performed By: #### L 500.2500, L501.1800, L100.0100 #### [facility] [address] [place], [address] Hematocrit (Bld) [Volume fraction] 37.5 % Normal 37-47 [facility] Comment on above: Performed By: #### L 500.2500, L501.1800, L100.0100 #### [facility] [address] [place], [address] Hemoglobin (Bld) [Mass/Vol] 12.6 g/dL Normal 12.0-15.0 [facility] Comment on above: Performed By: #### L 500.2500, L501.1800, L100.0100 #### [facility] [address] [place], [address] IG% 0.200 Normal 0.0-0.9 [facility] Comment on above: Result Comment: IG% - Immature Granulocytes (promyelocytes, myelocytes and metamyelocytes) > 1% indicates that a LEFT SHIFT is Present. Performed By: #### L 500.2500, L501.1800, L100.0100 #### [facility] [address] [place], [address] Lymphocytes/100 WBC (Bld) 26.5 % Normal 19-41 [facility] Comment on above: Performed By: #### L 500.2500, L501.1800, L100.0100 #### [facility] [address] [place], [address] MCH (RBC) [Entitic mass] 29.5 pg Normal 27.0-32.0 [facility] Comment on above: Performed By: #### L 500.2500, L501.1800, L100.0100 #### [facility] [address] [place], [address] MCHC (RBC) [Mass/Vol] 33.6 g/dL Normal 32-36 [facility] Comment on above: Performed By: #### L 500.2500, L501.1800, L100.0100 #### [facility] [address] [place], [address] MCV (RBC) [Entitic vol] 87.8 fL Normal 81-99 [facility] Comment on above: Performed By: #### L 500.2500, L501.1800, L100.0100 #### [facility] [address] [place], [address] Monocytes/100 WBC (Bld) 9.0 % Normal 0-10 [facility] Comment on above: Performed By: #### L 500.2500, L501.1800, L100.0100 #### [facility] [address] [place], [address] Neutrophils/100 WBC (Bld) 60.5 % Normal 47-70 [facility] Comment on above: Performed By: #### L 500.2500, L501.1800, L100.0100 #### [facility] [address] [place], [address] Nucleated RBC (Bld) [#/Vol] 0 10*3/uL Normal 0-5 [facility] Comment on above: Performed By: #### L 500.2500, L501.1800, L100.0100 #### [facility] [address] [place], [address] Platelet mean volume (Bld) [Entitic vol] 9.3 fL Normal 6.2-12.0 [facility] Comment on above: Performed By: #### L 500.2500, L501.1800, L100.0100 #### [facility] [address] [place], [address] Platelets (Bld) [#/Vol] 248 10*3/uL Normal 150-450 [facility] Comment on above: Performed By: #### L 500.2500, L501.1800, L100.0100 #### [facility] [address] [place], [address] RBC (Bld) [#/Vol] 4.27 10*6/uL Normal 4.2-5.4 [facility] Comment on above: Performed By: #### L 500.2500, L501.1800, L100.0100 #### [facility] [address] [place], [address] RDW SD 44.4 fl High 35.1-43.9 [facility] Comment on above: Performed By: #### L 500.2500, L501.1800, L100.0100 #### [facility] [address] [place], [address] WBC (Bld) [#/Vol] 5.4 10*3/uL Normal 4.4-11.0 [facility] Comment on above: Performed By: #### L 500.2500, L501.1800, L100.0100 #### [facility] [address] [facility], [address] Calculated very low density lipoprotein (VLDL) cholesterol measurementOrdered By: Sulma Teague on 10-21-2024 Calculated very low density lipoprotein (VLDL) cholesterol measurement 16 mg/dL 5-40 [facility] Carbon dioxide, total [Moles /volume] in Central venous bloodOrdered By: Anirudh Conner on 10-21-2024 CO2 [Moles/Vol] 26.8 mmol/L 21.0-32.0 [facility] Chloride assayOrdered By: St amparo Conner on 10-21-2024 Chloride [Moles/Vol] 105 mmol/L 98-108 [facility] Eosinophil percentageOrdered By: Anirudh Conner on 10-21-2024 Eosinophils/100 WBC (Bld) 3.4 % 0-5 [facility] Erythrocyte distribution wid th ratioOrdered By: Anirudh Conner on 10-21-2024 Erythrocyte distribution width (RBC) [Ratio] 13.8 % 11.6-14.6 [facility] Erythrocyte distribution wid th standard deviationOrdered By: Anirudh Conner on 10-21-2024 Erythrocyte distribution width (RBC) [Ratio] 44.4 fl High 35.1-43.9 [facility] Extremity Lower without Cont raon 10-21-2024 Extremity Lower without Contra [facility] Imaging Services [address] [place] [address] Extremity Lower without Contra MR#: [id number] Acct: [id number] Name: SHENA MARQUEZ Rep #: [id number] : 1960 F 64 From: Oliver Sylvester MD PCP: Dr. Sulma Teague MD Status: REG CLI Study: Extremity Lower without Contra Date of Exam: 0 10/21/24 Exam# [id number] Ordering Dr: Anirudh Conner MD PROCEDURE: EXTREMITY [...] cyst formation, and marginal osteophytes. Reading Location: [facility] CC: Dr. Sulma Teague MD; Dr. Anirudh Conner MD [employer]: Signed Normal [facility] Glomerular filtration rate ( GFR) estimation/1.73 sq m using serum, plasma, or whole bOrdered By: Anirudh Conner on 10-21-2024 GFR/1.73 sq M.predicted among non-blacks MDRD (S/P/Bld) [Vol rate/Area] 83 mL/min/{1.73_m2} >60 [facility] Comment on above: mL/min/1.73m2 CKD-EP I Creatinine Equation (2020) Hematocrit Auto (Bld) [Volum e fraction]Ordered By: Anirudh Conner on 10-21-2024 Hematocrit (Bld) [Volume fraction] 37.5 % 37-47 [facility] Hemoglobin measurementOrdere d By: Anirudh Conner on 10-21-2024 Hemoglobin (Bld) [Mass/Vol] 12.6 g/dL 12.0-15.0 [facility] Immature granulocytes/100 WB C Auto (Bld)Ordered By: Anirudh Conner on 10-21-2024 Immature granulocytes/100 WBC (Bld) 0.200 % 0.0-0.9 [facility] Comment on above: IG% - Immature Granu locytes (promyelocytes, myelocytes and metamyelocytes) > 1% indicates that a LEFT SHIFT is Present. LDL calc ser/plasOrdered By: Sulma Teague on 10-21-2024 Cholesterol in LDL [Mass/Vol] 89 mg/dL [facility] Comment on above: Lqmkikemte=297-396 m g/dL & Higher Ajkp=389 mg/dL or greater MCV (mean corpuscular volume ) determinationOrdered By: Anirudh Conner on 10-21-2024 MCV (RBC) [Entitic vol] 87.8 fL 81-99 [facility] Mean corpuscular hemoglobin (MCH) determinationOrdered By: Anirudh Conner on 10-21-2024 MCH (RBC) [Entitic mass] 29.5 pg 27.0-32.0 [facility] Mean corpuscular hemoglobin concentration (MCHC) determinationOrdered By: Anirudh Conner on 10-21-2024 MCHC (RBC) [Mass/Vol] 33.6 g/dL 32-36 [facility] Mean platelet volume determi nationOrdered By: Anirudh Conner on 10-21-2024 Platelet mean volume (Bld) [Entitic vol] 9.3 fL 6.2-12.0 [facility] Monocyte percentageOrdered B y: Anirudh Conner on 10-21-2024 Monocytes/100 WBC (Bld) 9.0 % 0-10 [facility] Neutrophil percentageOrdered By: Anirudh Conner on 10-21-2024 Neutrophils/100 WBC (Bld) 60.5 % 47-70 [facility] Nucleated red blood cell per centageOrdered By: Anirudh Conner on 10-21-2024 Nucleated RBC/100 WBC (Bld) [Ratio] 0 % 0-5 [facility] Platelet countOrdered By: St amparo Conner on 10-21-2024 Platelets (Bld) [#/Vol] 248 10*3/uL 150-450 [facility] Potassium measurement (mass/ volume)Ordered By: Anirudh Conner on 10-21-2024 Potassium (Unsp spec) [Mass/Vol] 4.2 mmol/L 3.3-5.1 [facility] RBC Auto (Bld) [#/Vol]Ordere d By: Anirudh Conner on 10-21-2024 RBC (Bld) [#/Vol] 4.27 10*6/uL 4.2-5.4 [facility] Screening total cholesterol/ high density lipoprotein (HDL) cholesterol ratioOrdered By: Sulma Teague on 10-21-2024 Cholesterol.total/Chol esterol in HDL [Mass ratio] 2.70 {ratio} [facility] Serum creatinine measurement (mass/volume)Ordered By: Anirudh Conner on 10-21-2024 Creatinine [Mass/Vol] 0.79 mg/dL 0.70-1.20 [facility] Serum glucose measurement (m ass/volume)Ordered By: Anirudh Conner on 10-21-2024 Glucose [Mass/Vol] 98 mg/dL 70-99 [facility] Serum or plasma albumin declan urement (mass/volume)Ordered By: Anirudh Conner on 10-21-2024 Albumin [Mass/Vol] 4.3 g/dL 3.4-4.8 [facility] Serum or plasma calcium declan urement (mass/volume)Ordered By: Anirudh Conner on 10-21-2024 Calcium [Mass/Vol] 9.8 mg/dL 7.6-11.0 [facility] Serum or plasma cholesterol in HDL measurement (mass/volume)Ordered By: Sulma Teague on 10-21-2024 Cholesterol in HDL [Mass/Vol] 62 mg/dL >40 [facility] Comment on above: National Cholesterol Education Program (NCEP) guidelines:<40 mg/dL: Low HDL-cholesterol (major risk factor for CHD)>= 60 mg/dL: High HDL-cholesterol (negative risk factor for CHD)HDL-cholesterol is affected by a number of factors, e.g. smoking, exercise, hormones, sex and age. Serum or plasma cholesterol measurement (mass/volume)Ordered By: Sulma Teague on 10-21-2024 Cholesterol [Mass/Vol] 167 mg/dL <201 [facility] Comment on above: Cholesterol level, D esirable <200 mg/dLBorderline high cholesterol 200-239 mg/dLHigh cholesterol >=240 mg/dLRecommendations of the NCEP Adult Treatment Panel for the following risk-cutoff thresholds for the [place] population. Serum or plasma urea nitroge n measurement (mass/volume)Ordered By: Anirudh Conner on 10-21-2024 Urea nitrogen [Mass/Vol] 19 mg/dL 4-19 [facility] Sodium levelOrdered By: Mike Conner on 10-21-2024 Sodium [Moles/Vol] 141 mmol/L 133-145 [facility] Triglycerides measurementOrd ered By: Sulma Teague on 10-21-2024 Triglyceride [Mass/Vol] 82 mg/dL <199 [facility] Comment on above: The drugs N-Acetylcy steine and Metamizole may falsely depress this assay. Normal range: <150 mg/dLBorderline High: 150-199 mg/dLHigh: 200-499 mg/dLVery High: >500 mg/dL White blood cell (WBC) count Ordered By: Anirudh Conner on 10-21-2024 WBC (Bld) [#/Vol] 5.4 10*3/uL 4.4-11.0 [facility] Bone Lengthon 08-17-2024 Bone Length [facility] Imaging Services [address] [place], [place] [address] Bone Length MR#: [id number] Acct: [id number] Name: SHENA MARQUEZ Rep #: [id number] : 1960 F 64 From: Natalio Adams MD PCP: Dr. Sulma Teague MD Status: REG CLI Study: Bone Length Date of Exam: 08/17/24 Exam# [id number] Ordering Dr: Anirudh Conner MD EXAM: XR [...] and tibia atelectasis 78 cm. Reading Location: [facility] CC: Dr. Sulma Teague MD; Dr. Anirudh Conner MD [employer]: Signed Normal [facility] Absolute lymphocyte countOrd ered By: Sulma Teague on 08-07-2024 Lymphocytes Auto (Unsp spec) [#/Vol] 1.30 10*3/uL 0.83-4.51 [facility] Absolute neutrophil countOrd ered By: Sulma Teague on 08-07-2024 Neutrophils (Bld) [#/Vol] 2.6 10*3/uL 2.0-7.7 [facility] Anion gap in Serum or Plasma Ordered By: Sulma Teague on 08-07-2024 Anion gap [Moles/Vol] 12 mmol/L 5-15 [facility] Automated lymphocyte count a s percentage of total leukocytesOrdered By: Sulma Teague on 08-07-2024 Lymphocytes/100 WBC Auto (Unsp spec) 29.7 % 19-41 [facility] BUN/creatinine ratioOrdered By: Sulma Teague on 08-07-2024 Urea nitrogen/Creatinine [Mass ratio] 21.5 mg/mg High 10-20 [facility] Basophil percentageOrdered B y: Sulma Teague on 08-07-2024 Basophils/100 WBC (Bld) 0.7 % 0-1 [facility] Bilirubin, totalOrdered By: Sulma Teague on 08-07-2024 Bilirubin [Mass/Vol] 0.34 mg/dL 0.00-1.30 [facility] CBC W/Diff, Automatedon - Absolute Lymph 1.30 X10 3/uL Normal 0.83-4.51 [facility] Comment on above: Performed By: #### L 500.4050, L506.1001, L500.4100, L100.0100 #### [facility] [address] [place], [address] Absolute Neut 2.6 X10 3/uL Normal 2.0-7.7 [facility] Comment on above: Performed By: #### L 500.4050, L506.1001, L500.4100, L100.0100 #### [facility] [address] [place], [address] Basophils/100 WBC (Bld) 0.7 % Normal 0-1 [facility] Comment on above: Performed By: #### L 500.4050, L506.1001, L500.4100, L100.0100 #### [facility] [address] [place], [address] Eosinophils/100 WBC (Bld) 3.0 % Normal 0-5 [facility] Comment on above: Performed By: #### L 500.4050, L506.1001, L500.4100, L100.0100 #### [facility] [address] [place], [address] Erythrocyte distribution width (RBC) [Ratio] 14.0 % Normal 11.6-14.6 [facility] Comment on above: Performed By: #### L 500.4050, L506.1001, L500.4100, L100.0100 #### [facility] [address] [place], [address] Hematocrit (Bld) [Volume fraction] 37.1 % Normal 37-47 [facility] Comment on above: Performed By: #### L 500.4050, L506.1001, L500.4100, L100.0100 #### [facility] [address] [place], [address] Hemoglobin (Bld) [Mass/Vol] 12.8 g/dL Normal 12.0-15.0 [facility] Comment on above: Performed By: #### L 500.4050, L506.1001, L500.4100, L100.0100 #### [facility] [address] [place], [address] IG% 0.200 Normal 0.0-0.9 [facility] Comment on above: Result Comment: IG% - Immature Granulocytes (promyelocytes, myelocytes and metamyelocytes) > 1% indicates that a LEFT SHIFT is Present. Performed By: #### L 500.4050, L506.1001, L500.4100, L100.0100 #### [facility] [address] [place], [address] Lymphocytes/100 WBC (Bld) 29.7 % Normal 19-41 [facility] Comment on above: Performed By: #### L 500.4050, L506.1001, L500.4100, L100.0100 #### [facility] [address] [place], [address] MCH (RBC) [Entitic mass] 29.4 pg Normal 27.0-32.0 [facility] Comment on above: Performed By: #### L 500.4050, L506.1001, L500.4100, L100.0100 #### [facility] [address] [place], [address] MCHC (RBC) [Mass/Vol] 34.5 g/dL Normal 32-36 [facility] Comment on above: Performed By: #### L 500.4050, L506.1001, L500.4100, L100.0100 #### [facility] [address] [place], [address] MCV (RBC) [Entitic vol] 85.1 fL Normal 81-99 [facility] Comment on above: Performed By: #### L 500.4050, L506.1001, L500.4100, L100.0100 #### [facility] [address] [place], [address] Monocytes/100 WBC (Bld) 8.0 % Normal 0-10 [facility] Comment on above: Performed By: #### L 500.4050, L506.1001, L500.4100, L100.0100 #### [facility] [address] [place], [address] Neutrophils/100 WBC (Bld) 58.4 % Normal 47-70 [facility] Comment on above: Performed By: #### L 500.4050, L506.1001, L500.4100, L100.0100 #### [facility] [address] [place], [address] Nucleated RBC (Bld) [#/Vol] 0 10*3/uL Normal 0-5 [facility] Comment on above: Performed By: #### L 500.4050, L506.1001, L500.4100, L100.0100 #### [facility] [address] [place], [address] Platelet mean volume (Bld) [Entitic vol] 9.8 fL Normal 6.2-12.0 [facility] Comment on above: Performed By: #### L 500.4050, L506.1001, L500.4100, L100.0100 #### [facility] [address] [place], [address] Platelets (Bld) [#/Vol] 269 10*3/uL Normal 150-450 [facility] Comment on above: Performed By: #### L 500.4050, L506.1001, L500.4100, L100.0100 #### [facility] [address] [place], [address] RBC (Bld) [#/Vol] 4.36 10*6/uL Normal 4.2-5.4 [facility] Comment on above: Performed By: #### L 500.4050, L506.1001, L500.4100, L100.0100 #### [facility] [address] [place], [address] RDW SD 43.4 fl Normal 35.1-43.9 [facility] Comment on above: Performed By: #### L 500.4050, L506.1001, L500.4100, L100.0100 #### [facility] [address] [place], [address] WBC (Bld) [#/Vol] 4.4 10*3/uL Normal 4.4-11.0 [facility] Comment on above: Performed By: #### L 500.4050, L506.1001, L500.4100, L100.0100 #### [facility] [address] [place], [address] Calculated very low density lipoprotein (VLDL) cholesterol measurementOrdered By: Sulma Teague on 08-07-2024 Calculated very low density lipoprotein (VLDL) cholesterol measurement 13 mg/dL -40 [facility] VLDL Cholesterol 13 mg/dL 40 [facility] Carbon dioxide, total [Moles /volume] in Central venous bloodOrdered By: Sulma Teague on 08-07-2024 CO2 [Moles/Vol] 24.8 mmol/L 21.0-32.0 [facility] Chloride assayOrdered By: Valentin ycyulisa Teague on 08-07-2024 Chloride [Moles/Vol] 104 mmol/L 98-108 [facility] Comprehensive Metabolic Prof ilon 08-07-2024 Albumin [Mass/Vol] 4.3 g/dL Normal 3.4-4.8 [facility] Comment on above: Performed By: #### L 500.4050, L506.1001, L500.4100, L100.0100 #### [facility] [address] [place], [address] Albumin/Globulin [Mass ratio] 1.5 {ratio} Normal 0.9-2.4 [facility] Comment on above: Performed By: #### L 500.4050, L506.1001, L500.4100, L100.0100 #### [facility] [address] [place], [address] ALK PHOS 80 U/L Normal 35-104 [facility] [facility] Comment on above: Performed By: #### L 500.4050, L506.1001, L500.4100, L100.0100 #### [facility] [address] [place], [address] ALT [Catalytic activity/Vol] 16 U/L Normal <=34 [facility] Comment on above: Performed By: #### L 500.4050, L506.1001, L500.4100, L100.0100 #### [facility] [address] [place], [address] AST [Catalytic activity/Vol] 23 U/L Normal <=31 [facility] Comment on above: Performed By: #### L 500.4050, L506.1001, L500.4100, L100.0100 #### [facility] [address] [place], [address] Bilirubin [Mass/Vol] 0.34 mg/dL Normal 0.00-1.30 [facility] Comment on above: Performed By: #### L 500.4050, L506.1001, L500.4100, L100.0100 #### [facility] [address] [place], [address] BUN/CRE 21.5 RATIO High 10-20 [facility] Comment on above: Performed By: #### L 500.4050, L506.1001, L500.4100, L100.0100 #### [facility] [address] [place], [address] Calcium [Mass/Vol] 9.6 mg/dL Normal 7.6-11.0 [facility] Comment on above: Performed By: #### L 500.4050, L506.1001, L500.4100, L100.0100 #### [facility] [address] [place], [address] Chloride [Moles/Vol] 104 mmol/L Normal 98-108 [facility] Comment on above: Performed By: #### L 500.4050, L506.1001, L500.4100, L100.0100 #### [facility] [address] [place], [address] CO2 [Moles/Vol] 24.8 mmol/L Normal 21.0-32.0 [facility] Comment on above: Performed By: #### L 500.4050, L506.1001, L500.4100, L100.0100 #### [facility] [address] [place], [address] Creatinine [Mass/Vol] 0.79 mg/dL Normal 0.70-1.20 [facility] Comment on above: Performed By: #### L 500.4050, L506.1001, L500.4100, L100.0100 #### [facility] [address] [place], [address] GAP 12 Normal 5-15 [facility] Comment on above: Performed By: #### L 500.4050, L506.1001, L500.4100, L100.0100 #### [facility] [address] [place], [address] GFR/1.73 sq M.predicted among non-blacks MDRD (S/P/Bld) [Vol rate/Area] 83 mL/min/{1.73_m2} Normal >60 [facility] Comment on above: Result Comment: mL/m in/1.73m2 CKD-EPI Creatinine Equation (2020) Performed By: #### L 500.4050, L506.1001, L500.4100, L100.0100 #### [facility] [address] [place], [address] Globulin (S) [Mass/Vol] 2.9 g/dL Normal 2.2-4.2 [facility] Comment on above: Performed By: #### L 500.4050, L506.1001, L500.4100, L100.0100 #### [facility] [address] [place], [address] Glucose [Mass/Vol] 90 mg/dL Normal 70-99 [facility] Comment on above: Performed By: #### L 500.4050, L506.1001, L500.4100, L100.0100 #### [facility] [address] [place], [address] Potassium [Moles/Vol] 4.3 mmol/L Normal 3.3-5.1 [facility] Comment on above: Performed By: #### L 500.4050, L506.1001, L500.4100, L100.0100 #### [facility] [address] [place], [address] Sodium [Moles/Vol] 140 mmol/L Normal 133-145 [facility] Comment on above: Performed By: #### L 500.4050, L506.1001, L500.4100, L100.0100 #### [facility] [address] [place], [address] T PROT 7.2 g/dL Normal 5.9-8.4 [facility] Comment on above: Performed By: #### L 500.4050, L506.1001, L500.4100, L100.0100 #### [facility] [address] [place], [address] Urea nitrogen [Mass/Vol] 17 mg/dL Normal 4-19 [facility] Comment on above: Performed By: #### L 500.4050, L506.1001, L500.4100, L100.0100 #### [facility] [address] [place], [place], [address] Eosinophil percentageOrdered By: Sulma Teague on 08-07-2024 Eosinophils/100 WBC (Bld) 3.0 % 0-5 [facility] Erythrocyte distribution wid th ratioOrdered By: Sulma Teague on 08-07-2024 Erythrocyte distribution width (RBC) [Ratio] 14.0 % 11.6-14.6 [facility] Erythrocyte distribution wid th standard deviationOrdered By: Sulma Teague on 08-07-2024 Erythrocyte distribution width (RBC) [Entitic vol] 43.4 fL 35.1-43.9 [facility] Erythrocyte distribution width (RBC) [Ratio] 43.4 fl 35.1-43.9 [facility] GFR/1.73 sq M.predicted brien g non-blacks MDRD (S/P/Bld) [Vol rate/Area]Ordered By: Sulma Teague on 08-07-2024 Estimated GFR (MDRD) Non-Af Amer 83 >60 [facility] Comment on above: mL/min/1.73m2 CKD-EP I Creatinine Equation (2020) Glomerular filtration rate ( GFR) estimation/1.73 sq m using serum, plasma, or whole bOrdered By: Sulma Teague on 08-07-2024 GFR/1.73 sq M.predicted among non-blacks MDRD (S/P/Bld) [Vol rate/Area] 83 mL/min/{1.73_m2} >60 [facility] Comment on above: mL/min/1.73m2 CKD-EP I Creatinine Equation (2020) Hematocrit Auto (Bld) [Volum e fraction]Ordered By: Sulma Teague on 08-07-2024 Hematocrit (Bld) [Volume fraction] 37.1 % 37-47 [facility] Hemoglobin measurementOrdere d By: Sulma Teague on 08-07-2024 Hemoglobin (Bld) [Mass/Vol] 12.8 g/dL 12.0-15.0 [facility] Immature granulocytes/100 WB C Auto (Bld)Ordered By: Sulma Teague on 08-07-2024 Immature granulocytes/100 WBC (Bld) 0.200 % 0.0-0.9 [facility] Comment on above: IG% - Immature Granu locytes (promyelocytes, myelocytes and metamyelocytes) > 1% indicates that a LEFT SHIFT is Present. L506.1001on 08-07-2024 Vitamin D 25-OH 51.7 ng/mL Normal 30-100 [facility] Comment on above: Result Comment: Jami min D Status Deficiency: <20 ng/mL (50nmol/L) Insufficiency: 20-30 ng/mL (50-75 nmol/L) Sufficiency: 30-100 ng/mL (75-250 nmol/L) Toxicity: >100 ng/mL (>250 nmol/L) Performed By: #### L 500.4050, L506.1001, L500.4100, L100.0100 #### [facility] [address] [place], [address] LDL calc ser/plasOrdered By: Sulma Teague on 08-07-2024 Cholesterol in LDL [Mass/Vol] 164 mg/dL [facility] Comment on above: Jfuspymvvx=995-721 m g/dL & Higher Cvxx=815 mg/dL or greater LDL Cholesterol, Calculated 164 mg/dL [facility] Comment on above: Dtseneqabw=219-367 m g/dL & Higher Udra=305 mg/dL or greater Laboratory - Chemistry and C hemistry - challengeOrdered By: Sulma eTague on 08-07-2024 AST [Catalytic activity/Vol] 23 U/L <32 [facility] Lipid Profileon 08-07-2024 CHOL:HDL 3.57 Normal [facility] Comment on above: Performed By: #### L 500.4050, L506.1001, L500.4100, L100.0100 #### [facility] [address] [place], [address] Cholesterol [Mass/Vol] 246 mg/dL High <=200 [facility] Comment on above: Result Comment: Chol esterol level, Desirable <200 mg/dL Borderline high cholesterol 200-239 mg/dL High cholesterol >=240 mg/dL Recommendations of the NCEP Adult Treatment Panel for the following risk-cutoff thresholds for the [place] population. Performed By: #### L 500.4050, L506.1001, L500.4100, L100.0100 #### [facility] [address] [place], [address] Cholesterol in HDL [Mass/Vol] 69 mg/dL Normal [facility] Comment on above: Result Comment: Vannessa onal Cholesterol Education Program (NCEP) guidelines: <40 mg/dL: Low HDL-cholesterol (major risk factor for CHD) >= 60 mg/dL: High HDL-cholesterol (negative risk factor for CHD) HDL-cholesterol is affected by a number of factors, e.g. smoking, exercise, hormones, sex and age. Performed By: #### L 500.4050, L506.1001, L500.4100, L100.0100 #### [facility] [address] [place], [address] Cholesterol in LDL [Mass/Vol] 164 mg/dL Normal [facility] Comment on above: Result Comment: Bord ohbdcw=448-099 mg/dL Higher Jlxp=785 mg/dL or greater Performed By: #### L 500.4050, L506.1001, L500.4100, L100.0100 #### [facility] [address] [place], [address] Cholesterol in VLDL [Mass/Vol] 13 mg/dL Normal 5-40 [facility] Comment on above: Performed By: #### L 500.4050, L506.1001, L500.4100, L100.0100 #### [facility] [address] [place], [address] Triglyceride [Mass/Vol] 67 mg/dL Normal [facility] Comment on above: Result Comment: The drugs N-Acetylcysteine and Metamizole may falsely depress this assay. Normal range: <150 mg/dL Borderline High: 150-199 mg/dL High: 200-499 mg/dL Very High: >500 mg/dL Performed By: #### L 500.4050, L506.1001, L500.4100, L100.0100 #### [facility] [address] [place], [address] Lymphocytes Auto (Unsp spec) [#/Vol]Ordered By: Sulma Teague on 08-07-2024 Lymphocytes (Bld) [#/Vol] 1.30 10*3/uL 0.83-4.51 [facility] Lymphocytes/100 WBC Auto (Un sp spec)Ordered By: Sulma Teague on 08-07-2024 Lymphocytes/100 WBC (Bld) 29.7 % 19-41 [facility] MCV (mean corpuscular volume ) determinationOrdered By: Sulma Teague on 08-07-2024 MCV (RBC) [Entitic vol] 85.1 fL 81-99 [facility] Mean corpuscular hemoglobin (MCH) determinationOrdered By: Sulma Teague on 08-07-2024 MCH (RBC) [Entitic mass] 29.4 pg 27.0-32.0 [facility] Mean corpuscular hemoglobin concentration (MCHC) determinationOrdered By: Sulma Teague on 08-07-2024 MCHC (RBC) [Mass/Vol] 34.5 g/dL 32-36 [facility] Mean platelet volume determi nationOrdered By: Sulma Teague on 08-07-2024 Platelet mean volume (Bld) [Entitic vol] 9.8 fL 6.2-12.0 [facility] Monocyte percentageOrdered B y: Sulma Teague on 08-07-2024 Monocytes/100 WBC (Bld) 8.0 % 0-10 [facility] Neutrophil percentageOrdered By: Sulma Teague on 08-07-2024 Neutrophils/100 WBC (Bld) 58.4 % 47-70 [facility] Nucleated red blood cell per centageOrdered By: Sulma Teague on 08-07-2024 Nucleated RBC/100 WBC (Bld) [Ratio] 0 % 0-5 [facility] Platelet countOrdered By: Valentin Teague on 08-07-2024 Platelets (Bld) [#/Vol] 269 10*3/uL 150-450 [facility] Potassium (Unsp spec) [Mass/ Vol]Ordered By: Sulma Teague on 08-07-2024 Potassium [Moles/Vol] 4.3 mmol/L 3.3-5.1 [facility] Potassium measurement (mass/ volume)Ordered By: Sulma Teague on 08-07-2024 Potassium (Unsp spec) [Mass/Vol] 4.3 mmol/L 3.3-5.1 [facility] RBC Auto (Bld) [#/Vol]Ordere d By: Sulma Teague on 08-07-2024 RBC (Bld) [#/Vol] 4.36 10*6/uL 4.2-5.4 [facility] Screening total cholesterol/ high density lipoprotein (HDL) cholesterol ratioOrdered By: Sulma Teague on 08-07-2024 Cholesterol.total/Chol esterol in HDL [Mass ratio] 3.57 {ratio} [facility] Serum creatinine measurement (mass/volume)Ordered By: Sulma Teague on 08-07-2024 Creatinine [Mass/Vol] 0.79 mg/dL 0.70-1.20 [facility] Serum globulin measurementOr dered By: Sulma Teague on 08-07-2024 Globulin (S) [Mass/Vol] 2.9 g/dL 2.2-4.2 [facility] Serum glucose measurement (m ass/volume)Ordered By: Sulma Teague on 08-07-2024 Glucose [Mass/Vol] 90 mg/dL 70-99 [facility] Serum or plasma alanine hartley otransferase (ALT) measurementOrdered By: Sulma Teague on 08-07-2024 ALT [Catalytic activity/Vol] 16 U/L <35 [facility] Serum or plasma albumin declan urement (mass/volume)Ordered By: Sulma Teague on 08-07-2024 Albumin [Mass/Vol] 4.3 g/dL 3.4-4.8 [facility] Serum or plasma albumin/glob ulin mass ratioOrdered By: Sulma Teague on 08-07-2024 Albumin/Globulin [Mass ratio] 1.5 {ratio} 0.9-2.4 [facility] Serum or plasma alkaline kristin sphatase measurementOrdered By: Sulma Teague on 08-07-2024 ALP [Catalytic activity/Vol] 80 U/L 35-104 [facility] Serum or plasma calcium declan urement (mass/volume)Ordered By: Sulma Teague on 08-07-2024 Calcium [Mass/Vol] 9.6 mg/dL 7.6-11.0 [facility] Serum or plasma cholesterol in HDL measurement (mass/volume)Ordered By: Sulma Teague on 08-07-2024 Cholesterol in HDL [Mass/Vol] 69 mg/dL >40 [facility] Comment on above: National Cholesterol Education Program (NCEP) guidelines:<40 mg/dL: Low HDL-cholesterol (major risk factor for CHD)>= 60 mg/dL: High HDL-cholesterol (negative risk factor for CHD)HDL-cholesterol is affected by a number of factors, e.g. smoking, exercise, hormones, sex and age. Serum or plasma cholesterol measurement (mass/volume)Ordered By: Sulma Teague on 08-07-2024 Cholesterol [Mass/Vol] 246 mg/dL High <201 [facility] Comment on above: Cholesterol level, D esirable <200 mg/dLBorderline high cholesterol 200-239 mg/dLHigh cholesterol >=240 mg/dLRecommendations of the NCEP Adult Treatment Panel for the following risk-cutoff thresholds for the [place] population. Serum or plasma urea nitroge n measurement (mass/volume)Ordered By: Sulma Teague on 08-07-2024 Urea nitrogen [Mass/Vol] 17 mg/dL 4-19 [facility] Sodium levelOrdered By: Shanel Teague on 08-07-2024 Sodium [Moles/Vol] 140 mmol/L 133-145 [facility] Total proteinOrdered By: Paco Teague on 08-07-2024 Protein [Mass/Vol] 7.2 g/dL 5.9-8.4 [facility] Triglycerides measurementOrd ered By: Sulma Teague on 08-07-2024 Triglyceride [Mass/Vol] 67 mg/dL <199 [facility] Comment on above: The drugs N-Acetylcy steine and Metamizole may falsely depress this assay. Normal range: <150 mg/dLBorderline High: 150-199 mg/dLHigh: 200-499 mg/dLVery High: >500 mg/dL Vitamin D, 25-hydroxyOrdered By: Sulma Teague on 08-07-2024 Vitamin D 25-Hydroxy 51.7 ng/mL 30-100 [facility] Comment on above: Vitamin D StatusDefi ciency: <20 ng/mL (50nmol/L)Insufficiency: 20-30 ng/mL (50-75 nmol/L)Sufficiency: 30-100 ng/mL (75-250 nmol/L)Toxicity: >100 ng/mL (>250 nmol/L) White blood cell (WBC) count Ordered By: Sulma Teague on 08-07-2024 WBC (Bld) [#/Vol] 4.4 10*3/uL 4.4-11.0 [facility] Internal Medicine Office Vis itoreggie 08-04-2024 Internal Medicine Office Visit [facility] [address] [place] [address] [place] [id number] OFFICE VISIT Date of Service: 08/05/24 MR#: [id number] Acct: [id number] Name: SHENA MARQUEZ Rep #: [id number] : 1960 Provider: Dr. 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 Function (more content not included)... Normal [facility] Breast imaging reportOrdered By: Bello Villegas on 07-08-2024 Study report [facility] Imaging Services [address] [place] [address] SCRN MAMM (CAD)W/BALBINA BILAT MR#: [id number] Acct: [id number] Name: SHENA MARQUEZ Rep #: [id number] : 1960 F 64 From: Elfego Villegas MD PCP: Dr. Sulma Teague MD Status: REG CLI Study:SCRN MAMM (CAD)W/BALBINA BILAT Date of Exa m: 07/08/24 Exam# [id number] Ordering Dr: Milena Escamilla NP, NP-C ADDENDUM by Dr. Bello Villegas MD on 07/08/24 at 1310 No addendum required. Reading Location: [id number] 07/08/24 1311 Date cc: BARBIE Escamilla; Dr. [...] of the results by letter. Reading Location: [id number] CC: BARBIE Escamilla; Dr. Sulma Teague MD ~ [employer]: Signed [facility] SCRN MAMM (CAD)W/BALBINA BILATo n 07-08-2024 SCRN MAMM (CAD)W/BALBINA BILAT [facility] Imaging Services [address] [place] [address] SCRN MAMM (CAD)W/BALBINA BILAT MR#: [id number] Acct: [id number] Name: SHENA MARQUEZ Rep #: [id number] : 1960 F 64 From: Bello neely MD PCP: Dr. Sulma Teague MD Status: [facility] Study: SCRN MAMM (CAD)W/BALBINA BILAT Date of Exam: 06/14 11/04 Exam# [id number] Ordering Dr: Milena Escamilla NP, NP -C ADDENDUM by Dr. Bello Villegas MD on 07/08/24 at 1310 No addendum required. Reading Location: [id number] 07/08/24 1311 Date cc: BARBIE Escamilla; Dr. [...] of the results by letter. Reading Location: [id number] CC: BARBIE Escamilla; Dr. Sulma Teague MD [employer]: Signed Normal [facility] Miscellaneous procedureOrder ed By: Milena Escamilla on 06-17-2024 Miscellaneous Test Comment SEE SCANNED REPORT [facility] NATERAon 06-17-2024 NATURA SEE SCANNED REPORT Normal [facility] Comment on above: Order Comment: Comme nts: Empower Performed By: #### L 900.0098 #### [facility] [address] [place], [address] Pail Tester Office Visit Reporton 06-17-2024 Pail Tester Office Visit Report [facility], [address] [place] [address] OFFICE VISIT Date of Service: 06/17/24 MR#: [id number] Acct: [id number] Name: SHENA MARQUEZ Rep #: [id number] : 1960 Provider: BARBIE moses Age/Sex: 64/F [place] [facility] [place]: Signed Intake Vital Signs 05/31/23 14:18 06/19/23 13:46 07/17/23 11:14 02/05/24 13:16 06/17/24 09:10 06/17/24 09:20 Height 5 ft 6 in 5 ft 6 in 5 ft 6 in 5 ft 6 in 5 ft 6 in 5 ft 6 in Weight: 189 lb 4 oz BMI 30.5 BP 120/82 H 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) Chief Complaint: Annual Chipper Feeder Required: No Is patient in pain?: No [...] (Updated 06/17/24 @ 09:53 by Milena Escamilla LAB COURIER, LAB COURIER-C) Back pain History of eye problem History of osteoarthritis History of cardiac murmur History of cataract History of back problems History of arthritis Chronic constipation Wears glasses Arthritis Non-smoker History of stress test Hemorrhoids Vision problem Osteoarthritis Surgical History (Updated 06/17/24 @ 09:52 by Milena Escamilla LAB COURIER, LAB COURIER-C) History of cataract surgery (11/17/19) History of colonoscopy (08/11/13) Status post excision of lipoma H/O eye surgery Family History Mother Diabetes Arthritis Hyperlipidemia CVA (cerebral vascular accident) Father Arthritis Heart disease Hypertension Hyperlipidemia Cancer skin Grandmother Cancer breast Aunt Cancer breast Social History (Updated 06/17/24 @ 09:18 by Doreen Eldridge) adopted: No household members: spouse current occupational status: retired 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 Strong family history of cancers and wants genetic testing. Seen last year at [facility] for intense vaginal itching". Was given clobetesol and estrogenn cream and [...] and oriented (more content not included)... Normal [facility] 09-11-2023 [facility] Telephone (ISABEL) SHENA MARQUEZ ([id number]) 1960 F NFR Date Time Provider Department 09/11/23 JARED HERNANDEZ During your visit today, we recorded the following information about you: Lyndsay Sun, RN 09/11/2023 12:40 PM Signed [facility] pharmacist called. They changed wholesalers for the Clobetasol ointment. It's now over $200 for the ointment. Asking if it can be switched to the cream. Can call the pharmacy with the change or send in a new RX. MILE Rutledge Emily, APRN.SKYLAR 09/12/2023 8:11 AM Signed Can switch to cream. Please call in. Jared Hernandez APRN.Lilly Parikh RN 09/12/2023 10:52 AM Signed [facility] pharmacy notified. 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] IRRITABLE COLON [K58.9] ABDOMINAL PAIN OTHER SPEC SITE [R10.9] OTHR MIGRNE WO NTRC MGRN [P74.309] PRURITUS OF GENITALIA [L29.3] BACTEREMIA NOS [R78.81] PURE HYPERCHOLESTEROLEM [E78.00] Lump or mass in breast [N63.0] 04/25/2010 Endometrial polyp [N84.0] 11/23/2014 Fibroids, submucosal [D25.0] 11/23/2014 Encounter Status:Closed by LILLY HIDALGO on 09/12/23 [facility] CNOVon 06-26-2023 CNOV Office Visit (OBGYWM ) SHENA MARQUEZ ([id number]) 1960 F NFR Date Time Provider Department 06/26/23 12:45 PM JARED HERNANDEZ During your visit today, we recorded the following information about you: Blood pressure Weight Height 134/82 83.9 kg 1.638 m Jared Hernandez APRN.RETAIL SERVICES PROFESSIONAL 06/26/2023 1:44 PM Signed Health Therapist offered: Patient declines. Shena is a 63 [...] L3 SAB0 IAB0 Ectopic0 Multiple0 Live Births0 Forcer Maker History LMP: 12/25/2008, Postmenopausal Age at Menarche: Age at First : Age at Menopause: Forcer Maker History Comments: Sexual Activity: Yes; Male Contraception: [...] medication updated:Yes EXAM: BP 134/82 Ht 5' 4.5" (1.64m) Wt 185 lb (83.9kg) LMP 12/25/2008 [...] external genitalia normal, normal Bartholin's glands, urethra, Owasso's glands, no vulvar lesions, no cervical lesions, [...] clobetasol, reviewed weaning regimen, not intended for bed bug exterminator use - Discussed autoimmune in nature, may have flares - Increased risk of (more content not included)... Normal [facility] BACTERIAL VAGINOSIS NAATon 0 05-27-2023 Lactobacillus crispatus+gasseri+edgardo enii + Gardnerella vaginalis + Atopobium vaginae rRNA VALDO+probe Ql (Vag fld) Negative Normal Negative for bacterial vaginosis [facility] Comment on above: Order Comment: Speci men Type: SWAB Ordering Facility: [facility] Address: [address] [place] [address] Performed By: #### C VTV, BVAMP #### [facility] CLIA [id number] [address] [place] [address] [place] WICHO/TRICHOMONAS NAATon 0 05-27-2023 C. glabrata RNA VALDO+probe Ql (Vag fld) Negative Normal Negative for Wicho glabrata [facility] Comment on above: Order Comment: Speci men Type: SWAB Ordering Facility: [facility] Address: [address] [place] [address] Performed By: #### C VTV, BVAMP #### [facility] CLIA [id number] [address] [place] [address] [place] Wicho sp DNA VALDO+probe Ql (Vag fld) Negative Normal Negative for Wicho species [facility] Comment on above: Order Comment: Speci men Type: SWAB Ordering Facility: [facility] Address: [address] [place] [address] Performed By: #### C VTV, BVAMP #### [facility] CLIA [id number] [facility] [address] OF [place] T. vaginalis DNA VALDO+probe Ql (Unsp spec) Negative Normal Negative for Trichomonas vaginalis by amplification [facility] Comment on above: Order Comment: Speci men Type: SWAB Ordering Facility: [facility] Address: [address] [place] [address] Performed By: #### C VTV, BVAMP #### [facility] CLIA [id number] [address] [place] [address] OF [place] CNOVon 05-27-2023 CNOV Office Visit (OBGYWM ) SHENA MARQUEZ ([id number]) 1960 F NFR Date Time Provider Department 05/27/23 11:30 AM JARED HERNANDEZ During your visit today, we recorded the following information about you: Pulse Respiration Blood pressure Weight 82/minute 12/minute 122/88 85.2 kg Height 1.676 m Jared Hernandez APRN.CNP 05/27/2023 12:05 PM Signed Health Therapist offered: Patient declines. Shena A Geib is a 63 year old female who [...] L3 SAB0 IAB0 Ectopic0 Multiple0 Live Births0 Forcer Maker History LMP: 12/25/2008, Postmenopausal Age at Menarche: Age at First : Age at Menopause: Forcer Maker History Comments: Sexual Activity: Not Asked; Male; [...] 122/88 Pulse 82 Resp 12 Ht 5' 6" (1.68m) Wt 187 lb 12.8 oz (85.2kg) SpO2 95% LMP 12/25/2008 BMI 30.33 kg/(m2). GENERAL: pleasant, female in no apparent distress HEENT: Normocephalic, atraumatic, mucus membranes moist, and no lesions NECK: Supple, full range of motion, no adenopathy, and thyroid normal DERMATOLOGY: Normal, without lesions, non-icteric, and non-hirsute BREAST: deferred CHEST: Normal inspiratory effort ABDOMEN: Deferred PELVIC: normal Bartholin's glands, urethra, Owasso's glands, no vulvar lesions, no cervical lesions, [...] presentation an (more content not included)... Normal [facility] Absolute lymphocyte countOrd ered By: Sulma Teague on 05-24-2023 Lymphocytes Auto (Unsp spec) [#/Vol] 1.13 10*3/uL 0.83-4.51 [facility] Basophil percentageOrdered B y: Sulma Teague on 05-24-2023 Basophils/100 WBC (Bld) 0.7 % 0-1 [facility] Bilirubin [Mass/Vol] 0.50 mg/dL 0.20-1.00 [facility] Comment on above: For patients on eltr ombopag therapy, use of Dimension [place] TBIL is not recommended. Chloride [Moles/Vol] 105 mmol/L 98-107 [facility] Cholesterol [Mass/Vol] 227 mg/dL <200 [facility] Comment on above: <200 mg/dL Desirable 200-240 mg/dL Borderline >240 mg/dL High Risk Eosinophils/100 WBC (Bld) 5.8 % 0-5 [facility] Glucose [Mass/Vol] 91 mg/dL 74-106 [facility] Neutrophils (Bld) [#/Vol] 2.7 10*3/uL 2.0-7.7 [facility] Neutrophils/100 WBC (Bld) 59.1 % 47-70 [facility] Potassium [Moles/Vol] 4.0 mmol/L 3.5-5.1 [facility] Protein [Mass/Vol] 7.6 g/dL 6.4-8.2 [facility] Sodium [Moles/Vol] 139 mmol/L 136-145 [facility] Triglyceride [Mass/Vol] 74 mg/dL <199 [facility] Comment on above: The drugs N-Acetylcy steine and Metamizole may falsely depress this assay.Serum Triglycerides Reference Interval Normal <150 mg/dL Borderline high 150 - 199 mg/dL High 200 - 499 mg/dL Very High > or = 500 mg/dL WBC (Bld) [#/Vol] 4.5 10*3/uL 4.4-11.0 [facility] Blood erythrocytes count (nu mber/volume)Ordered By: Sulma Teague on 05-24-2023 RBC (Bld) [#/Vol] 4.43 10*6/uL 4.2-5.4 [facility] Blood hemoglobin measurement (mass/volume)Ordered By: Sulma Teague on 05-24-2023 Hemoglobin (Bld) [Mass/Vol] 13.1 g/dL 12.0-15.0 [facility] Blood lymphocytes/100 leukoc ytesOrdered By: Sulma Teague on 05-24-2023 Lymphocytes/100 WBC (Bld) 25.1 % 19-41 [facility] Blood monocytes/100 leukocyt esOrdered By: Sulma Teague on 05-24-2023 Monocytes/100 WBC (Bld) 9.1 % 0-10 [facility] Blood platelet mean volumeOr dered By: Sulma Teague on 05-24-2023 Platelet mean volume (Bld) [Entitic vol] 9.7 fL 6.2-12.0 [facility] Determination of erythrocyte mean corpuscular volume (MCV)Ordered By: Sulma Teague on 05-24-2023 MCV (RBC) [Entitic vol] 90.3 fL 81-99 [facility] Hematocrit Auto (Bld) [Volum e fraction]Ordered By: Sulma Teague on 05-24-2023 Hematocrit (Bld) [Volume fraction] 40.0 % 37-47 [facility] Laboratory - Chemistry and C hemistry - challengeOrdered By: Sulma Teague on 05-24-2023 ALP [Catalytic activity/Vol] 78 U/L 45-117 [facility] ALT [Catalytic activity/Vol] 31 U/L 13-56 [facility] CO2 [Moles/Vol] 28.0 mmol/L 21.0-32.0 [facility] Globulin (S) [Mass/Vol] 3.9 g/dL 2.2-4.2 [facility] Urea nitrogen/Creatinine [Mass ratio] 22.3 mg/mg 10-20 [facility] Laboratory - Hematology and Cell countsOrdered By: Sulma Teague on 05-24-2023 Erythrocyte distribution width (RBC) [Entitic vol] 45.3 fL 35.1-43.9 [facility] Erythrocyte distribution width (RBC) [Ratio] 13.7 % 11.6-14.6 [facility] Immature granulocytes/100 WBC (Bld) 0.200 % 0.0-0.9 [facility] Comment on above: IG% - Immature Granu locytes (promyelocytes, myelocytes and metamyelocytes) > 1% indicates that a LEFT SHIFT is Present. MCH (RBC) [Entitic mass] 29.6 pg 27.0-32.0 [facility] Nucleated RBC/100 WBC (Bld) [Ratio] 0 % 0-5 [facility] MCHC Auto (RBC) [Mass/Vol]Or dered By: Sulma Teague on 05-24-2023 MCHC (RBC) [Mass/Vol] 32.8 g/dL 32-36 [facility] No Panel InformationOrdered By: Sulma Teague on 05-24-2023 Estimated GFR (MDRD) Amer 105 mL/min >60 [facility] Comment on above: GFR Calc Estimated GFR (MDRD) Non-Af Amer 87 mL/min >60 [facility] Comment on above: Non- GFR Calc Platelets bldOrdered By: Paco Teague on 05-24-2023 Platelets (Bld) [#/Vol] 264 10*3/uL 150-450 [facility] Serum or plasma albumin declan urement (mass/volume)Ordered By: Sulma Teague on 05-24-2023 Albumin [Mass/Vol] 3.7 g/dL 3.2-5.0 [facility] Serum or plasma albumin/glob ulin mass ratioOrdered By: Sulma Teague on 05-24-2023 Albumin/Globulin [Mass ratio] 0.9 {ratio} 0.9-2.4 [facility] Serum or plasma calcium declan urement (mass/volume)Ordered By: Sulma Teague on 05-24-2023 Calcium [Mass/Vol] 9.1 mg/dL 8.5-10.1 [facility] Serum or plasma cholesterol in HDL measurement (mass/volume)Ordered By: Sulma Teague on 05-24-2023 Cholesterol in HDL [Mass/Vol] 69 mg/dL >40 [facility] Comment on above: The drugs N-Acetylcy steine and Metamizole may falsely depress this assay. Reference Range HDL <40 mg/dL Low HDL Cholesterol HDL >or= 60 mg/dL High HDL Cholesterol Serum or plasma cholesterol in VLDL measurement (mass/volume)Ordered By: Sulma Teague on 05-24-2023 Cholesterol in VLDL [Mass/Vol] 15 mg/dL 5-40 [facility] Serum or plasma creatinine m easurement (mass/volume)Ordered By: Sulma Teague on 05-24-2023 Creatinine [Mass/Vol] 0.72 mg/dL 0.55-1.02 [facility] Comment on above: The validity of the calculated GFR & GFRAA in patients over 70 years has not been determined. Clinical correlation is essential. Serum or plasma low density lipoprotein (LDL) cholesterol measurement (mass/volume)Ordered By: Sulma Teague on 05-24-2023 Cholesterol in LDL [Mass/Vol] 143 mg/dL 0-130 [facility] Serum or plasma urea nitroge n measurement (mass/volume)Ordered By: Sulma Teague on 05-24-2023 Urea nitrogen [Mass/Vol] 16 mg/dL 7-18 [facility] Thin prep Papanicolaou smear with manual screeningOrdered By: Sulma Teague on 05-24-2023 Thin prep Papanicolaou smear with manual screening 28 U/L 15-37 [facility] Thin prep Papanicolaou smear with manual screening 6 5-15 [facility] CNPNon 04-18-2023 [facility] Telephone ([facility]) SHENA MARQUEZ ([id number]) 1960 F NFR Date Time Provider Department 04/18/23 BEHZAD ZACARIAS [facility] During your visit today, we recorded the [...] 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] MYALGIA AND MYOSITIS NOS [[id number]] 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] IRRITABLE COLON [K58.9] ABDOMINAL PAIN OTHER SPEC SITE [R10.9] OTHR MIGRNE WO NTR MGRN [G43.809] PRURITUS OF GENITALIA [L29.3] BACTEREMIA NOS [R78.81] PURE HYPERCHOLESTEROLEM [E78.00] Lump or mass in breast [N63.0] 04/25/2010 Endometrial polyp [N84.0] 11/23/2014 Fibroids, submucosal [D25.0] 11/23/2014 Encounter Status:Closed by JASON GRANDE on 04/18/23 Normal [facility] BACTERIAL VAGINOSIS NAATon 1 06-18-2022 Lactobacillus crispatus+gasseri+edgardo enii + Gardnerella vaginalis + Atopobium vaginae rRNA VALDO+probe Ql (Vag fld) Negative Normal Negative for bacterial vaginosis [facility] Comment on above: Order Comment: Speci men Type: SWAB Ordering Facility: [facility] Address: [address] [place] [address] Performed By: #### C VTV, BVAMP #### [facility] CLIA [id number] [address] [place] [address] [place] WICHO/TRICHOMONAS NAATon 1 06-18-2022 C. glabrata RNA VALDO+probe Ql (Vag fld) Negative Normal Negative for Wicho glabrata [facility] Comment on above: Order Comment: Speci men Type: SWAB Ordering Facility: [facility] Address: [address] [place] [address] Performed By: #### C VTV, BVAMP #### [facility] CLIA [id number] [address] [place] [address] [place] Wicho sp DNA VALDO+probe Ql (Vag fld) Negative Normal Negative for Wicho species [facility] Comment on above: Order Comment: Speci men Type: SWAB Ordering Facility: [facility] Address: [address] [place] [address] Performed By: #### C VTV, BVAMP #### [facility] CLIA [id number] [address] [place] [address] [place] T. vaginalis DNA VALDO+probe Ql (Unsp spec) Negative Normal Negative for Trichomonas vaginalis by amplification [facility] Comment on above: Order Comment: Speci men Type: SWAB Ordering Facility: [facility] Address: [address] [place] [address] Performed By: #### C VTV, BVAMP #### [facility] CLIA [id number] [address] [place] [id number] [place] CNOVon 04-17-2023 CNOV Office Visit (UCWSTR ) SHENA MARQUEZ ([id number]) 1960 F NFR Date Time Provider Department [...] PM Signed This note was created using [employer]. Subjective Shena Marquez is a 63 year [...] then the itching returned. She has tried evhy-qlo-nxphrmx medications. She has changed soaps and nothing [...] nursing note reviewed. Exam conducted with a spectrographic analyst present. Constitutional: General: She is not in [...] No lesions (more content not included)... Normal [facility] Cervical or vagninal specime n microscopic examination by cytology stain (reported asOrdered By: Dr. Eldridge on 06-27-2022 Cytology report Cyto stain Doc (Cvx/Vag) Comment . [facility] Comment on above: The Pap smear [...] DNA Probe+sig amp Ql (Cvx) Negative Negative [facility] Comment on above: This nucleic acid am plification test detects fourteen high- risk HPV types (16,18,31,33,35,39,45,51,52,56,58,59,66,68)without differentiation. Laboratory - CytologyOrdered By: Dr. Eldridge on 06-27-2022 Pollution Control Engineer Cyto stain Nom (Cvx/Vag) [ID] Comment . [facility] Comment on above: Torres Eldridge , Communications Maintainer (ASCP) Laboratory - Miscellaneous t estsOrdered By: Dr. Eldridge on 06-27-2022 Service comment (Unsp spec) [Interp] Comment . [facility] Comment on above: This liquid based Th inPrep(R) pap test was screened withthe use of an image guided system. Service comment (Unsp spec) [Interp] . . [facility] Liquid-based cerv Pap + CT/G C by VALDO w reflex to high-risk HPV for ASCUSOrdered By: Dr. Eldridge on 06-27-2022 Cytology report Cyto stain.thin prep Doc (Cvx/Vag) Comment . [facility] Comment on above: Criteria not met, HP V Genotype not performed.Performed at: - [facility] [id number] Director: Ivy Khalil MD, Phone: [phone] at: =G - [facility] [id number] Director: Ivy Khalil MD, Phone: [phone] No Panel InformationOrdered By: Dr. Eldridge on 06-27-2022 Pathology report final diagnosis Narrative Comment . [facility] Comment on above: NEGATIVE FOR INTRAEP ITHELIAL LESION OR MALIGNANCY.CELLULAR CHANGES ASSOCIATED WITH ATROPHY ARE PRESENT. Basophil percentageOrdered B y: Dr. Yeung on 06-04-2022 Chloride [Moles/Vol] 103 mmol/L 98-107 [facility] Cholesterol [Mass/Vol] 243 mg/dL <200 [facility] Comment on above: <200 mg/dL Desirable 200-240 mg/dL Borderline >240 mg/dL High Risk Glucose [Mass/Vol] 95 mg/dL 74-106 [facility] Potassium [Moles/Vol] 4.4 mmol/L 3.5-5.1 [facility] Sodium [Moles/Vol] 139 mmol/L 136-145 [facility] Triglyceride [Mass/Vol] 76 mg/dL <199 [facility] Comment on above: The drugs N-Acetylcy steine and Metamizole may falsely depress this assay.Serum Triglycerides Reference Interval Normal <150 mg/dL Borderline high 150 - 199 mg/dL High 200 - 499 mg/dL Very High > or = 500 mg/dL Laboratory - Chemistry and C hemistry - challengeOrdered By: Dr. Yeung on 06-04-2022 CO2 [Moles/Vol] 26.0 mmol/L 21.0-32.0 [facility] Urea nitrogen/Creatinine [Mass ratio] 28.8 mg/mg 10-20 [facility] No Panel InformationOrdered By: Dr. Yeung on 06-04-2022 Estimated GFR (MDRD) Amer 98 mL/min >60 [facility] Comment on above: GFR Calc Estimated GFR (MDRD) Non-Af Amer 81 mL/min >60 [facility] Comment on above: Non- GFR Calc Vitamin D 25-Hydroxy 67.6 ng/mL [facility] Comment on above: Vitamin D 25(OH) Sta tus Range Deficiency <20 ng/mL (50nmol/L) Insufficiency 20 - 30 ng/mL (50 - 75 nmol/L) Sufficiency 30 - 100 ng/mL (75 - 250 nmol/L) Toxicity >100 ng/mL (>250 nmol/L) Serum or plasma calcium declan urement (mass/volume)Ordered By: Dr. Yeung on 06-04-2022 Calcium [Mass/Vol] 9.8 mg/dL 8.5-10.1 [facility] Serum or plasma cholesterol in HDL measurement (mass/volume)Ordered By: Dr. Yeung on 06-04-2022 Cholesterol in HDL [Mass/Vol] 70 mg/dL >40 [facility] Comment on above: The drugs N-Acetylcy steine and Metamizole may falsely depress this assay. Reference Range HDL <40 mg/dL Low HDL Cholesterol HDL >or= 60 mg/dL High HDL Cholesterol Serum or plasma cholesterol in VLDL measurement (mass/volume)Ordered By: Dr. Yeung on 06-04-2022 Cholesterol in VLDL [Mass/Vol] 15 mg/dL 5-40 [facility] Serum or plasma creatinine m easurement (mass/volume)Ordered By: Dr. Yeung on 06-04-2022 Creatinine [Mass/Vol] 0.76 mg/dL 0.55-1.02 [facility] Comment on above: The validity of the calculated GFR & GFRAA in patients over 70 years has not been determined. Clinical correlation is essential. Serum or plasma low density lipoprotein (LDL) cholesterol measurement (mass/volume)Ordered By: Dr. Yeung on 06-04-2022 Cholesterol in LDL [Mass/Vol] 158 mg/dL 0-130 [facility] Serum or plasma urea nitroge n measurement (mass/volume)Ordered By: Dr. Yeung on 06-04-2022 Urea nitrogen [Mass/Vol] 22 mg/dL 7-18 [facility] Thin prep Papanicolaou smear with manual screeningOrdered By: Dr. Yeung on 06-04-2022 Thin prep Papanicolaou smear with manual screening 10 5-15 [facility] OCT MACULA CIRRUS OU (BOTH E YES) [facility] Vital Signs Date Time Vital Sign Value Performing Clinician Scottyi jose j 11-09-2024 12:45-0400 Body height 167.[address] Sulma Teague MD Work Phone: [facility] 11-09-2024 12:45-0400 Body mass index (BMI) [Ratio] 29 kg/m2 Dr. Sulma Teague MD Work Phone: [facility] 11-09-2024 12:45-0400 Body temperature 97.2 [degF] Dr. Sulma Teague MD Work Phone: [facility] 11-09-2024 12:45-0400 Body weight 81.[address] Sulma Teague MD Work Phone: [facility] 11-09-2024 12:45-0400 Diastolic blood pressure 78 mm[Hg] Dr. Sulma Teague MD Work Phone: [facility] 11-09-2024 12:45-0400 Heart rate 81 /min Dr. Sulma Teague MD Work Phone: [facility] 11-09-2024 12:45-0400 Respiratory rate 18 /min Dr. Sulma Teague MD Work Phone: [facility] 11-09-2024 12:45-0400 SaO2% (BldA) [Mass fraction] 97 % Dr. Sulma Teague MD Work Phone: [facility] 11-09-2024 12:45-0400 Systolic blood pressure 124 mm[Hg] Dr. Sulma Teague MD Work Phone: [facility] 10-27-2024 11:44-0400 Body height 167.[address] Sulma Teague MD Work Phone: [facility] 10-27-2024 11:44-0400 Body mass index (BMI) [Ratio] 29 kg/m2 Dr. Sulma Teague MD Work Phone: [facility] 10-27-2024 11:44-0400 Body temperature 97 [degF] Dr. Sulma Teague MD Work Phone: [facility] 10-27-2024 11:44-0400 Body weight 81.[address] Sulma Teague MD Work Phone: [facility] 10-27-2024 11:44-0400 Diastolic blood pressure 68 mm[Hg] Dr. Sulma Teague MD Work Phone: [facility] 10-27-2024 11:44-0400 Heart rate 76 /min Dr. Sulma Teague MD Work Phone: [facility] 10-27-2024 11:44-0400 Respiratory rate 18 /min Dr. Sulma Teague MD Work Phone: [facility] 10-27-2024 11:44-0400 SaO2% (BldA) [Mass fraction] 96 % Dr. Sulma Teague MD Work Phone: [facility] 10-27-2024 11:44-0400 Systolic blood pressure 126 mm[Hg] Dr. Sulma Teague MD Work Phone: [facility] 08-05-2024 11:36-0400 Body height 167.[address] Sulma Teague MD Work Phone: [facility] 08-05-2024 11:36-0400 Body mass index (BMI) [Ratio] 29.5 kg/m2 Dr. Sulma Teague MD Work Phone: [facility] 08-05-2024 11:36-0400 Body temperature 97.2 [degF] Dr. Sulma Teague MD Work Phone: [facility] 08-05-2024 11:36-0400 Body weight 83.[address] Sulma Teague MD Work Phone: [facility] 08-05-2024 11:36-0400 Diastolic blood pressure 78 mm[Hg] Dr. Sulma Teague MD Work Phone: [facility] 08-05-2024 11:36-0400 Heart rate 92 /min Dr. Sulma Teague MD Work Phone: [facility] 08-05-2024 11:36-0400 Respiratory rate 16 /min Dr. Sulma Teague MD Work Phone: [facility] 08-05-2024 11:36-0400 SaO2% (BldA) [Mass fraction] 95 % Dr. Sulma Teague MD Work Phone: [facility] 08-05-2024 11:36-0400 Systolic blood pressure 126 mm[Hg] Dr. Sulma Teague MD Work Phone: [facility] 06-17-2024 09:20-0500 Body height 167.[address] Sulma Teague MD Work Phone: [facility] 06-17-2024 09:10-0500 Body mass index (BMI) [Ratio] 30.5 kg/m2 Dr. Sulma Teague MD Work Phone: [facility] 06-17-2024 09:10-0500 Body weight 85.[address] Sulma Teague MD Work Phone: [facility] 06-17-2024 09:10-0500 Diastolic blood pressure 82 mm[Hg] Dr. Sulma Teague MD Work Phone: [facility] 06-17-2024 09:10-0500 Systolic blood pressure 120 mm[Hg] Dr. Sulma Teague MD Work Phone: [facility] 07-17-2023 11:14-0500 Body height 167.[address] Satnam Yeung Work Phone: [facility] 07-17-2023 11:14-0500 Body mass index (BMI) [Ratio] 29.8 kg/m2 Dr. Satnam Yeung Work Phone: [facility] 07-17-2023 11:14-0500 Body temperature 98 [degF] Dr. Satnam Yeung Work Phone: [facility] 07-17-2023 11:14-0500 Body weight 83.[address] Satnam Yeung Work Phone: [facility] 07-17-2023 11:14-0500 Diastolic blood pressure 80 mm[Hg] Dr. Satnam Yeung Work Phone: [facility] 07-17-2023 11:14-0500 Heart rate 73 /min Dr. Satnam Yeung Work Phone: [facility] 07-17-2023 11:14-0500 Respiratory rate 16 /min Dr. Satnam Yeung Work Phone: [facility] 07-17-2023 11:14-0500 SaO2% (BldA) [Mass fraction] 97 % Dr. Satnam Yeung Work Phone: [facility] 07-17-2023 11:14-0500 Systolic blood pressure 122 mm[Hg] Dr. Satnam Yeung Work Phone: [facility] 07-02-2023 11:00-0500 Body temperature 97.2 [degF] Dr. Surinder Yeung Work Phone: [facility] 07-02-2023 11:00-0500 Diastolic blood pressure 85 mm[Hg] Dr. Surinder Yeung Work Phone: [facility] 07-02-2023 11:00-0500 Heart rate 65 /min Dr. Surinder Yeung Work Phone: [facility] 07-02-2023 11:00-0500 Respiratory rate 18 /min Dr. Surinder Yeung Work Phone: [facility] 07-02-2023 11:00-0500 SaO2% (BldA) [Mass fraction] 100 % Dr. Surinder Yeung Work Phone: [facility] 07-02-2023 11:00-0500 Systolic blood pressure 126 mm[Hg] Dr. Surinder Yeung Work Phone: [facility] 07-02-2023 08:55-0500 Body height 167.[address] Surinder Yeung Work Phone: [facility] 07-02-2023 08:55-0500 Body mass index (BMI) [Ratio] 28.8 kg/m2 Dr. Surinder Yeung Work Phone: [facility] 07-02-2023 08:55-0500 Body weight 80.[address] Surinder Yeung Work Phone: [facility] 06-26-2023 12:41-0500 Body height 163.8 cm Jared Hernandez APRN.RETAIL SERVICES PROFESSIONAL Work Phone: [facility] 06-26-2023 12:41-0500 Body weight 83.92 kg Jared Hernandez APRN.RETAIL SERVICES PROFESSIONAL Work Phone: [facility] 06-26-2023 12:41-0500 Diastolic blood pressure 82 mm[Hg] Jared Hernandez APRN.RETAIL SERVICES PROFESSIONAL Work Phone: [facility] 06-26-2023 12:41-0500 Systolic blood pressure 134 mm[Hg] Jared Hernandez APRN.CNP Work Phone: [facility] 05-31-2023 14:18-0500 Body mass index (BMI) [Ratio] 30.4 kg/m2 Dr. Surinder Yeung Work Phone: [facility] 05-31-2023 14:18-0500 Body temperature 97.2 [degF] Dr. Surinder Yeung Work Phone: [facility] 05-31-2023 14:18-0500 Body weight 85.[address] Surinder Yeung Work Phone: [facility] 05-31-2023 14:18-0500 Diastolic blood pressure 79 mm[Hg] Dr. Surinder Yeung Work Phone: [facility] 05-31-2023 14:18-0500 Heart rate 89 /min Dr. Surinder Yeung Work Phone: [facility] 05-31-2023 14:18-0500 Respiratory rate 18 /min Dr. Surinder Yeung Work Phone: [facility] 05-31-2023 14:18-0500 SaO2% (BldA) [Mass fraction] 93 % Dr. Surinder Yeung Work Phone: [facility] 05-31-2023 14:18-0500 Systolic blood pressure 136 mm[Hg] Dr. Surinder Yeung Work Phone: [facility] 05-20-2023 11:10-0500 Body height 167.[address] Surinder Yeung Work Phone: [facility] 05-20-2023 11:10-0500 Body mass index (BMI) [Ratio] 30.7 kg/m2 Dr. Surinder Yeung Work Phone: [facility] 05-20-2023 11:10-0500 Body temperature 97 [degF] Dr. Surinder Yeung Work Phone: [facility] 05-20-2023 11:10-0500 Body weight 86.[address] Surinder Yeung Work Phone: [facility] 05-20-2023 11:10-0500 Diastolic blood pressure 74 mm[Hg] Dr. Surinder Yeung Work Phone: [facility] 05-20-2023 11:10-0500 Heart rate 92 /min Dr. Surinder Yeung Work Phone: [facility] 05-20-2023 11:10-0500 Respiratory rate 16 /min Dr. Surinder Yeung Work Phone: [facility] 05-20-2023 11:10-0500 SaO2% (BldA) [Mass fraction] 96 % Dr. Surinder Yeung Work Phone: [facility] 05-20-2023 11:10-0500 Systolic blood pressure 126 mm[Hg] Dr. Surinder Yeung Work Phone: [facility] 04-17-2023 16:35-0500 Body temperature 98.01 [degF] Krislyn Aberegg PA Work Phone: [facility] 04-17-2023 16:35-0500 Body weight 83.28 kg Krislyn Aberegg PA Work Phone: [facility] 04-17-2023 16:35-0500 Diastolic blood pressure 104 mm[Hg] Krislyn Aberegg PA Work Phone: [facility] 04-17-2023 16:35-0500 Heart rate 82 /min Krislyn Aberegg PA Work Phone: [facility] 04-17-2023 16:35-0500 Respiratory rate 18 /min Krislyn Aberegg PA Work Phone: [facility] 04-17-2023 16:35-0500 SaO2% (BldA) [Mass fraction] 98 % Krislyn Aberegg PA Work Phone: [facility] 04-17-2023 16:35-0500 Systolic blood pressure 166 mm[Hg] Behzad ROCHE Work Phone: [facility] Encounters Encounter Date Encounter Type Care Provider Facility Start: 02-05-2025 ambulatory Anirudh Conner Facility: [facility] Start: 12-30-2024 Encounter for other preprocedural examination Anirudh Conner [facility] Start: 12-30-2024 ambulatory Anirudh [facility] Facility: [facility] Start: 11-23-2024 End: 11-23-[address] Sulma Teague MD Work Phone: -Cardiovascular Services Start: 11-23-2024 End: 11-23-2024 Patient encounter procedure Nasir Martinez PA-C -Cardiovascular Services Work Phone: Start: 11-23-2024 End: 11-23-2024 ambulatory Nasir Martinez Facility:[facility] Start: 11-09-2024 End: 11-09-2024 Patient encounter procedure Nika VALENTIN -[facility] Work Phone: Start: 11-09-2024 End: 11-09-[address] Sulma Teague MD Work Phone: -[facility] Start: 10-28-2024 [facility] Start: 10-27-2024 End: 10-27-[address] Sulma Teague MD -[facility] Work Phone: Start: 10-27-2024 End: 10-27-[address] Sulma Teague MD [facility] Start: 10-27-2024 End: 10-27-[address] Sulma Teague MD Work Phone: [facility] Work Phone: Start: 10-21-2024 End: 10-21-2024 Non-patient / Non-visit Dr. Rigo Arriola MD -[facility] Work Phone: Start: 10-21-2024 End: 10-21-[address] Sulma Teague MD Work Phone: [facility] Work Phone: Start: 10-21-2024 End: 10-21-[address] Anirudh Conner MD -Pulmonary Services/Neurology Work Phone: Start: 10-21-2024 End: 10-21-2024 ambulatory Anirudh Conner Facility:[facility] Start: 08-17-2024 End: 08-17-[address] Sulma Teague MD Work Phone: [facility] Work Phone: Start: 08-17-2024 End: 08-17-[address] Anirudh Conner MD -Radiology, [facility] Work Phone: Start: 08-17-2024 End: 08-17-2024 ambulatory Anirudh Conner Facility:[facility] Start: 08-07-2024 End: 08-07-[address] Sulma Teague MD Work Phone: [facility] Work Phone: Start: 08-07-2024 End: 08-07-[address] Sulma Teague MD -Laboratory, [facility] Start: 08-07-2024 End: 08-07-2024 ambulatory Sulma Teague Facility:[facility] Start: 08-05-2024 End: 08-05-[address] Sulma Teague MD -[facility] Work Phone: Start: 08-05-2024 End: 08-05-2024 ambulatory Sulma Teague Facility:[facility] Start: 07-08-2024 End: 07-08-[address] Sulma Teague MD Work Phone: [facility] Work Phone: Start: 07-08-2024 End: 07-08-2024 Patient encounter procedure Milena VALENTIN -Outpatient Breast Imaging Work Phone: Start: 07-08-2024 End: 07-08-2024 ambulatory Sulma [place] Facility:[facility] Start: 06-17-2024 End: 06-17-2024 Patient encounter procedure Milena Escamilla LAB COURIER-Peg -[facility] Work Phone: Start: 06-17-2024 End: 06-17-2024 Patient encounter status Milena Escamilla LAB COURIER-C [facility] Start: 06-17-2024 End: 06-17-2024 ambulatory Sulma Ho Facility:[facility] Start: 06-17-2024 End: 06-17-2024 ambulatory Sulma [place] Facility:[facility] Start: 09-11-2023 Telephone encounter Jared peña APRN.CNP Work Phone: OB/Gynecology Comment on above: Medication Problem Start: 09-11-2023 End: 09-11-[address] Satnam Yeung Work Phone: [facility] Work Phone: Start: 09-11-2023 End: 09-11-[address] Satnam Yeung Work Phone: [facility]-Physical Therapy Work Phone: Start: 07-17-2023 End: 07-17-[address] Satnam Yeung Work Phone: [facility] Internal Medicine Work Phone: Start: 07-10-2023 End: 07-10-[address] Satnam Yeung Work Phone: [facility] Work Phone: Start: 07-04-2023 End: 07-04-[address] Satnam Yeung Work Phone: [facility]-Outpatient Breast Imaging Work Phone: Start: 07-02-2023 Non-patient / Non-visit Dr. Franklin Yeung Work Phone: [facility] Start: 07-02-2023 End: 07-02-2023 Admission to same day surgery center Dr. Surinder Yeung Work Phone: [facility]-Endoscopy Work Phone: Start: 07-02-2023 End: 07-02-[address] Surinder Yeung Work Phone: [facility] Work Phone: Start: 06-26-2023 End: 06-27-2023 ambulatory JARED HERNANDEZ Facility:[facility] Start: 06-26-2023 End: 06-26-2023 Patient encounter procedure Jared Hernandez APRN.CNP Work Phone: OB/Gynecology Comment on above: Lichen sclerosus et atrophicus (Primary Dx); Genitourinary syndrome of menopause Start: 06-19-2023 End: 06-19-[address] Surinder Yeung Work Phone: [facility] Work Phone: Start: 06-19-2023 End: 06-19-[address] Surinder Yeung Work Phone: [facility]-Outpatient Bone Densitometry Work Phone: Start: 05-31-2023 End: 05-31-[address] Surinder Yeung Work Phone: [facility] Work Phone: Start: 05-27-2023 End: 05-27-2023 ambulatory FRANCISCO GIOVANNA Facility:[facility] Start: 05-24-2023 End: 05-24-[address] Surinder Yeung Work Phone: [facility] Work Phone: Start: 05-24-2023 End: 05-24-[address] Surinder Yeung Work Phone: [facility]-Laboratory, [facility] Start: 05-20-2023 End: 05-20-[address] Surinder Yenug Work Phone: [facility] Internal Medicine Work Phone: Start: 04-18-2023 Non-patient / Non-visit Dr. Franklin Yeung Work Phone: [facility] Internal Medicine Work Phone: Start: 04-18-2023 Telephone encounter Behzad ROCHE Work Phone: [facility] Comment on above: Results Start: 04-17-2023 End: 04-17-2023 ambulatory [facility] Facility:[facility] Start: 04-17-2023 End: 04-17-2023 Patient encounter procedure Behzad ROCHE Work Phone: [facility] Comment on above: Vaginal itching (Taya leopoldo Dx); Elevated blood pressure reading without diagnosis of hypertension Start: 10-02-2022 End: 10-02-2022 ambulatory [facility] Facility:[facility] Start: 07-02-2022 End: 07-02-2022 ambulatory [facility] Work Phone: Start: 07-02-2022 End: 07-02-2022 Patient encounter procedure [facility]-Outpatient Breast Imaging Start: 06-27-2022 End: 06-27-2022 ambulatory [facility] Work Phone: Start: 06-27-2022 End: 06-27-2022 Patient encounter procedure [facility]-Laboratory, Specimen Start: 06-04-2022 End: 06-04-2022 ambulatory [facility] Work Phone: Start: 06-04-2022 End: 06-04-2022 Patient encounter procedure [facility] Start: 09-05-2021 End: 09-05-2021 Patient encounter procedure [...] 06-19-2023 Dual energy X-ray absorptiometry Dr. Surinder Yeugn Work Phone: Start: 07-02-2022 Screening mammography Start: 09-05-2021 Computerized ophthal tabitha imaging retina Murali Meng MD Work Phone: Start: 11-17-2019 History of cataract extraction History of cataract surgery Dr. Sulma Teague MD Work Phone: Start: 04-12-2017 Mammography Murali perkins MD Work Phone: Start: 08-02-2014 Colonoscopy Murali perkins MD Work Phone: Start: 12-31-2012 Lipid 1996 panel - S shiv or Plasma Behzad Zacarias PA Work Phone: Plan of Treatment Date Care Activity Detail Author Start: 04-17-2031 Urine microalbumin profile DTaP,Tdap,Td Vaccine (2 - Td or Tdap) [facility] Start: 05-20-2028 Pneumococcal Vaccine: 65+ (3 of 3 - PPSV23 or PCV20) Pneumococcal Vaccine: 65+ (3 of 3 - PPSV23 or PCV20) [facility] Start: 08-02-2024 Colonoscopy COLONOSCOPY [facility] Start: 08-02-2024 COLORECTAL CANCER SCREENING COLORECTAL CANCER SCREENING [facility] Start: 08-02-2024 Screening for malignant neoplasm of colon [facility] Start: 01-12-2024 Influenza vaccination Influenza Vaccine (Season Ended) [facility] Start: 07-10-2023 Patient referral [facility] Work Phone: Start: 07-02-2023 Screening for malignant neoplasm of breast Mammogram Screening [facility] Start: 07-02-2023 Patient discharge [facility] Start: 05-22-2023 Shingrix Vaccine (2 of 2) Shingrix Vaccine (2 of 2) [facility] Start: 05-20-2023 Patient referral [facility] Work Phone: Start: 05-13-2023 Advance Directive Discussion Advance Directive Discussion [facility] Start: 01-11-2023 Covid-19 Vaccine ( season) Covid-19 Vaccine ( season) [facility] Start: 01-11-2023 Influenza vaccination Influenza Vaccine (#1) [facility] Start: 2023 Advance Directive Discussion Advance Directive Discussion [facility] Start: 2023 Bone Density Screening Bone Density Screening [facility] Start: 2023 Pneumococcal Vaccine: 65+ (2 - PCV) Pneumococcal Vaccine: 65+ (2 - PCV) [facility] Start: 2023 Screening for osteoporosis Bone Density Screening [facility] Start: 04-12-2022 HPV TESTING HPV TESTING [facility] Start: 04-12-2022 PAP TESTING PAP TESTING [facility] Start: 04-12-2018 Mammography [facility] Start: 2018 RSV Vaccine (1 - 1-dose 60+ series) RSV Vaccine (1 - 1-dose 60+ series) [facility] Start: 12-31-2017 Lipid 1996 panel - Serum or Plasma Lipid Screening [facility] Start: 12-31-2017 Lipid panel Lipid Screening [facility] Start: 12-31-2017 LIPID SCREEN LIPID SCREEN [facility] Start: 01-01-2016 DIABETES SCREEN DIABETES SCREEN [facility] Start: 01-01-2016 Diabetes Screening Diabetes Screening [facility] Start: 07-21-2015 FECAL OCCULT BLOOD FECAL OCCULT BLOOD [facility] Start: 07-21-2015 Screening for malignant neoplasm of colon Fecal Occult Blood [facility] Start: 01-04-2008 SHINGRIX VACCINE (1 of 2) SHINGRIX VACCINE (1 of 2) [facility] Start: 2003 COLOGUARD (FIT-DNA) COLOGUARD (FIT-DNA) [facility] Start: [address] COLONOGRAPHY [facility] Start: 2003 Screening for malignant neoplasm of colon [facility] Start: 2003 SIGMOIDOSCOPY SIGMOIDOSCOPY [facility] Start: 1977 Urine microalbumin profile DTAP,TDAP,TD (1 - Tdap) [facility] Start: 01-04-1976 HEPATITIS C SCREENING HEPATITIS C SCREENING [facility] Start: 01-04-1976 Hepatitis C screening Hepatitis C Screening [facility] Start: 01-04-1976 HIV SCREENING HIV SCREENING [facility] Start: 01-04-1976 HIV screening HIV Screening [facility] BACTERIAL VAGINOSIS NAAT BACTERI AL VAGINOSIS NAAT Lab Routine Vaginal itching 04/17/2023 7:24 PM EST [facility] Work Phone: WICHO/TRICHOMONAS NAAT WICHO /TRICHOMONAS NAAT Lab Routine Vaginal itching 04/17/2023 7:24 PM EST [facility] Work Phone: Colonoscopy [facility] DXA Bone [Mass/Area] Bone density [facility] Patient referral [facility] Work Phone: Urinalysis complete panel - Urine [facility] Immunizations Immunization Date Immunization Notes Care Provider Elena gant 07-10-[address] Sulma Teague MD Work Phone: [facility] 05-20-2023 pneumococcal conjuga te vaccine, [address] Surinder Yeung Work Phone: [facility] 03-27-[address] Surinder Yeung Work Phone: [facility] 01-28-2022 Covid Pfizer Bivalen t Booster Dr. Surinder Yeung Work Phone: [facility] 01-28-2022 influenza, injectabl e, quadrivalent, preservative free Dr. Surinder Yeung Work Phone: [facility] 01-28-2022 influenza virus vacc ine, unspecified formulation Behzad ROCHE Work Phone: [facility] 10-14-2021 Covid (Moderna) Dr. Edy Yeung Work Phone: [facility] 04-17-2021 tetanus toxoid, redu heydi diphtheria toxoid, and acellular pertussis vaccine, adsorbed Dr. Surinder Yeung Work Phone: [facility] 03-28-2021 Covid (Moderna) Dr. Edy Yeung Work Phone: [facility] 03-28-2021 influenza, injectabl e, quadrivalent, preservative free Dr. Surinder Yeung Work Phone: [facility] 03-13-2021 Covid (Moderna) Dr. Edy Yeung Work Phone: [facility] 07-22-2020 Covid (Moderna) Dr. Edy Yeung Work Phone: [facility] 06-24-2020 Covid (Moderna) Dr. Edy Yeung Work Phone: [facility] 01-28-2020 influenza, injectabl e, quadrivalent, preservative free Dr. Surinder Yeung Work Phone: [facility] 03-27-2018 influenza, injectabl e, quadrivalent, preservative free Dr. Surinder Yeung Work Phone: [facility] 12-09-2017 pneumococcal polysaccharide vaccine, [address] Surinder Yeung Work Phone: [facility] Payers Date Payer Category Payer Medicare [id number] 2023 Self-pay [id number] 2022 Medicare MEDICARE MEDICAR E A AND B [id number] 2022-Present [phone] [address] [address] [place] [address] Medicare [id number] 2022 Medicare [id number] 2018 Unknown MMO MMO [employer] [id number] 2018-Present [phone] [address] [place] [address] PPO [id number] 2006 Unknown [id number] Medicare PLAN G [id number] Unknown [id number] Unknown [id number] Unknown [id number] Unknown [id number] Unknown [id number] Unknown [id number] Unknown [id number] Unknown [id number] Unknown [id number] Unknown [id number] Unknown [id number] Unknown [id number] Unknown [id number] Social History Date Type Detail Facility Start: 04-17-2023 End: 06-17-2024 Tobacco smoking status NHIS Never smoked tobacco [facility] Start: 09-05-2021 End: 04-17-2023 Alcohol intake Current non-drinker of alcohol (finding) [facility] Start: 1960 Sex Assigned At Female [facility] Start: 04-17-2023 Tobacco use and exposure Smokeless tobacco non-user [facility] Start: 04-16-2020 End: 04-17-2023 History of Social function [facility] Start: 04-16-2020 End: 04-17-2023 Tobacco use panel [facility] National Score (1-100), lower number is lower risk Not on file [facility] Start: 11-15-2020 Gender identity Identifies as female gender (finding) [facility] Start: 05-20-2023 End: 07-17-2023 Tobacco smoking status NHIS Unknown if ever smoked [facility] Start: 06-26-2023 Alcohol intake Ex-drinker (finding) [facility] Start: 07-21-2024 End: 08-20-2024 Sex Female (finding) [facility] Medical Equipment Procedure Code Equipment Code Equipment Origin al Text Equipment Identifier Dates Gas [employer] Intraocular Vision System [id number] - [id number] Start: 04-13-2020 Goals Date Patient Goal Desired Activity /State Mental Status Date Assessment Result Facility 07-02-2023 Cognitive function Level Of Consciousness Sedated [facility] Work Phone: 07-02-2023 Cognitive function Voice/Name [facility] Work Phone: Clinical Notes 09-05-2021 to 10-22-2024 Note Date & Type Note Facility 10-22-2024 Radiology Diagnostic study note [facility] Imaging Services [address] [place] [address] Extremity Lower without Contra MR#: [id number] Acct: [id number] Name: SHENA MARQUEZ Rep #: [id number] : 1960 F 64 From: Olga Sylvester MD PCP: Dr. Sulma Teague MD Status: REG CLI Study:Extremity Lower without Contra Date of Exam: 10/21/24 Exam# [id number] Ordering Dr: Mark Conner MD PROCEDURE: EXTREMITY [...] Teague MD; Dr. Anirudh Conner MD ~ [employer]: Signed [facility] 08-20-2024 Radiology Diagnostic study note [facility] Imaging Services [address] [place] [address] Bone Length MR#: [id number] Acct: [id number] Name: SHENA MARQUEZ Rep #: [id number] : 1960 F 64 From: Sarah Adams MD PCP: Dr. Sulma Teague MD Status: REG CLI Study:Bone Length Date of Exam: 08/17/24 Exam# [id number] Ordering Dr: Mark Conner MD EXAM: XR [...] atelectasis 78 cm. Reading [facility] CC: Dr. Sulma Teague MD; Dr. Anirudh Conner MD ~ [employer]: Signed [facility] 08-05-2024 Evaluation note Diagnosis Onset Date Resolution Hyperlipidemia acute July 11:37am Chronic insomnia noneactive August 052024 11:37am Fibromyalgia noneactive August 05, 2024 11:37am Annual physical exam noneactive [facility] 2024 11:37am Chronic pain of both knees noneactive August 05, 2024 11:37am Chronic insomnia noneactive October 11:35am Preoperative clearance noneactive Aaliyah ibarra 2024 11:35am Fibromyalgia noneactive October 27, 2 025 11:35am Chronic pain of both knees noneactive October 27, 2024 11:35am [facility] Work Phone: 1(688) 463-160303-26-2025 Evaluation note* Diagnosis Onset Date Resolution Status Admit Date Hyperlipidemia acute July 11:37am Chronic insomnia noneactive August 052024 11:37am Fibromyalgia noneactive August 05, 2024 11:37am Annual physical exam noneactive [facility] 2024 11:37am Chronic pain of both knees noneactiv e August 05, 2024 11:37am Hyperlipidemia acute October 27, 2024 11:35am Chronic insomnia noneactive October 11:35am Preoperative clearance noneactive [facility] 2024 11:35am Fibromyalgia noneactive October 27 11:35am Chronic pain of both knees noneactiv e October 27, 2024 11:35am [facility] Work Phone: 1(999) 377-114403-26-2025 Evaluation note* Diagnosis Onset Date Resolution Status Admit Date Hyperlipidemia acute July 11:37am Chronic insomnia noneactive August 052024 11:37am Fibromyalgia noneactive August 05, 2024 11:37am Annual physical exam noneactive [facility] 2024 11:37am Chronic pain of both knees noneactiv e August 05, 2024 11:37am Hyperlipidemia acute October 27, 2024 11:35am Chronic insomnia noneactive October 11:35am Preoperative clearance noneactive [facility] 2024 11:35am Fibromyalgia noneactive October 27 11:35am Chronic pain of both knees noneactiv e October 27, 2024 11:35am Concern about urinary tract disease without diagnosis acute October 132024 12:37pm Low back pain acute November 09, 2024 12:37pm [facility] Work Phone: 1(315) 197-643902-05-2025 Evaluation note* Diagnosis Onset Date Resolution Status Admit Date Family history of breast cancer acute June 17 9:08am Family history of cancer acute June 17, 2024 9:08am Encounter for routine gynecological examination noneactive 2024 9:08am [facility] Work Phone: 1(684) 142-935802-05-2025 Evaluation note* Diagnosis Onset Date Resolution Status [...] knees noneactiv e August 05, 2024 11:37am [facility] Work Phone: 1(658) 204-221505-02-2024 Telephone encounter Note* Telephone Encounter - Lilly Hidalgo RN - 09/12/2023 10:52 AM EDT [facility] pharmacy notified. Lilly Hidalgo RN [facility]05-02-2024 Miscellaneous Notes* Telephone Encounter - Lilly Hidalgo RN - 09/12/2023 10:52 AM EDT [facility] pharmacy notified. Lilly Hidalgo RN * Telephone Encounter - Jared Hernandez APRN.CNP - 09/12/2023 8:11 AM EDT Can switch to cream. Please call in. Jared Hernandez APRN.CNP * Telephone Encounter - Lyndsay Sun RN - 09/11/2023 12:38 PM EDT [facility] pharmacist called. They changed wholesalers for the Clobetasol ointment. It's now over $200 for the ointment. Asking if it can be switched to the cream. Can call the pharmacy with the change or send in a new RX. Lyndsay Sun RN [facility] Telephone encounter Note * Telephone Encounter - Jared Hernandez APRN.CNP - 09/12/2023 8:11 AM EDT Can switch to cream. Please call in. Jared Hernandez APRN.CNP [facility]05-01-2024 Telephone encounter Note* Telephone Encounter - Lyndsay Sun RN - 09/11/2023 12:38 PM EDT [facility] pharmacist called. They changed wholesalers for the Clobetasol ointment. It's now over $200 for the ointment. Asking if it can be switched to the cream. Can call the pharmacy with the change or send in a new RX. Lyndsay Sun RN [facility]05-01-2024 Discharge summary Author Torres Bonilla [facility] September 11, 2023 11:24am Note Date/Time September 11, 2023 11:07a m [facility] Physical Therapy [facility] [address] [place] [address] [address] [place] [id number] / REHABILITATION SERVICES DISCHARGE SUMMARY MR#: [id number] Acct: [id number] Name: SHENA MARQUEZ Rep #: [id number] : 1960 63 From: Cert. BALA IvoryT, OCS Referring Dr.: Dr. Sulma Teague MD [...] please feel free to call me at [phone]. Thank you for the referral of thispatient. Sincerely, Torres Bonilla, PT, Cert T, DASH Balance/Gait/Functional tests Balance/Special Test Scores Lower Extremity Functional Score: 54 Improvement % Improvement: 70 <Electronically signed by Torres Bonilla PT Cert. PATRIZIA, DASH> 09/11/23 1124 CC: Dr. Sulma Teague MD ~ FABRICIO Signed [facility] Work Phone: 1(930) 987-682402-20-2024 History and physical note Author Dale Edwards [facility] July 02, 2023 10:03am Note Date/Time July 02, 2023 10:03am [facility] Medical Records Department [address] [place] [address] History & Physical Exam 07/02/23 1003 MR#: [id number] Acct: [id number] Name: SHENA MARQUEZ Rep #:[id number] : 1960 63 From: Dale prather MD PCP: Dr. Sulma Teague MD Status:[facility] Location: [place] [address] History and Physical Date of Admission: 07/02/23 [...] SCREENING Chief Complaint: Hemorrhoidconsult and c-scope consult Chipper Feeder Required: No Is patient in pain?: No [...] (compound) #1 ea 05/31/23 [Rx Confirmed 05/31/23] [facility] Medical History (Updated 05/31/23 @ 15:[address] 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 Dale Edwards MD Pager: [facility] [address] [place] [address] [address] [place], [address] [place] [address] Office: I have examined the patient and the H&P has been reviewed. There are no clinicalchanges since date of exam. 07/02/23 1003 <Electronically signed by Dale Edwards MD> Cosigner Signature (if applicable): CC: Dr. Sulma Teague MD; Dr. Dale Edwards MD~ Signed [facility] Work Phone: [phone] Procedure [facility] 07-02-2023 Procedure [facility]02-14-2024 NoteHNO ID: [id number] Author: JARED HERNANDEZ APRN.RETAIL SERVICES PROFESSIONAL Service: ? Author Type: Nurse Practitioner Type: Progress Notes Filed: 06/26/2023 13:44 Note Text: Health Therapist offered: Patient declines. Shena is a 63 [...] L3 SAB0 IAB0 Ectopic0 Multiple0 Live Births0 Forcer Maker History LMP: 12/25/2008, Postmenopausal Age at Menarche: Age at First : Age at Menopause: Forcer Maker History Comments: Sexual Activity: Yes; Male Contraception: [...] medication updated:Yes EXAM: BP 134/82 Ht 5' 4.5" (1.64m) Wt 185 lb (83.9kg) LMP 12/25/2008 [...] external genitalia normal, normal Bartholin's glands, urethra, Owasso's glands, no vulvar lesions, no cervical lesions, [...] clobetasol, reviewed weaning regimen, not intended for bed bug exterminator use - Discussed autoimmune in nature, may have flares - Increased risk of SCC by about 5%, recommend yearly visits 2. 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 Consider having an [facility] [place] [place] blood test for further cardiac risk assessment [...] salmon and sardines and vegetables, such as Taiwanese cabbage, kale, and broccoli. Foods fortified with [...] acid, calcium carbonate is found in some stbt-bmx-ijickix antacid products, such as Tums and Rolaids [...] prescribed by your doctor. documented [facility] History of Present illness Narrative* Jared Hernandez APRN.CNP - 06/26/2023 12:38 PM EST Health Therapist offered: Patient declines. Shena is a 63 year old who presents for a follow up of vaginal itching, likely caused by lichen and atrophy. She has been using clobetasol cream nightly and reports that symptoms have significantly improved. She is postmenopausal. Has not used HRT in the past. Her last ap smear was NILM and HPV negative [id number]. She is sexually active, but does report dryness and irritation, resulting in painful intercourse. She also has occasional post coital bleeding. She is experiencing a major hot flash every nightbefore bed. She walks 3 times per week. 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 Forcer Maker History LMP: 12/25/2008, Postmenopausal Age at Menarche: Age at First : Age at Menopause: Forcer Maker History Comments: Sexual Activity: Yes; Male Contraception: [...] medication updated:Yes EXAM: BP 134/82 Ht 5' 4.5" (1.64m) Wt 185 lb (83.9kg) LMP 12/25/2008 [...] external genitalia normal, normal Bartholin's glands, urethra, Owasso's glands, no vulvar lesions, no cervical lesions, [...] clobetasol, reviewed weaning regimen, not intended for fpc use - Discussed autoimmune in nature, may [...] Level: 4 - Moderate documented in [facility]Prov[facility]01-15-2024 NoteHNO ID: [id number] Author: JARED HERNANDEZ APRN.CNP Service: ? Author Type: Nurse Practitioner Type: Progress Notes Filed: 05/27/2023 12:05 Note Text: Health Therapist offered: Patient declines. Shena Marquez is a [...] L3 SAB0 IAB0 Ectopic0 Multiple0 Live Births0 Forcer Maker History LMP: 12/25/2008, Postmenopausal Age at Menarche: Age at First : Age at Menopause: Forcer Maker History Comments: Sexual Activity: Not Asked; Male; [...] 122/88 Pulse 82 Resp 12 Ht 5' 6" (1.68m) Wt 187 lb 12.8 oz (85.2kg) SpO2 95% LMP 12/25/2008 BMI 30.33 kg/(m2). GENERAL: pleasant, female in no apparent distress HEENT: Normocephalic, atraumatic, mucus membranes moist, and no lesions NECK: Supple, full range of motion, no adenopathy, and thyroid normal DERMATOLOGY: Normal, without lesions, non-icteric, and non-hirsute BREAST: deferred CHEST: Normal inspiratory effort ABDOMEN: Deferred PELVIC: normal Bartholin's glands, urethra, Owasso's glands, no vulvar lesions, no cervical lesions, [...] improvement after 2 wee (more content not included)...[facility]12-07-2023 Miscellaneous Notes * Telephone Encounter - Jason Grande MA - 04/18/2023 1:15 PM EST Patient notified of results, verbalized understanding of instructions given. Jason Grande MA * Telephone Encounter - Behzad Zacarias PA - 04/18/2023 11:35 AM EST Please call patient let her know she was negative for yeast and bacterial vaginosis. Follow-up with[facility] as discussed at visit. documented in this encounterProvidence Hospital12-06-2023 NoteHNO ID: [id number] Author: Behzad Zacarias PA Service: ? Author Type: Physician Media Developer Type: Progress Notes Filed: 04/17/2023 5:00 PM Note Text: This note was created using [employer]. Kimberly Marquez is a 63 year old [...] then the itching returned. She has tried imch-ngb-kagbbsq medications. She has changed soaps and nothing [...] nursing note reviewed. Exam conducted with a spectrographic analyst present. Constitutional: General: She is not in [...] postmenopausal. Discussed she ne (more content not included)...[facility] 04-17-2023 History of Present illness Narrative* Behzad Zacarias PA - 04/17/2023 4:54 PM EST This note was created using [employer]. Subjective Shena Marquez is a 63 year [...] then the itching returned. She has tried hgdh-kbq-inpfiml medications. She has changed soaps and nothing [...] nursing note reviewed. Exam conducted with a spectrographic analyst present. Constitutional: General: She is not in [...] ER evaluation. KALEY Chambers documented in this encounterProvidence Hospital12-06-2023 Instructions* Patient Instructions* Behzad Zacarias PA - 04/17/2023 4:52 PM EST Follow up with Gynecology/[facility] for nexta vailable appointment. documented in this encounterProvidence Hospital05-23-2023 NoteHNO ID: [id number] Author: Murali Meng MD Service: ? Author Type: Physician Type: Progress Notes Filed: 10/02/2022 11:53 AM Note Text: This is a 60 year old woman with history of macular hole right eye s/p Pars plana vitrectomy/gas 05/[address] Samuels at [facility] ([place], [place]) s/p Pars plana vitrectomy/MS/22% SF6 gas [...] and agree with all of its relevant components.[facility]02-15-2023 NotePap Smear Specimen Adequacy February 2022 11:27amComment.Satisfactory for evaluation. Endocervical component may not bedistinguished in cases of atrophy.[facility] INTERFACED A#[id number] Clinic Euclid HospitalComment on above:Satisfactory for evaluation. Endocervical component may not bedistinguished in cases of atrophy. 06-27-2022 NotePap Smear Specimen AdequacyFebr2022 11:27amComment. Satisfactory for evaluation. Endocervical component may not bedistinguished in cases of atrophy.[facility] INTERFACED A#[id number] Clinic Euclid HospitalComment on above:Satisfactory for evaluation. Endocervical component may not bedistinguished in cases of atrophy.09-05-2021 History of Present illness Narrative* Murali Meng MD - 09/05/2021 3:53 PM EDT This is a 60 year old woman with history of macular hole right eye s/p Pars plana vitrectomy/gas 05/[address] Samuels at [facility] ([place], [place]) s/p Pars plana vitrectomy/MS/22% SF6gas left [...] of its relevant components. 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 [facility] encounter [facility] noteNo assessment information availableWFort Hamilton Hospital Work Phone: Evaluation note* Diagnosis Vaginal itching- Primary Pruritus of genital organs Elevated blood pressure reading without diagnosis of hypertension [facility]* Diagnosis Onset Date Resolution Status Screening for colon cancer n oneactive Immunization due noneactive Establishing care with new doctor, encounter for noneactive Lipoma noneactive Chronic insomnia noneactive Fibromyalgia noneactive Post-menopausal noneactive Chronic pain of both knees n oneactive Hemorrhoid noneactive Anal fissure acute Encounter for screening for malignant neoplasm of colon acute [facility] Work Phone: Evaluation note* Diagnosis 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 [facility]* Diagnosis Onset Date Resolution Status Screening for colon cancer n oneactive Immunization due noneactive Establishing care with new doctor, encounter for noneactive Lipoma noneactive Chronic insomnia noneactive Fibromyalgia noneactive Post-menopausal noneactive Chronic pain of both knees n oneactive Hemorrhoid noneactive Anal fissure acute Encounter for screening for malignant neoplasm of colon acute Anal fissure acute Chronic constipation chronic Allergic dermatitis acute [facility] Work Phone: Reason for referral (narrative)No reason for referral information availableWFort Hamilton Hospital Work Phone: Medications Administered Section Active Administered Medications - up to 3 most recent administrations Medication Order MAR Action Action Date Dose Rate Site fluorescein-benoxinate 0.25-0.4 % 1 Drop (FLURESS) 1 Drop, BOTH EYES, DIRECTED, Starting on Sat09/05/21 at 1400, Until Sat09/06/21 at 0159, Administer for applanation tonometry. In the event of a Fluress shortage, administer 1 drop of [place]-Fluor into both eyes as directed for applanation [...] FoundDocuments on File Type Date Recorded Patient Program Management Professional Expl anation Advance Directive(s) 04/11/2020 2:35 PM Advance Directive Response Recorded Date/ Time Living Will Yes June 19 1:46pm Power of Managed Care Manager Yes June 19, 2023 1:46pm Advance Directive Response Recorded Date/ Time Name of Medical Power of Managed Care Manager BRYCEKALLI KARLIE June 13, 2023 11:20am Living Will Yes June 19 1:46pm Power of Managed Care Manager Yes June 19, 2023 1:46pm Advance Directive Response Recorded Date/ Time Name of Medical Power of Managed Care Manager KALLI KARLIE June 13, 2023 12:20pm Living Will Yes June 19 2:46pm Power of Managed Care Manager Yes June 19, 2023 2:46pm Advance Directive Response Recorded Date/ Time Living Will Yes January 15 1:21pm Power of Managed Care Manager Yes January 16, 2024 1:21pm Advance Directive Response Recorded Date/ Time Living Will Yes January 15 1:21pm Do you have a Healthcare Power of Managed Care Manager? Yes January 16, 2024 1:21pm Chief Complaint and Reason for Visit Chief Complaint SCREENING Chief Complaint Amb Documentation LAB COURIER EST CARE-PPW SENT Chief Complaint Amb Documentation LAB COURIER EST CARE-PPW SENT HEMORRHOID AND COLONOSCOPY SCREENING ASYMPTOMATIC MENOPAUSAL STATE Reason for Visit Screening for colon cancer Immunization due Establishing care with new doctor, encounter for Lipoma Chronic insomnia Fibromyalgia Post-menopausal Chronic pain of both knees Hemorrhoid Anal fissure Encounter for screening for malignant neoplasm of colon Chief Complaint LAB COURIER EST CARE-PPW SENT HEMORRHOID AND COLONOSCOPY SCREENING [...] Allergic dermatitis Chief Complaint Admit Date Annual (INTERNATIONAL STUDENT COUNSELOR) June 17, 2024 9 :08am SCREENING July 08, 2024 10:36am Reason for Visit Admit Date Family history of breast cancer June 17, 2024 9:08am Family history of cancer June 17 9:08am Encounter for routine gynecological exam ination June 17, 2024 9:08am Chief Complaint Admit Date Annual (INTERNATIONAL 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 COUNSELOR) June 17, 2024 9 :08am SCREENING July [...] POSSIBLE UTI November 09, 2024 12:3 7pm Chief Complaint Admit Date MED REFILL August 05, 2024 11: 37am PRE OP October 21, 2024 8:12 am PRE OP October 21, 2024 8:35 am SURGICAL CLEARANCE October 27, 2024 11:3 5am POSSIBLE UTI November 09, 2024 12:3 7pm Presence of right artificial knee joint November 23, 2024 2:39pm Reason for Visit Admit Date Hyperlipidemia August 05, 2024 11: 37am Chronic insomnia August 05, 2024 11: 37am Fibromyalgia August 05, 2024 11: 37am Annual physical exam August 05, 2024 11 :37am Chronic pain of both knees August 05 025 11:37am Hyperlipidemia October 27, 2024 11:3 5am Chronic insomnia October 27, 2024 11:3 5am Preoperative clearance October 27, 2024 1 1:35am Fibromyalgia October 27, 2024 11:3 5am Chronic pain of both knees October 27 11:35am Concern about urinary tract disease with out diagnosis November 09, 2024 12:37pm Low back pain November 09, 2024 12:3 7pm Reason for Referral Specialty Diagnoses / Procedures Referred By Contac t Referred To Contact Gynecology Diagnoses Vaginal itching Procedures CONSULT TO GYNECOLOGY OFFICE/OUTPATIENT NEW HIGH MDM 60-74 MINUTES [facility] [address] [place] [address] Referral ID Status Reason Start Date Expiration Date Visits Requested Visits Authorized [id number] Authorized PCP Requested Referral Auto-Generate d Referral [...] or prosecute any alcohol or drug abuse patient.Prov[facility] HospitalIn the event this information is protected by the Federal Confidentiality of Alcohol and Drug Abuse Patient Records regulations: The Federal rules restrict any use of the information to criminally investigate or prosecute any alcohol or drug abuse patient.Providence HospitalIn the event this information is protected by the Federal Confidentiality of Alcohol and Drug Abuse Patient Records regulations: The Federal rules restrict any use of the information to criminally investigate or prosecute any alcohol or drug abuse patient.Providence HospitalIn the event this information is protected by the Federal Confidentiality of Alcohol and Drug Abuse Patient Records regulations: The Federal rules restrict any use of the information to criminally investigate or prosecute any alcohol or drug abuse patient.Providence HospitalIn the event this information is protected by the Federal Confidentiality of Alcohol and Drug Abuse Patient Records regulations: The Federal rules restrict any use of the information to criminally investigate or prosecute any alcohol or drug abuse patient.[facility] Reason for Visit (unrecogniz ed section and content) Reason Comments Vitreomacular adhesion of both eyes Reason Comments Vaginal Problem Itching and bloody x 3 months intermittent Reason Comments Results Reason Comments Yearly Exam Reason Comments Medication Problem Care Teams (unrecognized sec tion and content) Systems Test Engineer Relationship Specialty Start Date End Date Salud Sargent MD [address] [facility] [address] [place] [address] PCP - General 07/01/03 Team Status: Active [...] Dr. Nikki Eldridge DO Attending Provider Active Systems Test Engineer Relationship Specialty Start Date End Date Salud Sargent MD [address] [facility] [address] [place] [address] PCP - General 07/01/03 Systems Test Engineer Relationship Specialty Start Date End Date Salud Sargent MD [address] [facility] [address] [place] [address] PCP - General 07/01/03 Team Status: Active [...] Sulma Teague MD Primary Care Provider Active Systems Test Engineer Relationship Specialty Start Date End Date Salud Sargent MD [address] [facility] [address] [place], [place] [address] PCP - General 07/01/03 Team Status: Active [...] Care Provider, Referri ng Provider Active Jorge ROCHE, PA Attending Provider Active Systems Test Engineer Relationship Specialty Start Date End Date Salud Sargent MD [address] [facility] [address] [place] [address] PCP - General 07/01/03 Team Status: Active Member Role Status Dates Dr. Sulma Teague MD Primary Care Provider Active Team Status: Inactive Member Role Status Dates Dr. Sulma Teague MD Primary Care Provider Active Start: June 17, 2024 End: June 17, 2024 Dr. Sulma Teague MD Referring Provider Active Start: June 17, 2024 End: June 17, 2024 Milena Escamilla LAB COURIER, LAB COURIER-C Attending Provider Active Start: June 17, 2024 End: June 17, 2024 Team Status: Inactive Member Role Status Dates Dr. Sulma Teague MD Primary Care Provider Active Start: June 17, 2024 End: June 17, 2024 Milena Escamilla LAB COURIER, LAB COURIER-C Attending Provider Active Start: June 17, 2024 End: June 17, 2024 Milena Escamilla LAB COURIER, LAB COURIER-C Referring Provider Active Start: June 17, 2024 End: June 17, 2024 Team Status: Inactive Member Role Status Dates Dr. Sulma Teague MD Primary Care Provider Active Start: July 08, 2024 End: July 08, 2024 Milena Escamilla LAB COURIER, LAB COURIER-C Attending Provider Active Start: July 08, 2024 End: July 08, 2024 Milena Escamilla LAB COURIER, LAB COURIER-C Referring Provider Active Start: July 08, 2024 [...] November 09, 2024 End: November 09, 2024 Team Status: Inactive Member Role/Relationship Status Dates Dr. Sulma Teague MD Primary Care Provider Active Start: November 23, 2024 End: November 23, 2024 Nasir ROCHE PA-C Attending Provider Active Start: November 23, 2024 End: November 23, 2024 Nasir ROCHE PA-C Referring Provider Active Start: November 23, 2024 End: November 23, 2024 Goals (unrecognized section and content) Goals [...] section and content) DATE CREATED AUTHOR 09/13/2023 [facility] DATE CREATED AUTHOR AUTHOR'S MARBELLA PAPPAS 02/04/2025 [facility] FOR RECORDS PERTAINING TO PATIENTS WHO ARE [...] BE BASED ON THE PRIMARY CLINICAL RECORDS. [employer] provides no warranty or guarantee of the accuracy or completeness of information in this document.
== END | disposition home or self-care (01) ==
LOC: CT 12:50
PROVIDERS: PCP Internal Medicine; Referring Provider Specialist; Visit Provider Specialist
DX: M17.12 Unilateral primary osteoarthritis, left knee (principal)
CPT/HCPCS: 73700